=== PATIENT | male | born 1955 | race African-American/Black ===

== ENCOUNTER 2018-11-15 09:57 | Outpatient (CLI) | payer MEDICARE, MEDICAID | END 2018-11-15 09:58 | disposition home or self-care (01) | LOC: CTENTCT 09:57 | PROVIDERS: ATTEND Specialist | DX: R09.81 Nasal congestion (principal) | CPT/HCPCS: 70486 ==

== ENCOUNTER 2018-12-06 11:14 | Inpatient (IN) | payer MEDICARE, MEDICAID ==
[2018-12-06] MEDS ORDERED: Midazolam HCl 2 mg/2 ml Vial ONE (12:53)
[2018-12-06] MEDS ORDERED: Fentanyl 100 MCG/2 ML VIAL ONE ×3 (12:53→15:05)
[2018-12-06] MEDS ORDERED: Lidocaine 4% Topical Sol 50 ML BOT ONE (12:53)
[2018-12-06 12:54] LABS: #Eosinphils 0.1 thou/uL (0.0-0.7); #Lymphocytes 1.2 thou/uL (1.20-3.40); #Monocytes 0.8 thou/uL (0.11-0.59); #Neutrophils 4.2 thou/uL (1.40-6.50); %Basophils 0.6 % (0.0-1.0); %Lymphocytes 19.2 % (21.0-51.0); %Monocytes 11.9 % (0.0-10.0); %Neutrophils 67.2 % (42.0-75.0); Hemoglobin 12.2 g/dL (14.0-18.0); Mean Corpuscular HGB CONC 31.7 g/dL (32.0-36.0); Mean Corpuscular Hemoglobin 30.3 pg (27.0-31.0); Mean Corpuscular Volume 95.4 fL (78.0-98.0); Mean Platelet Volume 6.2 fL (7.4-10.4); Platelet Count 283 thou/uL (130-400); Red Blood Cell (RBC) Count 4.04 mill/uL (4.70-6.10); White Blood Cell (WBC) Count 6.3 thou/uL (4.8-10.8)
[2018-12-06] MEDS ORDERED: EPINEPHrine 1 MG/ML AMP ONE (13:04)
[2018-12-06] MEDS ORDERED: Lidocaine 1% w/Epinephrine 1:100K 20 ML VIAL ONE (13:04)
[2018-12-06 13:12] LABS: ALT (SGPT) 15 U/L (8-55); AST (SGOT) 16 U/L (5-34); Albumin 3.7 g/dL (3.4-4.8); Alkaline Phosphatase 58 U/L (40-150); Anion Gap 12 mmol/L (10-20); BUN (Urea Nitrogen) 10 mg/dL (8.4-25.7); Bilirubin, Total 0.4 mg/dL (0.2-1.2); Calc. Creatinine Clearance 0 mL/min (70-130); Calcium 9.4 mg/dL (7.8-10.44); Carbon Dioxide 28 mmol/L (23-31); Chloride 100 mmol/L (98-107); Estimated GFR-MDRD Greater than 90; Glucose 107 mg/dL (80-115); Potassium 4.2 mmol/L (3.5-5.1); Protein, Total 7.7 g/dL (5.8-8.1); Sodium 136 mmol/L (136-145)
[2018-12-06] MEDS ORDERED: Benzocaine 20% Spray 60 ML CAN ONE (13:19)
--- NOTE | 2018-12-06 13:42 | RAD ---
PORTABLE CHEST ONE VIEW: 12/06/2018 1:03 p.m. HISTORY: Dyspnea. Cough. Sore throat. COMPARISON: 11/16/2018 FINDINGS: The heart size is normal. There is evidence of old granulomatous disease. No focal areas of consoli dation, pneumothoraces, or pleural effusions are seen. IMPRESSION: No radiographic evidence of acute cardiopulmonary process. POS: OFF
[2018-12-06] MEDS ORDERED: Clindamycin/D5W 900 mg/50 ml Premix Bag ONE (14:14)
--- NOTE | 2018-12-06 14:41 | HP ---
The patient seen in consultation by the emergency room for upper airway distress. BRIEF HISTORY: A 63-year-old gentleman, who reported worsening breathing and dysphonia progressive over the past 5 months now to the point where he is having acute airway episodes when he lays down or has thick secretions. He had a CT scan of his neck performed last week with Dr. Lara. He was actually supposed to follow up today, but he has had progression of his symptoms. CT scan of the neck confirms a large supraglottic mass on the left side extending and involving the vocal cord and possibly the subglottic area. The airway was marginal. He reports mild dysphagia to solids and liquids progressive over the past 2 to 3 months. PAST MEDICAL HISTORY: HIV. PAST SURGICAL HISTORY: Lower limb amputation. ALLERGIES: NO KNOWN DRUG ALLERGIES. MEDICATIONS: HIV antiviral, monotherapy only. FAMILY HISTORY: Positive for diabetes and hypertension. SOCIAL HISTORY: Quit smoking in 2005. He denies any IV drug use or alcohol. REVIEW OF SYSTEMS: GENERAL: He has had no fevers or chills. RESPIRATORY: He has had increasing upper airway, shortness of breath, cough, and wheezing. HEME: No history of bleeding disorders. Immunizations up to date. CARDIOVASCULAR: No chest pains. No orthopnea. PHYSICAL EXAMINATION: GENERAL: The patient is resting in bed, fairly comfortably. He does have some inspiratory stridor present. Voice is harsh and raspy. He is tolerating his secretions well. HEENT: Oral cavity, oropharynx shows no trismus. Mucosa is intact. NECK: Shows no obvious lymphadenopathy or masses. Thyroid and laryngeal structures appear to be within normal limits by bimanual palpation. EARS: TMs intact. Middle ear is well aerated. PROCEDURE: Flexible laryngoscopy was performed at the bedside. Topical anesthesia was applied to the nasal cavity. Following this, the flexible laryngoscope was used to examine the nasal cavity and nasopharynx, which was clear. There is a large left supraglottic mass involving the left elvira epiglottis, left aryepiglottic fold extending through the left false vocal cord and true vocal cords, and unable to assess for subglottic extension. The right vocal cord is mobile; however, the airway is less than 3 mm to 5 mm. Piriform sinuses on the right vallecula and base of tongue appear to be clear. ASSESSMENT: 1. 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 2. Upper airway obstruction. 3. Stridor. 4. Dysphagia. PLAN: Discussed risks, benefits, and alternatives of direct laryngoscopy, biopsy and emergent tracheostomy. We will proceed to the operating room emergently to secure his airway. Job ID: [id number]
[2018-12-06] MEDS ORDERED: PROPOFOL 200 MG/20 ML VIAL ONE (15:06)
[2018-12-06] MEDS ORDERED: Ondansetron PF 4 MG/2 ML Vial ONE (15:06)
[2018-12-06] MEDS ORDERED: Dexamethasone 20 MG/5 ML VIAL ONE (15:06)
[2018-12-06] MEDS ORDERED: Hydrocodone-Acetamin 15 ML UDCUP PO PRN (16:03)
[2018-12-06] MEDS ORDERED: Ondansetron PF 4 MG/2 ML Vial SLOW IVP PRN (16:06)
[2018-12-06] MEDS: Hydrocodone-Acetamin 15 ML UDCUP PO PRN (16:34)
[2018-12-06] MEDS: Sodium Chloride 0.45% 1,000 ML IV SCH (16:44)
--- NOTE | 2018-12-06 17:13 | RAD ---
PORTABLE AP CHEST X-RAY 12/06/18 HISTORY: Post tracheostomy. COMPARISON: 12/06/18 at 1303 hours. FINDINGS: There has been interval placement of a tracheostomy device. The cardiac silhouette and bronchovascula r markings are accentuated by shallow depth o inspiration. There is increased density seen at each l azar base probably related to atelectasis, although aspiration pneumonitis right lung base cannot be e ntirely excluded. Followup chest x-ray with better depth of inspiration is recommended. There is evid ence of prior granulomatous disease. The cardiac silhouette is magnified by projection but may be mil dly enlarged. Pulmonary vasculature is within normal limits. IMPRESSION: 1. Linear densities left lung base probably related to atelectasis, but there is also linear and slight hazy patchy densities in the right lung base which may be related to atelectasis as well, but aspiration pneumonitis cannot be entirely excluded. Follow up chest x-ray with better depth of inspi ration is recommended. 2. Interval placement of tracheostomy device. POS: CRISTIAN
[2018-12-06] MEDS ORDERED: CEFAZOLIN 2 GM in Premix Bag 1 BAG IVPB SCH (18:00)
--- NOTE | 2018-12-06 18:26 | CON ---
DATE OF CONSULTATION: 12/06/2018 CONSULTING PHYSICIAN: Dr. Taylor. REASON FOR CONSULTATION: Postop CCU management. HISTORY OF PRESENT ILLNESS: Mr. Cobian is a 63-year-old male, who is just back from the OR with fresh tracheostomy. He presented to the ER with impending airway obstruction from a supraglottic mass. I cannot get much in the way history other than what is in the history and physical as the patient cannot communicate. PAST MEDICAL HISTORY: HIV and peripheral vascular disease. PAST SURGICAL HISTORY: He has had a left foot amputation and a right ojvmp-xoe-hysh amputation and a tracheostomy today. ALLERGIES: NONE. MEDICATIONS: Not sure. FAMILY MEDICAL HISTORY: Diabetes and hypertension. SOCIAL HISTORY: Quit smoking in 2005. Apparently, does not use alcohol or illicit drugs. REVIEW OF SYSTEMS: Cannot be obtained as the patient cannot communicate locally at this time. PHYSICAL EXAMINATION: VITAL SIGNS: O2 saturation 94%, respiratory rate 18, blood pressure 120/70, and pulse 130. GENERAL: He is awake. He is coughing. HEENT: Pupils react. Sclerae icteric. Oropharynx dry. NECK: Fresh trach in place with some bleeding on the outer edges. He has swelling on the left side of his neck. CARDIAC: S1 and S2, tachycardic. LUNGS: Clear. ABDOMEN: Soft and nontender. EXTREMITIES: Right gyesi-xco-qwxz amputation and left bbxew-rzr-[id number] amputation. LABORATORY DATA: Sodium 136, potassium 4.2, BUN 10, creatinine 0.8, glucose 107, calcium 9.4. White blood cell count 6.3, hematocrit 38.5, and platelet count 283. ASSESSMENT: Status post tracheostomy for impending airway obstruction. PLAN: Definitive treatment with tracheostomy has been performed. His home medications will be sought and restarted. Further care per his primary care team. No further Pulmonary/Critical Care recommendations at this time. Job ID: [id number]
[2018-12-06] MEDS: methylPREDNISolone Sod Succ 40 MG VIAL IVP SCH (18:29)
--- NOTE | 2018-12-06 18:57 | OP ---
DATE OF PROCEDURE: 12/06/2018 PREOPERATIVE DIAGNOSES: 1. Upper airway obstruction. 2. Stridor. 3. Laryngeal mass. 4. Dysphagia. POSTOPERATIVE DIAGNOSES: 1. Upper airway obstruction. 2. Stridor. 3. Laryngeal mass. 4. Dysphagia. PROCEDURES PERFORMED: 1. Direct laryngoscopy with biopsy. 2. Emergent tracheotomy. ESTIMATED BLOOD LOSS: 50 mL. COMPLICATIONS: None. ANESTHESIA: GETA. DESCRIPTION OF PROCEDURE: The patient was taken to the operating room, awake, fiberoptic intubation was attempted by Anesthesia staff and myself, however, secondary to the mass effect of the larynx, the tube was unable to be safely advanced into the airway and therefore, emergent tracheotomy procedure was declared. The patient's neck was prepped and draped in standard surgical fashion. A horizontal incision was made approximately 2 cm above the sternal notch. This incision was carried through skin and subcutaneous tissue. The strap muscles were identified and were in the midline. The thyroid gland was then identified and was transected with the Bovie electrocautery in its midline. The thyroid gland retracted laterally. The trachea was exposed and a 15 blade and curved scissors were used to create an inferiorly based Blair tracheal flap. The 2-0 silk suture was secured to this tracheal flap and a 6-0 Shiley cuffed tube with placed into the trachea. Bilateral breath sounds were obtained and tidal CO2 was obtained and the trach was secured to the patient's neck. Following this, the mouth guard was placed into the oral cavity. A shoulder roll was placed and a Dedo laryngoscope was then used to visualize oral cavity and oropharynx, which showed no mucosal lesions. On inspection of the larynx, there was a large left aryepiglottic mass extending and involving the lateral aspect of the epiglottis that did not cross the midline of the epiglottis. The mass then extended posteriorly to involve the entire left arytenoid, left false vocal cord, and left true vocal cord. There appeared to be 5 mm of subglottic extension. The piriform sinuses on this left side, the medial wall was involved with the tumor of the lateral wall and anterior wall and posterior wall of the left piriform sinuses showed no evidence of tumor. The remaining laryngeal structures showed no signs of mucosal disease. Biopsies were taken off the left-sided aryepiglottic mass. The patient tolerated the procedure well, was taken to the ICU in stable condition. Job ID: [id number]
[2018-12-06] MEDS: Famotidine/PF 20 mg/2ml Vial SLOW IVP SCH (21:11)
[2018-12-07] MEDS: methylPREDNISolone Sod Succ 40 MG VIAL IVP SCH ×5 (00:28→23:26)
[2018-12-07] MEDS: Sodium Chloride 0.45% 1,000 ML IV SCH ×3 (00:28→16:26)
[2018-12-07] MEDS: Hydrocodone-Acetamin 15 ML UDCUP PO PRN (00:29)
[2018-12-07] MEDS: Scopolamine 1.5 mg/72 hour Patch TD SCH (08:36)
[2018-12-07] MEDS: Famotidine/PF 20 mg/2ml Vial SLOW IVP SCH ×2 (08:37→20:50)
--- NOTE | 2018-12-07 08:38 | PRG ---
DATE OF SERVICE: 12/07/2018 SUBJECTIVE: The patient is doing okay except for secretions from trach. OBJECTIVE: VITAL SIGNS: On exam, temperature is 97.9, pulse 77, blood pressure 116/78, and O2 sat 97%. HEENT: Unremarkable. NECK: Trach in good position with secretions present. CARDIAC: S1 and S2, regular. LUNGS: Clear. ABDOMEN: Soft, nontender. EXTREMITIES: No edema. LABORATORY DATA: No labs were obtained. ASSESSMENT: 1. Status post trach for supraglottic obstruction secondary to tumor. 2. Human immunodeficiency virus. PLAN: Add scopolamine patch. Continue low-dose steroids for a day or two. Can go out to the floor any time if okay with ENT. No further recommendations at this time. Job ID: [id number]
[2018-12-08] MEDS: methylPREDNISolone Sod Succ 40 MG VIAL IVP SCH ×3 (05:54→17:44)
[2018-12-08] MEDS: Famotidine/PF 20 mg/2ml Vial SLOW IVP SCH ×2 (10:08→20:30)
--- NOTE | 2018-12-08 22:02 | CON ---
DATE OF CONSULTATION: SUBJECTIVE: Mr. Cobian is being visited for a postprocedure tracheotomy that was performed in the emergency room on Tuesday by Dr. Taylor. He has been admitted since then. The patient reports that he is doing well. He is currently on 28% oxygen with the trach and is having a suction regularly. OBJECTIVE: Mr. Cobian is a well-developed and well-nourished -[place] male. He is HIV positive. He currently has a trach in place with oxygen being administered through the trach again at 28%. Trach site is healing well. There is no sign of infection. He states that when the oxygen is removed and then he is on suction, he still feels like he can breath normally. He has not yet received any kind of home care training to date, otherwise he is doing well. ASSESSMENT: 1. Supra-epiglottal mass. 2. Postop visit tracheotomy. 3. Human immunodeficiency virus positive. PLAN: 1. Respiratory therapy will begin to wean off oxygen and teach trach care and suctioning. 2. Speech therapy for Passy-Haywood valve. 3. Social work will work with home trach supplies and home suction kit along with trach supplies for a #6 trach. 4. Nursing also to teach general trach care. 5. When all teaching has been completed and supplies are in place, to include home suction machine in all trach supplies. Okay to discharge per Ear, Nose, and Throat. 6. Follow up with Dr. Taylor at clinic. Job ID: [id number]
[2018-12-09] MEDS: methylPREDNISolone Sod Succ 40 MG VIAL IVP SCH ×4 (00:28→17:55)
[2018-12-09] MEDS: Famotidine/PF 20 mg/2ml Vial SLOW IVP SCH ×2 (08:12→21:00)
[2018-12-10] MEDS: methylPREDNISolone Sod Succ 40 MG VIAL IVP SCH ×5 (01:05→23:56)
[2018-12-10] MEDS: Scopolamine 1.5 mg/72 hour Patch TD SCH (08:49)
[2018-12-10] MEDS: Famotidine/PF 20 mg/2ml Vial SLOW IVP SCH ×2 (08:49→20:13)
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
[2018-12-11] MEDS: methylPREDNISolone Sod Succ 40 MG VIAL IVP SCH ×3 (06:08→18:00)
[2018-12-11] MEDS: Famotidine/PF 20 mg/2ml Vial SLOW IVP SCH ×2 (09:05→20:13)
[2018-12-11] MEDS: Senokot S 8.6-50 MG TAB PO SCH ×2 (09:06→20:13)
[2018-12-11 12:15] VITALS: BMI 28.0
--- NOTE | 2018-12-11 14:28 | PDOC.PN ---
- Subjective Encounter Start Date: 12/11/18 Encounter Start Time: 02:00 Subjective: PATIENT EVALAUTED AND MEDICAL MANAGEMENT AFEBRILE AND S/P TRACH - Objective FULL SUPPORT MAR Reviewed: Yes Vital Signs & Weight: Vital Signs (12 hours) Temp Pulse Resp BP BP Pulse Ox 12/11/18 12:34 98.3 F 108 H 16 137/70 95 12/11/18 08:38 98.4 F 71 16 145/75 H 94 L 12/11/18 08:00 94 L 12/11/18 04:00 98.3 F 63 16 131/70 96 Weight Admit Weight 168 lb 3.403 oz Weight 168 lb 3.403 oz Most Recent Monitor Data Heart Rate from ECG 103 NIBP 153/80 NIBP BP-Mean 104 Respiration from ECG 20 SpO2 98 I&O: 12/10/18 12/11/18 12/12/18 06:59 06:59 06:59 Intake Total 960 290 Output Total 1225 800 Balance -265 -510 Result Diagrams: 12/06/18 12:37 12/06/18 12:37 Phys Exam - Physical Examination TRACH IN PLACE HEENT: moist MMs Neck: no nodes, no JVD Respiratory: no wheezing, no rales Cardiovascular: RRR, no significant murmur Gastrointestinal: soft, non-tender, no distention Musculoskeletal: no edema, pulses present Neurological: non-focal, normal sensation Lymphatic: no nodes Psychiatric: normal affect, A&O x 3 Skin: no rash Dx/Plan (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 - NEOPLASM OF UNCERTAIN BEHAVIOR OF TRACHEA, BRONCHUS AND LUNG Status: Acute (2) HIV (human immunodeficiency virus infection) Code(s): B20 - HUMAN IMMUNODEFICIENCY VIRUS [HIV] DISEASE Status: Acute Qualifiers: HIV symptom status: asymptomatic Qualified Code(s): Z21 - Asymptomatic human immunodeficiency virus [HIV] infection status (3) GERD (gastroesophageal reflux disease) Code(s): K21.9 - GASTRO-ESOPHAGEAL REFLUX DISEASE WITHOUT ESOPHAGITIS Status: Acute (4) Tracheostomy care Code(s): Z43.0 - ENCOUNTER FOR ATTENTION TO TRACHEOSTOMY Status: Acute - Plan plan discussed w/ family, respiratory therapy, incentive spirometry MEDICAL MANAGEMENT * . DISCHARGE PLAN PER PRIMARY TEAM
--- NOTE | 2018-12-11 22:31 | CON ---
DATE OF CONSULTATION: 12/11/2018 REQUESTING PHYSICIAN: Dr. Roman Taylor. REASON FOR CONSULTATION: PEG tube placement. HISTORY OF PRESENT ILLNESS: Mr. Yrn Cobian is a very pleasant 63-year-old gentleman with a history of HIV, on antiviral therapy. He quit smoking in 2005. He presented to the emergency department with stridor and shortness of breath, complained of some mild dysphagia to solids and liquids over the past 2 to 3 months. He was found to have a large supraglottic mass by CT of the neck. He was actually taken for emergent tracheostomy and biopsy of this supraglottic mass. 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 Over the past few days since then, he has been recovering, getting use to his tracheostomy. He reports no shortness of breath. He is handling his secretions okay. He tells me that he has been having some dysphagia to solids and liquids, really more over the past several days, less so prior to presentation. We are consulted for consideration of PEG tube placement given the dysphagia, new tracheostomy, also potentially radiation therapy/chemotherapy being planned. The patient has had no prior abdominal surgeries. PAST MEDICAL HISTORY: HIV. PAST SURGICAL HISTORY: Left lower limb amputation. ALLERGIES: NO KNOWN DRUG ALLERGIES. MEDICATIONS: 1. Hydrocodone p.r.n. 2. DuoNebs p.r.n. 3. IV cefazolin q.8 hours. 4. Pepcid 20 mg IV b.i.d. 5. Solu-Medrol 20 mg IV q.6 hours. 6. Scopolamine patch. 7. Senna p.r.n. FAMILY HISTORY: Positive for diabetes and hypertension. SOCIAL HISTORY: Quit smoking in 2005. No IV drug use or alcohol abuse. REVIEW OF SYSTEMS: Full review of systems including constitutional, head, eyes, ears, nose, throat, GI, , cardiovascular, respiratory, musculoskeletal, neurologic systems is negative except as noted in the HPI. PHYSICAL EXAMINATION: VITAL SIGNS: Temperature 98.3, pulse 108, blood pressure 137/70, and 95% oxygen saturation on room air. GENERAL: A 63-year-old man sitting up in bed comfortably, in no distress. MENTAL: He is alert and fully oriented. Pleasant, conversational. He can give a coherent history and answers questions appropriately through writing and by physical gestures. EYES: No scleral icterus. Extraocular movements intact. ENT: He has a tracheostomy. Mucous membranes are moist. THYROID: Nontender to palpation. HEART: Regular rate and rhythm. LUNGS: Clear to auscultation bilaterally. ABDOMEN: Soft. Bowel sounds present. Nontender to palpation. No masses or organomegaly appreciated. No surgical scars apparent to the left upper quadrant. EXTREMITIES: No peripheral edema. He is status post left kuqfa-cyf-nrvt amputation. VESSELS: Radial pulses 2+ bilaterally. NEUROLOGIC: Cranial nerves 2 through 12 intact bilaterally. LABORATORY STUDIES: WBC 6.3, hemoglobin 12.2, and platelets 283. Sodium 136, potassium 4.2, BUN 10, and creatinine 0.80. Total bilirubin 0.4, alkaline phosphatase 58, AST 16, and ALT 15. Albumin 3.7. ASSESSMENT AND PLAN: Oropharyngeal dysphagia, secondary to supraglottic carcinoma and new tracheostomy. I had a long discussion with the patient that PEG tube placement is certainly indicated in his case. He is tolerating food at this time, but does have some progressive dysphagia and expect symptoms very well may worsen with upcoming treatments. We discussed the risks and benefits to PEG tube placement. He desires to proceed. We scheduled this for tomorrow. Thank you for the consultation. Please call back anytime with questions or concerns. Job ID: [id number]
[2018-12-12] MEDS ORDERED: Bacteriostatic Water 30 ML VIAL FS PRN (01:06)
[2018-12-12] MEDS: methylPREDNISolone Sod Succ 40 MG VIAL IVP SCH ×4 (01:33→17:26)
[2018-12-12] MEDS: Senokot S 8.6-50 MG TAB PO SCH ×2 (08:48→22:00)
[2018-12-12] MEDS: Famotidine/PF 20 mg/2ml Vial SLOW IVP SCH ×2 (08:48→22:00)
--- NOTE | 2018-12-12 12:00 | PDOC.PN ---
- Subjective Encounter Start Date: 12/12/18 Encounter Start Time: 10:00 Subjective: PATIENT HAS DIFFICULTY EATING OR DRINKING WITH ASPIRATION PREC. - Objective FULL SUPPORT MAR Reviewed: Yes Vital Signs & Weight: Vital Signs (12 hours) Temp Pulse Resp BP BP Pulse Ox 12/12/18 11:28 98.2 F 83 16 149/75 H 94 L 12/12/18 08:16 98.3 F 78 16 116/71 94 L 12/12/18 08:00 94 L 12/12/18 06:47 97 12/12/18 04:00 98.1 F 80 20 118/84 95 12/12/18 00:00 98 F 76 18 121/65 93 L Weight Admit Weight 168 lb 3.403 oz Weight 168 lb 3.403 oz Most Recent Monitor Data Heart Rate from ECG 103 NIBP 153/80 NIBP BP-Mean 104 Respiration from ECG 20 SpO2 98 I&O: 12/11/18 12/12/18 12/13/18 06:59 06:59 06:59 Intake Total 960 775 290 Output Total 1225 800 Balance -265 -25 290 Result Diagrams: 12/06/18 12:37 12/06/18 12:37 Phys Exam - Physical Examination HEENT: moist MMs TRACH IN PLACE Neck: no JVD, supple Respiratory: no wheezing, no rales, no rhonchi Cardiovascular: no significant murmur, no rub Gastrointestinal: soft, non-tender, no distention, positive bowel sounds Musculoskeletal: pulses present RIGHT AKA AND LEFT FOOT AMPUTATION H/O Neurological: non-focal, normal sensation Psychiatric: normal affect, A&O x 3 Skin: no rash Dx/Plan (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 - NEOPLASM OF UNCERTAIN BEHAVIOR OF TRACHEA, BRONCHUS AND LUNG Status: Acute (2) HIV (human immunodeficiency virus infection) Code(s): B20 - HUMAN IMMUNODEFICIENCY VIRUS [HIV] DISEASE Status: Acute Qualifiers: HIV symptom status: asymptomatic Qualified Code(s): Z21 - Asymptomatic human immunodeficiency virus [HIV] infection status (3) GERD (gastroesophageal reflux disease) Code(s): K21.9 - GASTRO-ESOPHAGEAL REFLUX DISEASE WITHOUT ESOPHAGITIS Status: Acute (4) Tracheostomy care Code(s): Z43.0 - ENCOUNTER FOR ATTENTION TO TRACHEOSTOMY Status: Acute - Plan continue antibiotics PATIENT SCHEDULED FOR PEG TUBE PLACEMENT TODAY. * .
[2018-12-12] MEDS ORDERED: PROPOFOL 200 MG/20 ML VIAL ONE (14:28)
[2018-12-12] MEDS ORDERED: Lidocaine 1% PF 5 ML VIAL ONE (14:28)
[2018-12-12] MEDS ORDERED: Sodium Chloride 0.9% 0 ML ONE (15:06)
[2018-12-12] MEDS ORDERED: Sodium Chloride For Inhalation 0.9% 3 ML NEB ONE (15:07)
--- NOTE | 2018-12-12 17:09 | CON ---
DATE OF CONSULTATION: SUBJECTIVE: Mr. Cobian continues to be in the hospital post emergency tracheostomy due to a supraglottic mass. He is doing well. He is beginning to tolerate his Passy Brennan valve better. Speech Therapy continues to work with him for some swallowing dysfunction, but overall, doing well. OBJECTIVE: Mr. Cobian is well developed and well nourished. He is in very good spirits. Tracheostomy is in place. There appears to be no sign of any infection. He is sitting up on the side of his bed. He is overall doing well. He is still remained on liquid diet due to his swallowing dysfunction. ASSESSMENT: 1. Postoperative tracheostomy. 2. Supraglottic mass. 3. Human immunodeficiency virus positive. PLAN: 1. Speech therapy to continue to work with him for swallowing dysfunction. Continue liquid diet. 2. GI consult for possible G-tube placement. 3. Dr. Taylor to follow up to discuss supraglottic mass and what will need to be done there. Job ID: [id number]
--- NOTE | 2018-12-12 21:31 | PRG ---
DATE OF SERVICE: SUBJECTIVE: Mr. Cobian continues to improve. He is doing well with his trach. He has received all of his training. He feels comfortable using suction and all other aspects. Reports that he will get his G-tube placed today and then he will receive training on that. OBJECTIVE: Mr. Cobian is a well developed, well nourished. He is in good spirits. He was sitting upright upon entering the room. The trachea is in place. Appears well. No problems there. ASSESSMENT: 1. Tracheostomy. 2. Supraglottic mass. 3. Human immunodeficiency virus positive. PLAN: After G-tube placement and proper training, okay to discharge with all necessary supplies for trach. Follow up with ENT upon discharge. Job ID: [id number]
[2018-12-13] MEDS: methylPREDNISolone Sod Succ 40 MG VIAL IVP SCH ×2 (01:37→06:42)
--- NOTE | 2018-12-13 08:08 | OP ---
DATE OF PROCEDURE: 12/12/2018 PREOPERATIVE DIAGNOSIS: Oropharyngeal dysphagia. DESCRIPTION OF PROCEDURE: After informed consent was obtained, the patient was placed in the left lateral decubitus position. Anesthesia was administered per the Anesthesia Department. Forward-viewing endoscope was inserted into esophagus under direct visualization with ease and passed to the second portion of the duodenum with ease. No mucosal abnormalities were noted. The area was prepped and draped in usual manner. Anesthesia was applied with 1% lidocaine. A needle was inserted through the abdominal wall. An guidewire was passed, snared and brought out of the abdominal wall after a small incision was made. The PEG tube was brought through the abdominal wall, reinsertion of the endoscope showed the PEG bumper to be in good position. ASSESSMENT: Successful percutaneous endoscopic gastrostomy. RECOMMENDATIONS: Begin tube feedings in 8 hours. Job ID: [id number]
[2018-12-13] MEDS: Senokot S 8.6-50 MG TAB PO SCH ×2 (08:27→20:29)
[2018-12-13] MEDS: Scopolamine 1.5 mg/72 hour Patch TD SCH (08:27)
[2018-12-13] MEDS: Famotidine/PF 20 mg/2ml Vial SLOW IVP SCH ×2 (08:28→20:29)
--- NOTE | 2018-12-13 11:29 | PRG ---
DATE OF SERVICE: 12/13/2018 SUBJECTIVE: The patient had his PEG tube placed yesterday. He does not have much complaints to offer. There was no any unexpected event overnight. OBJECTIVE: VITAL SIGNS: Blood pressure is 119/74, pulse is 80, respiratory rate is 14, temperature is 98.6, O2 saturation is 99% on 6 L by trach collar. HEENT: His head is atraumatic and normocephalic. Eyes are PERRLA. Sclerae are nonicteric. Conjunctivae are palish. Oral mucosa is moist. NECK: Tracheostomy is in place. HEART: S1 and S2, normal. No S3. No S4. No any murmur. ABDOMEN: Soft and nontender. PEG tube is in place. Bowel sounds are present. No organomegaly. EXTREMITIES: Right xjwbo-tjc-ueqo amputee. Left jvbsy-cxm-kjskr amputee. 1+ peripheral edema. NEUROLOGIC: He is alert and oriented. He is able to follow my commands. There are no any motor deficits. LABORATORY DATA: None. IMPRESSION: 1. Supraglottic mass, status post biopsy, awaiting for pathology report. 2. Human immunodeficiency virus, asymptomatic. The patient did not get his home medications to take since we do not have this medication on formulary. 3. Tracheostomy placement. 4. Gastroesophageal reflux disease. PLAN: The patient is tolerating 50 mL of 1.5 formula. I think this is the right rate according to calculation made by a funeral driver/dietitian, and we will continue that. Most likely, he will be switched to bolus if he tolerates his feeding by tomorrow, and we will switch him from IV steroids to p.o. prednisone 20 mg once a day. Job ID: [id number]
--- NOTE | 2018-12-13 17:51 | PRG ---
DATE OF SERVICE: 12/13/2018 Mr. Cobian is doing well after PEG placement yesterday. He has no complaints other than a mild amount of soreness at the site. Tube feeds are going in just fine. No abdominal pain, nausea, or vomiting associated with this. The PEG site looks good. I loosened the external bumper to distance of 5 cm. Tube feeds are being advanced per dietitian's recommendations and hopefully will be able to go to bolus feeds tomorrow. GI will sign off, but please call back anytime with questions or concerns. Job ID: [id number]
[2018-12-14] MEDS ORDERED: predniSONE 20 MG TAB PO SCH (08:00)
[2018-12-14] MEDS: Senokot S 8.6-50 MG TAB PO SCH (08:30)
[2018-12-14] MEDS: Famotidine/PF 20 mg/2ml Vial SLOW IVP SCH (08:38)
--- NOTE | 2018-12-14 11:53 | PRG ---
DATE OF SERVICE: 12/14/2018 SUBJECTIVE: The patient is seen and examined at the bedside. He seems to be doing okay. There was no any unexpected events overnight. OBJECTIVE: VITAL SIGNS: Blood pressure is 100/64, pulse is 81, temperature is 98.1, respiratory rate is 18, O2 saturation is 99% on a 6 L by tracheal collar. HEENT: His eyes are PERRLA. Sclerae are nonicteric. Oral mucosa is moist. NECK: With tracheostomy tube in place. LUNGS: Clear. HEART: S1, S2 normal. ABDOMEN: Soft, nontender, nondistended. PEG tube in place. EXTREMITIES: Right qtizs-hoo-mcte amputee and left boxho-zve-ggqbx amputee. Stump looks good. NEUROLOGIC: He is alert and oriented x3. There are no any motor deficits. LABORATORY DATA: None. IMPRESSION: 1. Supraglottic mass, status post biopsy. Awaiting for pathology report. 2. Human immunodeficiency virus, asymptomatic. 3. Tracheostomy in place. 4. Status post PEG tube placement. The patient is tolerating feeding well without any residuals. PLAN: Switch him to bolus feeding per dietitian and from my point, the patient can be discharged home on a tapering dose of prednisone. Job ID: [id number]
[2018-12-14 16:32] VITALS: BP 122/72; TEMP 98.7
[2018-12-15] MEDS ORDERED: predniSONE 20 MG TAB PO SCH (08:00)
[2018-12-18] MEDS ORDERED: predniSONE 20 MG TAB PO SCH (08:00)
[2018-12-20] MEDS ORDERED: predniSONE 5 MG TAB PO SCH (08:00)
[2018-12-22] MEDS ORDERED: predniSONE 5 MG TAB PO SCH (08:00)
== END 2018-12-14 16:30 | disposition home health service (06) | DRG 13 ==
LOC: ERS 11:14 → CCU 14:43 → SURG B 12-07 19:21
PROVIDERS: ADMIT Otolaryngology Plastic Surgery within the Head & Neck; ATTEND Otolaryngology Plastic Surgery within the Head & Neck
PROC: 0B110F4 Bypass Trachea to Cutaneous with Tracheostomy Device, Open Approach (ICD-10-PCS; principal; 2018-12-06)
PROC: 0CBR0ZX Excision of Epiglottis, Open Approach, Diagnostic (ICD-10-PCS; 2018-12-06)
PROC: 0DH63UZ Insertion of Feeding Device into Stomach, Percutaneous Approach (ICD-10-PCS; 2018-12-12)
DX: C32.1 Malignant neoplasm of supraglottis (principal); R13.12 Dysphagia, oropharyngeal phase; Z21 Asymptomatic human immunodeficiency virus [HIV] infection status; Z87.891 Personal history of nicotine dependence; K21.9 Gastro-esophageal reflux disease without esophagitis; D64.9 Anemia, unspecified; Z89.512 Acquired absence of left leg below knee; Z79.899 Other long term (current) drug therapy; Z89.611 Acquired absence of right leg above knee
CPT/HCPCS: 36415; 71045; 80053; 85025; 88305; 88313; 88341; 88342; 94640; J0171; J0690; J1100; J2001; J2250; J2405; J2704; J2920; J3010; J3490; J7620; S0028

== ENCOUNTER 2019-01-02 14:26 | Outpatient (CLI) | payer MEDICARE, MEDICAID ==
--- NOTE | 2019-01-02 16:25 | PET ---
FPET with CT skull to mid thigh CLINICAL HISTORY: Larynx cancer Reference is made to 11/30/2018 CT exam Radiopharmaceutical: 10.8 mCi fluorine 18 FDG IV. FINDINGS: The previously mentioned mass centered at the supraglottic and infraglottic larynx, effacing the norm al left vocal cord, with mass effect and rightward deviation at the level of the glottis is redemonst rated and hypermetabolic activity is confirmed, with SUV maximum ranging between 13-14. Separate foci of adjacent hypermetabolic activity of the left neck, notably at the left suprahyoid region demonstr ating SUV maximum of 10, compatible with metastatic adenopathy. Additional hypermetabolic lymph nodes of the left cervical chain with SUV maximum up to 7.3 are present within a left level 2 and 3 region . There is hypermetabolic activity involving the bilateral muscles of mastication as well as the tong ue bilaterally, which may relate to physiologic activity. There is a hypermetabolic nodule of the ant erior left upper lobe with SUV maximum of approximately 3.3. This does indicate metastatic disease. T here are numerous additional bilateral pulmonary nodules also indicative of metastatic disease, in li ght of concomitant findings. There is altered biodistribution with diffuse uptake within the body wall musculature which does decr ease sensitivity of the evaluation. An indwelling tracheostomy is present. There is also a percutaneous gastrostomy. Scattered granulomat ous calcifications are seen. There is a noninflamed fat-containing periumbilical hernia. IMPRESSION: Evidence of malignancy spanning the supraglottic to infraglottic larynx with metastatic a denopathy and pulmonary metastatic disease. Transcribed Date/Time: 01/02/2019 4:33 PM
== END 2019-01-02 14:27 | disposition home or self-care (01) ==
LOC: PET 14:26
PROVIDERS: ATTEND Internal Medicine Hematology & Oncology
DX: C32.9 Malignant neoplasm of larynx, unspecified (principal); C78.00 Secondary malignant neoplasm of unspecified lung; R59.0 Localized enlarged lymph nodes
CPT/HCPCS: 78815; A9552

== ENCOUNTER 2019-01-03 10:01 | Day surgery (SDC) | payer MEDICARE, MEDICAID ==
--- NOTE | 2019-01-02 13:46 | HP ---
HISTORY OF PRESENT ILLNESS: Giorgio Cobian is a 63-year-old male patient arrives in office in a wheelchair mouthing words and writing on paper as he is unable to speak due to tracheostomy. The patient is referred by Dr. 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 He has numerous pulmonary mets on his CAT scan of chest. He is to be referred to Dr. Kraus for palliative radiation therapy and he has been discussed in Tumor Board. I have been asked to see him regarding placement of a MediPort. We will plan placement of MediPort as an outpatient. Risks and benefits were discussed. He consents. SOCIAL HISTORY: Tobacco, none for 13 years. Alcohol, none. PAST MEDICAL HISTORY: HIV infection in 2009, head and neck cancer as described above. PAST SURGICAL HISTORY: He had electrocution in 1981 resulting in amputation of his left leg above the ankle and a right oymzj-bqe-dxeg amputation. He has been on disability since that time. He in the last week has undergone a PEG and a trach. He is independent at home otherwise. He has transportation for outpatient MediPort placement. REVIEW OF SYSTEMS: Noncontributory. PHYSICAL EXAMINATION: VITAL SIGNS: Temperature 97/56, pulse 115, temperature 99 degrees. GENERAL: The patient is alert, communicative by means described. LUNGS: Clear to auscultation. No wheezing. CARDIAC: Regular rate and rhythm without murmur or gallop. ABDOMEN: Soft and nontender. PEG tube in place. EXTREMITIES: Amputations as described. ASSESSMENT: Head and neck cancer. PLAN: MediPort. He understands risks and benefits. Job ID: [id number]
[2019-01-03] MEDS ORDERED: Sodium Chloride 0.9% 10 ML ONE (12:05)
[2019-01-03] MEDS ORDERED: Bupivacaine/Epinephrine 0.25% 30 ML VIAL ONE (12:05)
[2019-01-03] MEDS ORDERED: Lidocaine 2% PF 5 ML VIAL ONE (12:05)
[2019-01-03] MEDS ORDERED: Fentanyl 100 MCG/2 ML VIAL ONE (12:36)
--- NOTE | 2019-01-03 13:37 | RAD ---
FExam: Chest one view HISTORY:Cancer. Status post Mediport placement Comparison: 12/06/2018 FINDINGS: Cardiac silhouette: Normal Pulmonary vessels: Normal Costophrenic angles: Clear LUNGS: No consolidation. Left and right lung nodules are noted. Refer to PET imaging from yesterday for further detail Pneumothorax: None Right-sided Mediport catheter with the distal tip projecting over the superior vena cava Stable calcified AP window lymph nodes Osseous abnormalities: None IMPRESSION: 1. Right-sided Mediport catheter as above. No pneumothorax. 2. Lung parenchymal nodules as above.
--- NOTE | 2019-01-03 15:19 | OP ---
DATE OF PROCEDURE: 01/03/2019 PREOPERATIVE DIAGNOSES: Head and neck cancer, supraglottic cancer, dysphagia, in need of antineoplastic chemotherapy access. POSTOPERATIVE DIAGNOSES: Head and neck cancer, supraglottic cancer, dysphagia, in need of antineoplastic chemotherapy access. PROCEDURE PERFORMED: Placement of right subclavian vein standard size Powerflush MediPort. ANESTHESIA: General, local 0.5% Marcaine with epinephrine 30 mL. DESCRIPTION OF PROCEDURE: The patient was taken to the operating room, where under general anesthesia (tracheostomy) chest prepared with ChloraPrep and draped in routine fashion. Local anesthetic was infiltrated in the skin and subcutaneous tissue about the operative site. Trocar catheter introduced infraclavicularly, cannulating the subclavian vein and J-wire threaded, trocar catheter removed. Skin was incised and enlarged sharply, carried down through the skin and subcutaneous tissue, subcutaneous pocket created and a MediPort inserted, connected to the catheter which had been placed through the dilator and Peel-Away sheath placed over the J-wire. Removed the dilator and J-wire, and then the Peel-Away sheath and catheter tip was placed in optimal position of superior vena cava, tailored to length, connected to the MediPort. MediPort secured with 2 interrupted sutures of 3-0 Prolene and the subcutaneous tissue was approximated with 3-0 Monocryl, skin with subdermal 4-0 Monocryl. Fluoroscopic images revealed good line and MediPort placement. MediPort was accessed with a Welch needle and flushed with heparinized saline solution. Job ID: [id number]
[2019-01-03] MEDS ORDERED: PROPOFOL 200 MG/20 ML VIAL ONE (16:18)
[2019-01-03] MEDS ORDERED: Dexamethasone 20 MG/5 ML VIAL ONE (16:18)
[2019-01-03] MEDS ORDERED: Lidocaine 1% PF 5 ML VIAL ONE (16:18)
[2019-01-03] MEDS ORDERED: Ondansetron PF 4 MG/2 ML Vial ONE (16:18)
== END 2019-01-03 14:16 | disposition home or self-care (01) ==
LOC: SDC 10:01
PROVIDERS: ATTEND Specialist
PROC: 0JH63WZ Insertion of Totally Implantable Vascular Access Device into Chest Subcutaneous Tissue and Fascia, Percutaneous Approach (ICD-10-PCS; principal; 2019-01-03)
DX: C32.1 Malignant neoplasm of supraglottis (principal); C78.00 Secondary malignant neoplasm of unspecified lung; Z89.611 Acquired absence of right leg above knee; Z21 Asymptomatic human immunodeficiency virus [HIV] infection status; Z87.891 Personal history of nicotine dependence; Z79.899 Other long term (current) drug therapy; Z93.0 Tracheostomy status; Z93.1 Gastrostomy status
CPT/HCPCS: 36561; 71045; C1788; J1100; J1642; J2001; J2405; J2704; J3010

== ENCOUNTER 2019-02-01 09:52 | Day surgery (SDC) | payer MEDICARE, MEDICAID ==
[~2019-02-01 09:52] MED LIST: CARBOPLATIN IVPB SCH; DOCETAXEL IVPB SCH; Dexamethasone 10 MG/ML VIAL SLOW IVP SCH; PALONOSETRON HCL 0.05 MG/ML 5 ML VIAL IVP SCH; SODIUM CHLORIDE 0.9% IVPB SCH
[2019-02-01] MEDS ORDERED: Sodium Chloride 0.9% 30 ML ONE (10:43)
[2019-02-01 10:58] VITALS: BP 101/57; TEMP 98.5
== END 2019-02-01 17:08 | disposition home or self-care (01) ==
LOC: ONC/OP 09:52
PROVIDERS: ATTEND Internal Medicine Hematology & Oncology
DX: Z51.11 Encounter for antineoplastic chemotherapy (principal); C32.1 Malignant neoplasm of supraglottis
CPT/HCPCS: 96367; 96375; 96413; 96417; J1100; J1453; J1642; J2469; J3490; J7050; J9045; J9171

== ENCOUNTER 2019-02-04 19:45 | Emergency (ER) | payer MEDICARE, MEDICAID ==
[2019-02-04 20:41] LABS: Hemoglobin 10.7 g/dL (14.0-18.0); Mean Corpuscular Hemoglobin 27.3 pg (27.0-31.0); Mean Platelet Volume 6.5 fL (7.4-10.4); Platelet Count 335 thou/uL (130-400); RBC Distribution Width 14.3 % (11.5-14.5); White Blood Cell (WBC) Count 7.4 thou/uL (4.8-10.8)
[2019-02-04 20:58] LABS: ALT (SGPT) 30 U/L (8-55); AST (SGOT) 39 U/L (5-34); Albumin 3.3 g/dL (3.4-4.8); Alkaline Phosphatase 54 U/L (40-150); Anion Gap 11 mmol/L (10-20); BUN (Urea Nitrogen) 40 mg/dL (8.4-25.7); Bilirubin, Total 0.3 mg/dL (0.2-1.2); Calc. Creatinine Clearance 0 mL/min (70-130); Calcium 8.3 mg/dL (7.8-10.44); Carbon Dioxide 32 mmol/L (23-31); Chloride 98 mmol/L (98-107); Estimated GFR-MDRD Greater than 90; Globulin 3.6 g/dL (2.4-3.5); Glucose 124 mg/dL (80-115); Potassium 4.2 mmol/L (3.5-5.1); Protein, Total 6.9 g/dL (5.8-8.1); Sodium 137 mmol/L (136-145)
[2019-02-04 21:01] LABS: Band 4 % (5-11); Hypochromia SLIGHT = 6-15 cells (100X) (0-5/hpf); Lymphocytes 2 % (21-51); MDiff Complete? YES; Neutrophil 94 % (42-75); Platelet Morphology Comment Appears Adequate
[2019-02-04 21:44] LABS: Bilirubin Negative (Negative); Blood, Urine Large (Negative); Clarity TURBID (Clear); Glucose, Urine (Dipstick) Negative (Negative); Leukocyte Moderate (Negative); Nitrite Negative (Negative); Protein, Urine (Dipstick) 100 mg/dL (Neg-Trace)
[2019-02-04 21:47] LABS: Bacteria/HPF None Seen HPF (None Seen); Hyaline Casts/LPF 7-10 HYALINE CAST LPF (0-3 Hyaline); Squamous Epithelial 0-3 HPF (0-3)
[2019-02-04 21:48] LABS: Pathc Cast-AUWi Flag 3.29 (0-2.49); Yeast-AUWi Flag 80.6 (0-25.0)
[2019-02-04 21:49] LABS: RBC/HPF GREATER THAN 50-TNTC HPF (0-3); Specific Gravity, Urine 1.024 (1.002-1.036)
--- NOTE | 2019-02-04 21:58 | RAD ---
FRONTAL RADIOGRAPH CHEST: Date: 02-04-19 Comparison: 01-03-19 History: Cough. FINDINGS: Stable nonspecific lateral nodule noted in the left base. Tracheostomy tube and port-a-cath again not ed. Calcified nodes are again seen in the left hilar region. No focal consolidation or alveolar edema . No pneumothorax or pleural fluid. Stable pulmonary nodule also noted in the costophrenic angle sandra on on the right. IMPRESSION: Stable appearance of the chest as detailed above, demonstrating a stable nodule in the lateral left b ase, stable tracheostomy tube, and stable CT injectable right sided port-a-cath. POS: OFF
[2019-02-04] MEDS ORDERED: Ketorolac Tromethamine 30 MG/ML VIAL ONE (22:13)
[2019-02-04] MEDS ORDERED: Ondansetron ODT 4 MG TAB ONE (22:13)
--- NOTE | 2019-02-04 23:02 | CT ---
CT of abdomen and pelvis: 02/04/2019 COMPARISON: None HISTORY: Hematuria, leaking PEG TECHNIQUE: Axial CT imaging at 5 mm intervals from lung bases through pubic symphysis without contras t. Coronal reformatted imaging obtained. FINDINGS: Lack of contrast media limits assessment of the viscera, bowel, vascular structures, and fo r lymphadenopathy. Imaged lung bases demonstrate a nodule within the left upper lobe anteriorly measuring 9 mm, better a ssessed on PET/CT performed 01/02/2019. Similar pulmonary nodules noted within right lower lobe on image 2 measuring 5 mm and on image 15 measuring 8 mm. No free intraperitoneal air. Percutaneous gastrostomy tube in place with no CT evidence of adverse fe atures. Limited assessment of liver, gallbladder, spleen, pancreas, adrenal glands, and kidneys demonstrates no acute findings. There is no nephrolithiasis noted on either side. There is a vague cyst of the lower pole right kidne y. No evidence for obstructive uropathy is appreciated on either side. There is a small hiatal hernia. There is atherosclerotic calcification of the infrarenal abdominal aorta. Limited assessment of the bowel demonstrates no evidence for obstruction. There is muscular atrophy of the imaged right thigh. Review of the osseous structures demonstrates no worrisome lytic or blastic bone lesion. There is remote post traumatic change involving the right hemipelvis. IMPRESSION: Pulmonary nodules suspicious for metastatic disease. No acute findings.
== END 2019-02-05 00:19 | disposition home or self-care (01) ==
LOC: ERS 19:45
DX: R31.9 Hematuria, unspecified (principal); R11.0 Nausea; K94.23 Gastrostomy malfunction; K21.9 Gastro-esophageal reflux disease without esophagitis; Z87.891 Personal history of nicotine dependence
CPT/HCPCS: 36415; 71045; 74176; 80053; 81003; 81015; 85025; 86850; 86900; 86901; 87086; 96372; J1885; Q0162

== ENCOUNTER 2019-02-07 11:07 | Inpatient (IN) | payer MEDICARE, MEDICAID ==
[~2019-02-07 11:07] MED LIST changes: -CARBOPLATIN IVPB SCH; -DOCETAXEL IVPB SCH; -Dexamethasone 10 MG/ML VIAL SLOW IVP SCH; +Heparin 1,000 UNITS/ML VIAL ONE; -PALONOSETRON HCL 0.05 MG/ML 5 ML VIAL IVP SCH; -SODIUM CHLORIDE 0.9% IVPB SCH
[2019-02-07] MEDS ORDERED: Acetaminophen 325 MG TAB ONE (12:50)
[2019-02-07] MEDS ORDERED: Acetaminophen 325 MG TAB PO PRN (13:09)
[2019-02-07] MEDS ORDERED: Acetaminophen 650 MG Suppository PR PRN (13:09)
[2019-02-07] MEDS ORDERED: Bisacodyl 5 MG TAB PO PRN (13:09)
[2019-02-07] MEDS ORDERED: Vancomycin HCl 1 GM in Premix Bag 1 BAG IVPB SCH (13:15)
--- NOTE | 2019-02-07 13:36 | HP ---
PRIMARY CARE PROVIDER: Dr. Kathia uTrk. CHIEF COMPLAINT: Shortness of breath. HISTORY OF PRESENT ILLNESS: Mr. Cobian is a pleasant 63-year-old gentleman, who was seen at [facility] on February 07, 2019, following transfer from emergency room at [facility]. He has a history of HIV. He also has a throat cancer and is currently on chemotherapy. He presented to the emergency room at [facility] complaining of secretions through tracheostomy, constipation, and chills. He has had a temperature of 101.1 degrees Fahrenheit at [facility]. Chest x-ray was done, he was found to have left lower lobe infiltrate. He was also found to be neutropenic. He has been transferred to [facility] for further management. The patient reports cough. He reports change in his tracheostomy secretion color. He reports chills. He does not recall if he had a fever. He denies any nausea or vomiting. He denies any abdominal pain. REVIEW OF SYSTEMS: All other systems reviewed and found to be negative. PAST MEDICAL HISTORY: Gastroesophageal reflux disease; HIV; throat cancer, on chemotherapy; right above-knee amputation, left below-knee amputation, chemotherapy was on February 01, 2019, and pelvic fracture. PAST SURGICAL HISTORY: Tracheostomy, feeding tube placement, right above-knee amputation, left below-knee amputation, multiple skin grafts, right chest port placement. SOCIAL HISTORY: The patient denies tobacco use, alcohol use, or recreational drug use. FAMILY HISTORY: Heart disease in his siblings and diabetes mellitus in his siblings. ALLERGIES: NO KNOWN DRUG ALLERGIES. CURRENT MEDICATIONS: Prilosec 10 mg per G-tube daily, Stribild 150/150/200/300 mg per G-tube once daily, Mucinex 1200 mg per G-tube two times a day. PHYSICAL EXAMINATION: GENERAL: On examination, Mr. Cobian is awake and alert, not in acute distress. VITAL SIGNS: Blood pressure is 101/53, pulse 125, respiratory rate 24, and oxygen saturation 98% on room air. He is currently afebrile. EYES: No scleral icterus, no conjunctival pallor. ENT: mucosal membranes. NECK: Supple, nontender. The patient has tracheostomy, purulent secretions coming out of the tracheostomy. RESPIRATORY: Accessory muscles of breathing are mildly active. Chest wall movements are symmetric bilaterally. He has left basal bronchial breathing. CARDIOVASCULAR: S1 and S2 are heard, tachycardic and regular. ABDOMEN: Soft, nontender, PEG tube present. NEUROLOGIC: Cranial nerves 2 through 12 are intact. MUSCULOSKELETAL: Status post right AKA and left BKA, the patient is moving all 4 extremities. SKIN: No rashes or subcutaneous nodules. LYMPHATIC: No cervical lymphadenopathy. PSYCHIATRIC: Normal mood, normal affect, the patient is oriented to person, place, and time. LABORATORY DATA: Mr. Cobian' labs and investigations were reviewed. Abdominal x-rays done at [facility], which shows left lower lobe airspace opacity. He has leukopenia with 200 white cells, normocytic anemia with hemoglobin 10.4, normal platelet count. Hyponatremia with sodium 134, normal potassium, normal creatinine, elevated AST of 44, normal ALT, normal alkaline phosphatase. Urinalysis on February 04 was positive for leukocyte esterase and negative for nitrite. I also reviewed his portable chest x-ray from [facility], which shows left lower lobe infiltrate. ASSESSMENT AND PLAN: Mr. Cobian is a pleasant 63-year-old gentleman, who was seen at [facility] on February 07, 2019. His problem list includes: 1. Febrile neutropenia: Mr. Cobian is presenting with febrile neutropenia, most likely secondary to pneumonia. His neutropenia is most likely secondary to chemotherapy. He will be admitted to the hospital for further management. He has received vancomycin and cefepime, which I will continue. Infectious Disease Service is being consulted by emergency room physician. I will also consult Oncology Service to see if the patient will benefit from Neupogen. 2. Gastroesophageal reflux disease: Appears to be stable. 3. Hyponatremia: Mild, we will recheck. 4. Human immunodeficiency virus infection: We will continue home medications including antiretrovirals. 5. History of throat cancer: Further chemotherapy per Oncology Service. Many thanks for allowing me to participate in your patient's care. Please feel free to contact me with any questions or concerns. LEVEL OF RISK: High. LEVEL OF COMPLEXITY: High. Job ID: [id number]
[2019-02-07] MEDS ORDERED: Prevnar 13-Val Conj/PF 0.5 ML SYRINGE IM ONE (15:00)
[2019-02-07] MEDS: Cefepime 2 GM in Sodium Chloride 0.9% 100 ML IVPB SCH (15:38)
[2019-02-07] MEDS: Sodium Chloride 0.9% 1,000 ML IV SCH (15:38)
[2019-02-07] MEDS ORDERED: Vancomycin HCl 1.25 GM in Sodium Chloride 0.9% 250 ML 250 ML IVPB SCH (16:00)
[2019-02-07] MEDS ORDERED: Bisacodyl 10 MG SUPP PR PRN ×2 (19:27→20:55)
[2019-02-07] MEDS ORDERED: traMADol HCl 50 MG TAB PO PRN (19:28)
[2019-02-07] MEDS: traMADol HCl 50 MG TAB PER TUBE PRN (22:36)
[2019-02-08] MEDS: Cefepime 2 GM in Sodium Chloride 0.9% 100 ML IVPB SCH ×2 (02:24→14:43)
[2019-02-08] MEDS: Vancomycin HCl 1 GM in Premix Bag 1 BAG IVPB SCH ×2 (03:16→16:44)
[2019-02-08 04:43] LABS: Anion Gap 13 mmol/L (10-20); BUN (Urea Nitrogen) 13 mg/dL (8.4-25.7); Calc. Creatinine Clearance 114 mL/min (70-130); Calcium 7.1 mg/dL (7.8-10.44); Carbon Dioxide 17 mmol/L (23-31); Chloride 107 mmol/L (98-107); Estimated GFR-MDRD Greater than 90; Glucose 96 mg/dL (80-115); Potassium 4.2 mmol/L (3.5-5.1); Sodium 133 mmol/L (136-145)
[2019-02-08 05:07] LABS: White Blood Cell (WBC) Count 0.3 thou/uL (4.8-10.8)
[2019-02-08 05:28] LABS: Hemoglobin 8.1 g/dL (14.0-18.0); Hypochromia SLIGHT = 6-15 cells (100X) (0-5/hpf); MDiff Complete? YES; Mean Corpuscular HGB CONC 31.7 g/dL (32.0-36.0); Mean Corpuscular Hemoglobin 27.9 pg (27.0-31.0); Mean Corpuscular Volume 88.2 fL (78.0-98.0); Mean Platelet Volume 7.8 fL (7.4-10.4); Platelet Count 95 thou/uL (130-400); Platelet Morphology Comment Appears Decreased; RBC Distribution Width 14.2 % (11.5-14.5)
[2019-02-08] MEDS: Sodium Chloride 0.9% 1,000 ML IV SCH ×3 (07:28→19:00)
[2019-02-08] MEDS: traMADol HCl 50 MG TAB PER TUBE PRN ×3 (08:34→23:37)
--- NOTE | 2019-02-08 11:04 | CON ---
DATE OF CONSULTATION: REASON FOR CONSULT: Neutropenic fever. HISTORY OF PRESENT ILLNESS: Mr. Cobian is a 63-year-old gentleman with HIV, who was recently diagnosed with stage IV supraglottal basaloid squamous cell carcinoma with metastasis to the lung. He received his first cycle of chemotherapy consisting of carboplatin and Taxotere. This was on February 01. Yesterday, he presented to the [facility] with a fever of 101, chills, and shortness of breath. His white count was noted to be 0.2. He was transferred to this facility and admitted for neutropenic fever. The patient's tracheostomy was placed in December by Dr. Taylor. He also has a PEG tube in place. The trach was placed secondary to impending airway obstruction from the supraglottal mass. The patient is nonverbal, but alert. He uses a white board to assist for communication. He complains of just generalized weakness and malaise. He has a productive cough. PAST MEDICAL HISTORY: 1. HIV. 2. Stage IV supraglottal squamous cell carcinoma. PAST SURGICAL HISTORY: 1. Emergent trach, December 2018. 2. Amputation due to electrocution. ALLERGIES: NO KNOWN ALLERGIES. HOME MEDICATIONS: 1. Prilosec 10 mg daily. 2. Stribild daily. FAMILY HISTORY: Noncontributory. SOCIAL HISTORY: Single, lives alone. Former smoker with a 20 pack-year history of smoking. No alcohol or illicit drug use. REVIEW OF SYSTEMS: Ten-point review of systems is negative, except for noted in HPI. PHYSICAL EXAMINATION: VITAL SIGNS: Temperature is 98.1, T-max of 101.5, pulse is 101, respirations are 16, BP is 104/57, he is 100% on trach collar. GENERAL: Well-developed, well-nourished male, in no acute distress. HEENT: Normocephalic, atraumatic. Pupils are equal and reactive to light. NECK: With trach in place. CV: Regular rate and rhythm. LUNGS: He has rhonchi throughout. ABDOMEN: Soft. There is PEG tube in place. Bowel sounds are positive. EXTREMITIES: No clubbing, cyanosis, or edema. SKIN: No rash. HEMATOLOGICAL: No petechiae or purpura. NEUROLOGIC: Nonfocal. PSYCH: He is alert and oriented. PERTINENT LABS AND X-RAYS: Current WBCs are 300, hemoglobin 8.1, hematocrit 25.6, platelet counts 95,000. Sodium is 133, potassium is 4.2, chloride is 107, CO2 of 17, BUN is 13, creatinine is 0.61, lactic acid is 1.7, calcium is 7.1, bilirubin is 0.8, AST is , ALT is 37, and alkaline phosphatase is 51. Serum total protein 6.6, albumin 3.3, globulin 3.4, lipase 31. Urine is negative. Chest x-ray shows possible infiltrate of the left lower lobe. ASSESSMENT: 1. Stage IV supraglottal basaloid squamous cell carcinoma with lung metastasis, status post cycle 1 of chemotherapy. 2. Neutropenic fever. 3. Pancytopenia secondary to chemotherapy. 4. Pneumonia. 5. Human immunodeficiency virus. DISCUSSION: The patient has been given vancomycin and cefepime antibiotics. He has been placed on O2 via trach collar. We will begin Neupogen injection daily. Dr. Landry has been consulted. Hopefully, he will improve over the next few days. Case discussed with Dr. Tripathi. Thank you for the consult. We will follow along with you. Job ID: [id number] MTDD
--- NOTE | 2019-02-08 14:50 | PRG ---
DATE OF SERVICE: 02/08/2019 SUBJECTIVE: The patient is seen and examined at the bedside. He is not feeling any better. OBJECTIVE: VITAL SIGNS: Blood pressure is 111/58, pulse is 105, temperature is 98.2, yesterday temperature was 101.5, respiratory rate is 20, O2 saturation is 100% on room air. He is receiving O2 through the trach collar. HEENT: His sclerae are nonicteric. Conjunctivae palish. Oral mucosa is moist. LUNGS: Bilateral rales at both bases present. HEART: S1, S2. Tachycardic. No S3. No S4. ABDOMEN: Soft, nontender, nondistended. PEG tube in place. EXTREMITIES: No clubbing or cyanosis. His left lower extremity, 1+ peripheral edema there and above the knee amputee on the right side. NEUROLOGICAL: He seems to be in his normal mental baseline. He writes on the white board, that is the way he communicates with us. LABORATORY DATA: White count of 0.3, hemoglobin 8.1, hematocrit 25.6, platelet count is 95,000. Chemistry; sodium of 133, potassium 4.2, chloride 107, CO2 of 17, BUN 13, creatinine 0.81, calcium 7.1. Microbiology, 2 blood cultures negative. Influenza A and B negative. IMPRESSION: 1. Febrile neutropenia. 2. Possible left lung pneumonia. 3. Human immunodeficiency virus. 4. Pancytopenia secondary to chemotherapy. 5. Stage IV squamous cell carcinoma with lung metastasis status post chemotherapy x1 cycle. PLAN: Plan is to continue his vancomycin and cefepime IV antibiotics. Continue O2. Continue Neupogen for his leukopenia. ID is consulted. He has some metabolic acidosis this closely. We will check lactic acid as possible source of metabolic acidosis and continue IV fluids. Job ID: [id number]
[2019-02-09 03:33] LABS: Vancomycin, Trough 11.7 ug/mL
[2019-02-09 03:41] LABS: Anion Gap 12 mmol/L (10-20); BUN (Urea Nitrogen) 10 mg/dL (8.4-25.7); Calc. Creatinine Clearance 124 mL/min (70-130); Calcium 7.5 mg/dL (7.8-10.44); Carbon Dioxide 18 mmol/L (23-31); Chloride 104 mmol/L (98-107); Estimated GFR-MDRD Greater than 90; Glucose 105 mg/dL (80-115); Potassium 3.3 mmol/L (3.5-5.1); Sodium 131 mmol/L (136-145)
[2019-02-09] MEDS: Cefepime 2 GM in Sodium Chloride 0.9% 100 ML IVPB SCH ×2 (03:45→15:30)
[2019-02-09] MEDS: Acetaminophen 325 MG TAB PER TUBE PRN ×3 (04:19→17:38)
[2019-02-09] MEDS: Vancomycin HCl 1 GM in Premix Bag 1 BAG IVPB SCH ×2 (04:31→04:50)
[2019-02-09] MEDS: Vancomycin HCl 1.25 GM in Sodium Chloride 0.9% 250 ML 250 ML IVPB SCH ×2 (04:50→17:10)
[2019-02-09] MEDS: Sodium Chloride 0.9% 1,000 ML IV SCH (04:53)
[2019-02-09] MEDS: traMADol HCl 50 MG TAB PER TUBE PRN (05:44)
[2019-02-09 09:00] LABS: Hemoglobin 7.7 g/dL (14.0-18.0); Mean Corpuscular HGB CONC 31.7 g/dL (32.0-36.0); Mean Corpuscular Hemoglobin 27.6 pg (27.0-31.0); Mean Corpuscular Volume 87.2 fL (78.0-98.0); Mean Platelet Volume 7.7 fL (7.4-10.4); Platelet Count 83 thou/uL (130-400); RBC Distribution Width 14.1 % (11.5-14.5); Red Blood Cell (RBC) Count 2.79 mill/uL (4.70-6.10); White Blood Cell (WBC) Count 0.2 thou/uL (4.8-10.8)
[2019-02-09] MEDS: STRIBILD PER TUBE SCH (09:28)
[2019-02-09 09:52] LABS: MDiff Complete? YES; Platelet Morphology Comment Appears Decreased; Polychromasia SLIGHT = 2-3 cells (100X) (0-2/hpf)
--- NOTE | 2019-02-09 14:50 | PRG ---
DATE OF SERVICE: 02/09/2019 SUBJECTIVE: The patient is seen and examined at the bedside. He has quite a bit of diarrhea. He does not have any abdominal pain. He thinks that his food does not get digested properly. OBJECTIVE: VITAL SIGNS: Blood pressure is 106/56, pulse is 117, temperature is 98.3, respiratory rate is 18, O2 saturation is 100% on room air. HEENT: His pupils are responding to light properly. Sclerae are nonicteric. Conjunctivae palish. Oral mucosa is somewhat dry. Neck is in tracheostomy tube and collar is in place delivering oxygen. LUNGS: Breath sounds somewhat diminished at both bases with few crackles at the left base. HEART: S1, S2. Tachycardic. No S3. No S4. ABDOMEN: Tube is in place. EXTREMITIES: Right nbwwa-qjk-hejq amputee and left masfu-kls-msim amputee. LABORATORY DATA: White count of 0.2, hemoglobin 7.7, hematocrit 24.3, platelet count is 83,000. Sodium of 131, potassium 3.3, chloride 104, CO2 of 18, BUN 12, creatinine 0.56, calcium 7.5, magnesium 2.2, lactic acid 1.5, glucose 105. IMPRESSION: 1. Colitis of unclear etiology. We will check his stool for C. difficile. 2. Febrile neutropenia, on broad-spectrum coverage, this is 0.2 this morning. 3. Possible left lung pneumonia. 4. Human immunodeficiency virus. 5. Pancytopenia secondary to chemotherapy. 6. Stage IV squamous cell carcinoma with lung metastasis, status post chemotherapy x1 cycle. PLAN: Plan is to continue his IV cefepime and vancomycin and continue Neupogen. We will start him on a free water 200 mL every 6 hours. I am going to continue his IV fluids. I am going to add bicarb into his IV fluid since he has some metabolic acidosis. We will check his EKG since he has tachycardia to make sure there are no other abnormalities, that just sinus tachycardia, and we will keep him on his HIV medications. Job ID: [id number]
[2019-02-10] MEDS: Acetaminophen 325 MG TAB PER TUBE PRN ×2 (00:33→20:53)
[2019-02-10] MEDS ORDERED: Sodium Chloride 0.9% 1,000 ML IV SCH (01:30)
[2019-02-10] MEDS: Cefepime 2 GM in Sodium Chloride 0.9% 100 ML IVPB SCH ×2 (03:56→14:05)
[2019-02-10] MEDS: Vancomycin HCl 1.25 GM in Sodium Chloride 0.9% 250 ML 250 ML IVPB SCH ×2 (05:22→17:21)
[2019-02-10] MEDS ORDERED: Non-Formulary Item 1 EACH (Elviteg/Cob/Emtri/Tenofo Disop [Stribild] 1 TAB) PO SCH (08:00)
[2019-02-10] MEDS: STRIBILD PER TUBE SCH (08:45)
[2019-02-10] MEDS: Saccharomyces boulardii 250 MG CAP PO SCH (08:45)
[2019-02-10 08:56] LABS: Hemoglobin 7.6 g/dL (14.0-18.0); Mean Corpuscular HGB CONC 31.2 g/dL (32.0-36.0); Mean Corpuscular Hemoglobin 27.2 pg (27.0-31.0); Mean Corpuscular Volume 87.1 fL (78.0-98.0); Mean Platelet Volume 7.8 fL (7.4-10.4); Platelet Count 55 thou/uL (130-400); Red Blood Cell (RBC) Count 2.79 mill/uL (4.70-6.10); White Blood Cell (WBC) Count 0.2 thou/uL (4.8-10.8)
[2019-02-10 09:07] LABS: Anion Gap 10 mmol/L (10-20); BUN (Urea Nitrogen) 7 mg/dL (8.4-25.7); Calc. Creatinine Clearance 134 mL/min (70-130); Calcium 7.2 mg/dL (7.8-10.44); Carbon Dioxide 25 mmol/L (23-31); Chloride 104 mmol/L (98-107); Estimated GFR-MDRD Greater than 90; Glucose 109 mg/dL (80-115); Potassium 3.5 mmol/L (3.5-5.1); Sodium 135 mmol/L (136-145)
--- NOTE | 2019-02-10 13:07 | PRG ---
DATE OF SERVICE: 02/10/2019 SUBJECTIVE: Apparently, he still has diarrhea, which is watery. He had several bowel movements. He does not have abdominal pain. His bronchial secretions are clear. It is still quite copious, but there is no blood in it. OBJECTIVE: VITAL SIGNS: Blood pressure is 115/57, maximal temperature is 101.6, heart rate is 114, temperature is 98.2, respiratory rate is 22, and O2 saturation is 97% on trach collar. HEENT: His head is atraumatic and normocephalic. Sclerae are nonicteric. Conjunctivae are palish. Oral mucosa is moist. NECK: Tracheostomy tube in place. Trach collar in place. He has quite a bit of secretions, which were suctioned frequently. CHEST: Bilateral rales present especially at the left base. No wheezing. HEART: S1 and S2. Tachycardic. No S3. No S4. ABDOMEN: Soft, nontender. PEG tube in place. EXTREMITIES: Right rkfeh-jin-cdwz amputee and left ciioj-wnh-kwsy amputee. NEUROLOGIC: He seems to be oriented x3. LABORATORY DATA: White count of 0.2, hemoglobin 7.6, hematocrit 24.3, and platelet count is 55,000. Sodium of 135, potassium 3.5, chloride 104, CO2 of 25, BUN 7, creatinine 0.52, and calcium 7.2. Microbiology, C difficile negative. IMPRESSION AND PLAN: 1. Febrile neutropenia. His white count is still 0.2 in spite of Granix use. 2. Suspected left lower lobe pneumonia. The patient is on vancomycin and cefepime. He still has helped a lot of secretions. We are going to start him on DuoNeb q.[address] Landry is going to see him today for Infectious Disease evaluation. We will obtain the chest x-ray, portable. We will continue IV fluids and stop his water flushes through the PEG tube and restart his regular feeding. Since stopping the feeding did not really help much on his diarrhea. 3. Human immunodeficiency virus. 4. Pancytopenia secondary to chemotherapy. 5. 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 The supraglottal region with metastasis to the lung is to frequent suctioning, restart his feeding. Stop water flushes through the tube and obtain the chest x-ray, portable. Get the consult with Dr. Landry and probiotic and Dr. Rhodes saw the patient for Oncology evaluation and he ordered fungal testing on his oral mucosa and tongue. Job ID: [id number]
--- NOTE | 2019-02-10 16:25 | RAD ---
EXAM: CHEST ONE VIEW 02/10/19 HISTORY: Pneumonia. COMPARISON: 12/06/18. FINDINGS: Redemonstration of a tracheostomy, appropriately positioned. Right sided Mediport catheter is noted. There is cardiomegaly. There is atherosclerosis of the aorta. Lung volumes are diminished. Bibasilar interstitial opacities may represent atelectasis or scar. Small bilateral effusions are noted. No pne umothorax. IMPRESSION: Bibasilar opacities which are felt to be due to atelectasis or pneumonia. Lung volumes are diminished . POS: H
[2019-02-10] MEDS ORDERED: Ventilator Sedation Protocol 1 EACH FS SCH (16:37)
[2019-02-10] MEDS ORDERED: fentaNYL Citrate/PF 2,000 MCG in Sodium Chloride 0.9% 60 ML IV SCH (16:43)
[2019-02-10] MEDS ORDERED: Propofol 1,000 MG/100 ML VIAL IV PRN (16:43)
[2019-02-10] MEDS ORDERED: Fentanyl BOLUS 250 ML IVPB PRN (16:43)
[2019-02-10] MEDS ORDERED: DISCONTINUE PREVIOUS NARCOTIC PAIN MEDICATIONS AND BENZODIAZEPINES FS SCH (16:43)
[2019-02-10] MEDS ORDERED: Lorazepam 2 MG/ML VIAL SLOW IVP PRN (16:43)
[2019-02-10] MEDS ORDERED: Propofol BOLUS 1,000 MG/100 ML VIAL IV PRN (16:43)
[2019-02-10] MEDS: Scopolamine 1.5 mg/72 hour Patch TD SCH (17:20)
[2019-02-10 18:11] LABS: Vancomycin, Trough 17.7 ug/mL
[2019-02-10] MEDS: traMADol HCl 50 MG TAB PER TUBE PRN (20:53)
[2019-02-10] MEDS: Ondansetron PF 4 MG/2 ML Vial IVP PRN (21:17)
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
[2019-02-11] MEDS: Cefepime 2 GM in Sodium Chloride 0.9% 100 ML IVPB SCH ×2 (02:38→15:00)
--- NOTE | 2019-02-11 02:48 | CON ---
DATE OF CONSULTATION: 02/10/2019 REASON FOR CONSULTATION: Neutropenia, fever, HIV infection, head and neck cancer. HISTORY OF PRESENT ILLNESS: A 63-year-old patient, whom I have followed for HIV infection in the past. He has been an excellent patient in terms of his compliance with his antiretroviral therapy and always had a suppressed viral load. Unfortunately, the patient developed cancer of his larynx and he required placement of tracheostomy and is undergoing chemotherapy at this time. He has a gastrostomy tube for nutritional input and medication. He was seen at the emergency room in [place] because of fever. He was found to have abnormal chest x-ray and neutropenia, therefore, he was admitted. He is right now in the Oncology unit. He is awake, obviously in distress from a few secretion in the respiratory tract. He has tracheostomy and has a hard time bringing up the secretions and requires suction. He cannot open his mouth very well because of trismus probably from the radiation therapy. He denies any chest pain or abdominal pain. He is voiding in the diaper. PAST MEDICAL HISTORY: Includes HIV infection very well controlled with excellent adherence to antiretroviral therapy for many years, GERD, chronic smoking, right above-knee amputation, left below-knee amputation, head and neck cancer on chemotherapy, previous radiation therapy, pelvic fracture, gastrostomy tube placement, tracheostomy placement, amputations noted above. He has a right chest port in the subclavian location. SOCIAL HISTORY: Former smoker. FAMILY HISTORY: Heart disease. ALLERGIES: NONE. CURRENT MEDICATIONS: 1. Tylenol. 2. DuoNeb. 3. Dulcolax. 4. Cefepime. 5. Fentanyl. 6. Fluconazole. 7. Stribild. 8. Vancomycin. PHYSICAL EXAMINATION: VITAL SIGNS: T-max 101.6, blood pressure 102/60. SKIN: The patient has a normal-appearing exit site of the G-tube. No other major skin lesions noted. Tracheostomy site with perfuse white clear respiratory secretions. LYMPH: No lymphadenopathy. HEENT: Ocular movements conjugate. Nasal passage is patent. He has trismus and difficulty in opening his mouth. He has a lot of white exudate consistent with candidiasis in the oral cavity. LUNGS: Diminished breath sounds at bases. Coarse expiratory crackles. Some wheezing. S1 and S2 regular rate. ABDOMEN: Soft, not distended or tender. No ascites. No bladder distention. He is able to move extremities on command. LABORATORY DATA: His white cell count 0.3 and now 0.2, hemoglobin 8.1 and 7.6, platelets 55,000. Sodium 133, creatinine 0.61. His last HIV RNA PCR was less than 20 earlier this year and CD4 cell count was 221. ASSESSMENT: 1. Longstanding HIV infection with excellent adherence to antiretroviral therapy and suppressed viral load. 2. 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 The patient has trismus, as well as gastrostomy tube and tracheostomy. The patient has developed neutropenia probably associated with his chemotherapy. He has developed what appears to be respiratory tract infection. We will check his respiratory virus PCR panel. Continue antimicrobial therapy. Continue Stribild administration through the gastrostomy tube. Stribild can be safely crushed for administration via G tube without affecting significantly pharmacokinetics of the drug. His main issue now is the management of his airway secretions and it requires frequent suctioning. May need to be transferred to the [facility] depending on clinical progress. Job ID: [id number]
[2019-02-11] MEDS: Vancomycin HCl 1.25 GM in Sodium Chloride 0.9% 250 ML 250 ML IVPB SCH ×2 (06:20→17:35)
[2019-02-11 07:03] LABS: Anion Gap 10 mmol/L (10-20); BUN (Urea Nitrogen) 9 mg/dL (8.4-25.7); Calc. Creatinine Clearance 118 mL/min (70-130); Calcium 7.2 mg/dL (7.8-10.44); Carbon Dioxide 26 mmol/L (23-31); Chloride 102 mmol/L (98-107); Estimated GFR-MDRD Greater than 90; Glucose 125 mg/dL (80-115); Potassium 3.7 mmol/L (3.5-5.1); Sodium 134 mmol/L (136-145)
[2019-02-11 07:21] LABS: Actual Bicarbonate (HCO3a) 24.9 mEq/L (22-28); Base Excess (BEa) 2.3 mEq/L (-2.0 to +3.0); CO2 Tension 30.4 mmHg (35.0-45.0); Calcium, Ionized 0.99 mmol/L (1.12-1.30); Carboxyhemoglobin (COHb) 2.2 gm% (0.0-3.0); Hemoglobin (Hb) 7.8 g/dL (14.0-18.0); O2 Tension (PaO2) 73.1 mmHg (> 80.0); Potassium - ABG Lab 3.42 mmol/L (3.70-5.30); pH, Arterial 7.53 (7.35-7.45)
--- NOTE | 2019-02-11 07:25 | RAD ---
CHEST 1 VIEW: DATE: 02/11/19 INDICATION: Daily CCU exam. COMPARISON: Prior exam dated 02/10/19. FINDINGS: Bibasilar parenchymal opacities persist, but appear slightly less prominent within the right lung bas e. Right chest wall port and tracheostomy tube unchanged. No pneumothorax evident. IMPRESSION: Improvement in right basilar air space opacity. Left basilar opacity is unchanged. POS: BH
[2019-02-11 07:39] LABS: Hemoglobin 7.4 g/dL (14.0-18.0); Mean Corpuscular HGB CONC 31.5 g/dL (32.0-36.0); Mean Corpuscular Hemoglobin 27.3 pg (27.0-31.0); Mean Corpuscular Volume 86.6 fL (78.0-98.0); Mean Platelet Volume 8.7 fL (7.4-10.4); Platelet Count 40 thou/uL (130-400); RBC Distribution Width 14.5 % (11.5-14.5); White Blood Cell (WBC) Count 0.3 thou/uL (4.8-10.8)
[2019-02-11 07:48] LABS: Puncture Site L.R.
[2019-02-11] MEDS: STRIBILD PER TUBE SCH (08:39)
[2019-02-11] MEDS: Saccharomyces boulardii 250 MG CAP PO SCH (08:39)
[2019-02-11] MEDS ORDERED: Fluconazole In NaCl,Iso-Osm 100 MG in Premix Bag 1 BAG IVPB SCH (09:00)
[2019-02-11] MEDS ORDERED: Fluconazole In NaCl,Iso-Osm 100 MG in Admixture Fee 1 EACH IVPB SCH (09:00)
--- NOTE | 2019-02-11 09:44 | PRG ---
DATE OF SERVICE: 02/11/2019 SUBJECTIVE: Mr. Cobian is resting, tachycardia, but he is also febrile. OBJECTIVE: VITAL SIGNS: Blood pressure 100/67, respiratory rate in the teens, oximetry is 100%. LUNGS: Much clear today. HEART: Regular rhythm. ABDOMEN: Soft. EXTREMITIES: Without edema. LABORATORY DATA: White count 300, hemoglobin 7.4, platelets 40,000. Sodium 134, potassium 3.7, chloride 102, bicarb 26, BUN 9, creatinine 0.59. Chest x-ray really still shows no infiltrates. IMPRESSION: Neutropenic fever, probably with tracheobronchitis. There is no other clear source at this point in time, although obviously all the usual sources are possible. We will continue antimicrobial therapy. We will place him on a T-collar with inline suction, see how he does on his own today and then let him sleep on the ventilator tonight. We will add scopolamine patch for his secretions. CRITICAL CARE TIME: 30 minutes. Job ID: [id number]
--- NOTE | 2019-02-11 11:27 | PRG ---
DATE OF SERVICE: 02/11/2019 SUBJECTIVE: The patient is seen and examined at the bedside. He was moved yesterday from Oncology to Intensive Care Unit after the patient was seen by Dr. Hamilton, who recommended to the transfer. OBJECTIVE: VITAL SIGNS: Blood pressure is 102/68, early in the morning was 97/64, pulse is ranging from 129 to 135, respiratory rate is ranging from 10 to 34. He is on a ventilator. O2 saturation is 100%. HEENT: His sclerae are nonicteric. Conjunctivae pinkish. Oral mucosa is moist. NECK: Tracheostomy tube in place and it is connected to the ventilator. LUNGS: Bilateral rales present, especially at the left base. HEART: S1, S2. Tachycardic. No S3. No S4. ABDOMEN: PEG tube is in place. Bowel sounds are very sluggish, almost not audible. He is mnjhh-yma-vxcw right side amputee status and left side is qywsw-zku-kbvu amputee. NEUROLOGIC: He is able to communicate with me by the white board writing. His diarrhea slowed down. LABORATORY DATA: White count of 0.3, hemoglobin 7.4, hematocrit 23.4, platelet count is 40. ABGs showed pH of 7.53, pCO2 30.4, PO2 73.1. Sodium of 134, potassium 3.7, chloride 102, CO2 of 26, BUN 9, creatinine 0.59, glucose 125, calcium is 7.2. Microbiology, no new findings. IMPRESSION: 1. Febrile neutropenia, on Granix. White count is up to 0.3 today, that is post chemo. 2. Suspected left lower lobe versus tracheobronchitis as per Dr. Hamilton's diagnosis. The patient was moved to the Intensive Care Unit. He is on a ventilator now. He was placed on scopolamine patch and secretions are significantly diminished. 3. Sinus tachycardia, worse since the scopolamine patch was introduced. 4. Human immunodeficiency virus, very well controlled according to Dr. Landry' note. 5. Pancytopenia secondary to chemotherapy. 6. 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 The patient was started on Diflucan by Dr. Landry and scopolamine by Dr. Hamilton. We will lower his fentanyl to 20 mcg and see whether this helps with the blood pressure because he is down to 90s this morning. We will continue antimicrobial therapy, broad-spectrum, vancomycin and cefepime, and we will start him on feeding and stop his water flushes through the tube. His diarrhea improved, and he is negative for Clostridium difficile toxins and antigen, and Dr. Hamilton wants to try him on the collar to see how he does and go put him back on the ventilator at night. Job ID: [id number]
[2019-02-11] MEDS: Micafungin 100 MG in Sodium Chloride 0.9% 100 ML IVPB SCH (16:44)
--- NOTE | 2019-02-11 16:46 | PRG ---
DATE OF SERVICE: 02/11/2019 SUBJECTIVE: Mr. Cobian was transferred to the ICU with worsening respiratory problems. He is now more stable with T collar and suction and he appears more comfortable than yesterday. OBJECTIVE: LUNGS: With improved aeration with a few upper airway rhonchi. HEART: S1 and S2. ABDOMEN: Soft. : He is voiding in the urinal. NEUROLOGIC: Follows commands. Able to write. VITAL SIGNS: T-max 100.7. LABORATORY DATA: White cell count 0.3, hemoglobin 7.4, and platelets 40,000. ASSESSMENT AND DISCUSSION: Human immunodeficiency virus, long-standing infection with excellent adherence to anti-retroviral therapy. CD4 in the low 200s and head and neck cancer on chemotherapy with lymph node metastases. Now developed respiratory infection with neutropenia and fever. He is on broad-spectrum coverage plus antifungal. We will switch him to micafungin. Discontinue Diflucan. Continue other broad-spectrum coverage and respiratory support. Job ID: [id number]
[2019-02-12] MEDS: Acetaminophen 325 MG TAB PER TUBE PRN ×2 (01:40→22:31)
[2019-02-12] MEDS: Cefepime 2 GM in Sodium Chloride 0.9% 100 ML IVPB SCH ×2 (03:50→14:46)
[2019-02-12] MEDS: Vancomycin HCl 1.25 GM in Sodium Chloride 0.9% 250 ML 250 ML IVPB SCH (05:19)
[2019-02-12] MEDS: Ondansetron PF 4 MG/2 ML Vial IVP PRN (05:29)
[2019-02-12 06:12] LABS: Platelet Count 18 thou/uL (130-400); White Blood Cell (WBC) Count 0.4 thou/uL (4.8-10.8)
[2019-02-12 06:15] LABS: Hemoglobin 9.9 g/dL (14.0-18.0); Mean Corpuscular HGB CONC 31.6 g/dL (32.0-36.0); Mean Corpuscular Hemoglobin 27.4 pg (27.0-31.0); Mean Corpuscular Volume 86.8 fL (78.0-98.0); Mean Platelet Volume 10.9 fL (7.4-10.4); Platelet Morphology Comment Appears Decreased; RBC Distribution Width 14.6 % (11.5-14.5); Red Blood Cell (RBC) Count 3.61 mill/uL (4.70-6.10)
[2019-02-12 06:24] LABS: Vancomycin, Trough 25.2 ug/mL
[2019-02-12 06:25] LABS: Anion Gap 11 mmol/L (10-20); BUN (Urea Nitrogen) 11 mg/dL (8.4-25.7); Calc. Creatinine Clearance 129 mL/min (70-130); Calcium 7.3 mg/dL (7.8-10.44); Carbon Dioxide 29 mmol/L (23-31); Chloride 101 mmol/L (98-107); Estimated GFR-MDRD Greater than 90; Glucose 111 mg/dL (80-115); Potassium 3.1 mmol/L (3.5-5.1); Sodium 138 mmol/L (136-145)
--- NOTE | 2019-02-12 08:13 | RAD ---
CHEST 1 VIEW: Date: 02/12/19 HISTORY: Dyspnea. Follow-up. COMPARISON: 02/11/19. FINDINGS: Cardiac silhouette is magnified by projection. Pulmonary vasculature is upper limits of normal. Bibas ilar infiltrates are unchanged in appearance. Mediastinum is midline with lines and tubes unchanged i n position. No evidence of pneumothorax. IMPRESSION: Patchy bibasilar infiltrates and other findings are stable. POS: CET
[2019-02-12] MEDS ORDERED: Saccharomyces boulardii 250 MG CAP ONE (08:32)
[2019-02-12] MEDS: Glycopyrrolate 0.2 MG/ML 5 ML SYRINGE SLOW IVP SCH ×3 (08:52→21:59)
[2019-02-12] MEDS: Saccharomyces boulardii 250 MG CAP PO SCH (08:52)
[2019-02-12] MEDS ORDERED: Glycopyrrolate 1 MG TAB PO SCH (09:00)
[2019-02-12] MEDS: STRIBILD PER TUBE SCH (09:03)
--- NOTE | 2019-02-12 10:32 | PRG ---
DATE OF SERVICE: 02/12/2019 SUBJECTIVE: Mr. Cobian still has significant secretions. I have added glycopyrrolate today to see if this helps with his secretions. OBJECTIVE: VITAL SIGNS: Heart rate is 120, respiratory rates in the 20s, and blood pressure is 112/63. Intake and output positive 2507. LUNGS: Clear. HEART: Regular rhythm. S1 and S2 are normal. ABDOMEN: Soft and nontender. EXTREMITIES: Without asymmetry. LABORATORY DATA: He still only has 400 white cells, hemoglobin 9.9, platelets are down to 18,000. I have discussed the platelet transfusion with the oncologist. IMPRESSION AND PLAN: 1. Respiratory failure secondary tracheobronchial secretions that are excessive, glycopyrrolate be added today. We will continue to nocturnally ventilate him. 2. Pancytopenia continues. Oncology is following. 3. Head and neck cancer, currently status post chemotherapy. 4. Bilateral lower extremity amputee many years ago. Overall, he is reasonably stable. He needs to remain in the critical care unit. Needs to continue with nocturnal ventilation. Job ID: [id number]
[2019-02-12] MEDS ORDERED: diphenhydrAMINE 50 MG/ML VIAL ONE (10:37)
[2019-02-12] MEDS ORDERED: diphenhydrAMINE 50 MG/ML VIAL IVP PRN (11:33)
[2019-02-12] MEDS ORDERED: diphenhydrAMINE 50 MG/ML VIAL IVP SCH (11:45)
[2019-02-12] MEDS: Metoclopramide HCl 10 MG/2 ML VIAL IVP SCH ×2 (12:09→17:39)
--- NOTE | 2019-02-12 14:27 | PDOC.PN ---
- Subjective Encounter Start Date: 02/12/19 Encounter Start Time: 13:30 Subjective: awake, responds well to verbal questions -: uses white board to communicate -: says has lot of resp secretions coming up - Objective MAR Reviewed: Yes Vital Signs & Weight: Vital Signs (12 hours) Temp Pulse Pulse Resp BP Pulse Ox 02/12/19 12:18 98.2 F 132 H 26 H 109/65 100 02/12/19 11:09 135 H 16 02/12/19 10:26 98.8 F 138 H 15 95/60 98 02/12/19 10:08 99.0 F 146 H 11 L 99/63 100 02/12/19 07:46 100 02/12/19 07:32 120 H 16 02/12/19 07:17 99.9 F H 02/12/19 06:00 15 02/12/19 04:00 99.8 F H 13 02/12/19 03:03 121 H 15 100 Weight Admit Weight 139 lb 11.2 oz Weight 139 lb 11.2 oz Most Recent Monitor Data Heart Rate from ECG 132 NIBP 117/67 NIBP BP-Mean 83 Respiration from ECG 27 SpO2 100 I&O: 02/11/19 02/12/19 02/13/19 06:59 06:59 06:59 Intake Total 1887.9 3282 250 Output Total 225 775 450 Balance 1662.9 2507 -200 Result Diagrams: 02/12/19 05:40 02/12/19 05:40 Phys Exam - Physical Examination HEENT: PERRLA, sclera anicteric Neck: no JVD trach+ Respiratory: no wheezing rhonchi++ Cardiovascular: RRR, no significant murmur Gastrointestinal: soft, non-tender, positive bowel sounds peg insertion site has some purulence left bka, right aka Neurological: non-focal, moves all 4 limbs Psychiatric: A&O x 3 Dx/Plan (1) Acute respiratory failure with hypoxia Code(s): J96.01 - ACUTE RESPIRATORY FAILURE WITH HYPOXIA Status: Acute Comment: on nocturnal vent now, trach collar during day (2) Acute tracheobronchitis Code(s): J20.9 - ACUTE BRONCHITIS, UNSPECIFIED Status: Acute (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 Comment: on carboplatin and taxotere, last chemo 02/01/2019 (4) Thrombocytopenia Code(s): D69.6 - THROMBOCYTOPENIA, UNSPECIFIED Status: Acute (5) Pancytopenia Code(s): D61.818 - OTHER PANCYTOPENIA Status: Acute Comment: due to chemotherapy (6) History of right above knee amputation Code(s): Z89.611 - ACQUIRED ABSENCE OF RIGHT LEG ABOVE KNEE Status: Chronic (7) History of left below knee amputation Code(s): Z89.512 - ACQUIRED ABSENCE OF LEFT LEG BELOW KNEE Status: Chronic (8) HIV (human immunodeficiency virus infection) Code(s): B20 - HUMAN IMMUNODEFICIENCY VIRUS [HIV] DISEASE Status: Chronic Qualifiers: HIV symptom status: asymptomatic Qualified Code(s): Z21 - Asymptomatic human immunodeficiency virus [HIV] infection status - Plan is on cefepime, vanc, micafungin -: filgrastrim for neutropenia -: gentle iv hydration, nebs, stribild for hiv -: prognosis guarded -: son is POA, d/w patient at bedside * . Review of Systems - Medications/Allergies Allergies/Adverse Reactions: Allergies Allergy/AdvReac Type Severity Reaction Status Date / Time No Known Drug Allergies Allergy Verified 12/06/18 16:55 Medications: Current Medications Acetaminophen (Tylenol) 650 mg SD Q4H PRN PRN Reason: Headache/Fever/Mild Pain (1-3) Last Admin: 02/10/19 12:38 Dose: 650 mg Acetaminophen (Tylenol) 650 mg PER TUBE Q6H PRN PRN Reason: PAIN/FEVER Last Admin: 02/12/19 01:40 Dose: 650 mg Albuterol/Ipratropium (Duoneb) 3 ml NEB [id number] [id number] Last Admin: 02/12/19 11:09 Dose: 3 ml Bisacodyl (Dulcolax) 10 mg SD DAILYPRN PRN PRN Reason: Constipation Bisacodyl (Dulcolax) 10 mg SD DAILYPRN PRN PRN Reason: Constipation Al Hydroxide/Mg Hydroxide 60 ml/ Diphenhydramine HCl 150 mg / Lidocaine HCl 60 ml/Nystatin 6,000,000 units 0 ml SSW PRN PRN PRN Reason: Mouth Irritation Diphenhydramine HCl (Benadryl) 25 mg IVP Q6H PRN PRN Reason: Itching Diphenhydramine HCl (Benadryl) 25 mg IVP NOW [facility] Stop: 02/12/19 14:45 Last Admin: 02/12/19 12:09 Dose: Not Given Diphenhydramine HCl (Benadryl) 25 mg IVP Q6H PRN PRN Reason: Itching & Insomnia Glycopyrrolate (Glycopyrrolate) 0.4 mg SLOW IVP TID [facility] Last Admin: 02/12/19 08:52 Dose: 0.4 mg Cefepime HCl 2 gm/ Sodium (Chloride) 100 mls @ 200 mls/hr IVPB 0300,1500 [facility] Last Admin: 02/12/19 03:50 Dose: 100 mls Potassium Chloride 40 meq/Sodium Bicarbonate 150 meq/Dextrose/Water 1,170 mls @ 100 mls/hr IV .[id number] [facility] Last Admin: 02/12/19 03:49 Dose: 1,170 mls Fentanyl Citrate 2,000 mcg/ (Sodium Chloride) 100 mls @ 0 mls/hr IV INF [facility]; Protocol Stop: 03/12/19 16:43 Last Admin: 02/10/19 23:54 Dose: 100 mls Fentanyl Citrate (Fentanyl Bolus) 250 mls @ 0 mls/hr IVPB PRN PRN PRN Reason: Breakthrough pain/agitation Stop: 03/12/19 16:43 Micafungin Sodium 100 mg/ (Sodium Chloride) 100 mls @ 100 mls/hr IVPB Q24HR [facility] Last Admin: 02/11/19 16:44 Dose: 100 mls Vancomycin HCl 1.25 gm/ Sodium (Chloride) 250 mls @ 166.667 mls/hr IVPB 0500, 1700 [facility] Lorazepam (Ativan) 2 mg SLOW IVP Q1H PRN PRN Reason: Breakthrough agitation Stop: 03/12/19 16:43 Metoclopramide HCl (Reglan) 10 mg IVP Q6HR [facility] Last Admin: 02/12/19 12:09 Dose: 10 mg Miscellaneous Medication (Pharmacy To Dose) 1 each IVPB .VANCOMYCIN/ABX PRN PRN Reason: LABS Miscellaneous Medication (Ventilator Sedation Protocol) 1 each FS ONE [facility] Stop: 03/12/19 16:38 Morphine Sulfate (Morphine) 2 mg SLOW IVP Q1H PRN PRN Reason: BREAKTHROUGH PAIN/Agitation Stop: 03/12/19 16:43 Discontinue Previous Narcotic Pain Medications And Benzodiazepines 1 each FS .ONE [facility] Stop: 03/12/19 16:43 Ondansetron HCl (Zofran) 4 mg IVP Q6H PRN PRN Reason: Nausea/Vomiting Last Admin: 02/12/19 05:29 Dose: 4 mg Stribild Tab. 0 each PER TUBE QAM-WM [facility] Last Admin: 02/12/19 09:03 Dose: 1 each Propofol (Diprivan) 1,000 mg IV INF PRN; Protocol PRN Reason: TO ACHIEVE GOAL RASS Stop: 03/12/19 16:43 Propofol (Diprivan Bolus) 20 mg IV Q5MIN PRN PRN Reason: BREAKTHROUGH AGITATION Stop: 03/12/19 16:43 Saccharomyces Boulardii (Florastor) 250 mg PO DAILY [facility] Last Admin: 02/12/19 08:52 Dose: 250 mg Scopolamine (Transderm Scop) 1.5 mg TD Q3D [facility] Last Admin: 02/10/19 17:20 Dose: 1.5 mg Sodium Chloride (Flush - Normal Saline) 10 ml IVF Q12HR [facility] Last Admin: 02/12/19 09:04 Dose: 10 ml Sodium Chloride (Flush - Normal Saline) 10 ml IVF PRN PRN PRN Reason: Saline Flush Tbo-Filgrastim (Granix) 480 mcg SC DAILY [facility] Last Admin: 02/12/19 09:25 Dose: 480 mcg Tramadol HCl (Ultram) 50 mg PER TUBE Q6H PRN PRN Reason: Moderate Pain (4-6) Last Admin: 02/10/19 20:53 Dose: 50 mg
[2019-02-12] MEDS ORDERED: Sodium Chloride 0.9% 1,000 ML IV SCH (15:30)
[2019-02-12] MEDS: Micafungin 100 MG in Sodium Chloride 0.9% 100 ML IVPB SCH (15:42)
[2019-02-12 16:26] LABS: Vancomycin, Trough 11.4 ug/mL
[2019-02-12] MEDS ORDERED: Vancomycin HCl 1.25 GM in Sodium Chloride 0.9% 250 ML 250 ML IVPB SCH (17:00)
[2019-02-12] MEDS ORDERED: Vancomycin HCl 1 GM in Premix Bag 1 BAG IVPB SCH (21:00)
[2019-02-12] MEDS: Metoprolol Tartrate 25 MG TAB PO SCH (22:00)
[2019-02-13] MEDS: Metoclopramide HCl 10 MG/2 ML VIAL IVP SCH ×5 (01:00→23:42)
[2019-02-13] MEDS: Cefepime 2 GM in Sodium Chloride 0.9% 100 ML IVPB SCH (03:33)
[2019-02-13] MEDS: Vancomycin HCl 1.5 GM in Sodium Chloride 0.9% 250 ML 300 ML IVPB SCH ×2 (05:03→17:13)
[2019-02-13 05:31] LABS: White Blood Cell (WBC) Count 0.9 thou/uL (4.8-10.8)
[2019-02-13 05:39] LABS: Anion Gap 10 mmol/L (10-20); BUN (Urea Nitrogen) 10 mg/dL (8.4-25.7); Calc. Creatinine Clearance 120 mL/min (70-130); Calcium 7.2 mg/dL (7.8-10.44); Carbon Dioxide 29 mmol/L (23-31); Chloride 103 mmol/L (98-107); Estimated GFR-MDRD Greater than 90; Glucose 109 mg/dL (80-115); Potassium 3.4 mmol/L (3.5-5.1); Sodium 139 mmol/L (136-145)
[2019-02-13 06:44] LABS: Hemoglobin 6.9 g/dL (14.0-18.0); Mean Corpuscular Hemoglobin 27.1 pg (27.0-31.0); Mean Corpuscular Volume 87.5 fL (78.0-98.0); Mean Platelet Volume 9.1 fL (7.4-10.4); Platelet Count 40 thou/uL (130-400); RBC Distribution Width 14.7 % (11.5-14.5); Red Blood Cell (RBC) Count 2.55 mill/uL (4.70-6.10)
--- NOTE | 2019-02-13 07:45 | RAD ---
Radiograph chest one view: 02/13/2019 at 4:23 AM COMPARISON: 02/12/2019 at 4:28 AM HISTORY: 63-year-old male in respiratory failure. FINDINGS: Tracheostomy tube and right subclavian implantable vascular access port remain. There has been interv al worsening of left basilar opacity to now involve the left perihilar region and left midlung zone. Increased attenuation at the right medial base is probably subsegmental atelectasis. No pneumot horax. IMPRESSION: Interval worsening of aeration in the left mid and lower lung zones.
[2019-02-13] MEDS: STRIBILD PER TUBE SCH (07:55)
[2019-02-13] MEDS: diphenhydrAMINE 50 MG/ML VIAL IVP PRN ×2 (07:55→12:42)
[2019-02-13] MEDS: Acetaminophen 325 MG TAB PER TUBE PRN ×3 (07:55→23:50)
[2019-02-13 08:34] LABS: Band 20 % (5-11); Hypochromia SLIGHT = 6-15 cells (100X) (0-5/hpf); Lymphocytes 36 % (21-51); MDiff Complete? YES; Monocytes 32 % (0-10); Myelocyte 4 % (0-0); Neutrophil 8 % (42-75); Nucleated RBC 4 % (0); Platelet Morphology Comment Appears Decreased; Polychromasia SLIGHT = 2-3 cells (100X) (0-2/hpf)
[2019-02-13] MEDS: Metoprolol Tartrate 25 MG TAB PO SCH ×2 (09:17→21:12)
[2019-02-13] MEDS: Glycopyrrolate 0.2 MG/ML 5 ML SYRINGE SLOW IVP SCH ×3 (09:17→21:12)
[2019-02-13] MEDS: Saccharomyces boulardii 250 MG CAP PO SCH (09:17)
[2019-02-13] MEDS ORDERED: Cefepime 2 GM in Sodium Chloride 0.9% 100 ML IVPB SCH (11:00)
--- NOTE | 2019-02-13 12:58 | PRG ---
DATE OF SERVICE: 02/13/2019 SUBJECTIVE: Mr. Cobian still having issues with secretions, so we will leave him mechanically ventilated today. OBJECTIVE: VITAL SIGNS: Heart rate 120, blood pressure 111/68, respiratory rate 18. He is still having intermittent temperature spikes. His last high temperature was yesterday at 2300 hours to 101.5. LUNGS: Remarkable for rhonchi bilaterally. HEART: Regular rhythm. ABDOMEN: Soft. EXTREMITIES: Without edema. LABORATORY DATA: His white count up to 900; hemoglobin 6.9, so I have ordered 2 units of packed cells; platelets are up to 40,000 after transfusion yesterday. IMPRESSION: Neutropenic fever with respiratory failure, status post tracheostomy and percutaneous endoscopic gastrostomy. We will continue mechanical ventilation. Hopefully, we will start seeing gradual improvement in his respiratory status and his gastrointestinal function. Clinically appears to have an ileus. There is nothing that lead me to believe he has peritonitis at this time. Dr. Landry will continue to help us with antimicrobial therapy. Cultures have been reviewed. He is growing Pseudomonas out of tracheostomy tube aspirate. It is sensitive to quinolones, gentamicin, meropenem, tobramycin, and amikacin, intermediately sensitive to cefepime. We will continue to follow the other physicians. Critical care time is 35 minutes. Job ID: [id number] MTDD
[2019-02-13] MEDS ORDERED: Meropenem 2 GM in Admixture Fee 1 EACH IVPB SCH (14:00)
[2019-02-13] MEDS: Meropenem 2 GM, Admixture Fee 1 EACH in Sodium Chloride 0.9% 100 ML IVPB SCH ×2 (15:05→21:12)
[2019-02-13] MEDS: Micafungin 100 MG in Sodium Chloride 0.9% 100 ML IVPB SCH (16:23)
[2019-02-13] MEDS: Scopolamine 1.5 mg/72 hour Patch TD SCH (16:24)
--- NOTE | 2019-02-13 17:20 | PDOC.PN ---
- Subjective Encounter Start Date: 02/13/19 Encounter Start Time: 13:30 Subjective: awake, is on vent -: says he still has secretions coming out from trach -: is moving all extremities - Objective MAR Reviewed: Yes Vital Signs & Weight: Vital Signs (12 hours) Temp Pulse Pulse Resp BP BP Pulse Ox 02/13/19 15:11 120 H 129/69 02/13/19 15:05 98.6 F 119 H 18 129/69 100 02/13/19 15:00 98.6 F 02/13/19 14:00 20 02/13/19 13:17 120 H 105/71 02/13/19 13:04 98.0 F 120 H 18 105/71 100 02/13/19 12:00 17 02/13/19 11:20 98.0 F 120 H 14 111/68 100 02/13/19 11:00 98.0 F 02/13/19 10:37 119 H 108/64 02/13/19 10:00 16 02/13/19 09:06 98.5 F 123 H 20 118/64 100 02/13/19 08:50 97.1 F L 122 H 12 104/58 L 100 02/13/19 08:00 17 100 02/13/19 07:24 122 H 114/55 L 02/13/19 07:00 98.5 F 02/13/19 06:00 15 Weight Admit Weight 139 lb 11.2 oz Weight 139 lb 11.2 oz Most Recent Monitor Data Heart Rate from ECG 118 NIBP 112/61 NIBP BP-Mean 78 Respiration from ECG 20 SpO2 99 I&O: 02/12/19 02/13/19 02/14/19 06:59 06:59 06:59 Intake Total 3282 3096 1451 Output Total 892 611 8312 Balance 2507 2343 161 Result Diagrams: 02/13/19 05:00 02/13/19 03:30 Phys Exam - Physical Examination HEENT: PERRLA, moist MMs Neck: no JVD trach+ Respiratory: no wheezing, no rales Cardiovascular: RRR, no significant murmur Gastrointestinal: soft, non-tender mild distention+, no rigidity or guarding Musculoskeletal: no edema, pulses present Neurological: non-focal, moves all 4 limbs Psychiatric: A&O x 3 Dx/Plan (1) Acute respiratory failure with hypoxia Code(s): J96.01 - ACUTE RESPIRATORY FAILURE WITH HYPOXIA Status: Acute (2) Acute tracheobronchitis Code(s): J20.9 - ACUTE BRONCHITIS, UNSPECIFIED Status: Acute (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 Comment: on carboplatin and taxotere, last chemo 02/01/2019 (4) Thrombocytopenia Code(s): D69.6 - THROMBOCYTOPENIA, UNSPECIFIED Status: Acute (5) Pancytopenia Code(s): D61.818 - OTHER PANCYTOPENIA Status: Acute Comment: due to chemotherapy (6) History of right above knee amputation Code(s): Z89.611 - ACQUIRED ABSENCE OF RIGHT LEG ABOVE KNEE Status: Chronic (7) History of left below knee amputation Code(s): Z89.512 - ACQUIRED ABSENCE OF LEFT LEG BELOW KNEE Status: Chronic (8) HIV (human immunodeficiency virus infection) Code(s): B20 - HUMAN IMMUNODEFICIENCY VIRUS [HIV] DISEASE Status: Chronic Qualifiers: HIV symptom status: asymptomatic Qualified Code(s): Z21 - Asymptomatic human immunodeficiency virus [HIV] infection status - Plan hemostable -: on meropenem, vanc, micafungin. Filgrastim for neutropenia -: still has pancytopenia, glycopyrolate -: continue stribild, nebs, iv fluids -: resp secretions are growing pseudomonas, dulcolax suppository/enema prn * . Review of Systems - Medications/Allergies Allergies/Adverse Reactions: Allergies Allergy/AdvReac Type Severity Reaction Status Date / Time No Known Drug Allergies Allergy Verified 12/06/18 16:55 Medications: Current Medications Acetaminophen (Tylenol) 650 mg CO Q4H PRN PRN Reason: Headache/Fever/Mild Pain (1-3) Last Admin: 02/10/19 12:38 Dose: 650 mg Acetaminophen (Tylenol) 650 mg PER TUBE Q6H PRN PRN Reason: PAIN/FEVER Last Admin: 02/13/19 12:42 Dose: 650 mg Albuterol/Ipratropium (Duoneb) 3 ml NEB [id number] [facility] Last Admin: 02/13/19 15:11 Dose: 3 ml Bisacodyl (Dulcolax) 10 mg CO DAILYPRN PRN PRN Reason: Constipation Bisacodyl (Dulcolax) 10 mg CO DAILYPRN PRN PRN Reason: Constipation Al Hydroxide/Mg Hydroxide 60 ml/ Diphenhydramine HCl 150 mg / Lidocaine HCl 60 ml/Nystatin 6,000,000 units 0 ml SSW PRN PRN PRN Reason: Mouth Irritation Diphenhydramine HCl (Benadryl) 25 mg IVP Q6H PRN PRN Reason: Itching Last Admin: 02/13/19 12:42 Dose: 25 mg Diphenhydramine HCl (Benadryl) 25 mg IVP Q6H PRN PRN Reason: Itching & Insomnia Glycopyrrolate (Glycopyrrolate) 0.4 mg SLOW IVP TID [facility] Last Admin: 02/13/19 16:23 Dose: 0.4 mg Potassium Chloride 40 meq/Sodium Bicarbonate 150 meq/Dextrose/Water 1,170 mls @ 100 mls/hr IV .[id number] [facility] Last Admin: 02/13/19 12:52 Dose: Not Given Micafungin Sodium 100 mg/ (Sodium Chloride) 100 mls @ 100 mls/hr IVPB Q24HR [facility] Last Admin: 02/13/19 16:23 Dose: 100 mls Vancomycin HCl 1.5 gm/ Sodium (Chloride) 300 mls @ 200 mls/hr IVPB 0500,1700 [facility] Last Admin: 02/13/19 17:13 Dose: 300 mls Dexmedetomidine HCl 200 mcg/ (Sodium Chloride) 50 mls @ 0 mls/hr IVPB INF [facility]; Protocol Meropenem 2 gm/ Miscellaneous Medication 1 each/ Sodium Chloride 100 mls @ 200 mls/hr IVPB Q8HR [facility] Last Admin: 02/13/19 15:05 Dose: 100 mls Lorazepam (Ativan) 2 mg SLOW IVP Q1H PRN PRN Reason: Breakthrough agitation Stop: 03/12/19 16:43 Last Admin: 02/12/19 15:04 Dose: 2 mg Metoclopramide HCl (Reglan) 10 mg IVP Q6HR [facility] Last Admin: 02/13/19 17:13 Dose: 10 mg Metoprolol Tartrate (Lopressor) 25 mg PO BID [facility] Last Admin: 02/13/19 09:17 Dose: 25 mg Miscellaneous Medication (Pharmacy To Dose) 1 each IVPB .VANCOMYCIN/ABX PRN PRN Reason: LABS Miscellaneous Medication (Ventilator Sedation Protocol) 1 each FS ONE [facility] Stop: 03/12/19 16:38 Morphine Sulfate (Morphine) 2 mg SLOW IVP Q1H PRN PRN Reason: BREAKTHROUGH PAIN/Agitation Stop: 03/12/19 16:43 Discontinue Previous Narcotic Pain Medications And Benzodiazepines 1 each FS .ONE [facility] Stop: 03/12/19 16:43 Ondansetron HCl (Zofran) 4 mg IVP Q6H PRN PRN Reason: Nausea/Vomiting Last Admin: 02/12/19 05:29 Dose: 4 mg Stribild Tab. 0 each PER TUBE QAM-WM [facility] Last Admin: 02/13/19 07:55 Dose: 1 each Propofol (Diprivan) 1,000 mg IV INF PRN; Protocol PRN Reason: TO ACHIEVE GOAL RASS Stop: 03/12/19 16:43 Saccharomyces Boulardii (Florastor) 250 mg PO DAILY [facility] Last Admin: 02/13/19 09:17 Dose: 250 mg Scopolamine (Transderm Scop) 1.5 mg TD Q3D [facility] Last Admin: 02/13/19 16:24 Dose: 1.5 mg Sodium Chloride (Flush - Normal Saline) 10 ml IVF Q12HR [facility] Last Admin: 02/13/19 07:58 Dose: 10 ml Sodium Chloride (Flush - Normal Saline) 10 ml IVF PRN PRN PRN Reason: Saline Flush Tbo-Filgrastim (Granix) 480 mcg SC DAILY [facility] Last Admin: 02/13/19 09:15 Dose: 480 mcg Tramadol HCl (Ultram) 50 mg PER TUBE Q6H PRN PRN Reason: Moderate Pain (4-6) Last Admin: 02/10/19 20:53 Dose: 50 mg
--- NOTE | 2019-02-13 19:10 | PRG ---
DATE OF SERVICE: 02/13/2019 SUBJECTIVE: Still in the ICU. 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 OBJECTIVE: VITAL SIGNS: The T-max 101 one day ago, he has been afebrile since. HEENT: His ocular movements are conjugate. The trismus noted with some hemorrhagic contents in the oral cavity. Tracheostomy in place and a gastrostomy tube. LUNGS: Symmetric air entry. ABDOMEN: The patient has developed ileus and all the gastric contents were drained and pain has improved. LABORATORY DATA: The white cell count is up to 0.9, hemoglobin 6.9, platelets 40,000. Sodium 139, creatinine 0.58. Chest x-ray with interval worsening of aeration in left mid and lower lung zones. He is currently on meropenem, micafungin, and vancomycin. ASSESSMENT AND DISCUSSION: Longstanding human immunodeficiency virus infection, well controlled, now with head and neck cancer, metastatic locally, undergoing chemotherapy, admitted with pneumonia, stomatitis, and severe neutropenia. The patient has ileus, and oral medications will have to be discontinued for the time being. Continue the antimicrobial treatment, hopefully, he did not develop C diff or neutropenic enterocolitis. Job ID: [id number]
[2019-02-13] MEDS: Aluminum & Magnesium Hydroxide 60 ML, diphenhydrAMINE 150 MG, Lidocaine 2% Viscous Solu... SSW PRN (23:42)
[2019-02-14] MEDS: Vancomycin HCl 1.5 GM in Sodium Chloride 0.9% 250 ML 300 ML IVPB SCH ×2 (04:39→16:38)
[2019-02-14 05:41] LABS: Anion Gap 12 mmol/L (10-20); BUN (Urea Nitrogen) 9 mg/dL (8.4-25.7); Calc. Creatinine Clearance 136 mL/min (70-130); Calcium 7.5 mg/dL (7.8-10.44); Carbon Dioxide 29 mmol/L (23-31); Chloride 104 mmol/L (98-107); Estimated GFR-MDRD Greater than 90; Glucose 96 mg/dL (80-115); Potassium 3.1 mmol/L (3.5-5.1); Sodium 142 mmol/L (136-145)
[2019-02-14 05:45] LABS: Band 29 % (5-11); Hemoglobin 9.3 g/dL (14.0-18.0); Lymphocytes 16 % (21-51); MDiff Complete? YES; Mean Corpuscular HGB CONC 32.2 g/dL (32.0-36.0); Mean Corpuscular Hemoglobin 28.3 pg (27.0-31.0); Mean Corpuscular Volume 87.7 fL (78.0-98.0); Mean Platelet Volume 10.4 fL (7.4-10.4); Metamyelocyte 4 % (0-0); Monocytes 8 % (0-10); Myelocyte 2 % (0-0); Neutrophil 41 % (42-75); Platelet Count 39 thou/uL (130-400); Platelet Morphology Comment Appears Decreased; RBC Distribution Width 14.6 % (11.5-14.5); Toxic Granulation SLIGHT; White Blood Cell (WBC) Count 2.4 thou/uL (4.8-10.8)
[2019-02-14] MEDS: Meropenem 2 GM, Admixture Fee 1 EACH in Sodium Chloride 0.9% 100 ML IVPB SCH ×3 (06:28→21:14)
[2019-02-14] MEDS: Metoclopramide HCl 10 MG/2 ML VIAL IVP SCH ×3 (06:28→16:39)
--- NOTE | 2019-02-14 07:31 | RAD ---
EXAM: Single view of the chest HISTORY: Chest pain COMPARISON: 02/13/2019 FINDINGS: Single view of the chest shows a normal sized cardiomediastinal silhouette. The Mediport a nd tracheostomy are unchanged in position. There is no evidence of consolidation, mass, or pleural effusion. The bones are unremarkable. IMPRESSION: Stable examination
[2019-02-14] MEDS: STRIBILD PER TUBE SCH (08:36)
[2019-02-14] MEDS: Metoprolol Tartrate 25 MG TAB PO SCH ×2 (08:38→21:15)
[2019-02-14] MEDS: Saccharomyces boulardii 250 MG CAP PO SCH (08:38)
[2019-02-14] MEDS: Aluminum & Magnesium Hydroxide 60 ML, diphenhydrAMINE 150 MG, Lidocaine 2% Viscous Solu... SSW PRN (08:38)
[2019-02-14] MEDS: Glycopyrrolate 0.2 MG/ML 5 ML SYRINGE SLOW IVP SCH ×3 (11:09→21:14)
[2019-02-14] MEDS: Acetaminophen 325 MG TAB PER TUBE PRN (13:17)
[2019-02-14] MEDS: traMADol HCl 50 MG TAB PER TUBE PRN (13:18)
--- NOTE | 2019-02-14 14:57 | EKG ---
Test Reason : Blood Pressure : / mmHG Vent. Rate : 118 BPM Atrial Rate : 118 BPM P-R Int : 152 ms QRS Dur : 084 ms QT Int : 286 ms P-R-T Axes : 073 031 058 degrees QTc Int : 400 ms Sinus tachycardia Possible Inferior infarct (cited on or before 19-OCT-2011) Abnormal ECG Confirmed by LAUIRE ELIAS ([id number]) on 02/14/2019 2:57:18 PM Referred By: SHEN Confirmed By:LAURIE ELIAS
[2019-02-14] MEDS: Micafungin 100 MG in Sodium Chloride 0.9% 100 ML IVPB SCH (15:50)
[2019-02-14 16:29] LABS: Vancomycin, Trough 21.1 ug/mL
--- NOTE | 2019-02-14 17:40 | PDOC.PN ---
- Subjective Encounter Start Date: 02/14/19 Encounter Start Time: 14:45 Subjective: awake, on vent -: is passing lot of liq stool now with resolution of constipation/distention - Objective MAR Reviewed: Yes Vital Signs & Weight: Vital Signs (12 hours) Temp Pulse Resp Pulse Ox 02/14/19 16:00 99.5 F 02/14/19 14:45 115 H 20 92 L 02/14/19 12:00 99.2 F 02/14/19 10:50 111 H 18 94 L 02/14/19 08:00 99.0 F 21 L 02/14/19 07:23 112 H 20 97 02/14/19 06:00 10 L Weight Admit Weight 139 lb 11.2 oz Weight 139 lb 11.2 oz Most Recent Monitor Data Heart Rate from ECG 109 NIBP 104/53 NIBP BP-Mean 70 Respiration from ECG 29 SpO2 93 I&O: 02/13/19 02/14/19 02/15/19 06:59 06:59 06:59 Intake Total 3096 3702.3 60 Output Total 753 2540 535 Balance 2343 1162.3 -475 Result Diagrams: 02/14/19 04:45 02/14/19 04:45 Phys Exam - Physical Examination HEENT: PERRLA, sclera anicteric dried crusted blood/mucosal ulcers + Neck: no JVD Respiratory: no wheezing rhonchi+ Cardiovascular: RRR, no significant murmur Gastrointestinal: soft, non-tender, no distention, positive bowel sounds Musculoskeletal: pulses present Neurological: non-focal, moves all 4 limbs Dx/Plan (1) Acute respiratory failure with hypoxia Code(s): J96.01 - ACUTE RESPIRATORY FAILURE WITH HYPOXIA Status: Acute (2) Acute tracheobronchitis Code(s): J20.9 - ACUTE BRONCHITIS, UNSPECIFIED Status: Acute (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 Comment: on carboplatin and taxotere, last chemo 02/01/2019 (4) Thrombocytopenia Code(s): D69.6 - THROMBOCYTOPENIA, UNSPECIFIED Status: Acute (5) Pancytopenia Code(s): D61.818 - OTHER PANCYTOPENIA Status: Acute Comment: due to chemotherapy (6) History of right above knee amputation Code(s): Z89.611 - ACQUIRED ABSENCE OF RIGHT LEG ABOVE KNEE Status: Chronic (7) History of left below knee amputation Code(s): Z89.512 - ACQUIRED ABSENCE OF LEFT LEG BELOW KNEE Status: Chronic (8) HIV (human immunodeficiency virus infection) Code(s): B20 - HUMAN IMMUNODEFICIENCY VIRUS [HIV] DISEASE Status: Chronic Qualifiers: HIV symptom status: unspecified Qualified Code(s): B20 - Human immunodeficiency virus [HIV] disease - Plan is on meropenem, vanc, micafungin, filgrastrim -: nebs, iv hydration, stribild -: prognosis guarded -: pancytopenia is slowly stabilizing * . Review of Systems - Medications/Allergies Allergies/Adverse Reactions: Allergies Allergy/AdvReac Type Severity Reaction Status Date / Time No Known Drug Allergies Allergy Verified 12/06/18 16:55 Medications: Current Medications Acetaminophen (Tylenol) 650 mg SD Q4H PRN PRN Reason: Headache/Fever/Mild Pain (1-3) Last Admin: 02/10/19 12:38 Dose: 650 mg Acetaminophen (Tylenol) 650 mg PER TUBE Q6H PRN PRN Reason: PAIN/FEVER Last Admin: 02/14/19 13:17 Dose: 650 mg Albuterol/Ipratropium (Duoneb) 3 ml NEB [id number] [facility] Last Admin: 02/14/19 14:45 Dose: 3 ml Bisacodyl (Dulcolax) 10 mg SD DAILYPRN PRN PRN Reason: Constipation Bisacodyl (Dulcolax) 10 mg SD DAILYPRN PRN PRN Reason: Constipation Al Hydroxide/Mg Hydroxide 60 ml/ Diphenhydramine HCl 150 mg / Lidocaine HCl 60 ml/Nystatin 6,000,000 units 0 ml SSW PRN PRN PRN Reason: Mouth Irritation Last Admin: 02/14/19 08:38 Dose: 10 ml Diphenhydramine HCl (Benadryl) 25 mg IVP Q6H PRN PRN Reason: Itching Last Admin: 02/13/19 12:42 Dose: 25 mg Diphenhydramine HCl (Benadryl) 25 mg IVP Q6H PRN PRN Reason: Itching & Insomnia Glycopyrrolate (Glycopyrrolate) 0.4 mg SLOW IVP TID [facility] Last Admin: 02/14/19 16:33 Dose: 0.4 mg Potassium Chloride 40 meq/Sodium Bicarbonate 150 meq/Dextrose/Water 1,170 mls @ 100 mls/hr IV .[id number] [facility] Last Admin: 02/14/19 12:56 Dose: 1,170 mls Micafungin Sodium 100 mg/ (Sodium Chloride) 100 mls @ 100 mls/hr IVPB Q24HR [facility] Last Admin: 02/14/19 15:50 Dose: 100 mls Vancomycin HCl 1.5 gm/ Sodium (Chloride) 300 mls @ 200 mls/hr IVPB 0500,1700 [facility] Stop: 02/14/19 19:00 Last Admin: 02/14/19 16:38 Dose: 300 mls Dexmedetomidine HCl 200 mcg/ (Sodium Chloride) 50 mls @ 0 mls/hr IVPB INF [facility]; Protocol Meropenem 2 gm/ Miscellaneous Medication 1 each/ Sodium Chloride 100 mls @ 200 mls/hr IVPB Q8HR [facility] Last Admin: 02/14/19 13:19 Dose: 100 mls Vancomycin HCl 1.25 gm/ Sodium (Chloride) 250 mls @ 166.667 mls/hr IVPB 0500, 1700 [facility] Lorazepam (Ativan) 2 mg SLOW IVP Q1H PRN PRN Reason: Breakthrough agitation Stop: 03/12/19 16:43 Last Admin: 02/12/19 15:04 Dose: 2 mg Metoclopramide HCl (Reglan) 10 mg IVP Q6HR [facility] Last Admin: 02/14/19 16:39 Dose: Not Given Metoprolol Tartrate (Lopressor) 25 mg PO BID [facility] Last Admin: 02/14/19 08:38 Dose: 25 mg Miscellaneous Medication (Pharmacy To Dose) 1 each IVPB .VANCOMYCIN/ABX PRN PRN Reason: LABS Miscellaneous Medication (Ventilator Sedation Protocol) 1 each FS ONE [facility] Stop: 03/12/19 16:38 Morphine Sulfate (Morphine) 2 mg SLOW IVP Q1H PRN PRN Reason: BREAKTHROUGH PAIN/Agitation Stop: 03/12/19 16:43 Discontinue Previous Narcotic Pain Medications And Benzodiazepines 1 each FS .ONE [facility] Stop: 03/12/19 16:43 Ondansetron HCl (Zofran) 4 mg IVP Q6H PRN PRN Reason: Nausea/Vomiting Last Admin: 02/12/19 05:29 Dose: 4 mg Stribild Tab. 0 each PER TUBE QAM-WM [facility] Last Admin: 02/14/19 08:36 Dose: 1 each Propofol (Diprivan) 1,000 mg IV INF PRN; Protocol PRN Reason: TO ACHIEVE GOAL RASS Stop: 03/12/19 16:43 Saccharomyces Boulardii (Florastor) 250 mg PO DAILY [facility] Last Admin: 02/14/19 08:38 Dose: 250 mg Scopolamine (Transderm Scop) 1.5 mg TD Q3D [facility] Last Admin: 02/13/19 16:24 Dose: 1.5 mg Sodium Chloride (Flush - Normal Saline) 10 ml IVF Q12HR [facility] Last Admin: 02/14/19 08:39 Dose: 10 ml Sodium Chloride (Flush - Normal Saline) 10 ml IVF PRN PRN PRN Reason: Saline Flush Tbo-Filgrastim (Granix) 480 mcg SC DAILY [facility] Last Admin: 02/14/19 08:39 Dose: 480 mcg Tramadol HCl (Ultram) 50 mg PER TUBE Q6H PRN PRN Reason: Moderate Pain (4-6) Last Admin: 02/14/19 13:18 Dose: 50 mg
--- NOTE | 2019-02-14 18:02 | PRG ---
DATE OF SERVICE: 02/14/2019 SUBJECTIVE: Yrn Cobian says he just feels bad all over. He is not complaining respiratory fatigue today. OBJECTIVE: VITAL SIGNS: He is afebrile. Heart rate is 109, blood pressure 103 /57, respiratory rate is in the 20s. Secretions appear to be a little better. LUNGS: Remarkable for mild rhonchi bilaterally. HEART: Regular rhythm. ABDOMEN: Soft. EXTREMITIES: Without edema. LABORATORY DATA: White count is up to 2.4, hemoglobin 9.3, platelets 39,000. Sodium 142, potassium 3.1, chloride 104, bicarb 29, BUN 9, creatinine 0.5. Chest x-ray still shows no infiltrates. IMPRESSION: Febrile neutropenia with probable tracheobronchitis. There is no evidence of a pneumonia on chest radiograph. He appears to be clinically stabilizing with return of his white count. We will continue to nocturnally ventilate him for now, but hopefully within a few days, we can consider withdrawal of nocturnal ventilatory support. CRITICAL CARE TIME: 30 minutes. Job ID: [id number] MTDD
[2019-02-15] MEDS: Metoclopramide HCl 10 MG/2 ML VIAL IVP SCH ×4 (00:02→17:55)
[2019-02-15] MEDS: Meropenem 2 GM, Admixture Fee 1 EACH in Sodium Chloride 0.9% 100 ML IVPB SCH ×3 (06:13→22:17)
[2019-02-15] MEDS: Vancomycin HCl 1.25 GM in Sodium Chloride 0.9% 250 ML 250 ML IVPB SCH ×2 (06:13→16:43)
[2019-02-15 06:38] LABS: Anion Gap 12 mmol/L (10-20); BUN (Urea Nitrogen) 10 mg/dL (8.4-25.7); Calc. Creatinine Clearance 122 mL/min (70-130); Calcium 7.4 mg/dL (7.8-10.44); Carbon Dioxide 32 mmol/L (23-31); Chloride 104 mmol/L (98-107); Estimated GFR-MDRD Greater than 90; Glucose 99 mg/dL (80-115); Potassium 3.1 mmol/L (3.5-5.1); Sodium 145 mmol/L (136-145)
[2019-02-15 07:02] LABS: Hemoglobin 9.6 g/dL (14.0-18.0); Mean Corpuscular Hemoglobin 27.9 pg (27.0-31.0); Mean Corpuscular Volume 87.4 fL (78.0-98.0); Mean Platelet Volume 10.7 fL (7.4-10.4); Platelet Count 60 thou/uL (130-400); RBC Distribution Width 14.9 % (11.5-14.5); Red Blood Cell (RBC) Count 3.43 mill/uL (4.70-6.10); White Blood Cell (WBC) Count 6.6 thou/uL (4.8-10.8)
--- NOTE | 2019-02-15 07:41 | RAD ---
EXAM: Single view of the chest HISTORY: Ventilated patient with respiratory failure COMPARISON: 02/14/2019 FINDINGS: Single view of the chest shows a normal sized cardiomediastinal silhouette. The tracheosto my and Mediport are unchanged in position. There is no evidence of consolidation, mass, or pleural effusion. The bones are unremarkable. IMPRESSION: Stable exam
[2019-02-15 08:16] LABS: Band 41 % (5-11); Dohle Bodies SLIGHT; Lymphocytes 9 % (21-51); MDiff Complete? YES; Metamyelocyte 3 % (0-0); Monocytes 3 % (0-10); Myelocyte 2 % (0-0); Neutrophil 39 % (42-75); Ovalocytes SLIGHT = 2-5 cells (100X) (0-1/hpf); Platelet Morphology Comment Appears Decreased; Polychromasia SLIGHT = 2-3 cells (100X) (0-2/hpf); Reactive Lymphocytes 3 % (0-10); Toxic Granulation SLIGHT
[2019-02-15] MEDS: STRIBILD PER TUBE SCH (08:52)
[2019-02-15] MEDS: Glycopyrrolate 0.2 MG/ML 5 ML SYRINGE SLOW IVP SCH ×3 (08:53→22:17)
[2019-02-15] MEDS: Metoprolol Tartrate 25 MG TAB PO SCH ×2 (08:53→22:16)
[2019-02-15] MEDS: Saccharomyces boulardii 250 MG CAP PO SCH (08:53)
[2019-02-15] MEDS ORDERED: Furosemide 40 MG/4 ML VIAL SLOW IVP SCH (13:15)
--- NOTE | 2019-02-15 13:34 | PRG ---
DATE OF SERVICE: 02/15/2019 SUBJECTIVE: Mr. Cobian says he feels a tiny bit better. He is afebrile. He still has some secretion issues, but they are not as bad. OBJECTIVE: VITAL SIGNS: Heart rate is 101, blood pressure is 113/60, respiratory rate is in the teens. LUNGS: Remarkable for bilateral rhonchi. HEART: Regular rhythm. ABDOMEN: Soft. EXTREMITIES: Without clubbing, cyanosis, or edema. LABORATORY DATA: White count up to 6.6, hemoglobin 9.6, platelets 60,000. Sodium 145, potassium 3.1, chloride 104, bicarb 32, BUN 10, creatinine 0.57. IMPRESSION: Neutropenic fever with tracheobronchitis, clinically improving. I was anticipating that he would have dense infiltrates developed with return of his white count, he has not. He does have changes on his radiograph suggestive of posterior pleural effusions, maybe some mild interstitial edema. I would continue to recommend that we ventilate him at night. He appears to be clinically improving. Intake and output, positive 837. He is almost 8 L positive over the last 5 days. He might benefit from some diuresis at this point. CRITICAL CARE TIME: 30 minutes. Job ID: [id number]
--- NOTE | 2019-02-15 13:43 | RAD ---
EXAM: Single view of the abdomen HISTORY: Small bowel obstruction COMPARISON: None FINDINGS: Single view of the abdomen shows a nonspecific, nonobstructive bowel gas pattern. A gastros rubén tube overlies the stomach. No suspicious calcifications are seen. The bones are unremarkable. IMPRESSION: No evidence of bowel obstruction
--- NOTE | 2019-02-15 14:03 | PDOC.PN ---
- Subjective Encounter Start Date: 02/15/19 Encounter Start Time: 13:00 Subjective: awake, no new complaints - Objective MAR Reviewed: Yes Vital Signs & Weight: Vital Signs (12 hours) Temp Pulse Resp Pulse Ox 02/15/19 12:00 99 F 02/15/19 10:22 105 H 16 100 02/15/19 08:00 96 02/15/19 07:38 110 H 14 100 02/15/19 06:00 21 H 02/15/19 04:00 99.8 F H 14 02/15/19 02:38 109 H 15 100 02/15/19 02:00 20 Weight Admit Weight 139 lb 11.2 oz Weight 139 lb 11.2 oz Most Recent Monitor Data Heart Rate from ECG 101 NIBP 113/60 NIBP BP-Mean 77 Respiration from ECG 14 SpO2 100 I&O: 02/14/19 02/15/19 02/16/19 06:59 06:59 06:59 Intake Total 3702.3 1917 120 Output Total 2540 1080 350 Balance 1162.3 837 -230 Result Diagrams: 02/15/19 06:00 02/15/19 06:00 Phys Exam - Physical Examination HEENT: PERRLA, moist MMs Neck: no JVD, supple Respiratory: no wheezing, no rales Cardiovascular: RRR, no significant murmur Gastrointestinal: soft, non-tender, no distention, positive bowel sounds peg+ Musculoskeletal: pulses present, edema present Neurological: non-focal, moves all 4 limbs Psychiatric: A&O x 3 Dx/Plan (1) Acute respiratory failure with hypoxia Code(s): J96.01 - ACUTE RESPIRATORY FAILURE WITH HYPOXIA Status: Acute (2) Acute tracheobronchitis Code(s): J20.9 - ACUTE BRONCHITIS, UNSPECIFIED Status: Acute (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 Comment: on carboplatin and taxotere, last chemo 02/01/2019 (4) Thrombocytopenia Code(s): D69.6 - THROMBOCYTOPENIA, UNSPECIFIED Status: Acute (5) Pancytopenia Code(s): D61.818 - OTHER PANCYTOPENIA Status: Acute Comment: due to chemotherapy (6) History of right above knee amputation Code(s): Z89.611 - ACQUIRED ABSENCE OF RIGHT LEG ABOVE KNEE Status: Chronic (7) History of left below knee amputation Code(s): Z89.512 - ACQUIRED ABSENCE OF LEFT LEG BELOW KNEE Status: Chronic (8) HIV (human immunodeficiency virus infection) Code(s): B20 - HUMAN IMMUNODEFICIENCY VIRUS [HIV] DISEASE Status: Chronic Qualifiers: HIV symptom status: unspecified Qualified Code(s): B20 - Human immunodeficiency virus [HIV] disease - Plan is on meropenem, vanc, micafungin -: nebs, stribild -: is getting nocturnal vent -: hemostable, KUB shows no evidence of bowel obstr, start peg feeding -: prognosis guarded * . Review of Systems - Medications/Allergies Allergies/Adverse Reactions: Allergies Allergy/AdvReac Type Severity Reaction Status Date / Time No Known Drug Allergies Allergy Verified 12/06/18 16:55 Medications: Current Medications Acetaminophen (Tylenol) 650 mg MS Q4H PRN PRN Reason: Headache/Fever/Mild Pain (1-3) Last Admin: 02/10/19 12:38 Dose: 650 mg Acetaminophen (Tylenol) 650 mg PER TUBE Q6H PRN PRN Reason: PAIN/FEVER Last Admin: 02/14/19 13:17 Dose: 650 mg Albuterol/Ipratropium (Duoneb) 3 ml NEB [id number] [facility] Last Admin: 02/15/19 10:22 Dose: 3 ml Bisacodyl (Dulcolax) 10 mg MS DAILYPRN PRN PRN Reason: Constipation Al Hydroxide/Mg Hydroxide 60 ml/ Diphenhydramine HCl 150 mg / Lidocaine HCl 60 ml/Nystatin 6,000,000 units 0 ml SSW PRN PRN PRN Reason: Mouth Irritation Last Admin: 02/14/19 08:38 Dose: 10 ml Diphenhydramine HCl (Benadryl) 25 mg IVP Q6H PRN PRN Reason: Itching Last Admin: 02/13/19 12:42 Dose: 25 mg Fluconazole (Diflucan) 100 mg PO DAILY [facility] Furosemide (Lasix) 40 mg SLOW IVP ONE [facility] Stop: 02/15/19 15:00 Last Admin: 02/15/19 13:41 Dose: 40 mg Glycopyrrolate (Glycopyrrolate) 0.4 mg SLOW IVP TID [facility] Last Admin: 02/15/19 08:53 Dose: 0.4 mg Dexmedetomidine HCl 200 mcg/ (Sodium Chloride) 50 mls @ 0 mls/hr IVPB INF [facility]; Protocol Meropenem 2 gm/ Miscellaneous Medication 1 each/ Sodium Chloride 100 mls @ 200 mls/hr IVPB Q8HR [facility] Last Admin: 02/15/19 13:41 Dose: 100 mls Vancomycin HCl 1.25 gm/ Sodium (Chloride) 250 mls @ 166.667 mls/hr IVPB 0500, 1700 [facility] Last Admin: 02/15/19 06:13 Dose: 250 mls Potassium Chloride 40 meq/Sodium Bicarbonate 150 meq/Dextrose/Water 1,170 mls @ 0 mls/hr IV .Q0M [facility] Metoclopramide HCl (Reglan) 10 mg IVP Q6HR [facility] Last Admin: 02/15/19 12:39 Dose: 10 mg Metoprolol Tartrate (Lopressor) 25 mg PO BID [facility] Last Admin: 02/15/19 08:53 Dose: 25 mg Miscellaneous Medication (Pharmacy To Dose) 1 each IVPB .VANCOMYCIN/ABX PRN PRN Reason: LABS Miscellaneous Medication (Ventilator Sedation Protocol) 1 each FS ONE [facility] Stop: 03/12/19 16:38 Morphine Sulfate (Morphine) 2 mg SLOW IVP Q1H PRN PRN Reason: BREAKTHROUGH PAIN/Agitation Stop: 03/12/19 16:43 Discontinue Previous Narcotic Pain Medications And Benzodiazepines 1 each FS .ONE [facility] Stop: 03/12/19 16:43 Ondansetron HCl (Zofran) 4 mg IVP Q6H PRN PRN Reason: Nausea/Vomiting Last Admin: 02/12/19 05:29 Dose: 4 mg Stribild Tab. 0 each PER TUBE QAM-WM [facility] Last Admin: 02/15/19 08:52 Dose: 1 each Saccharomyces Boulardii (Florastor) 250 mg PO DAILY [facility] Last Admin: 02/15/19 08:53 Dose: 250 mg Scopolamine (Transderm Scop) 1.5 mg TD Q3D [facility] Last Admin: 02/13/19 16:24 Dose: 1.5 mg Sodium Chloride (Flush - Normal Saline) 10 ml IVF Q12HR [facility] Last Admin: 02/15/19 08:53 Dose: 10 ml Sodium Chloride (Flush - Normal Saline) 10 ml IVF PRN PRN PRN Reason: Saline Flush Tramadol HCl (Ultram) 50 mg PER TUBE Q6H PRN PRN Reason: Moderate Pain (4-6) Last Admin: 02/14/19 13:18 Dose: 50 mg
[2019-02-16] MEDS: Metoclopramide HCl 10 MG/2 ML VIAL IVP SCH ×4 (00:33→17:29)
[2019-02-16] MEDS: Meropenem 2 GM, Admixture Fee 1 EACH in Sodium Chloride 0.9% 100 ML IVPB SCH ×3 (05:09→22:08)
[2019-02-16 05:51] LABS: Anion Gap 11 mmol/L (10-20); BUN (Urea Nitrogen) 12 mg/dL (8.4-25.7); Calc. Creatinine Clearance 122 mL/min (70-130); Calcium 7.4 mg/dL (7.8-10.44); Carbon Dioxide 33 mmol/L (23-31); Chloride 103 mmol/L (98-107); Estimated GFR-MDRD Greater than 90; Glucose 72 mg/dL (80-115); Sodium 144 mmol/L (136-145)
[2019-02-16 05:59] LABS: Potassium 2.6 mmol/L (3.5-5.1)
[2019-02-16 06:36] LABS: Band 22 % (5-11); Hemoglobin 9.8 g/dL (14.0-18.0); Hypochromia SLIGHT = 6-15 cells (100X) (0-5/hpf); Lymphocytes 9 % (21-51); MDiff Complete? YES; Mean Corpuscular HGB CONC 31.4 g/dL (32.0-36.0); Mean Corpuscular Hemoglobin 27.8 pg (27.0-31.0); Mean Corpuscular Volume 88.8 fL (78.0-98.0); Mean Platelet Volume 10.5 fL (7.4-10.4); Metamyelocyte 10 % (0-0); Monocytes 4 % (0-10); Myelocyte 7 % (0-0); Neutrophil 47 % (42-75); Platelet Count 85 thou/uL (130-400); Platelet Morphology Comment Appears Decreased; Polychromasia SLIGHT = 2-3 cells (100X) (0-2/hpf); Reactive Lymphocytes 1 % (0-10); Red Blood Cell (RBC) Count 3.52 mill/uL (4.70-6.10); White Blood Cell (WBC) Count 11.7 thou/uL (4.8-10.8)
[2019-02-16] MEDS: Vancomycin HCl 1.25 GM in Sodium Chloride 0.9% 250 ML 250 ML IVPB SCH (06:46)
[2019-02-16] MEDS ORDERED: Furosemide 40 MG/4 ML VIAL SLOW IVP SCH (07:30)
[2019-02-16] MEDS ORDERED: PHOS-NAK 1 PKT PACK PO PRN ×2 (07:51)
[2019-02-16] MEDS ORDERED: CCU ELECTROLYTE REPLACEMENT PROTOCOL FS PRN (07:51)
[2019-02-16] MEDS ORDERED: Magnesium Oxide 400 MG TAB PO PRN ×2 (07:51)
[2019-02-16] MEDS ORDERED: Potassium Phosphate 9 MMOL in Sodium Chloride 0.9% 100 ML IVPB PRN (07:51)
[2019-02-16] MEDS ORDERED: Potassium Phosphate 15 MMOL in Sodium Chloride 0.9% 250 ML 250 ML IV PRN (07:51)
[2019-02-16] MEDS ORDERED: Potassium Chloride 20 MEQ TAB PO PRN (07:51)
[2019-02-16] MEDS ORDERED: Pancrelipase DR 12000 1 CAP FS PRN (07:53)
[2019-02-16] MEDS ORDERED: Sodium Bicarbonate Tab 325 MG TAB PER TUBE PRN (07:53)
--- NOTE | 2019-02-16 08:13 | RAD ---
CHEST 1 VIEW: INDICATION: History of intubation. COMPARISON: Comparison to prior exam dated 02/15/2019. FINDINGS: Right chest wall port and tracheostomy tube are unchanged. Cardiomegaly, pulmonary vascular congesti on, and central edema pattern persist. Small bilateral pleural effusions are stable. No pneumothora x is evident. IMPRESSION: Stable exam. POS: BH
[2019-02-16] MEDS: traMADol HCl 50 MG TAB PER TUBE PRN ×2 (08:58→14:19)
[2019-02-16] MEDS: Saccharomyces boulardii 250 MG CAP PO SCH (08:58)
[2019-02-16] MEDS: Fluconazole 100 MG TAB PO SCH (08:58)
[2019-02-16] MEDS: Metoprolol Tartrate 25 MG TAB PO SCH ×3 (08:58→22:08)
[2019-02-16] MEDS: Potassium Chloride 20 MEQ TAB PO SCH ×3 (08:59→20:58)
[2019-02-16] MEDS: STRIBILD PER TUBE SCH (10:18)
[2019-02-16] MEDS: Glycopyrrolate 0.2 MG/ML 5 ML SYRINGE SLOW IVP SCH ×3 (10:19→20:59)
--- NOTE | 2019-02-16 11:19 | PRG ---
DATE OF SERVICE: 02/16/2019 SUBJECTIVE: Federico Cobian gave me the thumbs up today, says he is probably feeling a little bit better. He thinks he can do without being ventilated tonight. OBJECTIVE: VITAL SIGNS: Heart rate 115, respiratory rate 24, oximetry is 96%, and blood pressure 137/77. LUNGS: Remarkable for mild rhonchi. HEART: Regular rhythm. ABDOMEN: Soft. EXTREMITIES: Without edema. Intake and output, positive 552. DIAGNOSTIC DATA: Chest x-ray shows mild interstitial edema. LABORATORY STUDIES: White count 11.7, hemoglobin 9.8, platelets 85,000. Sodium 144, potassium 2.6, chloride 103, bicarb 33, BUN 12, and creatinine 0.57. IMPRESSION: Tracheobronchitis with neutropenia and fever, clinically improving. All of his cultures of blood are negative. These were done outside February 07, but he did grow Pseudomonas out of his tracheal aspirate. He remained stable in critical care unit. Hopefully, we can avoid ventilation at night. He will continue to improve his neutropenia has resolved. Job ID: [id number] [facility]
[2019-02-16] MEDS: Aluminum & Magnesium Hydroxide 60 ML, diphenhydrAMINE 150 MG, Lidocaine 2% Viscous Solu... SSW PRN (13:16)
--- NOTE | 2019-02-16 14:05 | PDOC.PN ---
- Subjective Encounter Start Date: 02/16/19 Encounter Start Time: 13:00 Subjective: feels better, is awake -: no abd pain -: mouth is still sore - Objective MAR Reviewed: Yes Vital Signs & Weight: Vital Signs (12 hours) Temp Pulse Resp Pulse Ox 02/16/19 12:00 98.2 F 02/16/19 10:38 115 H 24 H 96 02/16/19 08:00 97.7 F 02/16/19 07:53 92 20 100 02/16/19 06:00 20 02/16/19 04:00 98.7 F 17 02/16/19 02:47 103 H Weight Admit Weight 139 lb 11.2 oz Weight 139 lb 11.2 oz Most Recent Monitor Data Heart Rate from ECG 96 NIBP 105/67 NIBP BP-Mean 79 Respiration from ECG 18 SpO2 100 I&O: 02/15/19 02/16/19 02/17/19 06:59 06:59 06:59 Intake Total 1917 1692 240 Output Total 1080 1140 1570 Balance 837 552 -1330 Result Diagrams: 02/16/19 05:00 02/16/19 05:00 Phys Exam - Physical Examination HEENT: PERRLA, moist MMs Neck: no JVD trach+ Respiratory: no wheezing, no rales Cardiovascular: RRR, no significant murmur Gastrointestinal: soft, positive bowel sounds peg+ Musculoskeletal: pulses present, edema present Neurological: non-focal, moves all 4 limbs Psychiatric: A&O x 3 Dx/Plan (1) Acute respiratory failure with hypoxia Code(s): J96.01 - ACUTE RESPIRATORY FAILURE WITH HYPOXIA Status: Acute Comment: resolving, on nocturnal vent weaning (2) Acute tracheobronchitis Code(s): J20.9 - ACUTE BRONCHITIS, UNSPECIFIED Status: Acute (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 Comment: on carboplatin and taxotere, last chemo 02/01/2019 (4) Thrombocytopenia Code(s): D69.6 - THROMBOCYTOPENIA, UNSPECIFIED Status: Acute (5) Pancytopenia Code(s): D61.818 - OTHER PANCYTOPENIA Status: Acute Comment: due to chemotherapy is resolving (6) History of right above knee amputation Code(s): Z89.611 - ACQUIRED ABSENCE OF RIGHT LEG ABOVE KNEE Status: Chronic (7) History of left below knee amputation Code(s): Z89.512 - ACQUIRED ABSENCE OF LEFT LEG BELOW KNEE Status: Chronic (8) HIV (human immunodeficiency virus infection) Code(s): B20 - HUMAN IMMUNODEFICIENCY VIRUS [HIV] DISEASE Status: Chronic Qualifiers: HIV symptom status: unspecified Qualified Code(s): B20 - Human immunodeficiency virus [HIV] disease - Plan is on meropenem, diflucan, nebs -: pancytopenia is resolving with wbc of 11, h/h is 08/02 -: replace potassium -: got 2 doses of lasix yesterday for +ve balance -: is on glcopyrolate and scopalamine for resp secr, its slowly receding * . Review of Systems - Medications/Allergies Allergies/Adverse Reactions: Allergies Allergy/AdvReac Type Severity Reaction Status Date / Time No Known Drug Allergies Allergy Verified 12/06/18 16:55 Medications: Current Medications Acetaminophen (Tylenol) 650 mg NJ Q4H PRN PRN Reason: Headache/Fever/Mild Pain (1-3) Last Admin: 02/10/19 12:38 Dose: 650 mg Acetaminophen (Tylenol) 650 mg PER TUBE Q6H PRN PRN Reason: PAIN/FEVER Last Admin: 02/14/19 13:17 Dose: 650 mg Albuterol/Ipratropium (Duoneb) 3 ml NEB [id number] ARCHIE Last Admin: 02/16/19 10:38 Dose: 3 ml Lipase/Protease/[place] ([place] [address]) 1 cap FS .PER PROTOCOL PRN PRN Reason: TUBE OCCLUSION PROTOCOL Bisacodyl (Dulcolax) 10 mg NJ DAILYPRN PRN PRN Reason: Constipation Al Hydroxide/Mg Hydroxide 60 ml/ Diphenhydramine HCl 150 mg / Lidocaine HCl 60 ml/Nystatin 6,000,000 units 0 ml SSW PRN PRN PRN Reason: Mouth Irritation Last Admin: 02/16/19 13:16 Dose: 60 ml Diphenhydramine HCl (Benadryl) 25 mg IVP Q6H PRN PRN Reason: Itching Last Admin: 02/13/19 12:42 Dose: 25 mg Fluconazole (Diflucan) 100 mg PO DAILY ARCH[facility] Last Admin: 02/16/19 08:58 Dose: 100 mg Glycopyrrolate (Glycopyrrolate) 0.4 mg SLOW IVP TID [facility] Last Admin: 02/16/19 10:19 Dose: Not Given Dexmedetomidine HCl 200 mcg/ (Sodium Chloride) 50 mls @ 0 mls/hr IVPB INF [facility]; Protocol Meropenem 2 gm/ Miscellaneous Medication 1 each/ Sodium Chloride 100 mls @ 200 mls/hr IVPB Q8HR [facility] Last Admin: 02/16/19 05:09 Dose: 100 mls Potassium Chloride 40 meq/Sodium Bicarbonate 150 meq/Dextrose/Water 1,170 mls @ 0 mls/hr IV .Q0M [facility] Potassium Chloride 40 meq/ (Sodium Chloride) 270 mls @ 135 mls/hr IVPB ASDIR PRN PRN Reason: FOR SERUM K+ 2.5 - 3.5 Potassium Chloride 40 meq/ (Device) 100 mls @ 50 mls/hr IVPB ASDIR PRN PRN Reason: FOR SERUM K+ 2.5 - 3.5 Magnesium Sulfate 1 gm/ Sodium (Chloride) 102 mls @ 102 mls/hr IV PRN PRN PRN Reason: MAG LEVEL 1.4 - 2.0 Magnesium Sulfate 2 gm/ Device 50 mls @ 50 mls/hr IVPB ASDIR PRN PRN Reason: MAGNESIUM < 1.4 Potassium Phosphate 9 mmol/ (Sodium Chloride) 103 mls @ 25.75 mls/hr IVPB ASDIR PRN PRN Reason: Phosphate 1.0-1.8 Potassium Phosphate 12 mmol/ (Sodium Chloride) 254 mls @ 63.5 mls/hr IV ASDIR PRN PRN Reason: Serum phosphate 0.5-0.9 Potassium Phosphate 15 mmol/ (Sodium Chloride) 255 mls @ 63.75 mls/hr IV ASDIR PRN PRN Reason: Serum Phos < 0.5 Magnesium Oxide (Magnesium Oxide) 400 mg PO BIDPRN PRN PRN Reason: FOR SERUM MAG 1.4 - 2.0 Magnesium Oxide (Magnesium Oxide) 800 mg PO PRN PRN PRN Reason: FOR SERUM MAG < 1.4 Metoclopramide HCl (Reglan) 10 mg IVP Q6HR [facility] Last Admin: 02/16/19 13:16 Dose: Not Given Metoprolol Tartrate (Lopressor) 25 mg PO BID [facility] Last Admin: 02/16/19 08:58 Dose: 25 mg Miscellaneous Medication (Ventilator Sedation Protocol) 1 each FS ONE [facility] Stop: 03/12/19 16:38 Miscellaneous Medication (Phos-Nak) 1 pkt PO TIDPRN PRN PRN Reason: FOR PHOS LEVEL 1.0 - 1.8 Miscellaneous Medication (Phos-Nak) 2 pkt PO TIDPRN PRN PRN Reason: FOR PHOS LEVEL 0.5 - 1.0 Morphine Sulfate (Morphine) 2 mg SLOW IVP Q1H PRN PRN Reason: BREAKTHROUGH PAIN/Agitation Stop: 03/12/19 16:43 Discontinue Previous Narcotic Pain Medications And Benzodiazepines 1 each FS .ONE [facility] Stop: 03/12/19 16:43 Ccu Electrolyte (Replacement Protocol) 0 each FS PRN PRN PRN Reason: FOR ELECTROLYTE REPLACEMENT Ondansetron HCl (Zofran) 4 mg IVP Q6H PRN PRN Reason: Nausea/Vomiting Last Admin: 02/12/19 05:29 Dose: 4 mg Stribild Tab. 0 each PER TUBE QAM-WM [facility] Last Admin: 02/16/19 10:18 Dose: Not Given Potassium Chloride (K-Dur) 40 meq PO 0200,0800,1400,2000 [facility] Stop: 02/17/19 02:01 Last Admin: 02/16/19 08:59 Dose: Not Given Potassium Chloride (K-Dur) 40 meq PO ASDIR PRN PRN Reason: FOR SERUM K+ 2.5 - 3.5 Potassium Chloride (Klor-Con) 40 meq PER TUBE ASDIR PRN PRN Reason: FOR SERUM K+ 2.5-3.5 Last Admin: 02/16/19 08:58 Dose: 40 meq Saccharomyces Boulardii (Florastor) 250 mg PO DAILY [facility] Last Admin: 02/16/19 08:58 Dose: 250 mg Scopolamine (Transderm Scop) 1.5 mg TD Q3D [facility] Last Admin: 02/13/19 16:24 Dose: 1.5 mg Sodium Bicarbonate (Bicarbonate, Sodium) 650 mg PER TUBE .PER PROTOCOL PRN PRN Reason: ENTERAL TUBE OCCLUSION Sodium Chloride (Flush - Normal Saline) 10 ml IVF Q12HR [facility] Last Admin: 02/16/19 08:59 Dose: Not Given Sodium Chloride (Flush - Normal Saline) 10 ml IVF PRN PRN PRN Reason: Saline Flush Tramadol HCl (Ultram) 50 mg PER TUBE Q6H PRN PRN Reason: Moderate Pain (4-6) Last Admin: 02/16/19 08:58 Dose: 50 mg
[2019-02-16] MEDS: Potassium Chloride 40 MEQ in Premix Bag 1 BAG IVPB PRN ×2 (14:58→20:58)
[2019-02-16] MEDS: Scopolamine 1.5 mg/72 hour Patch TD SCH (17:29)
[2019-02-17] MEDS: Metoclopramide HCl 10 MG/2 ML VIAL IVP SCH ×4 (00:50→19:32)
[2019-02-17] MEDS: Potassium Chloride 40 MEQ in Premix Bag 1 BAG IVPB PRN (02:30)
[2019-02-17] MEDS: Potassium Chloride 20 MEQ TAB PO SCH (02:31)
[2019-02-17] MEDS: Aluminum & Magnesium Hydroxide 60 ML, diphenhydrAMINE 150 MG, Lidocaine 2% Viscous Solu... SSW PRN (02:39)
[2019-02-17 05:10] LABS: Anion Gap 13 mmol/L (10-20); BUN (Urea Nitrogen) 13 mg/dL (8.4-25.7); Calc. Creatinine Clearance 118 mL/min (70-130); Calcium 7.6 mg/dL (7.8-10.44); Carbon Dioxide 31 mmol/L (23-31); Chloride 108 mmol/L (98-107); Estimated GFR-MDRD Greater than 90; Glucose 78 mg/dL (80-115); Potassium 3.7 mmol/L (3.5-5.1); Sodium 148 mmol/L (136-145)
[2019-02-17 05:24] LABS: Band 15 % (5-11); Hemoglobin 9.8 g/dL (14.0-18.0); Hypochromia SLIGHT = 6-15 cells (100X) (0-5/hpf); Lymphocytes 14 % (21-51); MDiff Complete? YES; Mean Corpuscular HGB CONC 31.9 g/dL (32.0-36.0); Mean Corpuscular Hemoglobin 28.1 pg (27.0-31.0); Mean Corpuscular Volume 88.2 fL (78.0-98.0); Mean Platelet Volume 10.2 fL (7.4-10.4); Metamyelocyte 5 % (0-0); Monocytes 4 % (0-10); Myelocyte 2 % (0-0); Neutrophil 60 % (42-75); Platelet Count 117 thou/uL (130-400); Platelet Morphology Comment Appears Decreased; RBC Distribution Width 15.3 % (11.5-14.5); Red Blood Cell (RBC) Count 3.48 mill/uL (4.70-6.10); White Blood Cell (WBC) Count 13.2 thou/uL (4.8-10.8)
[2019-02-17] MEDS: Meropenem 2 GM, Admixture Fee 1 EACH in Sodium Chloride 0.9% 100 ML IVPB SCH ×3 (05:46→21:34)
--- NOTE | 2019-02-17 08:04 | RAD ---
PORTABLE CHEST: HISTORY: CCU followup. Shortness of breath. COMPARISON: 02/16/2019. FINDINGS: Bilateral effusions. Bibasilar atelectasis. Hazy atelectasis or infiltrate in the right mid lung is stable. Tracheostomy device and central line again noted. IMPRESSION: Above findings appear stable when compared to yesterday. POS: OFF
--- NOTE | 2019-02-17 09:48 | PRG ---
DATE OF SERVICE: 02/17/2019 SUBJECTIVE: The patient remains in the CCU. He is on a trach collar, looks comfortable, has no complaints. OBJECTIVE: VITAL SIGNS: Temperature 98.7, pulse 104, blood pressure 101/53, and O2 saturation 98%. Intake for 24 hours 1854 and output 2815. HEENT: Unremarkable. NECK: Trach in good position. Minimal secretions. LUNGS: Clear. ABDOMEN: Soft and nontender. CARDIAC: S1 and S2. Regular. EXTREMITIES: No edema. LABORATORY DATA: White blood cell count 13.2, hematocrit 30.7, and platelet count 117. Sodium 140, potassium 3.7, chloride 108, CO2 of 31, BUN 13, creatinine 0.6, and glucose 78. Chest x-ray shows good trach position, clear lung connolly, very minimal effusion. ASSESSMENT: 1. Acute respiratory failure requiring mechanical ventilation and tracheostomy placement. 2. Tracheobronchitis with neutropenia and fever. 3. Improved thrombocytopenia. PLAN: The patient will continue trach collar trials. He is continuing meropenem and fluconazole. Believe that we can stop his daily x-rays for the time being. Job ID: [id number]
[2019-02-17] MEDS: STRIBILD PER TUBE SCH (10:00)
[2019-02-17] MEDS: Metoprolol Tartrate 25 MG TAB PO SCH ×2 (10:38→21:27)
[2019-02-17] MEDS: Saccharomyces boulardii 250 MG CAP PO SCH (10:38)
[2019-02-17] MEDS: Fluconazole 100 MG TAB PO SCH (10:38)
[2019-02-17] MEDS: Glycopyrrolate 0.2 MG/ML 5 ML SYRINGE SLOW IVP SCH ×3 (10:38→21:26)
[2019-02-17] MEDS: Acetaminophen 325 MG TAB PER TUBE PRN (10:38)
--- NOTE | 2019-02-17 12:24 | PDOC.PN ---
- Subjective Encounter Start Date: 02/17/19 Encounter Start Time: 12:22 Patient seen and examined, no new issues or complaints, all questions answered. No famly at bedside - Objective Vital Signs & Weight: Vital Signs (12 hours) Temp Pulse Resp Pulse Ox 02/17/19 10:15 104 H 32 H 100 02/17/19 07:04 100 02/17/19 07:01 96 20 100 02/17/19 04:00 98.7 F 02/17/19 02:28 115 H 28 H 97 Weight Admit Weight 139 lb 11.2 oz Weight 139 lb 11.2 oz Most Recent Monitor Data Heart Rate from ECG 104 NIBP 101/53 NIBP BP-Mean 69 Respiration from ECG 30 SpO2 98 I&O: 02/16/19 02/17/19 02/18/19 06:59 06:59 06:59 Intake Total 1692 1854 Output Total 1140 2815 Balance 552 -311 Result Diagrams: 02/17/19 04:25 02/17/19 04:25 Phys Exam - Physical Examination Constitutional: NAD HEENT: PERRLA, moist MMs, sclera anicteric Neck: no nodes, no JVD +trach color Respiratory: no wheezing, no rales, no rhonchi Cardiovascular: RRR, no significant murmur, no rub Gastrointestinal: soft, non-tender, no distention, positive bowel sounds Musculoskeletal: pulses present, edema present (trace) R AKA, Left foot amputation Dx/Plan (1) pseudomonas growing from tracheal cultur Status: Acute (2) Acute tracheobronchitis Code(s): J20.9 - ACUTE BRONCHITIS, UNSPECIFIED Status: Acute (3) GERD (gastroesophageal reflux disease) Code(s): K21.9 - GASTRO-ESOPHAGEAL REFLUX DISEASE WITHOUT ESOPHAGITIS Status: Acute (4) HIV (human immunodeficiency virus infection) Code(s): B20 - HUMAN IMMUNODEFICIENCY VIRUS [HIV] DISEASE Status: Chronic Qualifiers: HIV symptom status: unspecified Qualified Code(s): B20 - Human immunodeficiency virus [HIV] disease - Plan * cont abx * pulmonary following for need of nocturnal vent, although patient did not require it last night, appears to be improving * no other changes for now * cont current medical management * case and plan d/w patient at length, he understood and agreed with this plan
[2019-02-18] MEDS: Metoclopramide HCl 10 MG/2 ML VIAL IVP SCH ×4 (01:34→17:01)
[2019-02-18] MEDS: Acetaminophen 325 MG TAB PER TUBE PRN ×2 (01:43→16:57)
[2019-02-18 05:51] LABS: Band 3 % (5-11); Hemoglobin 9.6 g/dL (14.0-18.0); Hypochromia SLIGHT = 6-15 cells (100X) (0-5/hpf); Lymphocytes 11 % (21-51); MDiff Complete? YES; Mean Corpuscular HGB CONC 31.2 g/dL (32.0-36.0); Mean Corpuscular Hemoglobin 27.7 pg (27.0-31.0); Mean Corpuscular Volume 88.6 fL (78.0-98.0); Mean Platelet Volume 9.5 fL (7.4-10.4); Metamyelocyte 3 % (0-0); Monocytes 12 % (0-10); Myelocyte 2 % (0-0); Neutrophil 69 % (42-75); Platelet Count 149 thou/uL (130-400); Platelet Morphology Comment Appears Adequate; RBC Distribution Width 15.5 % (11.5-14.5); Red Blood Cell (RBC) Count 3.47 mill/uL (4.70-6.10); White Blood Cell (WBC) Count 10.3 thou/uL (4.8-10.8)
[2019-02-18 05:56] LABS: Anion Gap 14 mmol/L (10-20); BUN (Urea Nitrogen) 11 mg/dL (8.4-25.7); Calc. Creatinine Clearance 124 mL/min (70-130); Calcium 7.3 mg/dL (7.8-10.44); Carbon Dioxide 27 mmol/L (23-31); Chloride 109 mmol/L (98-107); Estimated GFR-MDRD Greater than 90; Glucose 75 mg/dL (80-115); Potassium 3.1 mmol/L (3.5-5.1); Sodium 147 mmol/L (136-145)
[2019-02-18] MEDS: Meropenem 2 GM, Admixture Fee 1 EACH in Sodium Chloride 0.9% 100 ML IVPB SCH ×3 (06:18→22:43)
[2019-02-18] MEDS: Potassium Chloride 40 MEQ in Premix Bag 1 BAG IVPB PRN (06:26)
[2019-02-18] MEDS ORDERED: Potassium Chloride 40 MEQ in Sodium Chloride 0.45% 1,000 ML IV SCH (09:15)
[2019-02-18] MEDS: Fluconazole 100 MG TAB PO SCH (09:47)
[2019-02-18] MEDS: STRIBILD PER TUBE SCH (09:47)
[2019-02-18] MEDS: Saccharomyces boulardii 250 MG CAP PO SCH (09:48)
[2019-02-18] MEDS: Metoprolol Tartrate 25 MG TAB PO SCH ×2 (09:48→20:58)
[2019-02-18] MEDS: Glycopyrrolate 0.2 MG/ML 5 ML SYRINGE SLOW IVP SCH ×3 (09:48→20:58)
--- NOTE | 2019-02-18 09:53 | PRG ---
DATE OF SERVICE: 02/18/2019 SUBJECTIVE: The patient remains in the CCU. He is awake, alert, very eager to shake your hand when I walked into the room. OBJECTIVE: VITAL SIGNS: On exam, temperature is 98.6, pulse 108, blood pressure 114/60, and O2 saturation 96%. HEENT: Unremarkable. NECK: No adenopathy or JVD. Trach in good position. Some secretions. LUNGS: Clear. ABDOMEN: Soft. CARDIAC: S1 and S2. Regular. EXTREMITIES: No edema. He has a right [id number] amputation and left foot amputation. LABORATORY DATA: White blood cell count 10.3, hematocrit 30.7, and platelet count 149. Sodium of 147, potassium 3.1, BUN 11, creatinine 0.5, and glucose 75. ASSESSMENT: 1. Status post tracheostomy placement. 2. Tracheobronchitis. 3. Improved thrombocytopenia. PLAN: He is continuing antibiotics. He can probably be transferred over to the [facility] given the stability and lack of need for mechanical ventilation. Job ID: [id number]
[2019-02-18] MEDS: Potassium Chloride 40 MEQ in Sodium Chloride 0.45% 1,000 ML IV SCH (11:58)
[2019-02-18] MEDS ORDERED: Morphine 2 MG/ML SYRINGE SLOW IVP PRN (12:05)
[2019-02-18] MEDS ORDERED: Chloraseptic Spray 180 ml Bottle PO PRN (12:06)
--- NOTE | 2019-02-18 12:09 | PDOC.PN ---
- Subjective Encounter Start Date: 02/18/19 Encounter Start Time: 12:08 Patient seen and examined, no new issues or complaints. - Objective Vital Signs & Weight: Vital Signs (12 hours) Temp Pulse Resp Pulse Ox 02/18/19 10:06 100 27 H 100 02/18/19 08:00 96 02/18/19 07:12 94 L 02/18/19 07:10 104 H 24 H 94 L 02/18/19 07:00 98.0 F 02/18/19 04:00 98.6 F 02/18/19 02:11 96 20 100 Weight Admit Weight 139 lb 11.2 oz Weight 159 lb 13.362 oz Most Recent Monitor Data Heart Rate from ECG 122 NIBP 115/68 NIBP BP-Mean 83 Respiration from ECG 12 SpO2 97 I&O: 02/17/19 02/18/19 02/19/19 06:59 06:59 06:59 Intake Total 1854 1270 210 Output Total 2815 1180 185 Balance -961 90 25 Result Diagrams: 02/18/19 05:23 02/18/19 05:23 Phys Exam - Physical Examination Constitutional: NAD HEENT: PERRLA, moist MMs, sclera anicteric Neck: no nodes +trach coarse breath sounds no respiratory distress Cardiovascular: RRR, no rub systolic murmur Gastrointestinal: soft, non-tender Musculoskeletal: no edema, pulses present left AKA right foot amputation Dx/Plan (1) pseudomonas growing from tracheal cultur Status: Acute (2) Acute tracheobronchitis Code(s): J20.9 - ACUTE BRONCHITIS, UNSPECIFIED Status: Acute (3) GERD (gastroesophageal reflux disease) Code(s): K21.9 - GASTRO-ESOPHAGEAL REFLUX DISEASE WITHOUT ESOPHAGITIS Status: Acute (4) HIV (human immunodeficiency virus infection) Code(s): B20 - HUMAN IMMUNODEFICIENCY VIRUS [HIV] DISEASE Status: Chronic Qualifiers: HIV symptom status: unspecified Qualified Code(s): B20 - Human immunodeficiency virus [HIV] disease - Plan * Hypernatremia + hypokalemia, will start 1/2NS + KCl for now, labs in AM * also start cholraseptic spray for sore throat * morphine 0.5mg IV q8hrs PRN pain as well * labs in AM * patient prognosis otherwise poor, hospice/palliative options discussed with patient * no other changes in plan of care * appreciate subspecialists input * case and plan d/w patient, he understood and agreed with this plan
[2019-02-18] MEDS: Morphine 2 MG/ML SYRINGE SLOW IVP PRN (16:59)
[2019-02-19] MEDS: Metoclopramide HCl 10 MG/2 ML VIAL IVP SCH ×5 (00:13→23:00)
[2019-02-19] MEDS: Aluminum & Magnesium Hydroxide 60 ML, diphenhydrAMINE 150 MG, Lidocaine 2% Viscous Solu... SSW PRN (00:22)
[2019-02-19] MEDS: Potassium Chloride 40 MEQ in Sodium Chloride 0.45% 1,000 ML IV SCH (05:24)
[2019-02-19] MEDS: Meropenem 2 GM, Admixture Fee 1 EACH in Sodium Chloride 0.9% 100 ML IVPB SCH ×3 (05:24→22:17)
[2019-02-19 05:56] LABS: Band 9 % (5-11); Eosinophils 2 % (0-10); Hemoglobin 10.1 g/dL (14.0-18.0); Lymphocytes 3 % (21-51); MDiff Complete? YES; Mean Corpuscular Hemoglobin 27.6 pg (27.0-31.0); Mean Corpuscular Volume 88.9 fL (78.0-98.0); Mean Platelet Volume 9.2 fL (7.4-10.4); Monocytes 9 % (0-10); Myelocyte 1 % (0-0); Neutrophil 73 % (42-75); Platelet Count 184 thou/uL (130-400); Platelet Morphology Comment Appears Adequate; RBC Distribution Width 15.8 % (11.5-14.5); Reactive Lymphocytes 3 % (0-10); Red Blood Cell (RBC) Count 3.65 mill/uL (4.70-6.10); White Blood Cell (WBC) Count 7.1 thou/uL (4.8-10.8)
[2019-02-19 05:57] LABS: Anion Gap 17 mmol/L (10-20); BUN (Urea Nitrogen) 10 mg/dL (8.4-25.7); Calc. Creatinine Clearance 127 mL/min (70-130); Calcium 7.6 mg/dL (7.8-10.44); Carbon Dioxide 25 mmol/L (23-31); Chloride 111 mmol/L (98-107); Estimated GFR-MDRD Greater than 90; Glucose 87 mg/dL (80-115); Potassium 3.7 mmol/L (3.5-5.1); Sodium 149 mmol/L (136-145)
[2019-02-19] MEDS: STRIBILD PER TUBE SCH (10:29)
[2019-02-19] MEDS: Fluconazole 100 MG TAB PO SCH (10:30)
[2019-02-19] MEDS ORDERED: Dextrose 5% in Water 1,000 ML IV SCH (10:30)
[2019-02-19] MEDS: Glycopyrrolate 0.2 MG/ML 5 ML SYRINGE SLOW IVP SCH ×3 (10:30→20:08)
[2019-02-19] MEDS: Metoprolol Tartrate 25 MG TAB PO SCH ×2 (10:31→20:09)
[2019-02-19] MEDS: Saccharomyces boulardii 250 MG CAP PO SCH (10:31)
--- NOTE | 2019-02-19 16:15 | PRG ---
DATE OF SERVICE: 02/19/2019 SUBJECTIVE: Mr. Cobian says he is feeling a little bit better. He is still having big gastric residuals. OBJECTIVE: VITAL SIGNS: He is afebrile, heart rate 103, respiratory rate 30, oximetry is 100% on T-piece, blood pressure 134/94 this morning. LUNGS: Remarkable for mild rhonchi. HEART: Regular rhythm. ABDOMEN: Soft. EXTREMITIES: Without asymmetry or edema. LABORATORY DATA: White count 7.1, hemoglobin 10.1, platelets 184,000. Sodium 149, potassium 3.7, chloride 111, bicarb 25, BUN 10, creatinine 0.6, glucose 87. IMPRESSION: 1. Throat cancer, status post trach and PEG. 2. Status post respiratory failure, tracheobronchitis. 3. Pancytopenia secondary to chemotherapy, resolving. 4. Deconditioning. He will likely end up needing to go into a skilled environment for physical therapy. His gastric residuals continue to be a problem. It might be appropriate to consult Gastroenterology to see if there are any medical options for his high residuals. Job ID: [id number]
--- NOTE | 2019-02-19 17:05 | PDOC.PN ---
- Subjective Encounter Start Date: 02/19/19 Encounter Start Time: 17:03 Subjective: no new complaints. reports that he feels better by writing -: no overnight events - Objective MAR Reviewed: Yes Vital Signs & Weight: Vital Signs (12 hours) Temp Pulse Pulse Pulse Resp BP BP 02/19/19 15:28 98.4 F 02/19/19 15:15 130 H 30 H 02/19/19 11:26 98.3 F 02/19/19 10:10 99 22 H 02/19/19 08:48 80 78 122/60 112/61 02/19/19 07:34 109 H 22 H 02/19/19 07:26 97.9 F 02/19/19 06:00 23 H Pulse Ox Pulse Ox Pulse Ox 02/19/19 15:28 02/19/19 15:15 100 02/19/19 11:26 02/19/19 10:10 97 02/19/19 08:48 100 100 02/19/19 07:34 98 02/19/19 07:26 02/19/19 06:00 Weight Admit Weight 139 lb 11.2 oz Weight 153 lb 6 oz Most Recent Monitor Data Heart Rate from ECG 127 NIBP 134/94 NIBP BP-Mean 107 Respiration from ECG 18 SpO2 100 I&O: 02/18/19 02/19/19 02/20/19 06:59 06:59 06:59 Intake Total 1270 1339 Output Total 1180 585 Balance 90 754 Result Diagrams: 02/19/19 05:20 02/19/19 05:20 Additional Labs: Microbiology 02/12/19 07:38 Sputum - Aspirate Respiratory Culture - Final Pseudomonas aeruginosa 02/11/19 11:00 Oropharynx Nose/Throat Culture - Final Pseudomonas aeruginosa 02/09/19 20:56 Stool C. difficile GDH Antigen & Toxins - Final Laboratory Tests 02/08/19 02/09/19 02/10/19 04:07 08:27 08:37 WBC 0.3 L* 0.2 L* 0.2 L* Plt Count 95 L 02/11/19 02/12/19 02/13/19 06:16 05:40 05:00 WBC 0.3 L* 0.4 L* 0.9 L* Plt Count 18 L* 02/14/19 02/16/19 02/17/19 04:45 05:00 04:25 WBC 2.4 L 13.2 H Plt Count 85 L 117 L 02/18/19 02/19/19 05:23 05:20 WBC 10.3 7.1 Plt Count 149 184 Phys Exam - Physical Examination Constitutional: NAD HEENT: PERRLA, moist MMs, sclera anicteric, TM's clear, oral pharynx no lesions , 2+ tonsils trach in place w T collar Neck: no nodes, no JVD, supple, full ROM Respiratory: no wheezing (coarse b/l), no rales, no rhonchi, clear to auscultation bilateral Cardiovascular: RRR, no significant murmur Gastrointestinal: soft, non-tender, no distention, positive bowel sounds PEG in place w/o erythema/discharge Musculoskeletal: no edema, pulses present Neurological: non-focal, normal sensation, moves all 4 limbs Psychiatric: normal affect, A&O x 3 Skin: no rash Dx/Plan (1) Acute respiratory failure with hypoxia Code(s): J96.01 - ACUTE RESPIRATORY FAILURE WITH HYPOXIA Status: Acute Comment: resolving, on nocturnal vent weaning (2) Acute tracheobronchitis Code(s): J20.9 - ACUTE BRONCHITIS, UNSPECIFIED Status: Acute (3) Pancytopenia Code(s): D61.818 - OTHER PANCYTOPENIA Status: Acute Comment: due to chemotherapy. 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 - Plan continue antibiotics, PT/OT, DVT proph w/SCDs cont meropenam .rehab eval -: TF .dietitian following -: HD stable. -: am labs. -: cont supportive care * . Review of Systems - Review of Systems Constitutional: weakness, malaise. negative: fever, chills, sweats, other Respiratory: SOB with Excertion. negative: Cough, Dry, Shortness of Breath, Hemoptysis, Pleuritic Pain, Sputum, Wheezing Cardiovascular: negative: chest pain, palpitations, orthopnea, paroxysmal nocturnal dyspnea, edema, light headedness, other Gastrointestinal: negative: Nausea, Vomiting, Abdominal Pain, Diarrhea, Constipation, Melena, Hematochezia, Other Genitourinary: negative: Dysuria, Frequency, Incontinence, Hematuria, Retention , Other Musculoskeletal: negative: Neck Pain, Shoulder Pain, Arm Pain, Back Pain, Hand Pain, Leg Pain, Foot Pain, Other Skin: negative: Rash, Lesions, Gus, Bruising, Other Neurological: negative: Weakness, Numbness, Incoordination, Change in Speech, Confusion, Seizures, Other - Medications/Allergies Allergies/Adverse Reactions: Allergies Allergy/AdvReac Type Severity Reaction Status Date / Time No Known Drug Allergies Allergy Verified 12/06/18 16:55 Medications: Current Medications Acetaminophen (Tylenol) 650 mg [place] Q4H PRN PRN Reason: Headache/Fever/Mild Pain (1-3) Last Admin: 02/10/19 12:38 Dose: 650 mg Acetaminophen (Tylenol) 650 mg PER TUBE Q6H PRN PRN Reason: PAIN/FEVER Last Admin: 02/18/19 16:57 Dose: 650 mg Albuterol/Ipratropium (Duoneb) 3 ml NEB [id number] ARCH[facility] Last Admin: 02/19/19 15:15 Dose: 3 ml Lipase/Protease/Amylase ([place] [id number]) 1 cap FS .PER PROTOCOL PRN PRN Reason: TUBE OCCLUSION PROTOCOL Bisacodyl (Dulcolax) 10 mg [place] DAILYPRN PRN PRN Reason: Constipation Al Hydroxide/Mg Hydroxide 60 ml/ Diphenhydramine HCl 150 mg / Lidocaine HCl 60 ml/Nystatin 6,000,000 units 0 ml SSW PRN PRN PRN Reason: Mouth Irritation Last Admin: 02/19/19 00:22 Dose: 10 ml Diphenhydramine HCl (Benadryl) 25 mg IVP Q6H PRN PRN Reason: Itching Last Admin: 02/13/19 12:42 Dose: 25 mg Fluconazole (Diflucan) 100 mg PO DAILY [facility] Last Admin: 02/19/19 10:30 Dose: 100 mg Glycopyrrolate (Glycopyrrolate) 0.4 mg SLOW IVP TID [facility] Last Admin: 02/19/19 14:57 Dose: 0.4 mg Dexmedetomidine HCl 200 mcg/ (Sodium Chloride) 50 mls @ 0 mls/hr IVPB INF ARCHIE; Protocol Meropenem 2 gm/ Miscellaneous Medication 1 each/ Sodium Chloride 100 mls @ 200 mls/hr IVPB Q8HR [facility] Last Admin: 02/19/19 13:18 Dose: 100 mls Potassium Chloride 40 meq/Sodium Bicarbonate 150 meq/Dextrose/Water 1,170 mls @ 0 mls/hr IV .Q0M [facility] Potassium Chloride 40 meq/ (Sodium Chloride) 270 mls @ 135 mls/hr IVPB ASDIR PRN PRN Reason: FOR SERUM K+ 2.5 - 3.5 Potassium Chloride 40 meq/ (Device) 100 mls @ 50 mls/hr IVPB ASDIR PRN PRN Reason: FOR SERUM K+ 2.5 - 3.5 Last Admin: 02/18/19 06:26 Dose: 100 mls Magnesium Sulfate 1 gm/ Sodium (Chloride) 102 mls @ 102 mls/hr IV PRN PRN PRN Reason: MAG LEVEL 1.4 - 2.0 Magnesium Sulfate 2 gm/ Device 50 mls @ 50 mls/hr IVPB ASDIR PRN PRN Reason: MAGNESIUM < 1.4 Potassium Phosphate 9 mmol/ (Sodium Chloride) 103 mls @ 25.75 mls/hr IVPB ASDIR PRN PRN Reason: Phosphate 1.0-1.8 Potassium Phosphate 12 mmol/ (Sodium Chloride) 254 mls @ 63.5 mls/hr IV ASDIR PRN PRN Reason: Serum phosphate 0.5-0.9 Potassium Phosphate 15 mmol/ (Sodium Chloride) 255 mls @ 63.75 mls/hr IV ASDIR PRN PRN Reason: Serum Phos < 0.5 Dextrose/Water (D5w) 1,000 mls @ 50 mls/hr IV .Q20H [facility] Stop: 02/20/19 06:29 Last Admin: 02/19/19 12:58 Dose: 1,000 mls Magnesium Oxide (Magnesium Oxide) 400 mg PO BIDPRN PRN PRN Reason: FOR SERUM MAG 1.4 - 2.0 Magnesium Oxide (Magnesium Oxide) 800 mg PO PRN PRN PRN Reason: FOR SERUM MAG < 1.4 Metoclopramide HCl (Reglan) 10 mg IVP Q6HR [facility] Last Admin: 02/19/19 13:00 Dose: 10 mg Metoprolol Tartrate (Lopressor) 25 mg PO BID [facility] Last Admin: 02/19/19 10:31 Dose: 25 mg Miscellaneous Medication (Phos-Nak) 1 pkt PO TIDPRN PRN PRN Reason: FOR PHOS LEVEL 1.0 - 1.8 Miscellaneous Medication (Phos-Nak) 2 pkt PO TIDPRN PRN PRN Reason: FOR PHOS LEVEL 0.5 - 1.0 Morphine Sulfate (Morphine) 2 mg SLOW IVP Q1H PRN PRN Reason: BREAKTHROUGH PAIN/Agitation Stop: 03/12/19 16:43 Last Admin: 02/18/19 16:59 Dose: 2 mg Morphine Sulfate (Morphine) 0.5 mg SLOW IVP Q8H PRN PRN Reason: Pain Last Admin: 02/18/19 13:12 Dose: 0.5 mg Ondansetron HCl (Zofran) 4 mg IVP Q6H PRN PRN Reason: Nausea/Vomiting Last Admin: 02/12/19 05:29 Dose: 4 mg Stribild Tab. 0 each PER TUBE [facility]AM[facility] Last Admin: 02/19/19 10:29 Dose: 1 each Phenol (Chloraseptic [place] 180 Ml Bot) 0 ml PO BIDPRN PRN PRN Reason: Sore Throat Last Admin: 02/18/19 16:29 Dose: 2 sprays Potassium Chloride (K-Dur) 40 meq PO ASDIR PRN PRN Reason: FOR SERUM K+ 2.5 - 3.5 Potassium Chloride (Klor-Con) 40 meq PER TUBE ASDIR PRN PRN Reason: FOR SERUM K+ 2.5-3.5 Last Admin: 02/16/19 08:58 Dose: 40 meq Saccharomyces Boulardii (Florastor) 250 mg PO DAILY [facility] Last Admin: 02/19/19 10:31 Dose: 250 mg Scopolamine (Transderm Scop) 1.5 mg TD Q3D [facility] Last Admin: 02/16/19 17:29 Dose: 1.5 mg Sodium Bicarbonate (Bicarbonate, Sodium) 650 mg PER TUBE .PER PROTOCOL PRN PRN Reason: ENTERAL TUBE OCCLUSION Sodium Chloride (Flush - Normal Saline) 10 ml IVF Q12HR [facility] Last Admin: 02/19/19 10:31 Dose: 10 ml Sodium Chloride (Flush - Normal Saline) 10 ml IVF PRN PRN PRN Reason: Saline Flush
[2019-02-19] MEDS: Scopolamine 1.5 mg/72 hour Patch TD SCH (17:20)
[2019-02-20 04:30] LABS: Anion Gap 12 mmol/L (10-20); BUN (Urea Nitrogen) 7 mg/dL (8.4-25.7); Calc. Creatinine Clearance 139 mL/min (70-130); Calcium 7.6 mg/dL (7.8-10.44); Carbon Dioxide 28 mmol/L (23-31); Chloride 109 mmol/L (98-107); Estimated GFR-MDRD Greater than 90; Glucose 73 mg/dL (80-115); Potassium 3.3 mmol/L (3.5-5.1); Sodium 146 mmol/L (136-145)
[2019-02-20 04:32] LABS: Band 5 % (5-11); Hemoglobin 9.9 g/dL (14.0-18.0); Hypochromia SLIGHT = 6-15 cells (100X) (0-5/hpf); Lymphocytes 12 % (21-51); MDiff Complete? YES; Mean Corpuscular HGB CONC 31.7 g/dL (32.0-36.0); Mean Corpuscular Hemoglobin 27.9 pg (27.0-31.0); Mean Platelet Volume 8.7 fL (7.4-10.4); Monocytes 6 % (0-10); Neutrophil 77 % (42-75); Platelet Count 195 thou/uL (130-400); Platelet Morphology Comment Appears Adequate; RBC Distribution Width 15.7 % (11.5-14.5); Red Blood Cell (RBC) Count 3.56 mill/uL (4.70-6.10); White Blood Cell (WBC) Count 6.5 thou/uL (4.8-10.8)
[2019-02-20] MEDS: Metoclopramide HCl 10 MG/2 ML VIAL IVP SCH ×4 (05:32→22:53)
[2019-02-20] MEDS: Meropenem 2 GM, Admixture Fee 1 EACH in Sodium Chloride 0.9% 100 ML IVPB SCH ×3 (05:33→21:02)
[2019-02-20] MEDS: Potassium Chloride 40 MEQ in Sodium Chloride 0.9% 250 ML 250 ML IVPB PRN (05:36)
[2019-02-20] MEDS: Fluconazole 100 MG TAB PO SCH (09:00)
[2019-02-20] MEDS: Metoprolol Tartrate 25 MG TAB PO SCH ×3 (09:00→22:32)
[2019-02-20] MEDS: Saccharomyces boulardii 250 MG CAP PO SCH (09:00)
[2019-02-20] MEDS: STRIBILD PER TUBE SCH (09:01)
[2019-02-20] MEDS: Morphine 2 MG/ML SYRINGE SLOW IVP PRN ×3 (09:08→20:54)
[2019-02-20] MEDS: Glycopyrrolate 0.2 MG/ML 5 ML SYRINGE SLOW IVP SCH ×3 (10:22→20:56)
[2019-02-20] MEDS ORDERED: Sodium Chloride 0.9% 15 ML NEB ONE (10:23)
[2019-02-20] MEDS: Dextrose 5% in Water 1,000 ML IV SCH ×2 (12:17→22:32)
--- NOTE | 2019-02-20 14:47 | PDOC.PN ---
- Subjective Encounter Start Date: 02/20/19 Encounter Start Time: 14:44 Subjective: reports feeling ok by gesturing.brother at bedside.reports that he is -: very independent at home. -: RN reports increased trach secretions & PEG tube putting out fluid.TF held - Objective MAR Reviewed: Yes Vital Signs & Weight: Vital Signs (12 hours) Temp Pulse Pulse Pulse Resp BP BP 02/20/19 14:08 105 H 18 02/20/19 11:28 116 H 117 H 108/69 99/63 02/20/19 11:23 98.0 F 02/20/19 10:15 105 H 30 H 02/20/19 08:00 02/20/19 07:13 98.0 F 02/20/19 06:45 02/20/19 06:43 105 H 34 H 02/20/19 03:31 99.2 F Pulse Ox Pulse Ox Pulse Ox 02/20/19 14:08 100 02/20/19 11:28 100 100 02/20/19 11:23 02/20/19 10:15 100 02/20/19 08:00 97 02/20/19 07:13 02/20/19 06:45 100 02/20/19 06:43 100 02/20/19 03:31 Weight Admit Weight 139 lb 11.2 oz Weight 146 lb 14.4 oz Most Recent Monitor Data Heart Rate from ECG 111 NIBP 101/65 NIBP BP-Mean 77 Respiration from ECG 21 SpO2 98 I&O: 02/19/19 02/20/19 02/21/19 06:59 06:59 06:59 Intake Total 1339 2005 Output Total 585 1350 Balance 754 655 Result Diagrams: 02/20/19 03:56 02/20/19 03:56 Additional Labs: Microbiology 02/12/19 07:38 Sputum - Aspirate Respiratory Culture - Final Pseudomonas aeruginosa 02/11/19 11:00 Oropharynx Nose/Throat Culture - Final Pseudomonas aeruginosa 02/09/19 20:56 Stool C. difficile GDH Antigen & Toxins - Final Laboratory Tests 02/13/19 02/14/19 02/15/19 05:00 04:45 06:00 Band Neuts % (Manual) 20 H 29 H 41 H Sodium 02/16/19 02/16/19 02/17/19 05:00 05:00 04:25 Band Neuts % (Manual) 22 H Sodium 144 148 H 02/17/19 02/18/19 02/18/19 04:25 05:23 05:23 Band Neuts % (Manual) 15 H 3 L Sodium 147 H 02/19/19 02/19/19 02/20/19 05:20 05:20 03:56 Band Neuts % (Manual) 9 Sodium 149 H 146 H 02/20/19 03:56 Band Neuts % (Manual) 5 Sodium Phys Exam - Physical Examination Constitutional: NAD HEENT: PERRLA, moist MMs, sclera anicteric, oral pharynx no lesions Neck: no nodes, no JVD, supple, full ROM t piece. thick cruddy secretions for Trach Respiratory: no wheezing, no rales, no rhonchi, wheezing present, clear to auscultation bilateral Cardiovascular: RRR, no significant murmur, no rub, gallop, irregular Gastrointestinal: soft, non-tender, no distention, positive bowel sounds PEG in place Musculoskeletal: no edema, pulses present R AKA,LBKA Psychiatric: normal affect, A&O x 3 Dx/Plan (1) Acute respiratory failure with hypoxia Code(s): J96.01 - ACUTE RESPIRATORY FAILURE WITH HYPOXIA Status: Acute Comment: resolving, on nocturnal vent weaning (2) Acute tracheobronchitis Code(s): J20.9 - ACUTE BRONCHITIS, UNSPECIFIED Status: Acute Comment: on Meropenam for Pseudomonas (3) Pancytopenia Code(s): D61.818 - OTHER PANCYTOPENIA Status: Acute Comment: due to chemotherapy. 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 cont HAART .Prophylactic diflucan - Plan PT/OT, incentive spirometry, out of bed/ambulate, DVT proph w/SCDs GI consult as PEG leaky without pt getting any Tube feeds -: increase morphine -: Wound care consult. -: supportive care.accpeted at [facility] bed. -: not ready for DC yet due to PEG malFx.Abdominal Xray * . Review of Systems - Review of Systems Other: can not be completed due to T piece.pt - Medications/Allergies Allergies/Adverse Reactions: Allergies Allergy/AdvReac Type Severity Reaction Status Date / Time No Known Drug Allergies Allergy Verified 12/06/18 16:55 Medications: Current Medications Acetaminophen (Tylenol) 650 mg [place] Q4H PRN PRN Reason: Headache/Fever/Mild Pain (1-3) Last Admin: 02/10/19 12:38 Dose: 650 mg Acetaminophen (Tylenol) 650 mg PER TUBE Q6H PRN PRN Reason: PAIN/FEVER Last Admin: 02/18/19 16:57 Dose: 650 mg Albuterol/Ipratropium (Duoneb) 3 ml NEB [id number] ARCHIE Last Admin: 02/20/19 14:08 Dose: 3 ml Lipase/Protease/Amylase ([place] [id number]) 1 cap FS .PER PROTOCOL PRN PRN Reason: TUBE OCCLUSION PROTOCOL Bisacodyl (Dulcolax) 10 mg [place] DAILYPRN PRN PRN Reason: Constipation Al Hydroxide/Mg Hydroxide 60 ml/ Diphenhydramine HCl 150 mg / Lidocaine HCl 60 ml/Nystatin 6,000,000 units 0 ml SSW PRN PRN PRN Reason: Mouth Irritation Last Admin: 02/19/19 00:22 Dose: 10 ml Diphenhydramine HCl (Benadryl) 25 mg IVP Q6H PRN PRN Reason: Itching Last Admin: 02/13/19 12:42 Dose: 25 mg Fluconazole (Diflucan) 100 mg PO DAILY [facility] Last Admin: 02/20/19 09:00 Dose: 100 mg Glycopyrrolate (Glycopyrrolate) 0.4 mg SLOW IVP TID [facility] Last Admin: 02/20/19 10:22 Dose: 0.4 mg Dexmedetomidine HCl 200 mcg/ (Sodium Chloride) 50 mls @ 0 mls/hr IVPB INF [facility]; Protocol Meropenem 2 gm/ Miscellaneous Medication 1 each/ Sodium Chloride 100 mls @ 200 mls/hr IVPB Q8HR [facility] Last Admin: 02/20/19 05:33 Dose: 100 mls Potassium Chloride 40 meq/Sodium Bicarbonate 150 meq/Dextrose/Water 1,170 mls @ 0 mls/hr IV .Q0M [facility] Potassium Chloride 40 meq/ (Sodium Chloride) 270 mls @ 135 mls/hr IVPB ASDIR PRN PRN Reason: FOR SERUM K+ 2.5 - 3.5 Last Admin: 02/20/19 05:36 Dose: 270 mls Potassium Chloride 40 meq/ (Device) 100 mls @ 50 mls/hr IVPB ASDIR PRN PRN Reason: FOR SERUM K+ 2.5 - 3.5 Last Admin: 02/18/19 06:26 Dose: 100 mls Magnesium Sulfate 1 gm/ Sodium (Chloride) 102 mls @ 102 mls/hr IV PRN PRN PRN Reason: MAG LEVEL 1.4 - 2.0 Magnesium Sulfate 2 gm/ Device 50 mls @ 50 mls/hr IVPB ASDIR PRN PRN Reason: MAGNESIUM < 1.4 Potassium Phosphate 9 mmol/ (Sodium Chloride) 103 mls @ 25.75 mls/hr IVPB ASDIR PRN PRN Reason: Phosphate 1.0-1.8 Potassium Phosphate 12 mmol/ (Sodium Chloride) 254 mls @ 63.5 mls/hr IV ASDIR PRN PRN Reason: Serum phosphate 0.5-0.9 Potassium Phosphate 15 mmol/ (Sodium Chloride) 255 mls @ 63.75 mls/hr IV ASDIR PRN PRN Reason: Serum Phos < 0.5 Dextrose/Water (D5w) 1,000 mls @ 75 mls/hr IV .[id number] [facility] Last Admin: 02/20/19 12:17 Dose: 1,000 mls Magnesium Oxide (Magnesium Oxide) 400 mg PO BIDPRN PRN PRN Reason: FOR SERUM MAG 1.4 - 2.0 Magnesium Oxide (Magnesium Oxide) 800 mg PO PRN PRN PRN Reason: FOR SERUM MAG < 1.4 Metoclopramide HCl (Reglan) 10 mg IVP Q6HR [facility] Last Admin: 02/20/19 10:23 Dose: 10 mg Metoprolol Tartrate (Lopressor) 25 mg PO BID [facility] Last Admin: 02/20/19 09:00 Dose: 25 mg Miscellaneous Medication (Phos-Nak) 1 pkt PO TIDPRN PRN PRN Reason: FOR PHOS LEVEL 1.0 - 1.8 Miscellaneous Medication (Phos-Nak) 2 pkt PO TIDPRN PRN PRN Reason: FOR PHOS LEVEL 0.5 - 1.0 Morphine Sulfate (Morphine) 2 mg SLOW IVP Q4H PRN PRN Reason: Severe Pain (7-10) Last Admin: 02/20/19 12:19 Dose: 2 mg Ondansetron HCl (Zofran) 4 mg IVP Q6H PRN PRN Reason: Nausea/Vomiting Last Admin: 02/12/19 05:29 Dose: 4 mg Stribild Tab. 0 each PER TUBE QAM-WM [facility] Last Admin: 02/20/19 09:01 Dose: 1 each Phenol (Chloraseptic [place] 180 Ml Bot) 0 ml PO BIDPRN PRN PRN Reason: Sore Throat Last Admin: 02/18/19 16:29 Dose: 2 sprays Potassium Chloride (K-Dur) 40 meq PO ASDIR PRN PRN Reason: FOR SERUM K+ 2.5 - 3.5 Potassium Chloride (Klor-Con) 40 meq PER TUBE ASDIR PRN PRN Reason: FOR SERUM K+ 2.5-3.5 Last Admin: 02/16/19 08:58 Dose: 40 meq Saccharomyces Boulardii (Florastor) 250 mg PO DAILY [facility] Last Admin: 02/20/19 09:00 Dose: 250 mg Scopolamine (Transderm Scop) 1.5 mg TD Q3D [facility] Last Admin: 02/19/19 17:20 Dose: 1.5 mg Sodium Bicarbonate (Bicarbonate, Sodium) 650 mg PER TUBE .PER PROTOCOL PRN PRN Reason: ENTERAL TUBE OCCLUSION Sodium Chloride (Flush - Normal Saline) 10 ml IVF Q12HR [facility] Last Admin: 02/20/19 09:04 Dose: 10 ml Sodium Chloride (Flush - Normal Saline) 10 ml IVF PRN PRN PRN Reason: Saline Flush
--- NOTE | 2019-02-20 15:04 | PRG ---
DATE OF SERVICE: 02/20/2019 SUBJECTIVE: Mr. Cobian is doing reasonably well off mechanical ventilation. He still has secretion issues, which for the most part handling them well. He still has stomatitis, but his mouth appears to be slowly getting better. OBJECTIVE: VITAL SIGNS: Heart rate 105, respiratory rate 18, and blood pressure 101/65. The remainder of his exam is unchanged. ABDOMEN: He still has large residuals. Consult Gastroenterology. LABORATORY DATA: White count 6.5, hemoglobin 9.9, platelets 195,000. Sodium 146, potassium 3.3, chloride 109, bicarb 28, BUN 7, and creatinine 0.55. I ordered abdominal film anticipating Gastroenterology consult. I have reviewed the film, actually no gas in his abdomen, except maybe a little in his left upper quadrant. He does have gas in his rectum. IMPRESSION: 1. Head and neck cancer, status post trach and percutaneous endoscopic gastrostomy. 2. Status post neutropenic fever and transferred to the ICU for mechanical ventilation because of secretions. 3. Tracheobronchitis with no infiltrate on chest x-ray that ever developed with return of his white count. 4. Pancytopenia, improving. 5. 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 We will continue to follow. Job ID: [id number]
--- NOTE | 2019-02-20 15:07 | RAD ---
SUPINE ABDOMEN: 02/20/19 INDICATIONS: PEG tube leaking. COMPARISON: 02/15/19. The exam is suboptimal. Peg tube appears to overlie the midline and is not well delineated. Bowel gas pattern is not adequately evaluated on this study. IMPRESSION: Suboptimal study due to poor exposure and positioning. PEG tube appears to overlie the lumbar spine b ut is not well delineated. Bowel gas patter is not well evaluated. POS: OFF
--- NOTE | 2019-02-21 02:03 | CON ---
DATE OF CONSULTATION: 02/20/2019 CONSULTING PHYSICIAN: Yelitza Gipson MD REASON FOR CONSULTATION: PEG tube malfunction/leaking PEG tube. HISTORY OF PRESENT ILLNESS: The patient is a 63-year-old male with past medical history of GERD, HIV, and throat cancer, currently receiving chemotherapy and status post PEG tube for altered nutritional feeding source, who initially presented to the hospital with increased secretions through his tracheostomy, constipation, and chills. He was also noted to have a fever at an outside institution and was transferred to [facility] for further management. While in the hospital, he was diagnosed with pneumonia and sepsis and subsequently placed on appropriate antibiotic therapy for treatment of this condition. However, over the last 24 to 48 hours, he has experienced increased leaking from around the PEG tube site itself as well as increased residuals within the stomach concerning for possible intragastric process. Otherwise, the patient denies any nausea, vomiting, fevers, chills, diarrhea, constipation, or GI bleeding. He does endorse some abdominal pain, but when directed to the point where he has a change in pain the most he pointed to the right mid chest. Per nursing staff, he has been having some increased clear type secretions from around the PEG tube site itself in addition to increased residuals with approximately 250 to 500 mL of tube feeds obtained throughout the day. REVIEW OF SYSTEMS: A 10-category review of systems was obtained with all responses negative except for the pertinent positives as listed in HPI. The patient was nonverbal due to his tracheostomy status and without a Passy Brennan valve, but did respond to yes and no questions appropriately. PAST MEDICAL HISTORY: As per HPI. PAST SURGICAL HISTORY: Tracheostomy, percutaneous gastrostomy tube placement, right maeop-xhu-eiod amputation, left mzjbh-mvl-[id number] amputation, multiple skin grafts, and right chest chemotherapy port placement. FAMILY HISTORY: Denies any GI malignancies. SOCIAL HISTORY: Denies any tobacco, alcohol, or illicit drug use. OUTPATIENT MEDICATIONS: Reviewed. ALLERGIES: NO KNOWN DRUG ALLERGIES. PHYSICAL EXAMINATION: VITAL SIGNS: Temperature 97.1, pulse 112, blood pressure 127/74, respiratory rate 20, and saturating 100% on wall oxygen. GENERAL: The patient was lying in bed, in no acute distress. Alert and oriented x4, albeit the patient was nonverbal due to his tracheostomy. HEENT: Normocephalic, atraumatic. NECK: Supple. No JVD or scleral icterus noted. Tracheostomy in place above the sternal notch without signs of skin breakdown or purulence. CARDIOVASCULAR: Tachycardic rate, but regular rhythm. No discernible murmurs, gallops, or rubs. RESPIRATORY: Decreased breath sounds in the bilateral lower lung bases, but otherwise clear to auscultation. ABDOMEN: Normoactive bowel sounds. Soft, nontender, nondistended. The PEG tube site was noted in the left upper quadrant with drainage of clear/greenish-colored fluid that was soaking the dressings, surrounding the stoma site itself. Upon evaluation of the actual stoma site, there was a small ulceration noted to the inferior and just left of midline of the stoma itself with some skin breakdown, but otherwise no purulence. This appeared to be due to traction from the PEG tube site being angled down. EXTREMITIES: A right above-knee amputation and left below-knee amputation were present, but otherwise no cyanosis, clubbing, or edema. LABORATORY DATA: CBC with a white blood cell count of 6.5, hemoglobin 9.9, hematocrit 31.3, and platelets 195. Chemistry with a sodium of 146, potassium 3.3, chloride 109, CO2 of 28, BUN 7, creatinine 0.55, and glucose 73. IMAGING DATA: Abdominal x-ray obtained on February 20, 2019, showed that the PEG tube appears overlie the midline and is not well delineated. The bowel gas pattern was not well evaluated during this suboptimal study. Chest x-ray obtained on February 17, 2019, showed bilateral effusions as well as bibasilar hazy atelectasis or infiltrate in the right mid lung was also stable. ASSESSMENT AND PLAN: The patient is a 63-year-old male with past medical history of gastroesophageal reflux disease, human immunodeficiency virus, and throat cancer on chemotherapy, status post percutaneous gastrostomy tube placement and tracheostomy, presenting with increased leakage from around the gastrostomy tube site and increased residuals. Malfunction with tube feeds. The patient is initially presenting with a clinical history consistent with sepsis and subsequent diagnosis of pneumonia. He was placed on appropriate antibiotic therapy, but during his admission, he has been noted to have increased secretions from around the PEG tube itself consisting of a watery-greenish type coloration in addition to increased gastric residuals of a clear greenish fluid as well. Upon inspection of the gastrostomy tube site as well, there was a small plastic horizontal bar that was in place, but allowing the PEG tube to be directed inferior to the ostomy itself and with what appears to be continued pressure on the inferior aspect of the ostomy and created a small pressure ulceration. There were some minimal amounts of granulation tissue surrounding the ostomy, but no other sites of ostomy breakdown or purulence. At this time, the most likely reason for the increased secretions from around the gastrostomy tube is secondary to this pressure ulceration on the inferior aspect of the ostomy primarily due to inadequate placement of the plastic external bumper. However, the patient does also have increased residuals of clear bilious type fluid, which is unknown at this time. In terms of its etiology, I would consider more conservative management with correction of the PEG tube malfunction with stopping of tube feeds in the interim and continue to assess the patient as tolerated after that. RECOMMENDATIONS: 1. I swapped out the external bar for a Giov[employer]-Wheel external bumper today to prevent any traction in any particular direction and further lead to ulceration of the ostomy itself. This ostomy should heal up over the next 12 to 24 hours and hopefully, no additional leakage from around the ostomy site would be experienced. 2. We would hold any tube feeds for at least the next 12 hours, then would restart the patient at either a reduced rate or bolus type feeds and assess for continued residuals at that time after healing of the ostomy site itself. 3. Tube feeds per dietary recommendations. We will continue to follow. Please call with any questions. Job ID: [id number]
[2019-02-21] MEDS: Morphine 2 MG/ML SYRINGE SLOW IVP PRN ×3 (02:46→21:27)
[2019-02-21] MEDS: diphenhydrAMINE 50 MG/ML VIAL IVP PRN (03:40)
[2019-02-21] MEDS: Meropenem 2 GM, Admixture Fee 1 EACH in Sodium Chloride 0.9% 100 ML IVPB SCH (05:04)
[2019-02-21] MEDS: Metoclopramide HCl 10 MG/2 ML VIAL IVP SCH ×3 (05:04→18:38)
[2019-02-21 05:17] LABS: Band 9 % (5-11); Eosinophils 5 % (0-10); Hemoglobin 10.2 g/dL (14.0-18.0); Lymphocytes 10 % (21-51); MDiff Complete? YES; Mean Corpuscular HGB CONC 31.7 g/dL (32.0-36.0); Mean Corpuscular Hemoglobin 27.8 pg (27.0-31.0); Mean Corpuscular Volume 87.6 fL (78.0-98.0); Mean Platelet Volume 8.2 fL (7.4-10.4); Metamyelocyte 3 % (0-0); Monocytes 3 % (0-10); Myelocyte 1 % (0-0); Neutrophil 69 % (42-75); Platelet Count 217 thou/uL (130-400); Platelet Morphology Comment Appears Adequate; RBC Distribution Width 15.9 % (11.5-14.5); Red Blood Cell (RBC) Count 3.69 mill/uL (4.70-6.10); White Blood Cell (WBC) Count 6.9 thou/uL (4.8-10.8)
[2019-02-21 05:26] LABS: Anion Gap 10 mmol/L (10-20); BUN (Urea Nitrogen) 6 mg/dL (8.4-25.7); Calc. Creatinine Clearance 134 mL/min (70-130); Calcium 7.5 mg/dL (7.8-10.44); Carbon Dioxide 31 mmol/L (23-31); Chloride 102 mmol/L (98-107); Estimated GFR-MDRD Greater than 90; Glucose 125 mg/dL (80-115); Potassium 3.3 mmol/L (3.5-5.1); Sodium 140 mmol/L (136-145)
[2019-02-21] MEDS: Metoprolol Tartrate 25 MG TAB PO SCH ×2 (08:59→21:29)
[2019-02-21] MEDS: Saccharomyces boulardii 250 MG CAP PO SCH (08:59)
[2019-02-21] MEDS: Potassium Chloride 40 MEQ in Sodium Chloride 0.9% 250 ML 250 ML IVPB PRN (08:59)
[2019-02-21] MEDS: STRIBILD PER TUBE SCH (09:00)
[2019-02-21] MEDS: Glycopyrrolate 0.2 MG/ML 5 ML SYRINGE SLOW IVP SCH ×3 (09:00→21:28)
[2019-02-21] MEDS: Fluconazole 100 MG TAB PO SCH (09:00)
[2019-02-21] MEDS ORDERED: Pantoprazole 40 MG VIAL IVP SCH (10:30)
[2019-02-21] MEDS ORDERED: ISOVUE-370 76%-LOCM 1 ML ONE (11:48)
[2019-02-21] MEDS: D5 1/2 NS w/20 mEq KCL 1,000 ML IV SCH (11:52)
[2019-02-21] MEDS ORDERED: Boudreaux's Butt Paste 60 GM TUBE TOP PRN (12:46)
--- NOTE | 2019-02-21 13:28 | PDOC.PN ---
- Subjective Encounter Start Date: 02/21/19 Encounter Start Time: 13:26 Subjective: RN reoprts that PEG still has leakage and 200 cc bilious output on suction -: HR remains high.no acute venets overnight - Objective MAR Reviewed: Yes Vital Signs & Weight: Vital Signs (12 hours) Temp Pulse Resp Pulse Ox 02/21/19 11:03 123 H 24 H 100 02/21/19 10:54 98.5 F 02/21/19 08:00 100 02/21/19 07:40 100 02/21/19 07:37 104 H 24 H 100 02/21/19 07:04 98.2 F 02/21/19 03:15 98.6 F 02/21/19 02:25 98 12 100 Weight Admit Weight 139 lb 11.2 oz Weight 148 lb Most Recent Monitor Data Heart Rate from ECG 117 NIBP 97/70 NIBP BP-Mean 79 Respiration from ECG 25 SpO2 97 I&O: 02/20/19 02/21/19 02/22/19 06:59 06:59 06:59 Intake Total 2004 1885 30 Output Total 1350 1050 Balance 655 835 30 Result Diagrams: 02/21/19 04:35 02/21/19 04:35 Additional Labs: Laboratory Tests 02/08/19 02/09/19 02/12/19 04:07 08:27 05:40 WBC 0.3 L* 0.2 L* 0.4 L* 02/14/19 02/15/19 02/17/19 04:45 06:00 04:25 WBC 2.4 L 6.6 13.2 H 02/18/19 02/19/19 02/20/19 05:23 05:20 03:56 WBC 10.3 7.1 6.5 02/21/19 04:35 WBC 6.9 Phys Exam - Physical Examination Constitutional: NAD HEENT: PERRLA, moist MMs, sclera anicteric, oral pharynx no lesions Neck: no nodes, no JVD, supple, full ROM Respiratory: no wheezing, no rales, no rhonchi, clear to auscultation bilateral Cardiovascular: RRR, no significant murmur Gastrointestinal: soft, non-tender, no distention, positive bowel sounds Musculoskeletal: no edema, pulses present Neurological: non-focal, normal sensation, moves all 4 limbs Psychiatric: normal affect, A&O x 3 Skin: no rash Dx/Plan (1) Acute respiratory failure with hypoxia Code(s): J96.01 - ACUTE RESPIRATORY FAILURE WITH HYPOXIA Status: Acute Comment: resolving, on nocturnal vent weaning (2) PEG tube malfunction Code(s): K94.23 - GASTROSTOMY MALFUNCTION Status: Acute (3) Acute tracheobronchitis Code(s): J20.9 - ACUTE BRONCHITIS, UNSPECIFIED Status: Acute Comment: on Meropenam for Pseudomonas (4) Pancytopenia Code(s): D61.818 - OTHER PANCYTOPENIA Status: Acute Comment: due to chemotherapy. 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 cont HAART .Prophylactic diflucan - Plan continue antibiotics, PT/OT, out of bed/ambulate, DVT proph w/SCDs Hr high .on IVf.On BB.Monitor.asymptomatic. Sinus -: GI recs for PEG output.TF on hold -: accpeted at rehab but not readufor DC yet -: wound care * . Review of Systems - Review of Systems Other: limited ROS due to T piece - Medications/Allergies Allergies/Adverse Reactions: Allergies Allergy/AdvReac Type Severity Reaction Status Date / Time No Known Drug Allergies Allergy Verified 12/06/18 16:55 Medications: Current Medications Acetaminophen (Tylenol) 650 mg IA Q4H PRN PRN Reason: Headache/Fever/Mild Pain (1-3) Last Admin: 02/10/19 12:38 Dose: 650 mg Acetaminophen (Tylenol) 650 mg PER TUBE Q6H PRN PRN Reason: PAIN/FEVER Last Admin: 02/18/19 16:57 Dose: 650 mg Albuterol/Ipratropium (Duoneb) 3 ml NEB [id number] ARCHIE Last Admin: 02/21/19 11:03 Dose: 3 ml Lipase/Protease/Amylase ([place] [id number]) 1 cap FS .PER PROTOCOL PRN PRN Reason: TUBE OCCLUSION PROTOCOL Bisacodyl (Dulcolax) 10 mg IA DAILYPRN PRN PRN Reason: Constipation Al Hydroxide/Mg Hydroxide 60 ml/ Diphenhydramine HCl 150 mg / Lidocaine HCl 60 ml/Nystatin 6,000,000 units 0 ml SSW PRN PRN PRN Reason: Mouth Irritation Last Admin: 02/19/19 00:22 Dose: 10 ml Diphenhydramine HCl (Benadryl) 25 mg IVP Q6H PRN PRN Reason: Itching Last Admin: 02/21/19 03:40 Dose: 25 mg Fluconazole (Diflucan) 100 mg PO DAILY ARCHIE Last Admin: 02/21/19 09:00 Dose: 100 mg Glycopyrrolate (Glycopyrrolate) 0.4 mg SLOW IVP TID ARCHIE Last Admin: 02/21/19 09:00 Dose: 0.4 mg Dexmedetomidine HCl 200 mcg/ (Sodium Chloride) 50 mls @ 0 mls/hr IVPB INF ARCHIE; Protocol Meropenem 2 gm/ Miscellaneous Medication 1 each/ Sodium Chloride 100 mls @ 200 mls/hr IVPB Q8HR ARCHIE Last Admin: 02/21/19 05:04 Dose: 100 mls Potassium Chloride 40 meq/Sodium Bicarbonate 150 meq/Dextrose/Water 1,170 mls @ 0 mls/hr IV .Q0M ARCHIE Potassium Chloride 40 meq/ (Sodium Chloride) 270 mls @ 135 mls/hr IVPB ASDIR PRN PRN Reason: FOR SERUM K+ 2.5 - 3.5 Last Admin: 02/21/19 08:59 Dose: 270 mls Potassium Chloride 40 meq/ (Device) 100 mls @ 50 mls/hr IVPB ASDIR PRN PRN Reason: FOR SERUM K+ 2.5 - 3.5 Last Admin: 02/18/19 06:26 Dose: 100 mls Magnesium Sulfate 1 gm/ Sodium (Chloride) 102 mls @ 102 mls/hr IV PRN PRN PRN Reason: MAG LEVEL 1.4 - 2.0 Magnesium Sulfate 2 gm/ Device 50 mls @ 50 mls/hr IVPB ASDIR PRN PRN Reason: MAGNESIUM < 1.4 Potassium Phosphate 9 mmol/ (Sodium Chloride) 103 mls @ 25.75 mls/hr IVPB ASDIR PRN PRN Reason: Phosphate 1.0-1.8 Potassium Phosphate 12 mmol/ (Sodium Chloride) 254 mls @ 63.5 mls/hr IV ASDIR PRN PRN Reason: Serum phosphate 0.5-0.9 Potassium Phosphate 15 mmol/ (Sodium Chloride) 255 mls @ 63.75 mls/hr IV ASDIR PRN PRN Reason: Serum Phos < 0.5 Potassium Chloride/Dextrose/Sod Cl (D5 1/2 Ns W/20 Meq Kcl) 1,000 mls @ 70 mls/ hr IV .[id number] [facility] Last Admin: 02/21/19 11:52 Dose: 1,000 mls Magnesium Oxide (Magnesium Oxide) 400 mg PO BIDPRN PRN PRN Reason: FOR SERUM MAG 1.4 - 2.0 Magnesium Oxide (Magnesium Oxide) 800 mg PO PRN PRN PRN Reason: FOR SERUM MAG < 1.4 Metoclopramide HCl (Reglan) 10 mg IVP Q6HR [facility] Last Admin: 02/21/19 11:51 Dose: 10 mg Metoprolol Tartrate (Lopressor) 25 mg PO BID [facility] Last Admin: 02/21/19 08:59 Dose: 25 mg Miscellaneous Medication (Phos-Nak) 1 pkt PO TIDPRN PRN PRN Reason: FOR PHOS LEVEL 1.0 - 1.8 Miscellaneous Medication (Phos-Nak) 2 pkt PO TIDPRN PRN PRN Reason: FOR PHOS LEVEL 0.5 - 1.0 Morphine Sulfate (Morphine) 2 mg SLOW IVP Q4H PRN PRN Reason: Severe Pain (7-10) Last Admin: 02/21/19 09:13 Dose: 2 mg Ondansetron HCl (Zofran) 4 mg IVP Q6H PRN PRN Reason: Nausea/Vomiting Last Admin: 02/12/19 05:29 Dose: 4 mg Pantoprazole Sodium (Protonix) 40 mg IVP DAILY [facility] Stribild Tab. 0 each PER TUBE QAM-WM [facility] Last Admin: 02/21/19 09:00 Dose: 1 each Phenol (Chloraseptic [place] 180 Ml Bot) 0 ml PO BIDPRN PRN PRN Reason: Sore Throat Last Admin: 02/18/19 16:29 Dose: 2 sprays Potassium Chloride (K-Dur) 40 meq PO ASDIR PRN PRN Reason: FOR SERUM K+ 2.5 - 3.5 Potassium Chloride (Klor-Con) 40 meq PER TUBE ASDIR PRN PRN Reason: FOR SERUM K+ 2.5-3.5 Last Admin: 02/16/19 08:58 Dose: 40 meq Saccharomyces Boulardii (Florastor) 250 mg PO DAILY [facility] Last Admin: 02/21/19 08:59 Dose: 250 mg Scopolamine (Transderm Scop) 1.5 mg TD Q3D [facility] Last Admin: 02/19/19 17:20 Dose: 1.5 mg Sodium Bicarbonate (Bicarbonate, Sodium) 650 mg PER TUBE .PER PROTOCOL PRN PRN Reason: ENTERAL TUBE OCCLUSION Sodium Chloride (Flush - Normal Saline) 10 ml IVF Q12HR [facility] Last Admin: 02/21/19 09:01 Dose: 10 ml Sodium Chloride (Flush - Normal Saline) 10 ml IVF PRN PRN PRN Reason: Saline Flush Zinc Oxide (Rashel's Butt Paste) 0 gm TOP PRN PRN PRN Reason: Rash/Topical Irritation
--- NOTE | 2019-02-21 14:09 | PRG ---
DATE OF SERVICE: 02/21/2019 SUBJECTIVE: Yrn Cobian remained stable. He nods that his mouth is feeling better, and his secretions and difficulty breathing continue to improve a tiny bit every day. OBJECTIVE: VITAL SIGNS: He is afebrile. Heart rate consistently between 98 up to 123 this morning. The secretions are manageable now. LUNGS: From what I can tell, his lungs are remarkable for mild rhonchi. HEART: Regular rhythm. ABDOMEN: Soft and nontender. LABORATORY DATA: White count 6.9, hemoglobin 10.2, platelets 217. Sodium 140, potassium 3.3, chloride 102, bicarb 31, BUN 6, creatinine 0.55. IMPRESSION: 1. Status post neutropenic fever, tracheobronchitis. 2. Stomatitis secondary to chemo. 3. High residuals with a PEG in place. Gastroenterology is following now. They recommended holding tube feeds for at least 12 hours and try lower rate of bolus feeds. I think his antimicrobial therapy could be simplified at this point. Job ID: [id number]
--- NOTE | 2019-02-21 16:34 | PRG ---
DATE OF SERVICE: 02/21/2019 SUBJECTIVE: Mr. Cobian has had his PEG tube feeds held. However, he continues to have significant bilious residuals return. He has had significant stomatitis. OBJECTIVE: VITAL SIGNS: Temperature 99.5, pulse 119, blood pressure 101/83. GENERAL: He is awake and alert. He has stomatitis of his lips. HEART: Tachycardic, S1 and S2. ABDOMEN: Soft, nontender, and nondistended. He has clear bilious leakage from the PEG tube site. He has a small 2-mm ulceration next to the PEG tube. This is on the external skin just below the bumper. There is very shallow ulceration. EXTREMITIES: No lower extremity edema. IMPRESSION: Apparent gastric outlet obstruction versus somewhat more distal obstruction with clear bilious ongoing residuals despite being n.p.o. I do not think that the leakage is really a function of a problem with the PEG tube or as much as an outlet issue. RECOMMENDATIONS: 1. Change the antibiotics to IV administration as he may not be absorbing the enteric medicines as well. 2. Gastrografin contrast study through the stomach to evaluate gastric emptying and for proximal small bowel obstructing or partially obstructing process. 3. If there is evidence of more proximal obstruction, then endoscopy will likely be the next step. Job ID: [id number]
[2019-02-21 17:06] LABS: Troponin I Less than 0.010 ng/mL (< 0.028)
--- NOTE | 2019-02-21 17:34 | RAD ---
RADIOGRAPH CHEST 1 VIEW: DATE: 02/21/2019 TIME: 5:26 PM HISTORY: 71-year-old male with dyspnea and tachycardia COMPARISON: 02/17/2019 FINDINGS: Right subclavian implantable vascular access port and the tracheostomy tube, remain. There has been interval resolution of the consolidation of the left lower lobe. Mild blunting of the lateral costophrenic angles remain, right more than left. No pulmonary edema. The haziness at the right base has also improved. The infiltrate-like density in the right midlung zone is unchanged. IMPRESSION: 1. Interval improvement in the bilateral infiltrates. 2. The only remaining infiltrate is in the right mid lung field (probably upper lobe) 3. Probable small bilateral pleural effusions remain
[2019-02-21] MEDS ORDERED: Cefdinir 300 MG CAP PO SCH (21:00)
--- NOTE | 2019-02-21 21:06 | CT ---
CT abdomen with contrast CT pelvis with contrast: DATE: 02/21/2019 HISTORY: 63-year-old male with abdominal pain. Rule out small bowel obstruction or gastric outlet obstruction. COMPARISON: 02/04/2019 TECHNIQUE: IV injection of iodinated contrast media:Isovue Oral contrast media:Administered through PEG tube FINDINGS: Enteric contrast material is within the lumen of small volume stomach. There appears to be diffuse mu ral thickening and mural edema of the stomach. There is currently no enteric contrast material in the lumen of the duodenum. However, there is dilute enteric contrast material in nondilated small bow el loops in the left side of the abdomen. Enteric contrast material fills the entire esophagus. There is diffuse mural enhancement of multiple jejunal loops and involving the entire colon. No colon ic diverticulitis. There is probably a normal appendix. No small bowel dilation. Cyst at lower pole of right kidney. No hydronephrosis. No abdominal aortic aneurysm. Small bilateral pleural effusion. A djacent infiltrates in the bilateral lower lobes. Scattered noncalcified pulmonary nodules. Patchy infiltrate centrally in right upper lobe. No pneumothorax. No aortic aneurysm or dissection. No cardi omegaly or pericardial effusion. Tracheostomy tube. Superior to the left lobe of the thyroid gland, there is large region of low attenuation which could be malignant neoplasm or edema. No pneumoperiton eum or ascites. Fluid and gas within urinary bladder. Hills catheter. Severe, chronic deformity of osseous pelvis, including right sacral ala, bilateral pubis. No major pathology of liver, aorta, left kidney, adrenals, pancreas, or spleen.. IMPRESSION: 1) pulmonary infiltrates in the bilateral lower lobes and right upper lobe: Evidence for pneumonia. 2. Small bilateral pleural effusions. 3. Scattered noncalcified several pulmonary nodules, possibly representing metastases. 4. Diffuse mural thickening, edema, and enhancement of the entire colon, entire stomach, and much of the small intestine. This could represent a gastroenteritis. 5. No evidence of small bowel obstruction. 6. Incompletely imaged broad region of low attenuation superior to the left lobe of the thyroid gland and involving left side of the larynx. Possibilities include neoplastic tumor versus infection. 7. The enteric contrast material injected into the percutaneous gastrostomy tube refluxes up into the esophagus. The gastritis may or may not be causing a low-grade partial gastric outlet obstruction. 8. Somewhat severe chronic deformities of osseous pelvis.
[2019-02-21] MEDS: Potassium Chloride 40 MEQ in Premix Bag 1 BAG IVPB PRN (21:28)
[2019-02-21] MEDS: Aluminum & Magnesium Hydroxide 60 ML, diphenhydrAMINE 150 MG, Lidocaine 2% Viscous Solu... SSW PRN (22:06)
[2019-02-22] MEDS: Metoclopramide HCl 10 MG/2 ML VIAL IVP SCH ×4 (00:06→17:18)
[2019-02-22] MEDS: Aluminum & Magnesium Hydroxide 60 ML, diphenhydrAMINE 150 MG, Lidocaine 2% Viscous Solu... SSW PRN ×2 (00:06→21:55)
[2019-02-22] MEDS: D5 1/2 NS w/20 mEq KCL 1,000 ML IV SCH ×2 (05:56→08:13)
[2019-02-22 06:32] LABS: Anion Gap 10 mmol/L (10-20); BUN (Urea Nitrogen) 5 mg/dL (8.4-25.7); Calc. Creatinine Clearance 136 mL/min (70-130); Calcium 7.6 mg/dL (7.8-10.44); Carbon Dioxide 27 mmol/L (23-31); Chloride 105 mmol/L (98-107); Estimated GFR-MDRD Greater than 90; Glucose 107 mg/dL (80-115); Potassium 3.8 mmol/L (3.5-5.1); Sodium 138 mmol/L (136-145)
[2019-02-22 06:33] LABS: Band 4 % (5-11); Hemoglobin 10.1 g/dL (14.0-18.0); Hypochromia SLIGHT = 6-15 cells (100X) (0-5/hpf); Lymphocytes 4 % (21-51); MDiff Complete? YES; Mean Corpuscular HGB CONC 32.2 g/dL (32.0-36.0); Mean Corpuscular Hemoglobin 28.1 pg (27.0-31.0); Mean Corpuscular Volume 87.4 fL (78.0-98.0); Mean Platelet Volume 7.9 fL (7.4-10.4); Monocytes 3 % (0-10); Neutrophil 89 % (42-75); Platelet Count 201 thou/uL (130-400); Platelet Morphology Comment Appears Adequate; RBC Distribution Width 15.8 % (11.5-14.5); Red Blood Cell (RBC) Count 3.58 mill/uL (4.70-6.10); White Blood Cell (WBC) Count 6.1 thou/uL (4.8-10.8)
[2019-02-22] MEDS: STRIBILD PER TUBE SCH (08:12)
[2019-02-22] MEDS: Saccharomyces boulardii 250 MG CAP PO SCH (08:12)
[2019-02-22] MEDS: Fluconazole 100 MG TAB PO SCH (08:12)
[2019-02-22] MEDS: Metoprolol Tartrate 25 MG TAB PO SCH ×2 (08:12→21:53)
[2019-02-22] MEDS: Glycopyrrolate 0.2 MG/ML 5 ML SYRINGE SLOW IVP SCH ×3 (08:13→21:49)
[2019-02-22] MEDS ORDERED: Pantoprazole 40 MG VIAL IVP SCH (09:00)
[2019-02-22] MEDS ORDERED: Metoprolol Tartrate 25 MG TAB PO SCH ×2 (10:08→10:15)
--- NOTE | 2019-02-22 11:57 | PRG ---
DATE OF SERVICE: 02/22/2019 SUBJECTIVE: Mr. Cobian is a little more interactive today. He seems to be feeling better. He states he has no abdominal pain and minimal abdominal tenderness. He has had decrease in the gastric output. He had some residuals of 70 mL this morning, which was down from yesterday when he was putting out 500 mL of bilious fluid with residual checks. The drainage around the G-tube appears to have stopped for now. OBJECTIVE: VITAL SIGNS: Temperature is 97.5, blood pressure 103/67, pulse 114. GENERAL: He has had ulcerations on his lips. He has tracheostomy in place. LUNGS: Have coarse breath sounds. ABDOMEN: Soft and has minimal tenderness, it is nondistended. Bowel sounds are present. EXTREMITIES: Trace lower extremity edema. LABORATORY DATA: White blood cell count 6.1, hemoglobin 10.1, platelets 201. Neutrophils 89%. Creatinine 0.54. IMPRESSION: Gastric outlet obstruction resulting in high residuals and leakage from the gastrostomy site. CT scan shows diffuse thickening of the stomach, small intestine, and colon. I think this is the same process that is related to his stomatitis secondary to chemotherapy. It is unlikely he has an acute angioedema of the bowel. This could be viral or immune related. He seems to be doing better overall today and his stomatitis is slowly improving. I did not think that endoscopy will likely place change roof bolter at this point. I would, for now, continue with supportive care, and given that the gastric output is decreasing and the leakage around the G-tube is stopped, if he continues improving tomorrow, we can try again with low rate tube feeds. If he starts having increased output again and gastric residuals, then we might need to consider TPN as the next step and continue bowel rest. RECOMMENDATIONS: Continue supportive care. If his gastric residual output continues to decrease and he is symptomatically improving, then we can try to restart tube feeds at a slow rate tomorrow. If he worsens again, then we might need to consider TPN and endoscopy as the next step. Job ID: [id number]
[2019-02-22] MEDS: Levalbuterol HCl 1.25 MG/0.5 ML NEB NEB SCH ×2 (13:06→18:54)
--- NOTE | 2019-02-22 15:04 | PDOC.PN ---
- Subjective Encounter Start Date: 02/22/19 Encounter Start Time: 15:03 Subjective: feels OK. somnolent -: discussed w RN.less PEG residuals and overall doing better - Objective Resuscitation Status - Order Detail: 02/22/19 15:01 Resuscitation Status Routine Resuscitation Status: FULL: Full Resuscitation Discussed with: discussed with Palliative care team MAR Reviewed: Yes Vital Signs & Weight: Vital Signs (12 hours) Temp Pulse Resp Pulse Ox 02/22/19 13:06 98 15 99 02/22/19 11:00 99 02/22/19 10:52 97.5 F L 02/22/19 08:13 111 H 33 H 100 02/22/19 08:00 99 02/22/19 07:13 97.8 F 02/22/19 04:35 98.0 F Weight Admit Weight 139 lb 11.2 oz Weight 147 lb 9.6 oz Most Recent Monitor Data Heart Rate from ECG 103 NIBP 101/66 NIBP BP-Mean 77 Respiration from ECG 26 SpO2 100 I&O: 02/21/19 02/22/19 02/23/19 06:59 06:59 06:59 Intake Total 1885 1423 Output Total 1050 2050 Balance 835 -627 Result Diagrams: 02/22/19 05:45 02/22/19 05:45 Additional Labs: Microbiology 02/12/19 07:38 Sputum - Aspirate Respiratory Culture - Final Pseudomonas aeruginosa 02/11/19 11:00 Oropharynx Nose/Throat Culture - Final Pseudomonas aeruginosa 02/09/19 20:56 Stool C. difficile GDH Antigen & Toxins - Final Phys Exam - Physical Examination Constitutional: NAD sleepy but wakes up easily.comfortable HEENT: PERRLA, moist MMs, sclera anicteric, oral pharynx no lesions trach collar in place w less secretions Neck: no nodes, no JVD, supple, full ROM Respiratory: no wheezing, no rales, no rhonchi, clear to auscultation bilateral Cardiovascular: RRR, no significant murmur no discharge around PEG Gastrointestinal: soft, non-tender, no distention, positive bowel sounds Musculoskeletal: no edema, pulses present b/l leg amputated Psychiatric: normal affect Dx/Plan (1) Acute respiratory failure with hypoxia Code(s): J96.01 - ACUTE RESPIRATORY FAILURE WITH HYPOXIA Status: Acute Comment: resolving, on nocturnal vent weaning (2) PEG tube malfunction Code(s): K94.23 - GASTROSTOMY MALFUNCTION Status: Acute Comment: Likley severe reflux w mild Gastric Outlet obstruction (3) Acute tracheobronchitis Code(s): J20.9 - ACUTE BRONCHITIS, UNSPECIFIED Status: Acute Comment: on Meropenam for Pseudomonas (4) Pancytopenia Code(s): D61.818 - OTHER PANCYTOPENIA Status: Acute Comment: due to chemotherapy. 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 cont HAART .Prophylactic diflucan (12) Sinus tachycardia Code(s): R00.0 - TACHYCARDIA, UNSPECIFIED Status: Acute - Plan continue antibiotics, PT/OT, respiratory therapy, incentive spirometry, out of bed/ambulate, DVT proph w/SCDs discussed w GI.CT findings discussed.Colitis/stomatitis likely d/t chemoRx -: increase PPI to BID given severe reflux on CT. -: cont IVF for now. TF on hold. start slow tomorrow if lower Residuals -: cont BB for sinus tachy.EKG w/o any arraythmia.ECHO ordered yesterday -: Cardiac enzymes negative. likley due to anxiety & Nebs.Xanax prn * .Guarded prognosis due to multiple co morbidities but stable for now * not ready for DC yet * am labs Review of Systems - Review of Systems Other: Can not be completed due to somnolence,and T piece - Medications/Allergies Allergies/Adverse Reactions: Allergies Allergy/AdvReac Type Severity Reaction Status Date / Time No Known Drug Allergies Allergy Verified 12/06/18 16:55 Medications: Current Medications Acetaminophen (Tylenol) 650 mg [place] Q4H PRN PRN Reason: Headache/Fever/Mild Pain (1-3) Last Admin: 02/10/19 12:38 Dose: 650 mg Acetaminophen (Tylenol) 650 mg PER TUBE Q6H PRN PRN Reason: PAIN/FEVER Last Admin: 02/18/19 16:57 Dose: 650 mg Alprazolam (Xanax) 0.25 mg PO TIDPRN PRN PRN Reason: Anxiety Lipase/Protease/Amylase (Diana Mak 31526) 1 cap FS .PER PROTOCOL PRN PRN Reason: TUBE OCCLUSION PROTOCOL Bisacodyl (Dulcolax) 10 mg [place] DAILYPRN PRN PRN Reason: Constipation Al Hydroxide/Mg Hydroxide 60 ml/ Diphenhydramine HCl 150 mg / Lidocaine HCl 60 ml/Nystatin 6,000,000 units 0 ml SSW PRN PRN PRN Reason: Mouth Irritation Last Admin: 02/22/19 00:06 Dose: 10 ml Diphenhydramine HCl (Benadryl) 25 mg IVP Q6H PRN PRN Reason: Itching Last Admin: 02/21/19 03:40 Dose: 25 mg Fluconazole (Diflucan) 100 mg PO DAILY [facility] Last Admin: 02/22/19 08:12 Dose: 100 mg Glycopyrrolate (Glycopyrrolate) 0.4 mg SLOW IVP TID [facility] Last Admin: 02/22/19 08:13 Dose: 0.4 mg Potassium Chloride 40 meq/Sodium Bicarbonate 150 meq/Dextrose/Water 1,170 mls @ 0 mls/hr IV .Q0M [facility] Potassium Chloride 40 meq/ (Sodium Chloride) 270 mls @ 135 mls/hr IVPB ASDIR PRN PRN Reason: FOR SERUM K+ 2.5 - 3.5 Last Admin: 02/21/19 08:59 Dose: 270 mls Potassium Chloride 40 meq/ (Device) 100 mls @ 50 mls/hr IVPB ASDIR PRN PRN Reason: FOR SERUM K+ 2.5 - 3.5 Last Admin: 02/21/19 21:28 Dose: 100 mls Magnesium Sulfate 1 gm/ Sodium (Chloride) 102 mls @ 102 mls/hr IV PRN PRN PRN Reason: MAG LEVEL 1.4 - 2.0 Magnesium Sulfate 2 gm/ Device 50 mls @ 50 mls/hr IVPB ASDIR PRN PRN Reason: MAGNESIUM < 1.4 Potassium Phosphate 9 mmol/ (Sodium Chloride) 103 mls @ 25.75 mls/hr IVPB ASDIR PRN PRN Reason: Phosphate 1.0-1.8 Potassium Phosphate 12 mmol/ (Sodium Chloride) 254 mls @ 63.5 mls/hr IV ASDIR PRN PRN Reason: Serum phosphate 0.5-0.9 Potassium Phosphate 15 mmol/ (Sodium Chloride) 255 mls @ 63.75 mls/hr IV ASDIR PRN PRN Reason: Serum Phos < 0.5 Potassium Chloride/Dextrose/Sod Cl (D5 1/2 Ns W/20 Meq Kcl) 1,000 mls @ 70 mls/ hr IV .[id number] [facility] Last Admin: 02/22/19 08:13 Dose: 1,000 mls Levofloxacin 750 mg/ Device 150 mls @ 100 mls/hr IVPB Q24HR [facility] Last Admin: 02/21/19 16:31 Dose: 150 mls Levalbuterol HCl (Xopenex Conc) 1.25 mg NEB Q6HR [facility] Last Admin: 02/22/19 13:06 Dose: 1.25 mg Magnesium Oxide (Magnesium Oxide) 400 mg PO BIDPRN PRN PRN Reason: FOR SERUM MAG 1.4 - 2.0 Magnesium Oxide (Magnesium Oxide) 800 mg PO PRN PRN PRN Reason: FOR SERUM MAG < 1.4 Metoclopramide HCl (Reglan) 10 mg IVP Q6HR [facility] Last Admin: 02/22/19 12:55 Dose: 10 mg Metoprolol Tartrate (Lopressor) 25 mg PO BID [facility] Miscellaneous Medication (Phos-Nak) 1 pkt PO TIDPRN PRN PRN Reason: FOR PHOS LEVEL 1.0 - 1.8 Miscellaneous Medication (Phos-Nak) 2 pkt PO TIDPRN PRN PRN Reason: FOR PHOS LEVEL 0.5 - 1.0 Morphine Sulfate (Morphine) 2 mg SLOW IVP Q4H PRN PRN Reason: Severe Pain (7-10) Last Admin: 02/21/19 21:27 Dose: 2 mg Ondansetron HCl (Zofran) 4 mg IVP Q6H PRN PRN Reason: Nausea/Vomiting Last Admin: 02/12/19 05:29 Dose: 4 mg Pantoprazole Sodium (Protonix) 40 mg IVP Q12HR [facility] Stribild Tab. 0 each PER TUBE QAM-WM [facility] Last Admin: 02/22/19 08:12 Dose: 1 each Phenol (Chloraseptic [place] 180 Ml Bot) 0 ml PO BIDPRN PRN PRN Reason: Sore Throat Last Admin: 02/18/19 16:29 Dose: 2 sprays Potassium Chloride (K-Dur) 40 meq PO ASDIR PRN PRN Reason: FOR SERUM K+ 2.5 - 3.5 Potassium Chloride (Klor-Con) 40 meq PER TUBE ASDIR PRN PRN Reason: FOR SERUM K+ 2.5-3.5 Last Admin: 02/16/19 08:58 Dose: 40 meq Saccharomyces Boulardii (Florastor) 250 mg PO DAILY [facility] Last Admin: 02/22/19 08:12 Dose: 250 mg Scopolamine (Transderm Scop) 1.5 mg TD Q3D [facility] Last Admin: 02/19/19 17:20 Dose: 1.5 mg Sodium Bicarbonate (Bicarbonate, Sodium) 650 mg PER TUBE .PER PROTOCOL PRN PRN Reason: ENTERAL TUBE OCCLUSION Sodium Chloride (Flush - Normal Saline) 10 ml IVF Q12HR [facility] Last Admin: 02/22/19 08:12 Dose: 10 ml Sodium Chloride (Flush - Normal Saline) 10 ml IVF PRN PRN PRN Reason: Saline Flush Zinc Oxide (Rashel's Butt Paste) 0 gm TOP PRN PRN PRN Reason: Rash/Topical Irritation
[2019-02-22] MEDS: Morphine 2 MG/ML SYRINGE SLOW IVP PRN ×2 (15:18→21:54)
--- NOTE | 2019-02-22 16:19 | PRG ---
DATE OF SERVICE: 02/22/2019 Yrn Cobian has no new complaints. He has not been febrile. Heart rates around 100. He just received the nebulized treatment. His heart rate went up to 140. Gradually came down, so I have switched him to Xopenex. His secretions are a tiny bit better he says today, but the nurse tells me overnight, he was requiring frequent suctioning. He does not feel fatigued and does not want to go back on mechanical ventilation. Lungs remarkable for mild rhonchi. Heart regular rhythm. Abdomen is soft. Extremities without asymmetry. CT of chest, abdomen, and pelvis was done yesterday. I suspect the infiltrates seen on his chest CT or where he has developed infiltrates with return of his white cells. I do not feel he has an acute pneumonia and he certainly had more than adequate antibiotic coverage from when he was transferred into the unit. He does have Pseudomonas growing from his tracheostomy, so I switched him to enteral Levaquin. Apparently, he was not tolerating this and looks like Dr. Walker switched him to IV Levaquin. I suspect the Pseudomonas is probably been treated adequately, but given the nature of the Pseudomonas, he may simply be a colonizer since he has a chronic indwelling tracheostomy tube. We will continue with supportive care. He is just extremely weak at this point and it is not clear when he will get strong enough to go for another round of chemotherapy, if ever. Job ID: [id number]
[2019-02-22] MEDS: Scopolamine 1.5 mg/72 hour Patch TD SCH (17:18)
[2019-02-22] MEDS: Pantoprazole 40 MG VIAL IVP SCH (21:54)
[2019-02-23] MEDS: Levalbuterol HCl 1.25 MG/0.5 ML NEB NEB SCH ×4 (00:09→18:35)
[2019-02-23] MEDS: Metoclopramide HCl 10 MG/2 ML VIAL IVP SCH ×5 (01:15→23:31)
[2019-02-23] MEDS: D5 1/2 NS w/20 mEq KCL 1,000 ML IV SCH (01:15)
[2019-02-23 06:21] LABS: Band 6 % (5-11); Hemoglobin 9.8 g/dL (14.0-18.0); Lymphocytes 10 % (21-51); MDiff Complete? YES; Mean Corpuscular HGB CONC 31.6 g/dL (32.0-36.0); Mean Corpuscular Hemoglobin 27.7 pg (27.0-31.0); Mean Corpuscular Volume 87.7 fL (78.0-98.0); Metamyelocyte 2 % (0-0); Monocytes 7 % (0-10); Neutrophil 74 % (42-75); Platelet Count 191 thou/uL (130-400); RBC Distribution Width 15.5 % (11.5-14.5); Reactive Lymphocytes 1 % (0-10); Red Blood Cell (RBC) Count 3.53 mill/uL (4.70-6.10); White Blood Cell (WBC) Count 7.3 thou/uL (4.8-10.8)
[2019-02-23 06:50] LABS: Anion Gap 7 mmol/L (10-20); BUN (Urea Nitrogen) 5 mg/dL (8.4-25.7); Calc. Creatinine Clearance 142 mL/min (70-130); Calcium 7.7 mg/dL (7.8-10.44); Carbon Dioxide 27 mmol/L (23-31); Chloride 104 mmol/L (98-107); Estimated GFR-MDRD Greater than 90; Glucose 148 mg/dL (80-115); Potassium 3.9 mmol/L (3.5-5.1); Sodium 134 mmol/L (136-145)
[2019-02-23] MEDS: Metoprolol Tartrate 25 MG TAB PO SCH ×2 (09:37→20:23)
[2019-02-23] MEDS: Pantoprazole 40 MG VIAL IVP SCH ×2 (09:37→20:24)
[2019-02-23] MEDS: Saccharomyces boulardii 250 MG CAP PO SCH (09:37)
[2019-02-23] MEDS: Fluconazole 100 MG TAB PO SCH (09:37)
[2019-02-23] MEDS: STRIBILD PER TUBE SCH (09:50)
[2019-02-23] MEDS: Glycopyrrolate 0.2 MG/ML 5 ML SYRINGE SLOW IVP SCH ×3 (10:59→20:23)
[2019-02-23] MEDS: Sodium Chloride 0.9% 1,000 ML IV SCH (11:02)
[2019-02-23] MEDS ORDERED: Sodium Bicarbonate Tab 325 MG TAB PER TUBE PRN (12:02)
[2019-02-23] MEDS ORDERED: Pancrelipase DR 12000 1 CAP FS PRN (12:02)
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
[2019-02-23] MEDS ORDERED: Ketamine 50 MG/ML (10ML VIAL) ONE (14:11)
--- NOTE | 2019-02-23 16:49 | SPC ---
Sonographic guided left upper extremity PICC placement HISTORY: Malnutrition. FINDINGS: After explaining the procedure and obtaining informed consent, left upper extremity was pre pped and draped in usual sterile fashion. Sterile technique, buffered local anesthesia, sonographic guidance, and a 22-gauge needle were used to carefully access the left brachial vein. Standard techni que was used to place the tip of a 5 Khmer dual lumen PICC so that its tip lies at the level of the cavoatrial junction. Catheter was flushed and secured externally. Patient tolerated the procedure well and was returned in unchanged condition. IMPRESSION: Left upper extremity PICC is ready for use.
--- NOTE | 2019-02-23 19:45 | PDOC.PN ---
- Subjective Encounter Start Date: 02/23/19 Encounter Start Time: 19:43 Subjective: he is awake and alert fully for the first time and looks goodrepor -: ts no pain/SOB/abd pain/nausea - Objective Resuscitation Status - Order Detail: 02/22/19 15:01 Resuscitation Status Routine Resuscitation Status: FULL: Full Resuscitation Discussed with: discussed with Palliative care team MAR Reviewed: Yes Vital Signs & Weight: Vital Signs (12 hours) Temp Pulse Resp Pulse Ox 02/23/19 18:35 118 H 18 100 02/23/19 15:08 97.5 F L 02/23/19 11:03 96.9 F L 02/23/19 07:51 100 Weight Admit Weight 139 lb 11.2 oz Weight 148 lb 6.4 oz Most Recent Monitor Data Heart Rate from ECG 92 NIBP 109/65 NIBP BP-Mean 79 Respiration from ECG 21 SpO2 100 I&O: 02/22/19 02/23/19 02/24/19 06:59 06:59 06:59 Intake Total 1423 960 910 Output Total 2050 1600 1050 Balance -627 -640 -140 Result Diagrams: 02/23/19 05:35 02/23/19 05:35 Phys Exam - Physical Examination Constitutional: NAD HEENT: PERRLA, moist MMs, sclera anicteric, oral pharynx no lesions severe stomatitis on lips Neck: no nodes, no JVD, supple, full ROM thick trach secretions Respiratory: no wheezing, no rales, no rhonchi, clear to auscultation bilateral Cardiovascular: RRR, no significant murmur Gastrointestinal: soft, non-tender, no distention, positive bowel sounds peg in place Musculoskeletal: no edema, pulses present Neurological: non-focal, normal sensation, moves all 4 limbs Psychiatric: normal affect, A&O x 3 Skin: no rash Dx/Plan (1) Acute respiratory failure with hypoxia Code(s): J96.01 - ACUTE RESPIRATORY FAILURE WITH HYPOXIA Status: Acute Comment: resolving, on nocturnal vent weaning (2) PEG tube malfunction Code(s): K94.23 - GASTROSTOMY MALFUNCTION Status: Acute Comment: Isai severe reflux w mild Gastric Outlet obstruction (3) Acute tracheobronchitis Code(s): J20.9 - ACUTE BRONCHITIS, UNSPECIFIED Status: Acute Comment: on Meropenam for Pseudomonas (4) Pancytopenia Code(s): D61.818 - OTHER PANCYTOPENIA Status: Acute Comment: due to chemotherapy. 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 cont HAART .Prophylactic diflucan (12) Sinus tachycardia Code(s): R00.0 - TACHYCARDIA, UNSPECIFIED Status: Acute - Plan continue antibiotics, respiratory therapy, incentive spirometry, DVT proph w/ SCDs RN reported increased PEG residuals again .discussed w GI -: will start TF via PICC.cont to hold TF -: EGD today -: Clinically better and HR finally has subsided -: extensice colitis+stomatitis likely due to ChemoRx.supportive care * .wound care * change IVF to NS as sodium is drifting down. * am labs * Poor custodial prognosis .Palliative care team following. * Independent prior to Chemo and this admission Review of Systems - Review of Systems Other: limited to obtain due to t collar - Medications/Allergies Allergies/Adverse Reactions: Allergies Allergy/AdvReac Type Severity Reaction Status Date / Time No Known Drug Allergies Allergy Verified 12/06/18 16:55 Medications: Current Medications Acetaminophen (Tylenol) 650 mg [place] Q4H PRN PRN Reason: Headache/Fever/Mild Pain (1-3) Last Admin: 02/10/19 12:38 Dose: 650 mg Acetaminophen (Tylenol) 650 mg PER TUBE Q6H PRN PRN Reason: PAIN/FEVER Last Admin: 02/18/19 16:57 Dose: 650 mg Alprazolam (Xanax) 0.25 mg PO TIDPRN PRN PRN Reason: Anxiety Lipase/Protease/Amylase (Diana Mak [id number]) 1 cap FS .PER PROTOCOL PRN PRN Reason: TUBE OCCLUSION PROTOCOL Bisacodyl (Dulcolax) 10 mg [place] DAILYPRN PRN PRN Reason: Constipation Al Hydroxide/Mg Hydroxide 60 ml/ Diphenhydramine HCl 150 mg / Lidocaine HCl 60 ml/Nystatin 6,000,000 units 0 ml SSW PRN PRN PRN Reason: Mouth Irritation Last Admin: 02/22/19 21:55 Dose: 10 ml Diphenhydramine HCl (Benadryl) 25 mg IVP Q6H PRN PRN Reason: Itching Last Admin: 02/21/19 03:40 Dose: 25 mg Glycopyrrolate (Glycopyrrolate) 0.4 mg SLOW IVP TID [facility] Last Admin: 02/23/19 18:03 Dose: 0.4 mg Potassium Chloride 40 meq/Sodium Bicarbonate 150 meq/Dextrose/Water 1,170 mls @ 0 mls/hr IV .Q0M [facility] Potassium Chloride 40 meq/ (Sodium Chloride) 270 mls @ 135 mls/hr IVPB ASDIR PRN PRN Reason: FOR SERUM K+ 2.5 - 3.5 Last Admin: 02/21/19 08:59 Dose: 270 mls Potassium Chloride 40 meq/ (Device) 100 mls @ 50 mls/hr IVPB ASDIR PRN PRN Reason: FOR SERUM K+ 2.5 - 3.5 Last Admin: 02/21/19 21:28 Dose: 100 mls Magnesium Sulfate 1 gm/ Sodium (Chloride) 102 mls @ 102 mls/hr IV PRN PRN PRN Reason: MAG LEVEL 1.4 - 2.0 Magnesium Sulfate 2 gm/ Device 50 mls @ 50 mls/hr IVPB ASDIR PRN PRN Reason: MAGNESIUM < 1.4 Potassium Phosphate 9 mmol/ (Sodium Chloride) 103 mls @ 25.75 mls/hr IVPB ASDIR PRN PRN Reason: Phosphate 1.0-1.8 Potassium Phosphate 12 mmol/ (Sodium Chloride) 254 mls @ 63.5 mls/hr IV ASDIR PRN PRN Reason: Serum phosphate 0.5-0.9 Potassium Phosphate 15 mmol/ (Sodium Chloride) 255 mls @ 63.75 mls/hr IV ASDIR PRN PRN Reason: Serum Phos < 0.5 Levofloxacin 750 mg/ Device 150 mls @ 100 mls/hr IVPB Q24HR [facility] Last Admin: 02/23/19 18:03 Dose: 150 mls Sodium Chloride (Normal Saline 0.9%) 1,000 mls @ 70 mls/hr IV .[id number] [facility] Last Admin: 02/23/19 11:02 Dose: 1,000 mls Fat Emulsion Intravenous 100 ml/ Multivitamins 10 ml/Chromium/Copper/Manganese/ Seleni/Zn 5 ml/ Dextrose/Water / Amino Acids/ Sterile Water 1,815 mls @ 75.625 mls/hr IV 2200 [facility] Fluconazole/Sodium Chloride (200 mg/ Device) 100 mls @ 100 mls/hr IVPB DAILY [facility] Levalbuterol HCl (Xopenex Conc) 1.25 mg NEB Q6HR [facility] Last Admin: 02/23/19 18:35 Dose: 1.25 mg Magnesium Oxide (Magnesium Oxide) 400 mg PO BIDPRN PRN PRN Reason: FOR SERUM MAG 1.4 - 2.0 Magnesium Oxide (Magnesium Oxide) 800 mg PO PRN PRN PRN Reason: FOR SERUM MAG < 1.4 Metoclopramide HCl (Reglan) 10 mg IVP Q6HR [facility] Last Admin: 02/23/19 18:03 Dose: 10 mg Metoprolol Tartrate (Lopressor) 25 mg PO BID [facility] Last Admin: 02/23/19 09:37 Dose: 25 mg Miscellaneous Medication (Phos-Nak) 1 pkt PO TIDPRN PRN PRN Reason: FOR PHOS LEVEL 1.0 - 1.8 Miscellaneous Medication (Phos-Nak) 2 pkt PO TIDPRN PRN PRN Reason: FOR PHOS LEVEL 0.5 - 1.0 Morphine Sulfate (Morphine) 2 mg SLOW IVP Q4H PRN PRN Reason: Severe Pain (7-10) Last Admin: 02/22/19 21:54 Dose: 2 mg Ondansetron HCl (Zofran) 4 mg IVP Q6H PRN PRN Reason: Nausea/Vomiting Last Admin: 02/12/19 05:29 Dose: 4 mg Pantoprazole Sodium (Protonix) 40 mg IVP Q12HR [facility] Last Admin: 02/23/19 09:37 Dose: 40 mg Stribild Tab. 0 each PER TUBE QAM-WM [facility] Last Admin: 02/23/19 09:50 Dose: 1 each Phenol (Chloraseptic [place] 180 Ml Bot) 0 ml PO BIDPRN PRN PRN Reason: Sore Throat Last Admin: 02/18/19 16:29 Dose: 2 sprays Potassium Chloride (K-Dur) 40 meq PO ASDIR PRN PRN Reason: FOR SERUM K+ 2.5 - 3.5 Potassium Chloride (Klor-Con) 40 meq PER TUBE ASDIR PRN PRN Reason: FOR SERUM K+ 2.5-3.5 Last Admin: 02/16/19 08:58 Dose: 40 meq Saccharomyces Boulardii (Florastor) 250 mg PO DAILY [facility] Last Admin: 02/23/19 09:37 Dose: 250 mg Scopolamine (Transderm Scop) 1.5 mg TD Q3D [facility] Last Admin: 02/22/19 17:18 Dose: 1.5 mg Sodium Bicarbonate (Bicarbonate, Sodium) 650 mg PER TUBE .PER PROTOCOL PRN PRN Reason: ENTERAL TUBE OCCLUSION Sodium Chloride (Flush - Normal Saline) 10 ml IVF Q12HR [facility] Last Admin: 02/23/19 09:39 Dose: 10 ml Sodium Chloride (Flush - Normal Saline) 10 ml IVF PRN PRN PRN Reason: Saline Flush Zinc Oxide (Rashel's Butt Paste) 0 gm TOP PRN PRN PRN Reason: Rash/Topical Irritation
[2019-02-23] MEDS: Morphine 2 MG/ML SYRINGE SLOW IVP PRN (20:29)
[2019-02-23] MEDS: Aluminum & Magnesium Hydroxide 60 ML, diphenhydrAMINE 150 MG, Lidocaine 2% Viscous Solu... SSW PRN (20:30)
--- NOTE | 2019-02-23 22:29 | OP ---
DATE OF PROCEDURE: 02/23/2019 PROCEDURE PERFORMED: Esophagogastroduodenoscopy with biopsy. PREOPERATIVE DIAGNOSES: Possible gastric outlet obstruction and nausea. DESCRIPTION OF PROCEDURE: Informed consent was obtained from the patient. He was sedated with total intravenous anesthesia. The endoscope was advanced easily to the second portion of the duodenum, and retroflexion was performed in the stomach. The mouth and pharyngeal and laryngeal areas had severe ulceration and white plaques. The esophagus had circumferential grade 4 erosive esophagitis and ulcers. Biopsies were obtained to rule out viral esophagitis. The stomach had ulceration of the antrum with prominent fullness around the antrum that may be contributing to gastric outlet obstruction. He does not have a tight stricture in this area, however. The endoscope could be passed easily through the pylorus. Retroflexed views in the stomach showed some retained gastric contents and white medicine layer, but otherwise the stomach was okay. Biopsies were obtained from the antrum. The first and second portions of the duodenum had severe edematous duodenitis and also duodenal erosions. Biopsies were obtained from this area as well. IMPRESSION: 1. Circumferential ulcerative esophagitis, biopsied to rule out viral esophagitis. 2. Ulceration of the pre-pyloric antrum, which was somewhat heaped up. This was biopsied to rule out neoplastic process. 3. Edematous erosive duodenitis, biopsied. 4. Severe mucositis and white plaques in the pharyngeal and laryngeal area. RECOMMENDATIONS: 1. Await histopathology. 2. We will add fluconazole. 3. Proton pump inhibitor IV. Job ID: [id number]
[2019-02-23] MEDS: FAT EMULSION IV SCH (22:34)
[2019-02-23] MEDS: DEXTROSE IV SCH (22:34)
[2019-02-23] MEDS: MULTIVITAMINS IV SCH (22:34)
[2019-02-23] MEDS: MULTITRACE IV SCH (22:34)
[2019-02-23] MEDS: [UNRECOGNIZED DRUG - OTHER] IV SCH (22:34)
[2019-02-24] MEDS: Levalbuterol HCl 1.25 MG/0.5 ML NEB NEB SCH ×4 (00:10→18:56)
[2019-02-24] MEDS: Sodium Chloride 0.9% 1,000 ML IV SCH ×3 (03:00→20:14)
[2019-02-24] MEDS: Metoclopramide HCl 10 MG/2 ML VIAL IVP SCH ×4 (05:26→23:03)
[2019-02-24 06:00] LABS: Anion Gap 8 mmol/L (10-20); BUN (Urea Nitrogen) 5 mg/dL (8.4-25.7); Calc. Creatinine Clearance 126 mL/min (70-130); Calcium 7.4 mg/dL (7.8-10.44); Carbon Dioxide 27 mmol/L (23-31); Chloride 105 mmol/L (98-107); Estimated GFR-MDRD Greater than 90; Glucose 166 mg/dL (80-115); Potassium 3.4 mmol/L (3.5-5.1); Sodium 137 mmol/L (136-145)
[2019-02-24 06:03] LABS: Band 5 % (5-11); Hemoglobin 9.4 g/dL (14.0-18.0); Hypochromia SLIGHT = 6-15 cells (100X) (0-5/hpf); Lymphocytes 14 % (21-51); MDiff Complete? YES; Mean Corpuscular HGB CONC 31.6 g/dL (32.0-36.0); Mean Corpuscular Hemoglobin 27.7 pg (27.0-31.0); Mean Corpuscular Volume 87.8 fL (78.0-98.0); Mean Platelet Volume 7.8 fL (7.4-10.4); Monocytes 6 % (0-10); Neutrophil 75 % (42-75); Platelet Count 183 thou/uL (130-400); Platelet Morphology Comment Appears Adequate; RBC Distribution Width 15.4 % (11.5-14.5); Red Blood Cell (RBC) Count 3.39 mill/uL (4.70-6.10); White Blood Cell (WBC) Count 6.6 thou/uL (4.8-10.8)
[2019-02-24] MEDS: STRIBILD PER TUBE SCH (09:34)
[2019-02-24] MEDS: Fluconazole In NaCl,Iso-Osm 200 MG in Premix Bag 1 BAG IVPB SCH (09:35)
[2019-02-24] MEDS: Glycopyrrolate 0.2 MG/ML 5 ML SYRINGE SLOW IVP SCH ×3 (09:39→20:09)
[2019-02-24] MEDS: Saccharomyces boulardii 250 MG CAP PO SCH (09:41)
[2019-02-24] MEDS: Pantoprazole 40 MG VIAL IVP SCH ×2 (09:41→20:10)
[2019-02-24] MEDS: ALPRAZolam 0.25 MG TAB PO PRN ×2 (09:41→22:19)
[2019-02-24] MEDS: Metoprolol Tartrate 25 MG TAB PO SCH ×2 (09:41→20:08)
[2019-02-24] MEDS: Potassium Chloride 40 MEQ in Premix Bag 1 BAG IVPB PRN ×2 (10:06→15:34)
[2019-02-24] MEDS: Morphine 2 MG/ML SYRINGE SLOW IVP PRN ×2 (11:08→19:56)
[2019-02-24] MEDS: Aluminum & Magnesium Hydroxide 60 ML, diphenhydrAMINE 150 MG, Lidocaine 2% Viscous Solu... SSW PRN (11:18)
--- NOTE | 2019-02-24 12:26 | PDOC.PN ---
- Subjective Encounter Start Date: 02/24/19 Encounter Start Time: 12:25 Patient seen and examined, no new issues. - Objective Resuscitation Status - Order Detail: 02/22/19 15:01 Resuscitation Status Routine Resuscitation Status: FULL: Full Resuscitation Discussed with: discussed with Palliative care team Vital Signs & Weight: Vital Signs (12 hours) Temp Pulse Pulse Pulse Pulse Resp BP 02/24/19 11:21 97.1 F L 02/24/19 10:04 135 H 112 H 114 H 104/73 02/24/19 07:46 02/24/19 07:15 96.5 F L 02/24/19 06:50 02/24/19 06:48 73 21 H 02/24/19 04:25 98.6 F BP Pulse Ox Pulse Ox Pulse Ox 02/24/19 11:21 02/24/19 10:04 105/66 100 98 02/24/19 07:46 100 02/24/19 07:15 02/24/19 06:50 99 02/24/19 06:48 99 02/24/19 04:25 Weight Admit Weight 139 lb 11.2 oz Weight 142 lb Most Recent Monitor Data Heart Rate from ECG 74 NIBP 105/68 NIBP BP-Mean 80 Respiration from ECG 25 SpO2 100 I&O: 02/23/19 02/24/19 02/25/19 06:59 06:59 06:59 Intake Total 960 1900 50 Output Total 1600 2250 Balance -640 -350 50 Result Diagrams: 02/24/19 05:23 02/24/19 05:23 Additional Labs: Accuchecks 02/24/19 02/24/19 02/23/19 10:39 05:24 23:34 POC Glucose 176 H 157 H 101 Phys Exam - Physical Examination Constitutional: NAD HEENT: PERRLA, moist MMs +trach Respiratory: no wheezing, no rales, no rhonchi Cardiovascular: RRR, no significant murmur, no rub Gastrointestinal: soft, non-tender, no distention +PEG Musculoskeletal: no edema, pulses present Dx/Plan (1) pseudomonas growing from tracheal cultur Status: Acute Comment: on meropenam (2) Acute tracheobronchitis Code(s): J20.9 - ACUTE BRONCHITIS, UNSPECIFIED Status: Acute Comment: on Meropenam for Pseudomonas (3) GERD (gastroesophageal reflux disease) Code(s): K21.9 - GASTRO-ESOPHAGEAL REFLUX DISEASE WITHOUT ESOPHAGITIS Status: Chronic (4) HIV (human immunodeficiency virus infection) Code(s): B20 - HUMAN IMMUNODEFICIENCY VIRUS [HIV] DISEASE Status: Chronic Qualifiers: HIV symptom status: unspecified Qualified Code(s): B20 - Human immunodeficiency virus [HIV] disease Comment: well controlled. cont HAART .Prophylactic diflucan - Plan * K being replaced by protocol * overall patient's condition has been deteriorating daily since his admission * long discussion held with the patient, he's open to hospice care, will consult CM to arrange for hospice * cont current plan of care * will await patient's decision on hospice * case and plan d/w patient at length, he understood and agreed with this plan.
[2019-02-24 13:11] LABS: INR-International Normal Ratio 1.3; PTT 37.1 SEC (22.9-36.1); Prothrombin Time 15.8 SEC (12.0-14.7)
[2019-02-24 13:13] LABS: Cardiac Risk 3.4 (Less than 4.5); Cholesterol 85 mg/dl (< 200 Desired); HDL Cholesterol 25 mg/dL (>60 Neg Risk); LDL Cholesterol, Calculated 34 mg/dL; Magnesium 1.2 mg/dL (1.6-2.6); Triglycerides 130 mg/dL (Less than 150)
[2019-02-24] MEDS ORDERED: Sodium Chloride 0.9% 15 ML NEB ONE (13:13)
--- NOTE | 2019-02-24 13:46 | EKG ---
Test Reason : Blood Pressure : / mmHG Vent. Rate : 123 BPM Atrial Rate : 123 BPM P-R Int : 134 ms QRS Dur : 082 ms QT Int : 338 ms P-R-T Axes : 067 -07 066 degrees QTc Int : 483 ms Sinus tachycardia Low voltage QRS Inferior infarct (cited on or before 19-OCT-2011) Abnormal ECG When compared with ECG of 09-FEB-2019 14:47, Nonspecific T wave abnormality, improved in Inferior leads Nonspecific T wave abnormality no longer evident in Anterolateral leads Confirmed by DR. Khari DALY ([id number]) on 02/24/2019 1:45:44 PM Referred By: OSWALDO Confirmed By:DR. Khari DALY
[2019-02-24] MEDS: Magnesium 2 GM/50 ML 2 GM in Premix Bag 1 BAG IVPB PRN ×2 (13:55→20:04)
[2019-02-24] MEDS: Potassium Phosphate 12 MMOL in Sodium Chloride 0.9% 250 ML 250 ML IV PRN ×2 (14:10→22:19)
--- NOTE | 2019-02-24 15:27 | PRG ---
DATE OF SERVICE: 02/24/2019 SERVICE: Pulmonary Medicine. INTERVAL HISTORY: The patient is doing okay from respiratory standpoint. He denies having any shortness of breath or chest discomfort. He is not having much in the way of cough. He is not able to tolerate p.o., because of soreness in his mouth. He did have a bowel movement, which was not bloody, and he is passing a little bit of gas. He did not have any vomiting. Otherwise, there has been no interval change to his condition. PHYSICAL EXAMINATION: VITAL SIGNS: Afebrile, pulse 76, blood pressure 90/64, respirations 19, saturation 99% with 28% FiO2 delivered via T-collar. HEENT: Normocephalic. Atraumatic. Sclerae are white. Conjunctivae are pink. Oral mucosa has significant ulcers, that are in the process of healing. LUNGS: Good air entry bilaterally. There is not a prolonged expiratory phase or wheezing present. HEART: Normal rate, regular. ABDOMEN: Soft, nontender, and nondistended. Bowel sounds are positive. MUSCULOSKELETAL: No cyanosis or clubbing. No pitting in the bilateral lower extremities. NEUROLOGIC: Grossly nonfocal. LABORATORY DATA: WBC 6.6, hemoglobin 9.4, platelets 183,000. Creatinine is low , BUN is low. Basic metabolic profile is otherwise unremarkable. Potassium 3.4. Magnesium and phosphorus are both low. Pre-albumin 8.0. Pseudomonas aeruginosa is growing in the oropharynx and sputum aspirate. This is a fairly resistant species. ASSESSMENT: 1. Neutropenic fever. 2. Head and neck cancer, status post tracheostomy. 3. Stomatitis secondary to chemotherapy, quite severe. 4. Human immunodeficiency virus. 5. Hypokalemia. 6. Hypophosphatemia. DISCUSSION AND PLAN: We will replace the phosphorus, potassium, and magnesium. We will recheck these levels tomorrow morning. Pulmonary/Critical Care will continue to follow along, but for now, the patient will remain in the [facility]. Job ID: [id number] [facility]
[2019-02-24] MEDS ORDERED: Potassium Phosphate 30 MMOL in Sodium Chloride 0.9% 500 ML IVPB SCH (16:30)
[2019-02-24] MEDS ORDERED: Magnesium Sulfate 4 GM in Sodium Chloride 0.9% 250 ML 250 ML IVPB SCH (16:30)
--- NOTE | 2019-02-24 18:19 | PRG ---
DATE OF SERVICE: 02/24/2019 SUBJECTIVE: Mr. Cobian has no abdominal pain today. No vomiting. He has some decreased drainage from the G-tube site. OBJECTIVE: VITAL SIGNS: Temperature 96.7, pulse 76, blood pressure 112/61. GENERAL: He is in no acute distress. He has severe stomatitis of his mouth and lips. He has tracheostomy placed. LUNGS: Clear to auscultation bilaterally. HEART: Regular rate and rhythm. ABDOMEN: Soft, nontender, nondistended. Bowel sounds are present. EXTREMITIES: No lower extremity edema. LABORATORY DATA: White blood cell count 6.6, hemoglobin 9.4, platelets 183. INR 1.3. Creatinine 0.56. IMPRESSION: 1. Severe protein calorie malnutrition. Started total parenteral nutrition. 2. Gastric outlet obstruction with ulceration around the pre-pyloric stomach with some heaped up component to that. He also has severe circumferential esophagitis with ulcers all the way around throughout the esophagus. Biopsies were obtained to rule out viral esophagitis. Gastric biopsies were also obtained. Duodenal biopsies were are also pending for evaluation of severe duodenitis. 3. Head and neck cancer, status post chemotherapy with associated stomatitis. 4. Leakage from the PEG tube site secondary to gastric outlet obstruction. He is n.p.o. for now. RECOMMENDATIONS: 1. Continue proton pump inhibitor IV twice daily. 2. He is on antibiotics and antifungal medications. 3. Await biopsies to rule out HSV or CMV esophagitis. Job ID: [id number]
--- NOTE | 2019-02-24 19:37 | PRG ---
DATE OF SERVICE: 02/24/2019 SUBJECTIVE: Mr. Cobian is in the IMCU area. He is awake. He denies any abdominal pain. He does have a little bit of pain in the oral cavity, but he says it make signs that it is just a little. He had an EGD which showed evidence of esophagitis in the workup and biopsies are pending. He has developed hemorrhagic stomatitis and lip changes. OBJECTIVE: VITAL SIGNS: His temperature has been normal and other vital signs are not remarkable. GENERAL: The patient has this hemorrhagic stomatitis and lip involvement. LUNGS: Symmetric air entry. HEART: S1 and S2, regular rate. ABDOMEN: Soft, not distended. Gastrostomy tube in place. Tracheostomy in place. : He is voiding with an indwelling catheter. EXTREMITIES: He is able to move extremities. LABORATORY DATA: White cell count 6.6, hemoglobin 9.4, platelets 183. Sodium 137, creatinine 0.56. Microbiology; P aeruginosa as noted before. Now, he has 3 pathology specimen pending from the duodenal, gastric, esophageal biopsy. The patient has developed some drainage around the gastrostomy tube and cultures have been submitted. ASSESSMENT AND DISCUSSION: 1. 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 The patient has severe trismus, has a gastrostomy tube and tracheostomy. 2. Neutropenia, which has improved. 3. Pneumonia. The patient has improved now and has developed those areas of hemorrhagic manifestation in the lips and all oral cavity and also the esophagitis. Possibility of herpes simplex esophagitis and stomatitis is considered and we will go ahead and start him on acyclovir until this issue is clarified. Continue the remainder of his antimicrobials and anti-retroviral therapy. Job ID: [id number]
[2019-02-24] MEDS: ACYCLOVIR SODIUM IVPB SCH (19:57)
[2019-02-24] MEDS: SODIUM CHLORIDE 0.9% IVPB SCH (19:57)
[2019-02-24] MEDS: MULTIVITAMINS IV SCH (22:54)
[2019-02-24] MEDS: DEXTROSE IV SCH (22:54)
[2019-02-24] MEDS: MULTITRACE IV SCH (22:54)
[2019-02-24] MEDS: [UNRECOGNIZED DRUG - OTHER] IV SCH (22:54)
[2019-02-24] MEDS: FAT EMULSION IV SCH (22:54)
[2019-02-25] MEDS: Levalbuterol HCl 1.25 MG/0.5 ML NEB NEB SCH ×4 (02:00→18:41)
[2019-02-25] MEDS: SODIUM CHLORIDE 0.9% IVPB SCH ×3 (03:41→20:25)
[2019-02-25] MEDS: ACYCLOVIR SODIUM IVPB SCH ×3 (03:41→20:25)
[2019-02-25 04:24] LABS: Phosphorus 1.8 mg/dL (2.3-4.7)
[2019-02-25 04:32] LABS: Anion Gap 10 mmol/L (10-20); BUN (Urea Nitrogen) 11 mg/dL (8.4-25.7); Calc. Creatinine Clearance 144 mL/min (70-130); Calcium 7.4 mg/dL (7.8-10.44); Carbon Dioxide 26 mmol/L (23-31); Cardiac Risk 3.1 (Less than 4.5); Chloride 106 mmol/L (98-107); Cholesterol 81 mg/dl (< 200 Desired); Estimated GFR-MDRD Greater than 90; Glucose 131 mg/dL (80-115); HDL Cholesterol 26 mg/dL (>60 Neg Risk); LDL Cholesterol, Calculated 35 mg/dL; Magnesium 1.8 mg/dL (1.6-2.6); Sodium 139 mmol/L (136-145); Triglycerides 101 mg/dL (Less than 150)
[2019-02-25 04:35] LABS: Potassium 2.8 mmol/L (3.5-5.1)
[2019-02-25 04:43] LABS: Band 7 % (5-11); Hemoglobin 9.7 g/dL (14.0-18.0); Lymphocytes 15 % (21-51); MDiff Complete? YES; Mean Corpuscular Hemoglobin 27.8 pg (27.0-31.0); Mean Corpuscular Volume 86.9 fL (78.0-98.0); Mean Platelet Volume 7.8 fL (7.4-10.4); Metamyelocyte 1 % (0-0); Monocytes 10 % (0-10); Neutrophil 67 % (42-75); Platelet Count 175 thou/uL (130-400); Platelet Morphology Comment Appears Adequate; RBC Distribution Width 15.5 % (11.5-14.5); Red Blood Cell (RBC) Count 3.49 mill/uL (4.70-6.10); White Blood Cell (WBC) Count 7.1 thou/uL (4.8-10.8)
[2019-02-25] MEDS: Metoclopramide HCl 10 MG/2 ML VIAL IVP SCH ×4 (05:16→23:57)
[2019-02-25] MEDS: Potassium Chloride 40 MEQ in Sodium Chloride 0.9% 250 ML 250 ML IVPB PRN (05:17)
[2019-02-25] MEDS: Pantoprazole 40 MG VIAL IVP SCH ×2 (09:22→20:22)
[2019-02-25] MEDS: Saccharomyces boulardii 250 MG CAP PO SCH (09:22)
[2019-02-25] MEDS: Metoprolol Tartrate 25 MG TAB PO SCH ×2 (09:22→20:22)
[2019-02-25] MEDS: Glycopyrrolate 0.2 MG/ML 5 ML SYRINGE SLOW IVP SCH ×3 (09:22→20:20)
[2019-02-25] MEDS: STRIBILD PER TUBE SCH (09:24)
[2019-02-25] MEDS: Fluconazole In NaCl,Iso-Osm 200 MG in Premix Bag 1 BAG IVPB SCH (09:36)
--- NOTE | 2019-02-25 11:32 | PRG ---
DATE OF SERVICE: 02/25/2019 SUBJECTIVE: Mr. Cobian feels about the same today. Some abdominal discomfort. OBJECTIVE: VITAL SIGNS: Blood pressure 100/78, pulse is in the 107 to 123 range. Temperature 96.8. GENERAL: He is awake and responsive, in no acute distress. LUNGS: Clear to auscultation bilaterally. HEART: Regular rate and rhythm. ABDOMEN: Soft, nontender, nondistended. EXTREMITIES: No lower extremity edema. IMPRESSION: 1. Severe ulcerative esophagitis. Biopsies obtained to rule out viral esophagitis. Rule out CMV or HSV. Dr. Landry has started antivirals empirically with acyclovir. 2. Gastric ulceration with heaped-up edges around the pre-pyloric antrum. Biopsies obtained to rule out an underlying malignant process. This does not have the typical appearance of a neoplasm. Biopsies are pending. 3. Gastric outlet obstruction. He is on proton pump inhibitor. We will await biopsy results. For now, he will remain on TPN. 4. Protein-calorie malnutrition. RECOMMENDATIONS: 1. Proton pump inhibitor. 2. TPN. 3. He is on antifungal, antiviral, and antibiotic medications. Job ID: [id number]
--- NOTE | 2019-02-25 12:50 | PDOC.PN ---
- Subjective Encounter Start Date: 02/25/19 Encounter Start Time: 12:48 Patient seen and examined, no family at bedside, no new issues, all questions answered. - Objective Resuscitation Status - Order Detail: 02/22/19 15:01 Resuscitation Status Routine Resuscitation Status: FULL: Full Resuscitation Discussed with: discussed with Palliative care team Vital Signs & Weight: Vital Signs (12 hours) Temp Pulse Resp Pulse Ox 02/25/19 11:23 97.2 F L 02/25/19 07:33 99 02/25/19 07:14 96.8 F L 02/25/19 06:50 99 02/25/19 06:49 106 H 23 H 99 02/25/19 04:20 97.3 F L 02/25/19 02:00 107 H 27 H 100 Weight Admit Weight 139 lb 11.2 oz Weight 142 lb 1.6 oz Most Recent Monitor Data Heart Rate from ECG 123 NIBP 100/78 NIBP BP-Mean 85 Respiration from ECG 23 SpO2 100 I&O: 02/24/19 02/25/19 02/26/19 06:59 06:59 06:59 Intake Total 1900 4992 Output Total 2250 3800 Balance -350 1192 Result Diagrams: 02/25/19 03:47 02/25/19 03:47 Additional Labs: Accuchecks 02/25/19 02/25/19 02/24/19 10:43 00:16 16:39 POC Glucose 130 H 126 H 176 H Phys Exam - Physical Examination Constitutional: NAD HEENT: PERRLA, moist MMs trach coarse breath sounds no respiratory distress Cardiovascular: RRR, no significant murmur, no rub Gastrointestinal: soft, non-tender, no distention Musculoskeletal: no edema, pulses present Dx/Plan (1) pseudomonas growing from tracheal cultur Status: Acute Comment: on meropenam (2) Acute tracheobronchitis Code(s): J20.9 - ACUTE BRONCHITIS, UNSPECIFIED Status: Acute Comment: on Meropenam for Pseudomonas (3) GERD (gastroesophageal reflux disease) Code(s): K21.9 - GASTRO-ESOPHAGEAL REFLUX DISEASE WITHOUT ESOPHAGITIS Status: Chronic (4) HIV (human immunodeficiency virus infection) Code(s): B20 - HUMAN IMMUNODEFICIENCY VIRUS [HIV] DISEASE Status: Chronic Qualifiers: HIV symptom status: unspecified Qualified Code(s): B20 - Human immunodeficiency virus [HIV] disease Comment: well controlled. cont HAART .Prophylactic diflucan - Plan * Lengthy discussion held with patient, he would like to go with hospice services for now, case also d/w patient's son via phone * will consult hospice, the patient is not improving in his condition, and he is not going to be able to tolerate any chemotherapy at this point in time, the patient also agreed with this plan of care * cont current plan of care for now
[2019-02-25] MEDS ORDERED: Potassium Chloride 40 MEQ in Premix Bag 1 BAG IVPB SCH (14:00)
--- NOTE | 2019-02-25 14:12 | PRG ---
DATE OF SERVICE: SERVICE: Pulmonary Medicine. INTERVAL HISTORY: The patient is doing fine from respiratory standpoint. He had a couple of conversations with his hospitalist today. The results of that were for the patient to decide transition home with hospice care. This is being set up for the morning. He denies having any discomforts outside of his mouth and throat. PHYSICAL EXAMINATION: VITAL SIGNS: Afebrile. Pulse 123, blood pressure 100/78, respirations 23, saturation 100% on 6 L nasal cannula. GENERAL: The patient is awake and alert, in no apparent distress. LUNGS: Decent air entry. There is no prolonged expiratory phase present. Crackles are noted. HEART: Normal rate and regular. ABDOMEN: Soft, nontender, nondistended. Bowel sounds are positive. MUSCULOSKELETAL: No cyanosis or clubbing. No pitting in the bilateral lower extremities. NEUROLOGIC: Grossly nonfocal. LABORATORY DATA: WBC 7.1, hemoglobin 9.7, and platelets 175,000. Potassium 2.8. Basic metabolic profile is otherwise unremarkable. Phosphorus 1.8, magnesium 1.8. ASSESSMENT: 1. Neutropenic fever. 2. Head and neck cancer, status post tracheostomy. 3. Stomatitis secondary to chemotherapy, quite severe. 4. Human immunodeficiency virus. 5. Hypokalemia. 6. Hypophosphatemia. DISCUSSION AND PLAN: We will continue replacing electrolytes. At this point, all laboratories will be suspended. The patient will be transitioning home with comfort care only under the care of hospice in the morning. While the patient remains in this location, Pulmonary Critical Care will continue to follow along in case there is a change in care goals again. Job ID: [id number] [facility]
[2019-02-25] MEDS: Morphine 2 MG/ML SYRINGE SLOW IVP PRN ×4 (14:56→23:57)
[2019-02-25] MEDS: Scopolamine 1.5 mg/72 hour Patch TD SCH (17:58)
[2019-02-25] MEDS: [UNRECOGNIZED DRUG - OTHER] IV SCH (22:28)
[2019-02-25] MEDS: DEXTROSE IV SCH (22:28)
[2019-02-25] MEDS: MULTITRACE IV SCH (22:28)
[2019-02-25] MEDS: FAT EMULSION IV SCH (22:28)
[2019-02-25] MEDS: MULTIVITAMINS IV SCH (22:28)
[2019-02-26] MEDS: Levalbuterol HCl 1.25 MG/0.5 ML NEB NEB SCH ×4 (00:21→18:26)
[2019-02-26] MEDS: Morphine 2 MG/ML SYRINGE SLOW IVP PRN ×3 (03:12→21:33)
[2019-02-26] MEDS: Sodium Chloride 0.9% 1,000 ML IV SCH (03:14)
[2019-02-26] MEDS: SODIUM CHLORIDE 0.9% IVPB SCH ×3 (03:18→21:33)
[2019-02-26] MEDS: ACYCLOVIR SODIUM IVPB SCH ×3 (03:18→21:33)
[2019-02-26] MEDS: Metoclopramide HCl 10 MG/2 ML VIAL IVP SCH ×3 (06:06→16:59)
[2019-02-26] MEDS: Saccharomyces boulardii 250 MG CAP PO SCH (10:02)
[2019-02-26] MEDS: Metoprolol Tartrate 25 MG TAB PO SCH ×2 (10:02→21:41)
[2019-02-26] MEDS: Fluconazole In NaCl,Iso-Osm 200 MG in Premix Bag 1 BAG IVPB SCH (10:02)
[2019-02-26] MEDS: Glycopyrrolate 0.2 MG/ML 5 ML SYRINGE SLOW IVP SCH ×3 (10:03→21:34)
[2019-02-26] MEDS: Pantoprazole 40 MG VIAL IVP SCH ×2 (10:04→21:34)
[2019-02-26] MEDS: STRIBILD PER TUBE SCH (10:05)
--- NOTE | 2019-02-26 10:13 | PDOC.PN ---
- Subjective Encounter Start Date: 02/26/19 Encounter Start Time: 12:20 -: non-verbal Subjective: Patient without events overnight. Wants to go on hospice. -: Communicating well by writing words - Objective Resuscitation Status - Order Detail: 02/22/19 15:01 Resuscitation Status Routine Resuscitation Status: DNAR: NO Resuscitation Discussed with: PATIENT AND SON EHSAN Reviewed: Yes Vital Signs & Weight: Vital Signs (12 hours) Temp Pulse Resp Pulse Ox 02/26/19 07:19 97.3 F L 02/26/19 06:45 99 02/26/19 06:43 125 H 16 99 02/26/19 03:03 96.8 F L 02/26/19 02:29 100 02/26/19 00:21 113 H 23 H 100 02/25/19 23:05 97.0 F L Weight Admit Weight 139 lb 11.2 oz Weight 140 lb 12.8 oz Most Recent Monitor Data Heart Rate from ECG 104 NIBP 108/63 NIBP BP-Mean 78 Respiration from ECG 24 SpO2 100 I&O: 02/25/19 02/26/19 02/27/19 06:59 06:59 06:59 Intake Total 4992 3352 Output Total 3800 3675 Balance 1192 -323 Result Diagrams: 02/25/19 03:47 02/25/19 03:47 Additional Labs: Accuchecks 02/26/19 02/25/19 02/25/19 05:41 22:22 16:38 POC Glucose 121 H 138 H 117 H 02/25/19 10:43 POC Glucose 130 H Phys Exam - Physical Examination HEENT: moist MMs trach in place, severe mucositis of lips and mouth Respiratory: no wheezing, no rales, no rhonchi Cardiovascular: RRR Gastrointestinal: soft, positive bowel sounds Neurological: non-focal Psychiatric: normal affect Dx/Plan (1) Acute tracheobronchitis Code(s): J20.9 - ACUTE BRONCHITIS, UNSPECIFIED Status: Acute Comment: on Meropenam for Pseudomonas (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 cont HAART .Prophylactic diflucan - Plan cont current plan of care plan for d/c on hospice as soon as placement arranged, hopefully -: tomorrow * . - Discharge Day Encounter end time: 12:35
--- NOTE | 2019-02-26 10:45 | PRG ---
DATE OF SERVICE: 02/26/2019 SUBJECTIVE: This morning, a 63-year-old gentleman, trach in place. No respiratory distress. OBJECTIVE: VITAL SIGNS: Temperature 97, blood pressure 108/63, pulse 101, sats are 100%. GENERAL: Denies any pain or discomfort. Coughing some yellow sputum. CHEST: Anterior rhonchi. CARDIAC: Normal S1 and S2. No gallops. ABDOMEN: No masses. IMPRESSION: HIV, pneumonia, peripheral vascular disease, reflux, tracheal cancer, lymphoma. PLAN: Continue present treatment. Eventually placement. Job ID: [id number]
--- NOTE | 2019-02-26 14:09 | PRG ---
DATE OF SERVICE: 02/26/2019 SUBJECTIVE: Mr. Cobian is having no abdominal pain at this time. He has had reduced output from his NG tube today. OBJECTIVE: VITAL SIGNS: Temperature is 97.8, blood pressure 107/62, pulse 90. GENERAL: He is in no acute distress. He is awake and responsive. He has significant drainage from his tracheostomy. HEENT: He has ulcerations on his lips which is stable. LUNGS: Clear anteriorly. HEART: Regular rate and rhythm. ABDOMEN: Soft, nontender, nondistended. Bowel sounds are present. EXTREMITIES: No lower extremity edema. IMPRESSION: 1. Severe ulcerative esophagitis, which is possibly secondary to herpes simplex viruses or cytomegalovirus. Biopsies are pending. It seems to be improving somewhat clinically with the acyclovir. 2. Ulceration of the pre-pyloric antrum with heaped up edges. Biopsies were obtained. 3. Edematous and erosive duodenitis biopsied. 4. Lymphoma, status post chemotherapy with severe mucositis and laryngitis. He has ultimately decided against further chemotherapy given the severe side effects. 5. Human immunodeficiency virus. RECOMMENDATIONS: 1. He has opted for hospice care and TPN has been discontinued in light of this plan. 2. He could hopefully continue with the acyclovir as this may also assist with comfort and palliation. 3. I will sign off for now. Please call if GI can be of assistance. Job ID: [id number]
[2019-02-27] MEDS: Levalbuterol HCl 1.25 MG/0.5 ML NEB NEB SCH ×4 (00:23→18:49)
[2019-02-27] MEDS: Metoclopramide HCl 10 MG/2 ML VIAL IVP SCH ×4 (00:42→17:57)
[2019-02-27] MEDS: Morphine 2 MG/ML SYRINGE SLOW IVP PRN ×3 (01:05→05:37)
[2019-02-27] MEDS: ACYCLOVIR SODIUM IVPB SCH ×3 (03:58→21:52)
[2019-02-27] MEDS: SODIUM CHLORIDE 0.9% IVPB SCH ×3 (03:58→21:52)
[2019-02-27] MEDS: Sodium Chloride 0.9% 1,000 ML IV SCH (04:33)
[2019-02-27] MEDS: STRIBILD PER TUBE SCH (09:30)
[2019-02-27] MEDS: Saccharomyces boulardii 250 MG CAP PO SCH (09:31)
[2019-02-27] MEDS: Glycopyrrolate 0.2 MG/ML 5 ML SYRINGE SLOW IVP SCH ×3 (09:31→21:57)
[2019-02-27] MEDS: Pantoprazole 40 MG VIAL IVP SCH ×2 (09:32→21:53)
[2019-02-27] MEDS: Fluconazole In NaCl,Iso-Osm 200 MG in Premix Bag 1 BAG IVPB SCH (09:32)
[2019-02-27] MEDS: Metoprolol Tartrate 25 MG TAB PO SCH ×2 (09:33→21:53)
--- NOTE | 2019-02-27 09:44 | PDOC.PN ---
- Subjective Encounter Start Date: 02/27/19 Encounter Start Time: 11:40 Subjective: Patient unchanged. Less residuals so going to try to introduce -: tube feeds very slowly today. - Objective Resuscitation Status - Order Detail: 02/22/19 15:01 Resuscitation Status Routine Resuscitation Status: DNAR: NO Resuscitation Discussed with: PATIENT AND SON EHSAN Reviewed: Yes Vital Signs & Weight: Vital Signs (12 hours) Temp Pulse Resp Pulse Ox 02/27/19 08:13 99 02/27/19 08:01 127 H 22 H 99 02/27/19 07:47 99 02/27/19 07:12 97.6 F 02/27/19 03:50 97.6 F 02/27/19 00:23 100 27 H 100 02/27/19 00:00 98.2 F Weight Admit Weight 139 lb 11.2 oz Weight 141 lb 3.2 oz Most Recent Monitor Data Heart Rate from ECG 93 NIBP 104/56 NIBP BP-Mean 72 Respiration from ECG 25 SpO2 100 I&O: 02/26/19 02/27/19 02/28/19 06:59 06:59 06:59 Intake Total 3352 2780 Output Total 3675 3400 Balance -323 -620 Result Diagrams: 02/25/19 03:47 02/25/19 03:47 Additional Labs: Accuchecks 02/27/19 02/26/19 02/26/19 05:41 19:52 16:25 POC Glucose 72 88 105 02/26/19 10:21 POC Glucose 116 H Phys Exam - Physical Examination Constitutional: NAD severe mucositis of lips and mouth trach collar in place with O2 Respiratory: no wheezing, no rales, no rhonchi Cardiovascular: RRR Gastrointestinal: soft, positive bowel sounds PEG in place Bilateral lower ext amputations Psychiatric: normal affect Dx/Plan (1) Acute tracheobronchitis Code(s): J20.9 - ACUTE BRONCHITIS, UNSPECIFIED Status: Acute Comment: on Meropenam for Pseudomonas (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 cont HAART .Prophylactic diflucan (5) Mucositis Status: Acute Comment: possibly viral in setting of chemo, will continue Acyclovir for palliation/control of symptoms - Plan cont current plan of care d/c on hospice once shelter acceptance * . - Discharge Day Encounter end time: 11:50
--- NOTE | 2019-02-27 15:35 | PRG ---
DATE OF SERVICE: 02/27/2019 SUBJECTIVE: Mr. Cobian apparently is emotionally exhausted. He apparently has agreed to hospice. He is afebrile. He does not look as good as he looked on Tuesday. He looked great on Tuesday. OBJECTIVE: VITAL SIGNS: He is afebrile, heart rate is 115, blood pressure 95/63, respiratory rate is in the 20s. He still has significant secretions. LUNGS: Remarkable for coarse equal breath sounds. HEART: Regular rhythm. ABDOMEN: Soft. EXTREMITIES: Without edema. Intake and outputs -620 mL. LABORATORY DATA: White count 7.1, hemoglobin 9.7, platelets 175. No recent lab. IMPRESSION AND PLAN: 1. Head and neck cancer. 2. Status post trach. 3. Status post PEG. 4. Status post neutropenic fever with pneumonia and tracheobronchitis. 5. Deconditioning. 6. Lifelong basically bilateral lower extremity amputation. 7. Stomatitis and enteritis related to chemo that appears to be resolving. Pathology from endoscopy on the did not show any malignancy. He has underlying HIV for which he remains on anti-retroviral therapy. Continue with supportive care while he is in the hospital. Job ID: [id number]
[2019-02-28] MEDS: Levalbuterol HCl 1.25 MG/0.5 ML NEB NEB SCH ×4 (00:13→18:36)
[2019-02-28] MEDS: Metoclopramide HCl 10 MG/2 ML VIAL IVP SCH ×5 (00:28→23:52)
[2019-02-28] MEDS ORDERED: Sodium Chloride 0.9% 1,000 ML IV SCH (01:15)
[2019-02-28] MEDS: Sodium Chloride 0.9% 1,000 ML IV SCH ×2 (04:16→17:37)
[2019-02-28] MEDS: ACYCLOVIR SODIUM IVPB SCH ×3 (04:17→20:07)
[2019-02-28] MEDS: SODIUM CHLORIDE 0.9% IVPB SCH ×3 (04:17→20:07)
[2019-02-28] MEDS: Fluconazole In NaCl,Iso-Osm 200 MG in Premix Bag 1 BAG IVPB SCH (09:58)
[2019-02-28] MEDS: Metoprolol Tartrate 25 MG TAB PO SCH ×2 (09:59→20:07)
[2019-02-28] MEDS: Pantoprazole 40 MG VIAL IVP SCH ×2 (09:59→20:08)
[2019-02-28] MEDS: STRIBILD PER TUBE SCH (09:59)
[2019-02-28] MEDS: Saccharomyces boulardii 250 MG CAP PO SCH (09:59)
--- NOTE | 2019-02-28 12:09 | PDOC.PN ---
- Subjective Encounter Start Date: 02/28/19 Encounter Start Time: 16:20 Subjective: Patient unchanged. Tolerated a little tube feeds yest, but then this -: AM had 200 residual so nothing but meds given today. Family spoke with -: Missael Ramirez yesterday and decided SNF instead of hospice. No physician involved in the discussion as far as I know. Patient just directed to family when asked about it today. I called patient's son and discussed with him this evening. Clarified that patient hasn't been able to tolerate food and TPN was stopped only due to transition to hospice. Cannot send to SNF with expectation that he will get stronger since not tolerating PEG feeds. Patient and family need to discuss with hospital team/physician present before making future decisions. If want to go on comfort care/hospice we can do that, but if want to do rehab and expect to get stronger we need to continue TPN, aggressive treatment in hospital, can't discharge to SNF because will bounce right back. Son agreeable to further discussion, will be available tomorrow afternoon after 1600. I spoke with [facility] and she will call patient's son tomorrow and arrange meeting. All discharge plans on hold for now. - Objective Resuscitation Status - Order Detail: 02/22/19 15:01 Resuscitation Status Routine Resuscitation Status: DNAR: NO Resuscitation Discussed with: PATIENT AND SON EHSAN Reviewed: Yes Vital Signs & Weight: Vital Signs (12 hours) Temp Pulse Resp Pulse Ox 02/28/19 11:24 97.1 F L 02/28/19 08:00 99 02/28/19 07:47 99 02/28/19 07:45 101 H 24 H 99 02/28/19 07:34 97.5 F L 02/28/19 04:00 97.8 F 02/28/19 00:13 131 H 21 H 100 Weight Admit Weight 139 lb 11.2 oz Weight 146 lb 11.2 oz Most Recent Monitor Data Heart Rate from ECG 115 NIBP 110/65 NIBP BP-Mean 80 Respiration from ECG 16 SpO2 94 I&O: 02/27/19 02/28/19 03/01/19 06:59 06:59 06:59 Intake Total 2780 2280 80 Output Total 3400 2550 500 Balance -148 -934 -429 Result Diagrams: 02/25/19 03:47 02/25/19 03:47 Additional Labs: Accuchecks 02/28/19 02/28/19 02/27/19 10:46 05:57 23:38 POC Glucose 101 106 67 L 02/27/19 02/27/19 19:51 16:23 POC Glucose 67 L 67 L Phys Exam - Physical Examination Constitutional: NAD mucositis with cracking and scabbing of lips, mouth mucosa trach collar in place Respiratory: no wheezing, no rales, no rhonchi Cardiovascular: RRR, no significant murmur Gastrointestinal: soft, positive bowel sounds PEG in place bilateral LE amputations Psychiatric: normal affect Dx/Plan (1) Acute tracheobronchitis Code(s): J20.9 - ACUTE BRONCHITIS, UNSPECIFIED Status: Acute Comment: on Meropenam for Pseudomonas (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 cont HAART .Prophylactic diflucan (5) Mucositis Status: Acute Comment: possibly viral in setting of chemo, will continue Acyclovir for palliation/control of symptoms - Plan hold on discharge until patient and family can be clear about goals of -: care, either hospice and comfort care, or if want to eventually do PT, reha -: patient needs to improve enough to be fed, or go somewhere that can -: get TPN. * . - Discharge Day Encounter end time: 16:45
[2019-02-28] MEDS: Scopolamine 1.5 mg/72 hour Patch TD SCH (17:36)
[2019-03-01] MEDS: Levalbuterol HCl 1.25 MG/0.5 ML NEB NEB SCH ×2 (00:03→07:42)
[2019-03-01] MEDS: SODIUM CHLORIDE 0.9% IVPB SCH ×2 (04:04→11:17)
[2019-03-01] MEDS: ACYCLOVIR SODIUM IVPB SCH ×2 (04:04→11:17)
[2019-03-01 04:30] VITALS: BMI 23.6
[2019-03-01] MEDS: Metoclopramide HCl 10 MG/2 ML VIAL IVP SCH ×2 (05:35→11:17)
[2019-03-01] MEDS: Pantoprazole 40 MG VIAL IVP SCH (09:08)
[2019-03-01] MEDS: STRIBILD PER TUBE SCH (09:08)
[2019-03-01] MEDS: Metoprolol Tartrate 25 MG TAB PO SCH (09:08)
[2019-03-01] MEDS: Saccharomyces boulardii 250 MG CAP PO SCH (09:08)
[2019-03-01] MEDS: Fluconazole In NaCl,Iso-Osm 200 MG in Premix Bag 1 BAG IVPB SCH (09:10)
--- NOTE | 2019-03-01 12:29 | PRG ---
DATE OF SERVICE: 02/28/2019 Mr. Cobian is still determined to go with hospice. was in the room earlier. His vital signs have been stable. He appears reasonably comfortable. The Robinul has been discontinued. Placement is still an issue. His tracheostomy tube like will likely need to be changed to a cuffless tube. Job ID: [id number]
[2019-03-01 13:27] VITALS: BP 99/59
--- NOTE | 2019-03-01 13:40 | PDOC.PN ---
- Subjective Encounter Start Date: 03/01/19 Encounter Start Time: 11:45 Subjective: awake, follows verbal stimuli -: has severe ulcerations of oral cavity/lips -: moves extremities - Objective Resuscitation Status - Order Detail: 02/22/19 15:01 Resuscitation Status Routine Resuscitation Status: DNAR: NO Resuscitation Discussed with: PATIENT AND SON EHSAN Reviewed: Yes Vital Signs & Weight: Vital Signs (12 hours) Temp Pulse Pulse Pulse Resp BP Pulse Ox 03/01/19 11:40 135 H 107 H 99/59 L 03/01/19 11:31 97.6 F 03/01/19 08:00 98 03/01/19 07:42 95 30 H 100 03/01/19 07:19 96.8 F L 03/01/19 03:12 98.2 F Pulse Ox 03/01/19 11:40 100 03/01/19 11:31 03/01/19 08:00 03/01/19 07:42 03/01/19 07:19 03/01/19 03:12 Weight Admit Weight 139 lb 11.2 oz Weight 141 lb 9.6 oz Most Recent Monitor Data Heart Rate from ECG 108 NIBP 101/62 NIBP BP-Mean 75 Respiration from ECG 21 SpO2 100 I&O: 02/28/19 03/01/19 03/02/19 06:59 06:59 06:59 Intake Total 2280 2210 100 Output Total 2550 2400 Balance -270 -190 100 Result Diagrams: 02/25/19 03:47 02/25/19 03:47 Additional Labs: Accuchecks 03/01/19 02/28/19 02/28/19 05:35 23:53 17:14 POC Glucose 103 94 82 Phys Exam - Physical Examination HEENT: PERRLA, sclera anicteric severe ulcerations of lips Neck: no JVD trach+ Respiratory: no wheezing, no rales Cardiovascular: RRR, no significant murmur Gastrointestinal: soft, no distention, positive bowel sounds peg+ Musculoskeletal: no edema, pulses present left bka, right aka Neurological: non-focal, moves all 4 limbs Psychiatric: A&O x 3 Dx/Plan (1) Acute respiratory failure with hypoxia Code(s): J96.01 - ACUTE RESPIRATORY FAILURE WITH HYPOXIA Status: Resolved (2) Acute tracheobronchitis Code(s): J20.9 - ACUTE BRONCHITIS, UNSPECIFIED Status: Acute (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 is resolving monitor (5) History of right above knee amputation Code(s): Z89.611 - ACQUIRED ABSENCE OF RIGHT LEG ABOVE KNEE Status: Chronic (6) History of left below knee amputation Code(s): Z89.512 - ACQUIRED ABSENCE OF LEFT LEG BELOW KNEE Status: Chronic (7) HIV (human immunodeficiency virus infection) Code(s): B20 - HUMAN IMMUNODEFICIENCY VIRUS [HIV] DISEASE Status: Chronic Qualifiers: HIV symptom status: unspecified Qualified Code(s): B20 - Human immunodeficiency virus [HIV] disease - Plan on acyclovir and diflucan for suspected viral esophagitis with jack -: levaquin, nebs, lopressor, iv hydration -: not tolerating peg feeding, has had around 1 and 1/2 cans go through peg -: prognosis guarded -: reglan iv q6h for gastroparesis?, await histopath from EGD * . patient and family have opted for snf with hospice if he qualifies. Review of Systems - Medications/Allergies Allergies/Adverse Reactions: Allergies Allergy/AdvReac Type Severity Reaction Status Date / Time No Known Drug Allergies Allergy Verified 12/06/18 16:55 Medications: Current Medications Acetaminophen (Tylenol) 650 mg RI Q4H PRN PRN Reason: Headache/Fever/Mild Pain (1-3) Last Admin: 02/10/19 12:38 Dose: 650 mg Acetaminophen (Tylenol) 650 mg PER TUBE Q6H PRN PRN Reason: PAIN/FEVER Last Admin: 02/18/19 16:57 Dose: 650 mg Alprazolam (Xanax) 0.25 mg PO TIDPRN PRN PRN Reason: Anxiety Last Admin: 02/24/19 22:19 Dose: 0.25 mg Lipase/Protease/[place]ylase ([place] [id number]) 1 cap FS .PER PROTOCOL PRN PRN Reason: TUBE OCCLUSION PROTOCOL Bisacodyl (Dulcolax) 10 mg RI DAILYPRN PRN PRN Reason: Constipation Al Hydroxide/Mg Hydroxide 60 ml/ Diphenhydramine HCl 150 mg / Lidocaine HCl 60 ml/Nystatin 6,000,000 units 0 ml SSW PRN PRN PRN Reason: Mouth Irritation Last Admin: 02/24/19 11:18 Dose: 150 ml Diphenhydramine HCl (Benadryl) 25 mg IVP Q6H PRN PRN Reason: Itching Last Admin: 02/21/19 03:40 Dose: 25 mg Potassium Chloride 40 meq/Sodium Bicarbonate 150 meq/Dextrose/Water 1,170 mls @ 0 mls/hr IV .Q0M ARCHIE Potassium Chloride 40 meq/ (Sodium Chloride) 270 mls @ 135 mls/hr IVPB ASDIR PRN PRN Reason: FOR SERUM K+ 2.5 - 3.5 Last Admin: 02/25/19 05:17 Dose: 270 mls Potassium Chloride 40 meq/ (Device) 100 mls @ 50 mls/hr IVPB ASDIR PRN PRN Reason: FOR SERUM K+ 2.5 - 3.5 Last Admin: 02/24/19 15:34 Dose: 100 mls Magnesium Sulfate 1 gm/ Sodium (Chloride) 102 mls @ 102 mls/hr IV PRN PRN PRN Reason: MAG LEVEL 1.4 - 2.0 Last Admin: 02/25/19 05:32 Dose: 102 mls Magnesium Sulfate 2 gm/ Device 50 mls @ 50 mls/hr IVPB ASDIR PRN PRN Reason: MAGNESIUM < 1.4 Last Admin: 02/24/19 20:04 Dose: 50 mls Potassium Phosphate 9 mmol/ (Sodium Chloride) 103 mls @ 25.75 mls/hr IVPB ASDIR PRN PRN Reason: Phosphate 1.0-1.8 Last Admin: 02/25/19 05:16 Dose: 103 mls Potassium Phosphate 12 mmol/ (Sodium Chloride) 254 mls @ 63.5 mls/hr IV ASDIR PRN PRN Reason: Serum phosphate 0.5-0.9 Last Admin: 02/24/19 22:19 Dose: 254 mls Potassium Phosphate 15 mmol/ (Sodium Chloride) 255 mls @ 63.75 mls/hr IV ASDIR PRN PRN Reason: Serum Phos < 0.5 Levofloxacin 750 mg/ Device 150 mls @ 100 mls/hr IVPB Q24HR ARCHIE Last Admin: 02/28/19 17:36 Dose: 150 mls Fluconazole/Sodium Chloride (200 mg/ Device) 100 mls @ 100 mls/hr IVPB DAILY [facility] Last Admin: 03/01/19 09:10 Dose: 100 mls Sodium Chloride (Normal Saline 0.9%) 1,000 mls @ 50 mls/hr IV .Q20H [facility] Last Admin: 02/28/19 17:37 Dose: 1,000 mls Acyclovir Sodium 310 mg/ (Sodium Chloride) 106.2 mls @ 106.2 mls/hr IVPB 0400, 1200,2000 [facility] Last Admin: 03/01/19 11:17 Dose: 106.2 mls Levalbuterol HCl (Xopenex Conc) 1.25 mg NEB Q6HR [facility] Last Admin: 03/01/19 07:42 Dose: 1.25 mg Magnesium Oxide (Magnesium Oxide) 400 mg PO BIDPRN PRN PRN Reason: FOR SERUM MAG 1.4 - 2.0 Magnesium Oxide (Magnesium Oxide) 800 mg PO PRN PRN PRN Reason: FOR SERUM MAG < 1.4 Metoclopramide HCl (Reglan) 10 mg IVP Q6HR [facility] Last Admin: 03/01/19 11:17 Dose: 10 mg Metoprolol Tartrate (Lopressor) 25 mg PO BID [facility] Last Admin: 03/01/19 09:08 Dose: Not Given Miscellaneous Medication (Phos-Nak) 1 pkt PO TIDPRN PRN PRN Reason: FOR PHOS LEVEL 1.0 - 1.8 Miscellaneous Medication (Phos-Nak) 2 pkt PO TIDPRN PRN PRN Reason: FOR PHOS LEVEL 0.5 - 1.0 Morphine Sulfate (Morphine) 2 mg SLOW IVP Q2H PRN PRN Reason: Severe Pain (7-10) Last Admin: 02/27/19 05:37 Dose: 2 mg Ondansetron HCl (Zofran) 4 mg IVP Q6H PRN PRN Reason: Nausea/Vomiting Last Admin: 02/12/19 05:29 Dose: 4 mg Pantoprazole Sodium (Protonix) 40 mg IVP Q12HR [facility] Last Admin: 03/01/19 09:08 Dose: 40 mg Stribild Tab. 0 each PER TUBE QA-[facility] Last Admin: 03/01/19 09:08 Dose: 1 each Phenol (Chloraseptic [place] 180 Ml Bot) 0 ml PO BIDPRN PRN PRN Reason: Sore Throat Last Admin: 02/18/19 16:29 Dose: 2 sprays Potassium Chloride (K-Dur) 40 meq PO ASDIR PRN PRN Reason: FOR SERUM K+ 2.5 - 3.5 Potassium Chloride (Klor-Con) 40 meq PER TUBE ASDIR PRN PRN Reason: FOR SERUM K+ 2.5-3.5 Last Admin: 02/16/19 08:58 Dose: 40 meq Saccharomyces Boulardii (Florastor) 250 mg PO DAILY [facility] Last Admin: 03/01/19 09:08 Dose: 250 mg Scopolamine (Transderm Scop) 1.5 mg TD Q3D [facility] Last Admin: 02/28/19 17:36 Dose: 1.5 mg Sodium Bicarbonate (Bicarbonate, Sodium) 650 mg PER TUBE .PER PROTOCOL PRN PRN Reason: ENTERAL TUBE OCCLUSION Sodium Chloride (Flush - Normal Saline) 10 ml IVF Q12HR ARCHIE Last Admin: 03/01/19 09:09 Dose: 10 ml Sodium Chloride (Flush - Normal Saline) 10 ml IVF PRN PRN PRN Reason: Saline Flush Last Admin: 02/24/19 11:21 Dose: 10 ml Zinc Oxide (Rashel's Butt Paste) 0 gm TOP PRN PRN PRN Reason: Rash/Topical Irritation
[2019-03-01] MEDS: Sodium Chloride 0.9% 1,000 ML IV SCH (15:01)
[2019-03-01 15:31] VITALS: TEMP 97.2
--- NOTE | 2019-03-03 09:56 | DIS ---
DATE OF ADMISSION: 02/07/2019 DATE OF DISCHARGE: 03/01/2019 DISCHARGE DISPOSITION: [facility] with hospice. PRIMARY DISCHARGE DIAGNOSES: 1. Acute respiratory failure with hypoxia, stable on trach collar. 2. Acute tracheobronchitis. 3. History of supraglottic squamous cell carcinoma. Last chemotherapy was on 02/01/2019. The patient was on carboplatin and Taxotere. 4. Pancytopenia due to chemotherapy, resolved. 5. Long-standing HIV on Stribild. 6. History of right above-knee amputation. 7. History of left below-knee amputation. 8. Severe deconditioning with poor nutrition due to suspected gastroparesis, suspected viral esophagitis, and Mirta. DISCHARGE MEDICATIONS: 1. Stribild one tab daily. 2. Acyclovir 300 mg via PEG tube three times daily for a total of 10 days. 3. Diflucan 100 mg daily for 15 days. 4. Xanax p.r.n. three times daily 0.25 mg. 5. Xopenex nebulizer q.6 hourly. 6. Lopressor 25 mg twice daily. 7. Protonix 40 mg twice daily. 8. Florastor 250 mg daily. 9. Scopolamine patch 1.5 mg transdermal q.72 hourly. ALLERGIES: NO KNOWN DRUG ALLERGIES. PROCEDURES DONE DURING HOSPITALIZATION: Oropharyngeal secretions grew Pseudomonas aeruginosa sensitive to quinolones, meropenem, tobramycin, and amikacin. Stool for C diff on 02/25/2019 was negative. CBC on 02/25/2019 showed a hemoglobin and hematocrit of 9.7 and 30, platelet count 175, MCV 86 with 67% neutrophils, had a white count of 0.3 on the day of admission. Hemoglobin dropped to 7.4 g on 02/11/2019. Platelet count had dropped down to 18 on 02/12/2019. BUN was 11, creatinine 0.4 both on 02/25/2019. Total cholesterol 81, triglycerides 101, LDL 35, HDL 26. Pre-albumin was 8.0 on the . Echo with 2D Doppler done on 2018 showed EF of more than 65%, diastolic dysfunction could not be assessed due to tachycardia. The patient had left upper extremity PICC line placed on 2018. Duodenal biopsy after EGD was done on 02/23/2019, showed negative staining for HSV-1 and -2 and CMV, does active duodenitis with reactive atypia. No H pylori organisms were seen. Fungal spores were identified by PAS special stain. Had upper endoscopy with biopsies done on 02/23/[address] Terrence Walker, this showed circumferential ulcerative esophagitis which was biopsied. Ulceration of the pre-pyloric antrum , which was biopsied, edematous, erosive duodenitis, severe mucositis, and white plaques in the pharyngeal and laryngeal area. The patient had CT chest, abdomen , and pelvis done on 02/21/2019, showed possible pneumonia. Scattered noncalcified several pulmonary nodules, possibly representing metastasis. Diffuse mural thickening, edema, and enhancement of entire colon, entire stomach, and much of the small intestine. No evidence of small bowel obstruction. There is suspicion for partial gastric outlet obstruction. INPATIENT CONSULT: Ally Reyna NP, for Oncology, Dr. Hamilton for pulmonology, Dr. Landry for Infectious Disease, Dr. Terrence Walker for Gastroenterology. DISCHARGE PLAN: The patient is being discharged to [facility] with hospice. BRIEF COURSE DURING HOSPITALIZATION: The patient was initially brought to emergency room on the 07 of February for complaints of shortness of breath. He had known history of supraglottic squamous cell carcinoma on chemotherapy and long-standing HIV. He had a fever of 101. He had increased secretions coming out of his tracheostomy and had chills with constipation as well on arrival. The patient had severe pancytopenia due to one cycle of chemotherapy that he received with carboplatin and Taxotere. He was admitted to ICU for febrile neutropenia and sepsis. He was diagnosed with tracheobronchitis. The patient had known history of supraglottic cancer with spread to lungs. During the course of his stay here, his pancytopenia recovered. The patient has had multiple workups done during his stay in ICU and IMCU. He is tolerating very poorly with PEG feeding. He has had upper endoscopies done, which was suspicious for Mirta pharyngitis, laryngitis, and possible viral esophagitis. He was immunocompromised with both chemotherapy for squamous cell carcinoma and long-standing HIV. He was evaluated by Dr. Landry. He was initially on ventilator and then had nocturnal ventilation only, then at the time of discharge he is tolerating trach collar. The patient is severely deconditioned at the time of discharge and has poor nutritional intake. In view of multiple comorbid conditions as mentioned above, the patient has opted for hospice at the snf. He does not want to have chemotherapy again. His overall prognosis is poor to guarded. His tracheal secretions revealed Pseudomonas. He was on appropriate antibiotics in addition to antifungal and antiviral medications. A total of 35 minutes was spent on discharge plan. Please see a [id number] documentation for the day of discharge on [employer]. He is being discharged to [facility] under hospice care. Job ID: [id number] [facility]
== END 2019-03-01 16:59 | disposition hospice, inpatient (51) | DRG 808 ==
LOC: ERS 11:07 → ONC 14:09 → CCU 02-10 17:13 → IMCU/EMU 02-18 13:58
PROVIDERS: ADMIT Internal Medicine; ATTEND Internal Medicine
PROC: 5A1955Z Respiratory Ventilation, Greater than 96 Consecutive Hours (ICD-10-PCS; 2019-02-10)
PROC: 30233R1 Transfusion of Nonautologous Platelets into Peripheral Vein, Percutaneous Approach (ICD-10-PCS; 2019-02-12)
PROC: 30233N1 Transfusion of Nonautologous Red Blood Cells into Peripheral Vein, Percutaneous Approach (ICD-10-PCS; 2019-02-13)
PROC: 0DB98ZX Excision of Duodenum, Via Natural or Artificial Opening Endoscopic, Diagnostic (ICD-10-PCS; principal; 2019-02-23)
PROC: 0DB78ZX Excision of Stomach, Pylorus, Via Natural or Artificial Opening Endoscopic, Diagnostic (ICD-10-PCS; 2019-02-23)
PROC: 0DB58ZX Excision of Esophagus, Via Natural or Artificial Opening Endoscopic, Diagnostic (ICD-10-PCS; 2019-02-23)
PROC: 02HV33Z Insertion of Infusion Device into Superior Vena Cava, Percutaneous Approach (ICD-10-PCS; 2019-02-23)
PROC: B548ZZA Ultrasonography of Superior Vena Cava, Guidance (ICD-10-PCS; 2019-02-23)
PROC: 3E0336Z Introduction of Nutritional Substance into Peripheral Vein, Percutaneous Approach (ICD-10-PCS; 2019-02-23)
DX: D61.810 Antineoplastic chemotherapy induced pancytopenia (principal); J96.01 Acute respiratory failure with hypoxia; E43 Unspecified severe protein-calorie malnutrition; B20 Human immunodeficiency virus [HIV] disease; K94.23 Gastrostomy malfunction; K31.1 Adult hypertrophic pyloric stenosis; K52.1 Toxic gastroenteritis and colitis; E87.0 Hyperosmolality and hypernatremia; E87.1 Hypo-osmolality and hyponatremia; K22.10 Ulcer of esophagus without bleeding; C77.9 Secondary and unspecified malignant neoplasm of lymph node, unspecified; J90 Pleural effusion, not elsewhere classified; K56.7 Ileus, unspecified; C78.00 Secondary malignant neoplasm of unspecified lung; R78.81 Bacteremia; D70.1 Agranulocytosis secondary to cancer chemotherapy; J20.9 Acute bronchitis, unspecified; Z66 Do not resuscitate; C32.1 Malignant neoplasm of supraglottis; T45.1X5A Adverse effect of antineoplastic and immunosuppressive drugs, initial encounter; Z89.611 Acquired absence of right leg above knee; D38.1 Neoplasm of uncertain behavior of trachea, bronchus and lung; K21.9 Gastro-esophageal reflux disease without esophagitis; K12.31 Oral mucositis (ulcerative) due to antineoplastic therapy; Z89.512 Acquired absence of left leg below knee; K12.1 Other forms of stomatitis; E87.6 Hypokalemia; K59.00 Constipation, unspecified; Z93.0 Tracheostomy status; Z87.891 Personal history of nicotine dependence; R50.81 Fever presenting with conditions classified elsewhere; J39.2 Other diseases of pharynx; K25.9 Gastric ulcer, unspecified as acute or chronic, without hemorrhage or perforation; K29.80 Duodenitis without bleeding; I73.9 Peripheral vascular disease, unspecified; E83.39 Other disorders of phosphorus metabolism; C76.0 Malignant neoplasm of head, face and neck; B96.5 Pseudomonas (aeruginosa) (mallei) (pseudomallei) as the cause of diseases classified elsewhere
CPT/HCPCS: 36415; 36416; 36430; 36569; 71045; 71260; 74018; 74176; 74177; 80048; 80053; 80061; 80202; 81003; 81015; 82805; 83605; 83735; 84100; 84134; 84484; 85007; 85025; 85027; 85610; 85730; 86850; 86900; 86901; 87070; 87077; 87086; 87186; 87205; 87324; 87449; 88305; 88312; 88313; 88341; 88342; 93005; 93010; 93306; 94002; 94003; 94640; 96360; 96361; 96372; A4217; A4218; C1751; C9113; J0133; J0692; J1200; J1447; J1450; J1644; J1885; J1940; J1956; J2060; J2185; J2248; J2270; J2405; J2704; J2765; J3010; J3370; J3475; J3480; J3490; J7050; J7070; J7612; J7620; P9016; P9035; Q0162; Q0163; Q9966

== ENCOUNTER 2019-03-12 14:38 | Inpatient (IN) | payer MEDICARE, MEDICAID ==
[2019-03-12 15:15] LABS: #Eosinphils 0.1 thou/uL (0.0-0.7); #Lymphocytes 1.5 thou/uL (1.20-3.40); #Monocytes 0.6 thou/uL (0.11-0.59); #Neutrophils 4.3 thou/uL (1.40-6.50); %Basophils 0.1 % (0.0-1.0); %Eosinophils 0.9 % (0.0-10.0); %Lymphocytes 23.3 % (21.0-51.0); %Monocytes 8.5 % (0.0-10.0); %Neutrophils 67.2 % (42.0-75.0); Hemoglobin 9.2 g/dL (14.0-18.0); Mean Corpuscular HGB CONC 32.4 g/dL (32.0-36.0); Mean Corpuscular Hemoglobin 28.2 pg (27.0-31.0); Mean Corpuscular Volume 86.9 fL (78.0-98.0); Mean Platelet Volume 5.9 fL (7.4-10.4); Platelet Count 425 thou/uL (130-400); RBC Distribution Width 17.7 % (11.5-14.5); Red Blood Cell (RBC) Count 3.26 mill/uL (4.70-6.10); White Blood Cell (WBC) Count 6.4 thou/uL (4.8-10.8)
[2019-03-12 15:35] LABS: ALT (SGPT) 12 U/L (8-55); AST (SGOT) 17 U/L (5-34); Albumin 2.5 g/dL (3.4-4.8); Alkaline Phosphatase 99 U/L (40-150); Anion Gap 13 mmol/L (10-20); BUN (Urea Nitrogen) 8 mg/dL (8.4-25.7); Bilirubin, Total 0.4 mg/dL (0.2-1.2); Calc. Creatinine Clearance 0 mL/min (70-130); Calcium 8.4 mg/dL (7.8-10.44); Carbon Dioxide 26 mmol/L (23-31); Chloride 101 mmol/L (98-107); Estimated GFR-MDRD Greater than 90; Globulin 4.8 g/dL (2.4-3.5); Glucose 101 mg/dL (80-115); Lipase 114 U/L (8-78); Potassium 3.7 mmol/L (3.5-5.1); Protein, Total 7.3 g/dL (5.8-8.1); Sodium 136 mmol/L (136-145)
--- NOTE | 2019-03-12 15:40 | RAD ---
Chest one view HISTORY: Dyspnea. COMPARISON: 02/21/2019. FINDINGS: Cardiac silhouette is magnified by projection. Shallow inspiration accentuates pulmonary ma rkings. Oblique linear opacity at the left posterior base is now present and may represent atelectasis. Patchy infiltrate at the right upper lobe is improved. Mediastinum is midline with trach eostomy appliance and right subclavian Port-A-Cath. No evidence of pneumothorax. IMPRESSION: Improved aeration right upper lobe. Interval appearance of linear atelectasis at the left base. Tracheostomy appliance is in good radiographic position.
[2019-03-12 16:06] LABS: Bilirubin Negative (Negative); Blood, Urine Moderate (Negative); Clarity TURBID (Clear); Glucose, Urine (Dipstick) Negative (Negative); Leukocyte Large (Negative); Nitrite Positive (Negative); Protein, Urine (Dipstick) 100 mg/dL (Neg-Trace); Specific Gravity, Urine 1.018 (1.002-1.036); Urobilinogen 0.2 mg/dL (0.2-1.0); pH, Urine 8.5 (5.0-9.0)
[2019-03-12 16:07] LABS: Bacteria/HPF 4+ HPF (None Seen); RBC/HPF GREATER THAN 50-TNTC HPF (0-3)
[2019-03-12 16:21] LABS: Yeast-AUWi Flag 49.6 (0-25.0)
[2019-03-12 16:23] LABS: Hyaline Casts/LPF 0-3 HYALINE CAST LPF (0-3 Hyaline); Manual Microscopic Reviewed? No Path Casts Seen; Yeast-All Forms None Seen HPF (None Seen)
[2019-03-12 18:35] LABS: Troponin I Less than 0.010 ng/mL (< 0.028)
[2019-03-12] MEDS ORDERED: Ondansetron PF 4 MG/2 ML Vial IVP PRN (19:00)
[2019-03-12 19:02] LABS: Lactic Acid 2.4 mmol/L (0.5-2.2)
[2019-03-12] MEDS ORDERED: Morphine 2 MG/ML SYRINGE SLOW IVP PRN (19:02)
[2019-03-12] MEDS ORDERED: Lorazepam 2 MG/ML VIAL SLOW IVP PRN (19:02)
[2019-03-12] MEDS ORDERED: Guaifenesin DM 100-10/5 ML UDCUP PO PRN (19:39)
[2019-03-12] MEDS ORDERED: Scopolamine 1.5 mg/72 hour Patch TD SCH (20:00)
--- NOTE | 2019-03-12 20:29 | HP ---
CHIEF COMPLAINT: Cannot breathe. HISTORY OF PRESENT ILLNESS: This is a 64-year-old male, discharged from here on March 01 for acute respiratory failure with hypoxia and tracheobronchitis, HIV, pancytopenia, and supraglottic squamous cell carcinoma, last on chemotherapy in early January, and history of bilateral lower extremity amputations, who presents to the emergency room with difficulty breathing. The patient's family report that they were contacted by the snf with the patient requesting to go to the hospital. From his last discharge, he was discharged to [facility] with hospice care. The patient is able to mouth some words, stating that he wanted to come here because he could not breathe. He states that it started today. He is unable to write out any other details. He does confirm that he would not want intubation or life support, he simply wants to breathe more comfortably. In the emergency room, the patient received; 1. Rocephin 2 g. 2. DuoNeb x2. 3. Vancomycin 1 g. 4. Levaquin 750 mg. 5. 1 L of normal saline, and hospitalist called for admission. REVIEW OF SYSTEMS: Unobtainable. MEDICATIONS: Discharge medications from this facility on the 01 of March; 1. Acyclovir 300 mg t.i.d. for 10 days, which should have been completed. 2. Stribild one daily. 3. Diflucan 100 mg daily for 15 days. 4. Xanax 0.25 mg t.i.d. 5. Xopenex q.6 hours. 6. Lopressor 25 mg b.i.d. 7. Protonix 40 mg b.i.d. 8. Florastor 250 mg daily. 9. Scopolamine patch. ALLERGIES TO MEDICINE: None known by chart review. PAST MEDICAL HISTORY: By chart review significant for; 1. GERD. 2. HIV. 3. Throat cancer. 4. Right AKA. 5. Left BKA. 6. Pancytopenia. 7. Recent admission for acute respiratory failure with hypoxia secondary to tracheobronchitis. PAST SURGICAL HISTORY: By chart review: 1. Tracheostomy. 2. PEG tube. 3. Right AKA. 4. Left BKA. 5. Multiple skin grafts. 6. Right chest port placement. SOCIAL HISTORY: The patient came from [facility], his brother reports he is the medical power of commercial attorney and the patient confirms DNR. FAMILY HISTORY: Significant for heart disease and diabetes. PHYSICAL EXAMINATION: VITAL SIGNS: Blood pressure 106/69, however, in the room, it was in the 90s systolic. Pulse 129, respirations 45, temperature 98.4, saturation was 100% on 6 L by trach collar. GENERAL: The patient is anxious-appearing, tachypneic, not in extremis, occasional times of more relaxed breathing, frequent productive cough of clear to thick fluid. HEENT: His pupils are equal and round. Oral mucosa unable to evaluate. His tongue appears dry. NECK: Supple and nontender. LYMPHATICS: No palpable cervical or supraclavicular lymphadenopathy. LUNGS: Coarse breath sounds throughout, tachypneic. HEART: No significant murmur. Regular rate and rhythm. ABDOMEN: Soft with present bowel sounds. PEG tube in place. EXTREMITIES: Left BKA, no pitting edema. SKIN: Multiple areas of hyperpigmentation and scarring. NEUROLOGIC: No focal deficits. PSYCH: The patient demonstrates understanding of questions, able to mouth some, responsive. IMAGING STUDIES: Chest x-ray, personally reviewed, improved aeration of the right upper lobe, interval appearance of linear atelectasis at the left base, and tracheostomy in good position. LABORATORY DATA: Reviewed today. CBC; 6.4, 9.2, 28.4, 425. Renal panel: 136, 3.7, 101, 26, 8, 0.66, 101. Lactic acid 3.0. LFTs notable for an albumin of 2.5. Urine, present protein, positive nitrite, large leukocyte esterase, greater than 50 red blood cells and white blood cells. EKG, personally reviewed, sinus rhythm, normal axis, tachycardic. No ST changes. IMPRESSION: 1. Sepsis secondary to unknown source in a patient with known risk of aspiration , possibly urinary tract infection. 2. Acute decompensated hypoxic respiratory failure. 3. History of supraglottic squamous cell carcinoma. 4. Chronic anemia. 5. Human immunodeficiency virus. 6. History of lower extremity amputations. 7. Chronic anemia PLAN: 1. Admission to IMCU. 2. Continue antibiotic therapy, IV fluid hydration. 3. DuoNeb, acetylcysteine, cough medications, oxygen supplementation, all in support of the patient's breathing. We will also order very low-dose morphine to help relax breathing as well. 4. Continuing the scopolamine patch. 5. Continuing the home medications of pantoprazole, metoprolol, fluconazole. 6. We will order IV Ativan p.r.n. for anxiety, low dose. 7. Confirmed with the patient that he does not want escalation of care, to include life support or pressor support. The goal of this admission is to address anything reversible and help the patient's breathing to be comfortable. We will continue to reassess the patient's goals of care, ask Palliative Care to assist as well as the patient was on hospice prior to this admission. 8. The patient is near end of life, discussed that with his family, who demonstrated awareness and understanding. 9. The patient is at high risk of decompensation to include in-hospital , given his current presentation. 10. I reviewed the plan of care with the patient. No questions or further needs at the end of evaluation. Job ID: [id number]
[2019-03-12] MEDS: Sodium Chloride 0.9% 1,000 ML IV SCH (21:12)
[2019-03-12] MEDS: Metoprolol Tartrate 25 MG TAB PER TUBE SCH (21:13)
[2019-03-12 22:55] VITALS: BMI 22.6
[2019-03-12] MEDS: Acetylcysteine 20% 200 MG/ML 30 ML VIAL INH SCH ×2 (23:20→23:24)
[2019-03-13] MEDS: Sodium Chloride 0.9% 1,000 ML IV SCH (04:24)
[2019-03-13] MEDS ORDERED: Vancomycin HCl 1 GM in Premix Bag 1 BAG IVPB SCH (05:00)
[2019-03-13] MEDS: Acetylcysteine 20% 200 MG/ML 30 ML VIAL INH SCH ×2 (08:07→14:08)
[2019-03-13] MEDS ORDERED: Hyoscyamine Sulfate SL 0.125 mg Tablet PER TUBE PRN (08:19)
[2019-03-13] MEDS ORDERED: Non-Formulary Item 1 EACH (Elviteg/Cob/Emtri/Tenofo Disop [Stribild] 1 TAB) PER TUBE SCH (08:19)
--- NOTE | 2019-03-13 08:19 | PDOC.PN ---
- Subjective Encounter Start Date: 03/13/19 (f/u acute resp failure) Encounter Start Time: 08:17 Subjective: Pt more comfortable this morning with breathing, without complaints -: denies any pain - Objective Resuscitation Status - Order Detail: 03/12/19 19:00 Resuscitation Status Routine Resuscitation Status: DNAR: NO Resuscitation Discussed with: confirmed with patient and prior hospitalization Vital Signs & Weight: Vital Signs (12 hours) Temp Pulse Resp Pulse Ox 03/13/19 08:09 100 03/13/19 08:06 101 H 20 100 03/13/19 07:25 98.4 F 03/13/19 04:05 98 03/13/19 03:12 98.2 F 03/12/19 23:25 98 03/12/19 23:24 98 03/12/19 23:00 98.7 F Weight Weight 134 lb 5 oz Most Recent Monitor Data Heart Rate from ECG 105 NIBP 95/65 NIBP BP-Mean 75 Respiration from ECG 26 SpO2 100 I&O: 03/12/19 03/13/19 03/14/19 06:59 06:59 06:59 Intake Total 1008 Output Total 850 Balance 158 Result Diagrams: 03/13/19 08:33 03/13/19 08:33 EKG Reviewed by me: Yes (tele - sinus tach 100-120) Phys Exam - Physical Examination Constitutional: NAD coarse breath sounds - improved air movement Cardiovascular: RRR, no significant murmur Gastrointestinal: soft hypoactive bowel sounds Musculoskeletal: no edema Neurological: non-focal Psychiatric: normal affect Dx/Plan (1) Sepsis Code(s): A41.9 - SEPSIS, UNSPECIFIED ORGANISM Status: Acute Qualifiers: Sepsis type: sepsis due to unspecified organism Qualified Code(s): A41.9 - Sepsis, unspecified organism (2) Acute and chronic respiratory failure with hypoxia Code(s): J96.21 - ACUTE AND CHRONIC RESPIRATORY FAILURE WITH HYPOXIA Status: Acute (3) Anemia Code(s): D64.9 - ANEMIA, UNSPECIFIED Status: Chronic Qualifiers: Anemia type: unspecified type Qualified Code(s): D64.9 - Anemia, unspecified (4) GERD (gastroesophageal reflux disease) Code(s): K21.9 - GASTRO-ESOPHAGEAL REFLUX DISEASE WITHOUT ESOPHAGITIS Status: Chronic Qualifiers: Esophagitis presence: esophagitis presence not specified Qualified Code(s) : K21.9 - Gastro-esophageal reflux disease without esophagitis (5) HIV (human immunodeficiency virus infection) Code(s): B20 - HUMAN IMMUNODEFICIENCY VIRUS [HIV] DISEASE Status: Chronic Qualifiers: HIV symptom status: unspecified Qualified Code(s): B20 - Human immunodeficiency virus [HIV] disease (6) h/o supraglottic squamous cell cancer Status: Chronic - Plan * Pt sx improved on current medications. 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 Pall care consult placed for assistance with goals of care and optimizing quality of life.. * * * d/w Pall care and pt had a mucous plug, became anxious and revoked hospice. He desires to return to facility with hospice care. They have recommendations on med changes to improve QOL. Will d/c abx and transfer to [place] c/w patient wishes.
[2019-03-13] MEDS ORDERED: Sodium Chloride 0.9% 1,000 ML IV SCH (08:24)
[2019-03-13] MEDS: Metoprolol Tartrate 25 MG TAB PER TUBE SCH ×2 (08:52→09:04)
[2019-03-13 08:57] LABS: #Eosinphils 0.1 thou/uL (0.0-0.7); #Lymphocytes 1.3 thou/uL (1.20-3.40); #Monocytes 0.5 thou/uL (0.11-0.59); #Neutrophils 3.1 thou/uL (1.40-6.50); %Basophils 0.4 % (0.0-1.0); %Eosinophils 2.3 % (0.0-10.0); %Lymphocytes 26.5 % (21.0-51.0); %Neutrophils 60.9 % (42.0-75.0); Hemoglobin 7.5 g/dL (14.0-18.0); Mean Corpuscular HGB CONC 32.5 g/dL (32.0-36.0); Mean Corpuscular Hemoglobin 28.5 pg (27.0-31.0); Mean Corpuscular Volume 87.7 fL (78.0-98.0); Platelet Count 284 thou/uL (130-400); RBC Distribution Width 17.7 % (11.5-14.5); Red Blood Cell (RBC) Count 2.61 mill/uL (4.70-6.10)
[2019-03-13] MEDS ORDERED: Pantoprazole 40 MG GRANULES PACKET PER TUBE SCH (09:00)
[2019-03-13] MEDS ORDERED: Fluconazole 100 MG TAB PER TUBE SCH (09:00)
[2019-03-13 09:07] LABS: Anion Gap 9 mmol/L (10-20); BUN (Urea Nitrogen) 5 mg/dL (8.4-25.7); Calc. Creatinine Clearance 110 mL/min (70-130); Calcium 7.7 mg/dL (7.8-10.44); Carbon Dioxide 24 mmol/L (23-31); Chloride 107 mmol/L (98-107); Estimated GFR-MDRD Greater than 90; Glucose 88 mg/dL (80-115); Potassium 3.5 mmol/L (3.5-5.1); Sodium 136 mmol/L (136-145)
[2019-03-13 10:19] VITALS: TEMP 98.1
[2019-03-13] MEDS ORDERED: Scopolamine 1.5 mg/72 hour Patch TD SCH (11:00)
--- NOTE | 2019-03-13 19:05 | DIS ---
DATE OF ADMISSION: 03/12/2019 DATE OF DISCHARGE: 03/13/2019 DISCHARGE DISPOSITION: [facility] with hospice. CONSULTANTS: Palliative Care. MEDICATIONS: Medications are reconciled at discharge. New medications are: 1. Guaifenesin DM 10 mL per tube every 6 hours as needed. 2. DuoNeb every 4 hours as needed. 3. Scopolamine patch 2 patches every 3 days. 4. Clonazepam 0.5 mg b.i.d. Medications to resume are: 1. Stribild one tablet per tube daily. 2. Diflucan 100 mg per tube daily as previously directed from his last discharge summary in terms of duration. 3. Levsin 0.125 mg per tube every 4 hours as needed. 4. Lorazepam 0.5 mg per tube every 4 hours as needed. 5. Morphine sulfate 20 mg per 5 mL, 2-3 mg per tube q.1 hour as needed. 6. Compazine 10 mg per tube q.4 hours as needed. All followup is with the hospice company. FINAL DIAGNOSES: 1. Acute hypoxic respiratory failure secondary to mucous plug. 2. Sepsis with known risk of aspiration. 3. History of supraglottic squamous cell carcinoma. SECONDARY DIAGNOSES: 1. Chronic anemia. 2. HIV. 3. History of lower extremity amputations. HISTORY OF PRESENT ILLNESS: Mr. Cobian is a 64-year-old male. He was discharged from here on 03/01, to [facility] with hospice care, who returns to the hospital with difficulty breathing. No further history was obtained other than the patient did request hospitalization. HOSPITAL COURSE: The patient was started on mucolytics, nebulizer therapy through his tracheostomy as well as high-flow oxygen. He has also been suctioned by Respiratory Therapy and has tolerated this well. Today, he is breathing is improved and comfortable. In addition, he was started on broad-spectrum antibiotics in the emergency room due to concern of sepsis. His initial lactic acid was 3, which decreased to 2.4 with IV fluids. The patient was continued on antibiotics here, IV fluid hydration, and has tolerated this well also. Palliative Care was consulted to assist with clarification of goals of care and given that the patient was on hospice. Per discussion with Palliative Care, they report that the patient became anxious and therefore, requested relocation. His medications have been adjusted with the goal of improving his quality of life, by increasing the scopolamine patch and adding low-dose clonazepam. The patient does request return to the nursing facility to continue on hospice care. PHYSICAL EXAMINATION: Please see note on chart. PELAEZ FINDINGS AND TEST RESULTS: CBC on admission; 6.4, 9.2, 28.4, 425, and today; 5, 7.5, 22.9, 284. Renal panel today; 136, 3.5, 107, 25, 5, 0.6, 88. Lactic acid was 3 followed by 2.4. Calcium 7.7. LFTs: T-bilirubin 0.4, AST 17, ALT 12, alkaline phosphatase 99, total protein 7.3, albumin 2.4. Lipase was 114. Chest x-ray on 03/12, showed improved aeration of the right upper lobe, interval appearance of linear atelectasis at the left base and tracheostomy in good position. DIET: PEG tube as the patient is able to tolerate per hospice company. CODE STATUS: Do not attempt resuscitation. TOTAL TIME COORDINATING DISCHARGE: 30 minutes. Job ID: [id number]
[2019-03-13] MEDS ORDERED: cefTRIAXone\\ROCEPHIN 2 GM in Sodium Chloride 0.9% 100 ML IVPB SCH (20:00)
[2019-03-13] MEDS ORDERED: clonazePAM 0.5 MG TAB PO SCH (21:00)
[2019-03-13] MEDS ORDERED: Prevnar 13-Val Conj/PF 0.5 ML SYRINGE IM ONE (21:00)
[2019-03-14] MEDS ORDERED: Elviteg/Cob/Emtri/Tenofo Disop [Stribild] 1 TAB PER TUBE SCH (08:00)
--- NOTE | 2019-03-14 11:58 | PDOC.PALCO ---
Palliative Care Consult - Consult Details Requesting Physician: Dr Win Reason for Consult: goals of care - Pertinent HPI Patient discharged recently to [facility] under care of [facility]. Patient became short of breath, anxious, and refused treatment at facility and requested to be transferred to hospital. Patient admitted, and consult to palliative care to revisit patients wishes and goals of care. Patient awake, alert, and able to answer yes or no questions, as well as use white board for communication secondary to trach and inability to verbally express self. - Pertinent PMH Patient medical history includes Supraglottic squamous cell ca, R aka, l bka, HIV, PEG, Acute/Chronic resp failure, Gerd, trached. - Social History Living Situation: [facility] resident - Medications MAR Reviewed: Yes - Allergies Allergies/Adverse Reactions: Allergies Allergy/AdvReac Type Severity Reaction Status Date / Time No Known Drug Allergies Allergy Verified 12/06/18 16:55 - Objective Vital Signs: Vital Signs - Most Recent Temp Pulse Resp BP Pulse Ox 98.1 F 104 H 23 H 100 03/13/19 10:19 03/13/19 10:37 03/13/19 10:37 03/13/19 10:37 Palliative Performance Scale: 40 - Physical Exam HEENT: EOMI Deviation from normal: white coupious secretions from Trach, patient able to clear. Cardiovascular: RRR Gastrointestinal: soft, non-tender, positive bowel sounds Musculoskeletal: no edema Deviation from normal: Bilateral lower extremity amputations Deviation from normal: lips remain dry, cracked. 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 - NEOPLASM OF UNCERTAIN BEHAVIOR OF TRACHEA, BRONCHUS AND LUNG Status: Acute (3) Anemia Code(s): D64.9 - ANEMIA, UNSPECIFIED Status: Chronic Qualifiers: Anemia type: unspecified type Qualified Code(s): D64.9 - Anemia, unspecified (4) GERD (gastroesophageal reflux disease) Code(s): K21.9 - GASTRO-ESOPHAGEAL REFLUX DISEASE WITHOUT ESOPHAGITIS Status: Chronic Qualifiers: Esophagitis presence: esophagitis presence not specified Qualified Code(s) : K21.9 - Gastro-esophageal reflux disease without esophagitis (5) Tracheostomy care Code(s): Z43.0 - ENCOUNTER FOR ATTENTION TO TRACHEOSTOMY Status: Chronic - Plan/Recommendations Plan:Visited with patient at length. *Increase scopolamine patch to 3mg to decrease secretions *Clonazepam 0.5 mg po BID for anxiety related to disease process/respiratory compromise *Teaching in relation to therapies in place at facility for patient when a respiratory crises occurs, reviewed suctioning, use of lorazepam, morphine, humidified O2. Patient states he wants to return to the facility with hospice care in place to manage symptoms related to terminal condition and promote optimal end of life. Discussed with CM and recommendations to Dr Win. [40] minutes spent on this encounter with >50% of the time in counseling and coordination of care. Thank you for this very appropriate consult.
== END 2019-03-13 14:13 | disposition hospice, inpatient (51) | DRG 974 ==
LOC: ERS 14:38 → IMCU/EMU 18:18
PROVIDERS: ADMIT Family Medicine; ATTEND Family Medicine
DX: A41.9 Sepsis, unspecified organism (principal); J96.01 Acute respiratory failure with hypoxia; B20 Human immunodeficiency virus [HIV] disease; Z51.5 Encounter for palliative care; Z66 Do not resuscitate; D64.9 Anemia, unspecified; K21.9 Gastro-esophageal reflux disease without esophagitis; Z89.611 Acquired absence of right leg above knee; Z89.512 Acquired absence of left leg below knee; Z85.89 Personal history of malignant neoplasm of other organs and systems; Z92.21 Personal history of antineoplastic chemotherapy
CPT/HCPCS: 36415; 71045; 80048; 80053; 81003; 81015; 83605; 83690; 84484; 85025; 87040; 87077; 87086; 93005; 94640; 94760; J1956; J2270; J3370; J7608; J7620

== ENCOUNTER 2019-07-28 12:48 | Inpatient (IN) | payer MEDICARE, MEDICAID ==
[2019-07-28 13:34] LABS: Hemoglobin 11.6 g/dL (14.0-18.0); Mean Corpuscular HGB CONC 32.3 g/dL (32.0-36.0); Mean Corpuscular Volume 95.9 fL (78.0-98.0); RBC Distribution Width 15.5 % (11.5-14.5); Red Blood Cell (RBC) Count 3.75 mill/uL (4.70-6.10); White Blood Cell (WBC) Count 6.6 thou/uL (4.8-10.8)
--- NOTE | 2019-07-28 13:45 | RAD ---
PORTABLE CHEST 1 VIEW: Date: 07/28/19 Time: 1319 hours HISTORY: Dyspnea. FINDINGS/IMPRESSION: Comparison made with exam of 03/12/19. Tracheostomy tube and right-sided Port-A-Cath remain in place. The heart size is normal. There is a l arge opacity in the right lower lobe and smaller opacity in the left upper and lower lungs. The possi bility of metastatic disease should be considered. No pneumothoraces seen. A small right pleural effu mookie is evident. Evidence of old granulomatous disease again noted. POS: [facility]
[2019-07-28 13:53] LABS: ALT (SGPT) 24 U/L (8-55); AST (SGOT) 37 U/L (5-34); Albumin 2.6 g/dL (3.4-4.8); Alkaline Phosphatase 52 U/L (40-110); Anion Gap 13 mmol/L (10-20); BUN (Urea Nitrogen) 14 mg/dL (8.4-25.7); Bilirubin, Total 1.5 mg/dL (0.2-1.2); Calc. Creatinine Clearance 0 mL/min (70-130); Calcium 8.5 mg/dL (7.8-10.44); Carbon Dioxide 26 mmol/L (23-31); Chloride 97 mmol/L (98-107); Estimated GFR-MDRD Greater than 90; Globulin 3.7 g/dL (2.4-3.5); Glucose 114 mg/dL (80-115); Potassium 4.1 mmol/L (3.5-5.1); Protein, Total 6.3 g/dL (5.8-8.1); Sodium 132 mmol/L (136-145)
[2019-07-28 13:54] LABS: Band 29 % (5-11); Lymphocytes 2 % (21-51); MDiff Complete? YES; Mean Platelet Volume 7.9 fL (7.4-10.4); Metamyelocyte 2 % (0-0); Monocytes 1 % (0-10); Neutrophil 66 % (42-75); Platelet Count 92 thou/uL (130-400); Platelet Morphology Comment Appears Decreased
[2019-07-28] MEDS ORDERED: Piperacillin/Tazobactam 3.375 GM VIAL ONE (14:27)
[2019-07-28] MEDS ORDERED: Acetaminophen 500 MG TAB ONE (14:27)
[2019-07-28 15:35] LABS: Bacteria/HPF 4+ HPF (None Seen); Bilirubin Negative (Negative); Blood, Urine 1+ (Negative); Clarity Turbid (Clear); Glucose, Urine (Dipstick) Normal (Negative); Leukocyte Negative Leu/uL (Negative); Nitrite Negative (Negative); Protein, Urine (Dipstick) 200 mg/dL (Neg-Trace); RBC/HPF 0-3 HPF (0-3); Squamous Epithelial 0-3 HPF (0-3)
--- NOTE | 2019-07-28 16:06 | HP ---
PRIMARY CARE PHYSICIAN: Dr. London. REASON FOR ADMISSION: Acute sepsis with pneumonia. HISTORY OF PRESENT ILLNESS: A 64-year-old male, who has a tracheostomy and PEG tube status as well as underlying HIV, who was in hospice care at the half-way. Subsequently, the patient was discharged home with Home [facility]. Currently, the patient lives at home with his grandson. The patient was experiencing increasing shortness of breath and the patient expressed his wish to go to hospital. Currently, the patient is with [facility]. The patient is not able to talk because of tracheostomy status. He is able to nod his head to yes or no to question, but detailed history is not possible from him. The patient's son is present at bedside, who provided some history. REVIEW OF SYSTEMS: CONSTITUTIONAL: Negative for weight loss or gain, ability to conduct usual activities. SKIN: Negative for rash, itching. EYES: Negative for double vision, pain. ENT/MOUTH: Negative for nose bleeding, neck stiffness, pain, tenderness. CARDIOVASCULAR: Negative for palpitations, dyspnea on exertion, orthopnea. RESPIRATORY: Negative for shortness of breath, wheezing, cough, hemoptysis, fever or night sweats. GASTROINTESTINAL: Negative for poor appetite, abdominal pain, heartburn, nausea, vomiting, constipation, or diarrhea. GENITOURINARY: Negative for urgency, frequency, dysuria, nocturia. MUSCULOSKELETAL: Negative for pain, swelling. NEUROLOGIC/PSYCHIATRIC: Negative for anxiety, depression. ALLERGY/IMMUNOLOGIC: Negative for skin rash, bleeding tendency. Please see my HPI for pertinent positives and negatives. All other review of systems reviewed and negative, except as mentioned in HPI. 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 PAST PSYCHIATRIC HISTORY: Anxiety and depression. PAST SURGICAL HISTORY: PEG tube placement, tracheostomy, right above-knee amputation, left foot amputation, multiple skin graftings, port placement in right chest. PAST PSYCHIATRIC HISTORY: Anxiety and depression. SOCIAL HISTORY: The patient was recently living at [facility]. Subsequently, he was discharged home with Home Hospice. He is bed bound. He does not have any alcohol or tobacco abuse at this point. He was ex-smoker. FAMILY HISTORY: Positive for heart disease and diabetes among several family members. EMERGENCY ROOM COURSE: The patient has received vancomycin, Zosyn, IV fluid, and Tylenol. CURRENT HOME MEDICATIONS: 1. Flonase nasal spray daily. 2. Sushila as needed. 3. Prilosec 20 mg daily. 4. HIV medicine, Stribild one tablet daily. ALLERGIES: NO KNOWN DRUG ALLERGY. PHYSICAL EXAMINATION: VITAL SIGNS: On arrival in the emergency room, blood pressure 90/59, pulse 130, respiratory rate 35, temperature 102.3, saturation 98% on 4 L, weight 58.9 kg. GENERAL: The patient is tachycardic, hypotensive, chronically ill. HEENT: Head; normocephalic and atraumatic. Eyes; pupils round and reactive to light. Extraocular muscle intact. ENT; dry mucous membranes. No oral lesion. No pharyngeal erythema. No exudate. NECK: Tracheostomy in place, excreting very thick purulent yellowish secretion. LUNGS: Bilateral coarse breath sounds, especially basal area with rales. No accessory muscles of respiration in use. CARDIAC: S1 and S2 regular. Tachycardia. No murmur. No gallop. No rub. ABDOMEN: Soft. PEG tube in place. No distention. Bowel sounds present. No organomegaly. No peritoneal sign. EXTREMITIES: Right above-knee amputation and left foot amputated. No new finding. PSYCHIATRIC: Flat affect. NEUROLOGIC: Grossly nonfocal examination. IMAGING STUDIES: EKG showing sinus tachycardia, nonspecific ST-T changes. Chest x-ray based on my review, tracheostomy tube in place. Right-sided Port-A-Cath in place. Large opacity in right lower lobe and small opacity in left upper and lower lobes consistent with multifocal pneumonia. SIGNIFICANT LABORATORY DATA: CBC; WBC 6.6, hemoglobin 11.6, platelets 92 with bandemia. BMP; sodium 132, potassium 4.1, chloride 97, carbon dioxide 26, BUN 14, creatinine 0.79, glucose 114, calcium 8.5. Lactic acid 2.8. LFT; AST 37, ALT 24, alkaline phosphatase 52, albumin 2.6. Influenza screen negative. ASSESSMENT AND PLAN: 1. Sepsis with acute organ dysfunction, likely due to underlying pneumonia. Other infection cannot be entirely excluded. 2. Multifocal pneumonia in immunocompromised patient with lactic acidosis. The patient will be given broad-spectrum antibiotic therapy with vancomycin and Zosyn. The patient will be closely monitored in IMCU. Pulmonary and Critical Care will be consulted for routine pneumonia. 3. Tracheostomy status. The patient will be provided tracheostomy care while in hospital. 4. Percutaneous endoscopic gastrostomy tube status. We will continue tube feeding and medication via PEG tube. 5. Lactic acidosis likely due to sepsis, and we will repeat lactic acid level tomorrow. 6. Thrombocytopenia, anemia, likely due to underlying human immunodeficiency virus and sepsis. 7. Bandemia, likely due to underlying infection. We will repeat CBC tomorrow. 8. Bilateral amputee status. The patient will need supportive care. 9. Human immunodeficiency virus. The patient will continue his antiretroviral therapy, Stribild. 10. Deep venous thrombosis prophylaxis. We will hold on Lovenox therapy because of low platelet count. 11. Gastrointestinal prophylaxis. Pepcid 20 mg or IV b.i.d. 12. Code status. Discussed with the patient and patient wants to be a DNR and the patient's son is surrogate decision maker. 13. Disposition plan. Based on clinical course, we are expecting the patient's stay in the hospital more than 2 midnights. Plan of care discussed with the patient and other family member at bedside in the emergency room. Job ID: [id number]
[2019-07-28] MEDS ORDERED: Ondansetron ODT 4 MG TAB SL PRN ×2 (16:51→17:11)
[2019-07-28] MEDS ORDERED: Ondansetron PF 4 MG/2 ML Vial IVP PRN ×2 (16:51→17:11)
[2019-07-28] MEDS ORDERED: Acetaminophen 325 MG TAB PO PRN (16:51)
[2019-07-28] MEDS ORDERED: Senokot S 8.6-50 MG TAB PER TUBE PRN (17:11)
[2019-07-28] MEDS ORDERED: Artificial Tears 18 DROP/0.9 ML EA EYE PRN (17:11)
[2019-07-28] MEDS ORDERED: hydrALAZINE 20 MG/ML VIAL SLOW IVP PRN (17:11)
[2019-07-28] MEDS ORDERED: Bisacodyl 10 MG SUPP PR PRN (17:11)
[2019-07-28] MEDS ORDERED: Calcium Carbonate 500 MG ChewTAB PER TUBE PRN (17:11)
[2019-07-28] MEDS ORDERED: Sodium Chloride 0.65% Nasal 44 ML BOT EA NARE PRN (17:11)
[2019-07-28] MEDS ORDERED: Diabetic Tussin 200 MG/10 ML UDCUP PER TUBE PRN (17:11)
[2019-07-28] MEDS ORDERED: Cepastat Lozenges 1 LOZ PO PRN (17:11)
[2019-07-28] MEDS ORDERED: Metoclopramide HCl 10 MG/2 ML VIAL IVP PRN (17:11)
[2019-07-28 17:51] LABS: Lactic Acid 2.3 mmol/L (0.5-2.2)
[2019-07-28] MEDS: Sodium Chloride 0.9% 1,000 ML IV SCH (17:54)
[2019-07-28] MEDS: Famotidine 20 MG TAB PO SCH (21:28)
[2019-07-28] MEDS: Famotidine/PF 20 mg/2ml Vial SLOW IVP SCH (21:28)
[2019-07-28] MEDS: methylPREDNISolone Sod Succ 40 MG VIAL IVP SCH (21:29)
[2019-07-29] MEDS: Sodium Chloride 0.9% 1,000 ML IV SCH ×3 (01:24→17:57)
[2019-07-29] MEDS: Vancomycin HCl 1 GM in Premix Bag 1 BAG IVPB SCH ×2 (03:26→14:38)
[2019-07-29] MEDS: Acetaminophen 325 MG TAB PER TUBE PRN (04:04)
[2019-07-29 05:07] LABS: Lactic Acid 1.4 mmol/L (0.5-2.2)
[2019-07-29 05:13] LABS: ALT (SGPT) 19 U/L (8-55); AST (SGOT) 26 U/L (5-34); Albumin 2.2 g/dL (3.4-4.8); Alkaline Phosphatase 42 U/L (40-110); Anion Gap 12 mmol/L (10-20); BUN (Urea Nitrogen) 11 mg/dL (8.4-25.7); Bilirubin, Total 1.3 mg/dL (0.2-1.2); Calc. Creatinine Clearance 104 mL/min (70-130); Calcium 8.3 mg/dL (7.8-10.44); Carbon Dioxide 19 mmol/L (23-31); Chloride 108 mmol/L (98-107); Estimated GFR-MDRD Greater than 90; Globulin 2.7 g/dL (2.4-3.5); Glucose 152 mg/dL (80-115); Potassium 3.3 mmol/L (3.5-5.1); Protein, Total 4.9 g/dL (5.8-8.1); Sodium 136 mmol/L (136-145)
[2019-07-29 05:30] LABS: Band 31 % (5-11); Hemoglobin 10.5 g/dL (14.0-18.0); Lymphocytes 4 % (21-51); MDiff Complete? YES; Mean Corpuscular HGB CONC 30.3 g/dL (32.0-36.0); Mean Corpuscular Hemoglobin 29.1 pg (27.0-31.0); Mean Corpuscular Volume 96.1 fL (78.0-98.0); Mean Platelet Volume 7.2 fL (7.4-10.4); Metamyelocyte 2 % (0-0); Monocytes 2 % (0-10); Neutrophil 61 % (42-75); Platelet Count 86 thou/uL (130-400); Platelet Morphology Comment Appears Decreased; RBC Distribution Width 15.6 % (11.5-14.5); Red Blood Cell (RBC) Count 3.61 mill/uL (4.70-6.10); Toxic Granulation SLIGHT; Vacuoles SLIGHT; White Blood Cell (WBC) Count 2.6 thou/uL (4.8-10.8)
[2019-07-29] MEDS: methylPREDNISolone Sod Succ 40 MG VIAL IVP SCH ×3 (06:05→22:51)
[2019-07-29] MEDS: Saccharomyces boulardii 250 MG CAP PER TUBE SCH (08:48)
[2019-07-29] MEDS: Famotidine/PF 20 mg/2ml Vial SLOW IVP SCH ×2 (08:49→22:51)
[2019-07-29] MEDS: Elviteg/Cob/Emtri/Tenofo Disop [Stribild] 1 TAB PER TUBE SCH (08:49)
[2019-07-29] MEDS: Famotidine 20 MG TAB PO SCH ×2 (08:49→22:37)
[2019-07-29] MEDS ORDERED: Hyoscyamine Sulfate SL 0.125 mg Tablet PER TUBE PRN (08:51)
[2019-07-29] MEDS: clonazePAM 0.5 MG TAB PO SCH ×2 (09:25→22:52)
[2019-07-29] MEDS: Scopolamine 1.5 mg/72 hour Patch TD SCH (09:25)
--- NOTE | 2019-07-29 12:47 | PDOC.HOSPP ---
- Subjective Encounter Date: 07/29/19 Encounter Time: 10:15 Subjective: Patient seen and examined. No new complaints. No overnight events - Objective Vital Signs & Weight: Vital Signs (12 hours) Temp Pulse Ox 07/29/19 10:40 99.4 F 07/29/19 07:25 92 L 07/29/19 07:07 99.8 F H 07/29/19 05:48 100.3 F H 07/29/19 04:00 101.9 F H Weight Weight 126 lb 12.8 oz Most Recent Monitor Data Heart Rate from ECG 117 NIBP 107/56 NIBP BP-Mean 73 Respiration from ECG 34 SpO2 90 I&O: 07/28/19 07/29/19 07/30/19 06:59 06:59 06:59 Intake Total 90 2497 Balance 90 2497 Result Diagrams: 07/29/19 04:41 07/29/19 04:41 EKG Reviewed by me: Yes (sinus tachycardia) Hospitalist ROS - Review of Systems Constitutional: reports: weakness Eyes: denies: pain, vision change, conjunctivae inflammation, eyelid inflammation, redness, other ENT: denies: ear pain, ear discharge, nose pain, nose discharge, nose congestion , mouth pain, mouth swelling, throat pain, throat swelling, other Respiratory: reports: shortness of breath. denies: cough, dry, hemoptysis, SOB with excertion, pleuritic pain, sputum, wheezing, other Cardiovascular: denies: chest pain, palpitations, orthopnea, paroxysmal noc. dyspnea, edema, light headedness, other Gastrointestinal: reports: diarrhea. denies: nausea, vomiting, abdominal pain, constipation, melena, hematochezia, other Genitourinary: denies: dysuria, frequency, incontinence, hematuria, retention, other Musculoskeletal: denies: neck pain, shoulder pain, arm pain, back pain, hand pain, leg pain, foot pain, other - Medication Medications: Active Medications Generic Name Dose Route Start Last Admin Trade Name Freq PRN Reason Stop Dose Admin Acetaminophen 650 mg 07/28/19 17:11 07/29/19 04:04 Tylenol PER TUBE 650 mg Q4H PRN Administration Headache/Fever/Mild Pain (1-3) Clonazepam 0.5 mg 07/29/19 09:00 07/29/19 09:25 Klonopin PO 0.5 mg BID ARCHIE Administration Famotidine 20 mg 07/28/19 21:00 07/29/19 08:49 Pepcid SLOW IVP 20 mg Q12HR ARCHIE Administration Famotidine 20 mg 07/28/19 21:00 07/29/19 08:49 Pepcid PO Not Given BID ARCHIE Sodium Chloride 1,000 mls @ 125 mls/hr 07/28/19 17:11 07/29/19 08:49 Normal Saline 0.9% IV 1,000 mls .Q8H ARCHIE Administration Vancomycin HCl 1 gm/ Device 200 mls @ 200 mls/hr 07/29/19 03:00 07/29/19 03: 26 IVPB 200 mls 0300,1500 ARCHIE Administration Methylprednisolone Sodium Succinate 20 mg 07/28/19 22:00 07/29/19 06:05 Solu-Medrol IVP 20 mg Q8HR ARCHIE Administration Elviteg/Cob/Emtri/ 1 each 07/29/19 08:00 07/29/19 08:49 Tenofo Disop [ PER TUBE 1 each Stribild] 1 Tab QAM-WM ARCHIE Administration Saccharomyces Boulardii 250 mg 07/29/19 09:00 07/29/19 08:48 Florastor PER TUBE 250 mg DAILY ARCHIE Administration Scopolamine 3 mg 07/29/19 09:00 07/29/19 09:25 Transderm Scop TD 3 mg Q3D ARCHIE Administration - Exam General Appearance: ill appearing Eye: PERRL, anicteric sclera ENT: normocephalic atraumatic, no oropharyngeal lesions ENT - other findings: trach+ Neck: supple, symmetric, no JVD Heart: RRR, no murmur, no gallops, no rubs Heart - other findings: tachycardia Respiratory: no wheezes, no rales, no ronchi Respiratory - other findings: coarse sound bilateral Gastrointestinal: soft, non-tender, non-distended, normal bowel sounds Gastrointestinal - other findings: peg tube + Extremities - other findings: right aka, left BKA Skin: normal turgor, no lesions Neurological: no focal deficits Musculoskeletal: normal tone, normal strength Psychiatric: normal affect, normal behavior Hosp A/P (1) Pneumonia Code(s): J18.9 - PNEUMONIA, UNSPECIFIED ORGANISM Status: Acute Qualifiers: Pneumonia type: aspiration pneumonia Laterality: bilateral Lung location : unspecified part of lung (2) Acute and chronic respiratory failure with hypoxia Code(s): J96.21 - ACUTE AND CHRONIC RESPIRATORY FAILURE WITH HYPOXIA Status: Acute (3) Sepsis Code(s): A41.9 - SEPSIS, UNSPECIFIED ORGANISM Status: Acute Qualifiers: Sepsis type: sepsis due to unspecified organism Severe sepsis acute organ dysfunction type: acute respiratory failure Acute respiratory failure type: with hypoxia Severe sepsis shock status: without septic shock Qualified Code (s): A41.9 - Sepsis, unspecified organism (4) Sinus tachycardia Code(s): R00.0 - TACHYCARDIA, UNSPECIFIED Status: Acute (5) GERD (gastroesophageal reflux disease) Code(s): K21.9 - GASTRO-ESOPHAGEAL REFLUX DISEASE WITHOUT ESOPHAGITIS Status: Chronic Qualifiers: Esophagitis presence: esophagitis presence not specified Qualified Code(s) : K21.9 - Gastro-esophageal reflux disease without esophagitis (6) HIV (human immunodeficiency virus infection) Code(s): B20 - HUMAN IMMUNODEFICIENCY VIRUS [HIV] DISEASE Status: Chronic Qualifiers: HIV symptom status: unspecified Qualified Code(s): B20 - Human immunodeficiency virus [HIV] disease (7) History of left below knee amputation Code(s): Z89.512 - ACQUIRED ABSENCE OF LEFT LEG BELOW KNEE Status: Chronic (8) History of right above knee amputation Code(s): Z89.611 - ACQUIRED ABSENCE OF RIGHT LEG ABOVE KNEE Status: Chronic (9) h/o supraglottic squamous cell cancer Status: Chronic (10) Pancytopenia Code(s): D61.818 - OTHER PANCYTOPENIA Status: Resolved - Plan old records reviewed/req, continue antibiotics, respiratory therapy Consults: Palliative Care 07/29/19 continue vancomycin and zosyn continue IVF medication reviewed as above symptomatic treatment tracheostomy and PEG tube [facility] meds reconciled follow on culture consult palliative care
--- NOTE | 2019-07-29 21:29 | CON ---
DATE OF CONSULTATION: 07/29/2019 HISTORY OF PRESENT ILLNESS: Yrn Cobian is a pleasant 64-year-old male, who is double amputee. He is HIV positive. He is an extremely resilient individual. He was discharged from the hospital earlier this year with hospice and is somehow lived, continued to survive. He presented with complaints of shortness of breath. He has tracheostomy in place. He was admitted with a diagnosis of pneumonia. He says he feels better today. PAST MEDICAL HISTORY: Remarkable for; 1. History of respiratory failure in the past requiring a trach. 2. Human immunodeficiency virus positive. From my recall, he has always been compliant with his anti-retroviral therapy. 3. History of supraglottic squamous cell carcinoma. 4. History of lower extremity amputation after an electrocution. 5. History of PEG placement. 6. History of multiple skin grafts after his electrocution. SOCIAL HISTORY: He is nonsmoker and nondrinker. FAMILY HISTORY: Positive for diabetes and hypertension and heart disease. REVIEW OF SYSTEMS: 10 point review of systems completed, not accurately obtainable because of his tracheostomy, but if he does mouth words and says he feels better, is much less short of breath. PHYSICAL EXAMINATION: GENERAL: Yrn Cobian is a pleasant 64-year-old male. VITAL SIGNS: Blood pressure 107/61, heart rate is 128, respiratory rates in the high 20s, oximetry is 94 to 95 on trach collar. HEENT: pupils react. HEAD AND NECK: Unremarkable. LUNGS: Remarkable for rhonchi on the right. Left lung is clear. HEART: Regular rhythm. S1 and S2 are normal. ABDOMEN: Soft and nontender. LABORATORY DATA: White count 2.6, hemoglobin 10.5, and platelets 86,000. He has 31% bands on his peripheral smear. Sodium 136, potassium 3.31, chloride 108, bicarb 19, BUN 11, creatinine 0.6, bilirubin is 1.3, and albumin is 2.2. Chest radiograph shows right lower lobe alveolar infiltrate. IMPRESSION AND PLAN: Pneumonia most likely aspiration mediated. Microbiology has been reviewed. His blood cultures are negative so far. I switched his nebulizer treatments from p.r.n. to scheduled from q.6 to q.4 hours. He will continue IV steroids. Reviewing antimicrobial therapy and receive IV vancomycin. He needs aspiration coverage in my opinion. We will follow with the other physicians caring for him. This is a 70 minute consult, with greater than 50% of time spent on unit coordinating care. Job ID: [id number]
--- NOTE | 2019-07-29 21:56 | RAD ---
ONE VIEW ABDOMEN: History: PEG tube. FINDINGS: Contrast opacifies a percutaneous gastric feeding tube. Initially contrast is noted within the stomac h. IMPRESSION: 1. Contrast is noted within the stomach suggesting appropriate positioning of a percutaneous feeding tube Transcribed Date/Time: 07/29/2019 10:32 PM
[2019-07-29] MEDS: Cefepime 2 GM in Sodium Chloride 0.9% 100 ML IVPB SCH (22:51)
[2019-07-30 02:24] LABS: Vancomycin, Trough 12.6 ug/mL
[2019-07-30] MEDS: methylPREDNISolone Sod Succ 40 MG VIAL IVP SCH ×3 (05:34→22:49)
[2019-07-30] MEDS: Vancomycin HCl 1 GM in Premix Bag 1 BAG IVPB SCH ×2 (05:34→13:52)
[2019-07-30] MEDS: clonazePAM 0.5 MG TAB PO SCH ×2 (09:01→20:21)
[2019-07-30] MEDS: Elviteg/Cob/Emtri/Tenofo Disop [Stribild] 1 TAB PER TUBE SCH (09:01)
[2019-07-30] MEDS: Saccharomyces boulardii 250 MG CAP PER TUBE SCH (09:02)
[2019-07-30] MEDS: Famotidine 20 MG TAB PO SCH ×2 (09:02→22:43)
[2019-07-30] MEDS: Famotidine/PF 20 mg/2ml Vial SLOW IVP SCH ×2 (09:03→20:21)
[2019-07-30] MEDS: Cefepime 2 GM in Sodium Chloride 0.9% 100 ML IVPB SCH ×2 (09:06→20:21)
[2019-07-30] MEDS: Morphine 4 MG/ML VIAL SLOW IVP PRN ×3 (10:07→20:21)
[2019-07-30] MEDS: Sodium Chloride 0.9% 1,000 ML IV SCH ×3 (10:28→20:20)
--- NOTE | 2019-07-30 11:23 | PRG ---
DATE OF SERVICE: 07/30/2019 SUBJECTIVE: Yrn Cobian is telling the nurses, he wanted to go home to last night, but this morning, he says he does not feel that way. He is little anxious and is requiring suctioning. OBJECTIVE: VITAL SIGNS: His blood pressure is 118/63 and heart rate is fluctuating between 105 and 112. Respiratory rates in the 30s, and oximetry is 94. LUNGS: Remarkable for rhonchi bilaterally. HEART: Regular rhythm. ABDOMEN: Soft. ASSESSMENT AND PLAN: We will start him on morphine, which will help with his air hunger. We will continue with his nebulizer treatments, steroids, and his antimicrobial therapy. Apparently, he was only on vancomycin until last night. Microbiology shows urine with two organisms. This is an incidental finding and not contributing to his admission. His blood cultures today are negative. I do not feel that this is an HIV related pneumonia. I do believe this is aspiration related. Job ID: [id number]
--- NOTE | 2019-07-30 11:30 | PDOC.HOSPP ---
- Subjective Encounter Date: 07/30/19 Encounter Time: 10:15 Subjective: Patient seen and examined. he has lot of tracheal secretion, No overnight events - Objective Vital Signs & Weight: Vital Signs (12 hours) Temp Pulse Resp Pulse Ox 07/30/19 11:11 98.0 F 07/30/19 10:31 105 H 36 H 94 L 07/30/19 08:01 96 07/30/19 07:57 112 H 52 H 96 07/30/19 07:53 95 07/30/19 07:41 100.4 F H 07/30/19 04:00 100.7 F H 07/30/19 02:22 119 H 22 H 93 L 07/29/19 23:46 100.4 F H Weight Weight 126 lb 12.8 oz Most Recent Monitor Data Heart Rate from ECG 107 NIBP 115/59 NIBP BP-Mean 77 Respiration from ECG 42 SpO2 97 I&O: 07/29/19 07/30/19 07/31/19 06:59 06:59 06:59 Intake Total 90 4797 1560 Balance 90 4797 1560 Result Diagrams: 07/29/19 04:41 07/29/19 04:41 EKG Reviewed by me: Yes (tachycardia) Hospitalist ROS - Review of Systems Constitutional: reports: weakness, malaise. denies: fever, chills, sweats, other Respiratory: reports: shortness of breath. denies: cough, dry, hemoptysis, SOB with excertion, pleuritic pain, sputum, wheezing, other Cardiovascular: denies: chest pain, palpitations, orthopnea, paroxysmal noc. dyspnea, edema, light headedness, other Gastrointestinal: denies: nausea, vomiting, abdominal pain, diarrhea, constipation, melena, hematochezia, other Genitourinary: denies: dysuria, frequency, incontinence, hematuria, retention, other Musculoskeletal: denies: neck pain, shoulder pain, arm pain, back pain, hand pain, leg pain, foot pain, other - Medication Medications: Active Medications Generic Name Dose Route Start Last Admin Trade Name Freq PRN Reason Stop Dose Admin Acetaminophen 650 mg 07/28/19 17:11 07/29/19 04:04 Tylenol PER TUBE 650 mg Q4H PRN Administration Headache/Fever/Mild Pain (1-3) Albuterol/Ipratropium 3 ml 07/29/19 18:30 07/30/19 10:31 Duoneb NEB 3 ml [id number] ARCHIE Administration Clonazepam 0.5 mg 07/29/19 09:00 07/30/19 09:01 Klonopin PO 0.5 mg BID ARCHIE Administration Famotidine 20 mg 07/28/19 21:00 07/30/19 09:03 Pepcid SLOW IVP 20 mg Q12HR ARCHIE Administration Famotidine 20 mg 07/28/19 21:00 07/30/19 09:02 Pepcid PO Not Given BID ARCHIE Sodium Chloride 1,000 mls @ 125 mls/hr 07/28/19 17:11 07/30/19 11:22 Normal Saline 0.9% IV Not Given .Q8H ARCHIE Vancomycin HCl 1 gm/ Device 200 mls @ 200 mls/hr 07/29/19 03:00 07/30/19 05: 34 IVPB 200 mls 0300,1500 ARCHIE Administration Cefepime HCl 2 gm/ Sodium 100 mls @ 200 mls/hr 07/29/19 21:00 07/30/19 09:06 Chloride IVPB 100 mls Q12HR ARCHIE Administration Methylprednisolone Sodium Succinate 20 mg 07/28/19 22:00 07/30/19 05:34 Solu-Medrol IVP 20 mg Q8HR ARCHIE Administration Morphine Sulfate 4 mg 07/30/19 09:43 07/30/19 10:07 Morphine SLOW IVP 4 mg Q1H PRN Administration Moderate Pain (4-6) Elviteg/Cob/Emtri/ 1 each 07/29/19 08:00 07/30/19 09:01 Tenofo Disop [ PER TUBE 1 each Stribild] 1 Tab QAM-WM ARCHIE Administration Saccharomyces Boulardii 250 mg 07/29/19 09:00 07/30/19 09:02 Florastor PER TUBE 250 mg DAILY ARCHIE Administration Scopolamine 3 mg 07/29/19 09:00 07/29/19 09:25 Transderm Scop TD 3 mg Q3D ARCHIE Administration - Exam General Appearance: ill appearing Eye: PERRL, anicteric sclera ENT: normocephalic atraumatic, no oropharyngeal lesions Neck: supple, symmetric, no JVD Neck - other findings: tracheostomy with yellow secretion Heart: RRR, no murmur, no gallops, no rubs Respiratory - other findings: bilateral coarse breath sound Gastrointestinal: soft, non-tender, non-distended Gastrointestinal - other findings: peg tube in place Extremities - other findings: right aka, left bka Skin: normal turgor, no lesions Musculoskeletal: normal tone, normal strength Psychiatric: normal affect, normal behavior Hosp A/P (1) Pneumonia Code(s): J18.9 - PNEUMONIA, UNSPECIFIED ORGANISM Status: Acute Qualifiers: Pneumonia type: aspiration pneumonia Laterality: bilateral Lung location : unspecified part of lung (2) Acute and chronic respiratory failure with hypoxia Code(s): J96.21 - ACUTE AND CHRONIC RESPIRATORY FAILURE WITH HYPOXIA Status: Acute (3) Sepsis Code(s): A41.9 - SEPSIS, UNSPECIFIED ORGANISM Status: Acute Qualifiers: Sepsis type: sepsis due to unspecified organism Severe sepsis acute organ dysfunction type: acute respiratory failure Acute respiratory failure type: with hypoxia Severe sepsis shock status: without septic shock Qualified Code (s): A41.9 - Sepsis, unspecified organism (4) Sinus tachycardia Code(s): R00.0 - TACHYCARDIA, UNSPECIFIED Status: Acute (5) GERD (gastroesophageal reflux disease) Code(s): K21.9 - GASTRO-ESOPHAGEAL REFLUX DISEASE WITHOUT ESOPHAGITIS Status: Chronic Qualifiers: Esophagitis presence: esophagitis presence not specified Qualified Code(s) : K21.9 - Gastro-esophageal reflux disease without esophagitis (6) HIV (human immunodeficiency virus infection) Code(s): B20 - HUMAN IMMUNODEFICIENCY VIRUS [HIV] DISEASE Status: Chronic Qualifiers: HIV symptom status: unspecified Qualified Code(s): B20 - Human immunodeficiency virus [HIV] disease (7) History of left below knee amputation Code(s): Z89.512 - ACQUIRED ABSENCE OF LEFT LEG BELOW KNEE Status: Chronic (8) History of right above knee amputation Code(s): Z89.611 - ACQUIRED ABSENCE OF RIGHT LEG ABOVE KNEE Status: Chronic (9) h/o supraglottic squamous cell cancer Status: Chronic (10) Pancytopenia Code(s): D61.818 - OTHER PANCYTOPENIA Status: Resolved - Plan old records reviewed/req, continue antibiotics 07/29/19 continue vancomycin and zosyn continue IVF medication reviewed as above symptomatic treatment tracheostomy and PEG tube longterm meds reconciled follow on culture consult palliative care 07/30/19 continue vancomycin and cefepime continue solumedrol agree with morphin pulmonary recommendation appreciated Medication reviewed as above, symptomatic treatment so far blood culture is negative and urine culture is likely due to colonization
--- NOTE | 2019-07-30 13:04 | PDOC.PALCO ---
Palliative Care Consult - Consult Details Requesting Physician: Dr Sauceda Reason for Consult: goals of care Family Members Present: none - Pertinent HPI Mr Cobian is a hospice patient who lives in a private home with his grandson as primary caregiver. Wheel chair bound, trach, PEG. 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 At home he experienced increase in shortness of breath over a few hours and his grandson called EMS. Patient revoked hospice and sought treatment for respiratory distress and subsequent evaluation in the emergency room identified sepsis that is assumed to be from pneumonia. Admitted to [facility]. - Pertinent PMH Respiratory failure, HIV, pancytopenia, supraglottic squamous cell carcinoma, bilateral lower extremity amputation, hypertension, anxiety/depression - Social History Smoking Status: Former smoker Smoking: quit greater than 1 year Alcohol Use: none Living Situation: other (recent transition to home setting with grandson as primary child care nurse) - Medications MAR Reviewed: Yes - Allergies Allergies/Adverse Reactions: Allergies Allergy/AdvReac Type Severity Reaction Status Date / Time No Known Drug Allergies Allergy Verified 12/06/18 16:55 - Subjective Resting. Continues with secretions. Able to communicate nodding, intermittently by closing trach giving one-two work answers. Intermittent, phantom pain lower extremities, Improving weakness ROS: 10 point review otherwise negative - Objective Vital Signs: Vital Signs - Most Recent Temp Pulse Resp BP Pulse Ox 98.0 F 105 H 36 H 94 L 07/30/19 11:11 07/30/19 10:31 07/30/19 10:31 07/30/19 10:31 Palliative Performance Scale: 30 (Usually PPS is higher when not hospital bound) - Physical Exam Constitutional: mild distress HEENT: moist MMs, sclera anicteric Respiratory: tachypnea Deviation from normal: with attempts to talk, minimal exertion Cardiovascular: RRR Gastrointestinal: soft, non-tender (PEG), positive bowel sounds Musculoskeletal: pulses present (Upper ext pulses, right aka, left bka) Deviation from normal: Phantom pain intermittanty Deviation from normal: anterior cervical nodes bilaterally enlarged Psychiatric: normal affect, A&O x 3 Skin: normal turgor, cap refill <2 seconds - Problem List (1) Palliative care encounter Code(s): Z51.5 - ENCOUNTER FOR PALLIATIVE CARE Current Visit: Yes Status: Acute (2) Acute and chronic respiratory failure with hypoxia Code(s): J96.21 - ACUTE AND CHRONIC RESPIRATORY FAILURE WITH HYPOXIA Current Visit: No Status: Acute (3) Tracheal tumor Code(s): D38.1 - NEOPLASM OF UNCERTAIN BEHAVIOR OF TRACHEA, BRONCHUS AND LUNG Current Visit: No Status: Acute (4) HIV (human immunodeficiency virus infection) Code(s): B20 - HUMAN IMMUNODEFICIENCY VIRUS [HIV] DISEASE Current Visit: No Status: Chronic Qualifiers: HIV symptom status: unspecified Qualified Code(s): B20 - Human immunodeficiency virus [HIV] disease (5) h/o supraglottic squamous cell cancer Current Visit: No Status: Chronic - Plan/Recommendations Plan: Suggest to continue to utilize scopolamine patches for mitigating secretions Revisit disease trajectory and hospice care, consider new plan "in home" if respiratory distress occurs. May consider support for grandson as well as education on disease trajectory and progression if he is to remain primary caregiver for Mr Williams. Sydnee Suggs RN Palliative Care to also follow patient. [40] minutes spent on this encounter with >50% of the time in counseling and coordination of care. Thank you for this very appropriate consult.
[2019-07-31] MEDS: Morphine 4 MG/ML VIAL SLOW IVP PRN ×6 (01:50→20:04)
[2019-07-31] MEDS: Vancomycin HCl 1 GM in Premix Bag 1 BAG IVPB SCH ×2 (03:11→14:12)
[2019-07-31] MEDS: Acetaminophen 325 MG TAB PER TUBE PRN (03:11)
[2019-07-31 04:01] LABS: Anion Gap 12 mmol/L (10-20); BUN (Urea Nitrogen) 14 mg/dL (8.4-25.7); Calc. Creatinine Clearance 94 mL/min (70-130); Calcium 8.2 mg/dL (7.8-10.44); Carbon Dioxide 20 mmol/L (23-31); Chloride 110 mmol/L (98-107); Estimated GFR-MDRD Greater than 90; Glucose 184 mg/dL (80-115); Potassium 3.1 mmol/L (3.5-5.1); Sodium 139 mmol/L (136-145)
[2019-07-31 04:34] LABS: Anisocytosis SLIGHT = 6-15 cells (100X) (0-5/hpf); Band 25 % (5-11); Hemoglobin 9.8 g/dL (14.0-18.0); Lymphocytes 5 % (21-51); MDiff Complete? YES; Mean Corpuscular HGB CONC 31.9 g/dL (32.0-36.0); Mean Corpuscular Hemoglobin 30.6 pg (27.0-31.0); Mean Platelet Volume 7.9 fL (7.4-10.4); Metamyelocyte 5 % (0-0); Monocytes 3 % (0-10); Myelocyte 2 % (0-0); Neutrophil 60 % (42-75); Nucleated RBC 4 % (0); Platelet Count 70 thou/uL (130-400); Platelet Morphology Comment Appears Decreased; RBC Distribution Width 15.7 % (11.5-14.5); Toxic Granulation MODERATE
[2019-07-31] MEDS: methylPREDNISolone Sod Succ 40 MG VIAL IVP SCH ×3 (05:37→21:08)
[2019-07-31 08:01] LABS: Phosphorus 2.3 mg/dL (2.3-4.7)
[2019-07-31] MEDS: Elviteg/Cob/Emtri/Tenofo Disop [Stribild] 1 TAB PER TUBE SCH (08:49)
[2019-07-31] MEDS: 1/2 NS w/KCL 20 mEq 1,000 ML IV SCH (08:49)
[2019-07-31] MEDS: Cefepime 2 GM in Sodium Chloride 0.9% 100 ML IVPB SCH ×2 (08:50→21:07)
[2019-07-31] MEDS: clonazePAM 0.5 MG TAB PO SCH ×2 (08:51→21:09)
[2019-07-31] MEDS: Saccharomyces boulardii 250 MG CAP PER TUBE SCH (08:51)
[2019-07-31] MEDS: Famotidine 20 MG TAB PO SCH ×2 (08:52→21:08)
[2019-07-31] MEDS: Famotidine/PF 20 mg/2ml Vial SLOW IVP SCH ×2 (08:52→21:08)
[2019-07-31] MEDS: Sodium Chloride 0.9% 1,000 ML IV SCH (08:55)
[2019-07-31] MEDS ORDERED: Potassium Chloride 20 MEQ TAB PER TUBE SCH (09:45)
--- NOTE | 2019-07-31 12:06 | PDOC.HOSPP ---
- Subjective Encounter Date: 07/31/19 Encounter Time: 11:00 Subjective: Patient seen and examined. pt has high residual volume with tube feeding, still has lot of tracheal secretion, very weak. No overnight events - Objective Vital Signs & Weight: Vital Signs (12 hours) Temp Pulse Resp Pulse Ox 07/31/19 11:02 98.8 F 07/31/19 10:51 100 29 H 95 07/31/19 08:06 97 07/31/19 08:04 94 42 H 98 07/31/19 08:00 92 L 07/31/19 07:52 98.0 F 07/31/19 03:42 94 L 07/31/19 03:24 100.7 F H Weight Admit Weight 126 lb 12.8 oz Weight 126 lb 12.8 oz Most Recent Monitor Data Heart Rate from ECG 99 NIBP 119/73 NIBP BP-Mean 88 Respiration from ECG 44 SpO2 100 I&O: 07/30/19 07/31/19 08/01/19 06:59 06:59 06:59 Intake Total 4797 5254 30 Balance 4797 5254 30 Result Diagrams: 07/31/19 03:36 07/31/19 03:36 EKG Reviewed by me: Yes Hospitalist ROS - Review of Systems ROS unobtainable: due to mental status - Medication Medications: Active Medications Generic Name Dose Route Start Last Admin Trade Name Freq PRN Reason Stop Dose Admin Acetaminophen 650 mg 07/28/19 17:11 07/31/19 03:11 Tylenol PER TUBE 650 mg Q4H PRN Administration Headache/Fever/Mild Pain (1-3) Albuterol/Ipratropium 3 ml 07/29/19 18:30 07/31/19 10:51 Duoneb NEB 3 ml [id number] ARCHIE Administration Clonazepam 0.5 mg 07/29/19 09:00 07/31/19 08:51 Klonopin PO 0.5 mg BID ARCHIE Administration Famotidine 20 mg 07/28/19 21:00 07/31/19 08:52 Pepcid SLOW IVP Not Given Q12HR ARCHIE Famotidine 20 mg 07/28/19 21:00 07/31/19 08:52 Pepcid PO Not Given BID ARCHIE Vancomycin HCl 1 gm/ Device 200 mls @ 200 mls/hr 07/29/19 03:00 07/31/19 03: 11 IVPB 200 mls 0300,1500 ARCHIE Administration Cefepime HCl 2 gm/ Sodium 100 mls @ 200 mls/hr 07/29/19 21:00 07/31/19 08:50 Chloride IVPB 100 mls Q12HR ARCHIE Administration Potassium Chloride/Sodium Chloride 1,000 mls @ 75 mls/hr 07/31/19 07:45 07/31 08:49 1/2 Ns W/Kcl 20 Meq IV 1,000 mls .[id number] ARCHIE Administration Methylprednisolone Sodium Succinate 20 mg 07/28/19 22:00 07/31/19 05:37 Solu-Medrol IVP 20 mg Q8HR ARCHIE Administration Morphine Sulfate 4 mg 07/30/19 09:43 07/31/19 11:24 Morphine SLOW IVP 4 mg Q1H PRN Administration Moderate Pain (4-6) Elviteg/Cob/Emtri/ 1 each 07/29/19 08:00 07/31/19 08:49 Tenofo Disop [ PER TUBE 1 each Stribild] 1 Tab QAM-WM ARCHIE Administration Saccharomyces Boulardii 250 mg 07/29/19 09:00 07/31/19 08:51 Florastor PER TUBE 250 mg DAILY ARCHIE Administration Scopolamine 3 mg 07/29/19 09:00 07/29/19 09:25 Transderm Scop TD 3 mg Q3D ARCHIE Administration Sodium Chloride 10 ml 07/30/19 21:00 07/31/19 08:55 Flush - Normal Saline IVF 10 ml Q12HR ARCHIE Administration - Exam General Appearance: NAD, ill appearing Eye: PERRL, anicteric sclera ENT: normocephalic atraumatic, no oropharyngeal lesions Neck: supple, symmetric, no JVD Neck - other findings: tracheostomy+ Heart: RRR, no murmur, no gallops, no rubs Respiratory: CTAB Respiratory - other findings: bilateral coarse sound+ Gastrointestinal: soft, normal bowel sounds Gastrointestinal - other findings: peg + Extremities - other findings: right AKA, left bka Skin: normal turgor Neurological: no focal deficits Musculoskeletal: generalized weakness Psychiatric: normal affect Hosp A/P (1) Pneumonia Code(s): J18.9 - PNEUMONIA, UNSPECIFIED ORGANISM Status: Acute Qualifiers: Pneumonia type: aspiration pneumonia Laterality: bilateral Lung location : unspecified part of lung (2) Acute and chronic respiratory failure with hypoxia Code(s): J96.21 - ACUTE AND CHRONIC RESPIRATORY FAILURE WITH HYPOXIA Status: Acute (3) Sepsis Code(s): A41.9 - SEPSIS, UNSPECIFIED ORGANISM Status: Acute Qualifiers: Sepsis type: sepsis due to unspecified organism Severe sepsis acute organ dysfunction type: acute respiratory failure Acute respiratory failure type: with hypoxia Severe sepsis shock status: without septic shock Qualified Code (s): A41.9 - Sepsis, unspecified organism (4) Sinus tachycardia Code(s): R00.0 - TACHYCARDIA, UNSPECIFIED Status: Acute (5) GERD (gastroesophageal reflux disease) Code(s): K21.9 - GASTRO-ESOPHAGEAL REFLUX DISEASE WITHOUT ESOPHAGITIS Status: Chronic Qualifiers: Esophagitis presence: esophagitis presence not specified Qualified Code(s) : K21.9 - Gastro-esophageal reflux disease without esophagitis (6) HIV (human immunodeficiency virus infection) Code(s): B20 - HUMAN IMMUNODEFICIENCY VIRUS [HIV] DISEASE Status: Chronic Qualifiers: HIV symptom status: unspecified Qualified Code(s): B20 - Human immunodeficiency virus [HIV] disease (7) History of left below knee amputation Code(s): Z89.512 - ACQUIRED ABSENCE OF LEFT LEG BELOW KNEE Status: Chronic (8) History of right above knee amputation Code(s): Z89.611 - ACQUIRED ABSENCE OF RIGHT LEG ABOVE KNEE Status: Chronic (9) h/o supraglottic squamous cell cancer Status: Chronic (10) Pancytopenia Code(s): D61.818 - OTHER PANCYTOPENIA Status: Resolved - Plan old records reviewed/req, continue antibiotics, respiratory therapy 07/29/19 continue vancomycin and zosyn continue IVF medication reviewed as above symptomatic treatment tracheostomy and PEG tube nursing home meds reconciled follow on culture consult palliative care 07/30/19 continue vancomycin and cefepime continue solumedrol agree with morphin pulmonary recommendation appreciated Medication reviewed as above, symptomatic treatment so far blood culture is negative and urine culture is likely due to colonization 07/31/19 hold tube feeding continue vancomycin, cefepime, solumderol medication reviewed as above symptomatic treatment prognosis poor palliative care on case
--- NOTE | 2019-07-31 17:11 | PRG ---
DATE OF SERVICE: 07/31/2019 SUBJECTIVE: The patient says he is feeling a little bit better. He looks more comfortable today. He is actually smiling a little bit. I saw him this morning. OBJECTIVE: VITAL SIGNS: Temperature is 99.8, blood pressure 120/82, respiratory rate is 21. LUNGS: Remarkable for rhonchi bilaterally. HEART: Regular rhythm. ABDOMEN: Soft. LABORATORY DATA: White count 3, hemoglobin 9.8, and platelets 70,000. Sodium 139, potassium 3.1, chloride 110, bicarb 20, BUN 14, and creatinine 0.66. Microbiology still shows no blood culture results. He did not have any tracheal aspirate cultures done when he came in. IMPRESSION: Community-acquired pneumonia that is lobar. Most likely, it is aspiration mediated. We will continue with antimicrobial therapy as he is slowly improving. Other problems include HIV positive, bilateral lower extremity amputee, status post tracheostomy, and extreme deconditioning. Job ID: [id number]
[2019-08-01] MEDS: Morphine 4 MG/ML VIAL SLOW IVP PRN ×5 (01:32→20:52)
[2019-08-01] MEDS: Acetaminophen 325 MG TAB PER TUBE PRN (01:33)
[2019-08-01] MEDS: Vancomycin HCl 1 GM in Premix Bag 1 BAG IVPB SCH ×2 (04:54→14:57)
[2019-08-01] MEDS: methylPREDNISolone Sod Succ 40 MG VIAL IVP SCH ×3 (07:41→21:59)
[2019-08-01] MEDS: Cefepime 2 GM in Sodium Chloride 0.9% 100 ML IVPB SCH ×2 (10:16→21:11)
[2019-08-01] MEDS: 1/2 NS w/KCL 20 mEq 1,000 ML IV SCH ×2 (10:16)
[2019-08-01] MEDS: Elviteg/Cob/Emtri/Tenofo Disop [Stribild] 1 TAB PER TUBE SCH (10:16)
[2019-08-01] MEDS: Scopolamine 1.5 mg/72 hour Patch TD SCH ×2 (10:17→16:46)
[2019-08-01] MEDS: clonazePAM 0.5 MG TAB PO SCH ×2 (10:17→20:50)
[2019-08-01] MEDS: Famotidine/PF 20 mg/2ml Vial SLOW IVP SCH ×2 (10:17→20:52)
[2019-08-01] MEDS: Saccharomyces boulardii 250 MG CAP PER TUBE SCH (10:17)
[2019-08-01] MEDS: Famotidine 20 MG TAB PO SCH ×2 (10:17→20:51)
--- NOTE | 2019-08-01 10:35 | PDOC.HOSPP ---
- Subjective Encounter Date: 08/01/19 Encounter Time: 10:33 Subjective: non verbal, has trach, no distress - Objective Vital Signs & Weight: Vital Signs (12 hours) Temp Pulse Resp Pulse Ox 08/01/19 09:02 93 L 08/01/19 08:30 103 H 08/01/19 08:00 91 L 08/01/19 07:23 97.4 F L 08/01/19 04:00 98.4 F 08/01/19 02:16 108 H 30 H 89 L 07/31/19 23:44 98.1 F Weight Admit Weight 126 lb 12.8 oz Weight 126 lb 12.8 oz Most Recent Monitor Data Heart Rate from ECG 89 NIBP 94/66 NIBP BP-Mean 75 Respiration from ECG 32 SpO2 90 I&O: 07/31/19 08/01/19 08/02/19 06:59 06:59 06:59 Intake Total 5254 30 Balance 5254 30 Result Diagrams: 07/31/19 03:36 07/31/19 03:36 Hospitalist ROS - Medication Medications: Active Medications Generic Name Dose Route Start Last Admin Trade Name Freq PRN Reason Stop Dose Admin Acetaminophen 650 mg 07/28/19 17:11 08/01/19 01:33 Tylenol PER TUBE 650 mg Q4H PRN Administration Headache/Fever/Mild Pain (1-3) Albuterol/Ipratropium 3 ml 07/29/19 18:30 08/01/19 08:30 Duoneb NEB 3 ml [id number] ARCHIE Administration Clonazepam 0.5 mg 07/29/19 09:00 08/01/19 10:17 Klonopin PO 0.5 mg BID ARCHIE Administration Famotidine 20 mg 07/28/19 21:00 08/01/19 10:17 Pepcid SLOW IVP Not Given Q12HR ARCHIE Famotidine 20 mg 07/28/19 21:00 08/01/19 10:17 Pepcid PO 20 mg BID ARCHIE Administration Vancomycin HCl 1 gm/ Device 200 mls @ 200 mls/hr 07/29/19 03:00 08/01/19 04: 54 IVPB 200 mls 0300,1500 ARCHIE Administration Cefepime HCl 2 gm/ Sodium 100 mls @ 200 mls/hr 07/29/19 21:00 08/01/19 10:16 Chloride IVPB 100 mls Q12HR ARCHIE Administration Potassium Chloride/Sodium Chloride 1,000 mls @ 75 mls/hr 07/31/19 07:45 08/01 10:16 1/2 Ns W/Kcl 20 Meq IV 1,000 mls .[id number] ARCHIE Administration Methylprednisolone Sodium Succinate 20 mg 07/28/19 22:00 08/01/19 07:41 Solu-Medrol IVP 20 mg Q8HR ARCHIE Administration Morphine Sulfate 4 mg 07/30/19 09:43 08/01/19 10:18 Morphine SLOW IVP 4 mg Q1H PRN Administration Moderate Pain (4-6) Elviteg/Cob/Emtri/ 1 each 07/29/19 08:00 08/01/19 10:16 Tenofo Disop [ PER TUBE 1 each Stribild] 1 Tab QAM-WM ARCHIE Administration Saccharomyces Boulardii 250 mg 07/29/19 09:00 08/01/19 10:17 Florastor PER TUBE 250 mg DAILY ARCHIE Administration Scopolamine 3 mg 07/29/19 09:00 08/01/19 10:17 Transderm Scop TD 3 mg Q3D ARCHIE Administration Sodium Chloride 10 ml 07/30/19 21:00 08/01/19 10:18 Flush - Normal Saline IVF 10 ml Q12HR ARCHIE Administration - Exam Neck: no JVD Heart: RRR, no murmur Respiratory - other findings: bilat rales R>> L Gastrointestinal: soft, non-tender Extremities - other findings: bilat LE amputee Hosp A/P (1) UTI (urinary tract infection), bacterial Code(s): N39.0 - URINARY TRACT INFECTION, SITE NOT SPECIFIED; A49.9 - BACTERIAL INFECTION, UNSPECIFIED Status: Acute (2) Pneumonia Code(s): J18.9 - PNEUMONIA, UNSPECIFIED ORGANISM Status: Acute Qualifiers: Pneumonia type: aspiration pneumonia Laterality: bilateral Lung location : unspecified part of lung (3) Sepsis Code(s): A41.9 - SEPSIS, UNSPECIFIED ORGANISM Status: Acute Qualifiers: Sepsis type: sepsis due to unspecified organism Severe sepsis acute organ dysfunction type: acute respiratory failure Acute respiratory failure type: with hypoxia Severe sepsis shock status: without septic shock Qualified Code (s): A41.9 - Sepsis, unspecified organism (4) HIV (human immunodeficiency virus infection) Code(s): B20 - HUMAN IMMUNODEFICIENCY VIRUS [HIV] DISEASE Status: Chronic Qualifiers: HIV symptom status: unspecified Qualified Code(s): B20 - Human immunodeficiency virus [HIV] disease (5) Acute respiratory failure with hypoxia Code(s): J96.01 - ACUTE RESPIRATORY FAILURE WITH HYPOXIA Status: Resolved - Plan cont iv antibx cont O2 support, nebs, poor prognosis
[2019-08-01] MEDS ORDERED: Glycopyrrolate 1 MG TAB PO SCH ×2 (16:00→21:00)
--- NOTE | 2019-08-01 16:07 | PRG ---
DATE OF SERVICE: 08/01/2019 SUBJECTIVE: Yrn Maykel Mango' biggest complaint is secretions. I have ordered Robinul and scopolamine patch. Hopefully that will help. Cultures reviewed, it is still negative. He is probably to a point where we could switch him to enteral antibiotics tomorrow. OBJECTIVE: LUNGS: Remarkable for rhonchi bilaterally. HEART: Regular rhythm. ABDOMEN: Soft. LABORATORY DATA: There is no new lab today. IMPRESSION: 1. Community-acquired pneumonia most likely aspiration mediated. 2. Deconditioning. 3. Double amputee. 4. Human immunodeficiency virus positive. 5. Status post tracheostomy. 6. Urinary tract infection versus colonization. I have seen him like this bad in the past and he has rallied and survived. Hopefully, he will continue to improve. He does nod that he feels better, but he is coughing frequently, which is worrying him out. Job ID: [id number]
--- NOTE | 2019-08-01 16:57 | CON ---
DATE OF CONSULTATION: 08/01/2019 REQUESTING PHYSICIAN: Rishabh Sauceda MD REASON FOR CONSULTATION: Leakage around PEG tube and high gastric residuals. HISTORY OF PRESENT ILLNESS: Kendra Cobian is an unfortunate 64-year-old gentleman with history of supraglottic squamous cell carcinoma metastatic to lung. He also evidently has a history of HIV and lymphoma. He has a tracheostomy and a PEG tube in place for quite some time. His last EGD was in January of 2019, at which time, he was found to have severe erosive esophagitis, pre-pyloric ulcerations and duodenitis. At that time, he went home on hospice. He has managed to hold on throughout most of this year, but was readmitted to the hospital four days ago with respiratory distress and found to have pneumonia with sepsis, which is being treated with antibiotics. He revoked his hospice status for this admission. Palliative Care has again been consulted and hospice is being reconsidered. During this time, he has been noted to have some leakage around the PEG tube site as well as some high gastric residuals evidently 300 mL earlier today. The patient has not had vomiting. He is able to nod yes or no and answer to questions. He denies nausea, significant abdominal pain, or pain at the PEG tube site. The external bumper is quite loose all the way out to 4.5 cm, so it is no mystery why he is having leakage around the PEG site. PAST MEDICAL HISTORY: Tracheobronchitis, HIV, pancytopenia, supraglottic squamous cell carcinoma metastatic to lung, bilateral lower extremity amputation, physical deconditioning, PEG placement, tracheostomy placement, depression, and anxiety. SOCIAL HISTORY: The patient was recently on home hospice status. No alcohol or tobacco abuse. He is an ex-smoker. FAMILY HISTORY: Positive for heart disease and diabetes among several family members. ALLERGIES: NO KNOWN DRUG ALLERGIES. MEDICATIONS: 1. Tylenol p.r.n. 2. DuoNebs. 3. Cefepime IV. 4. Clonazepam. 5. Pepcid 20 mg b.i.d. 6. Solu-Medrol 20 mg IV q.8 hours. 7. Morphine p.r.n. 8. Stribild one tablet daily. 9. Potassium chloride. 10. Florastor. 11. Scopolamine patch. 12. Vancomycin IV. PHYSICAL EXAMINATION: VITAL SIGNS: Temperature 97.9, pulse 100, blood pressure 122/70, and 96% oxygen saturation on trach collar. GENERAL: Chronically ill 64-year-old man, tachypneic, in mild respiratory distress. SKIN: No jaundice. No rash. HEENT: Eyes, no scleral icterus. ENT, he has tracheostomy in place. Mucous membranes are moist. HEART: Regular tachycardia. LUNGS: Bibasilar crackles. No wheezing. ABDOMEN: PEG tube was in place in the left upper quadrant. The external bumper is very poorly positioned all the way out of 4.5 cm, so there is a lot of play with the PEG tube. Using gentle traction on the tube, I tightened the external bumper to a distance of 1.5 cm, which is fairly snug. The abdomen is soft and nontender to palpation. EXTREMITIES: No peripheral edema. He is status post bilateral lower extremity amputation. LABORATORY STUDIES: WBC 3.0, hemoglobin 9.8, and platelets 70. Sodium 139, potassium 3.1, BUN 14, and creatinine 0.66. IMAGING STUDIES: On 07/29/2019, abdominal x-ray showed contrast going through PEG tube into the gastric lumen showing appropriate placement. ASSESSMENT AND PLAN: Percutaneous endoscopic gastrostomy tube malfunction, some leakage around the tube. There is leakage around the tube because the external bumper is far too distant from the patient's skin. I tightened the external bumper to a distance of 1.5 cm. This will likely stop the leakage. I would advise resuming tube feeds at the prior rate and seeing how he does going forward. Note, he has a history of significant gastritis and ulcerations, so I would continue him on acid suppression. Job ID: [id number]
[2019-08-01] MEDS: HYDROcodone/Acetaminophen 5/325 mg Tablet PER TUBE PRN (20:50)
[2019-08-01] MEDS: Glycopyrrolate 1 MG TAB PO SCH (21:59)
[2019-08-02] MEDS: 1/2 NS w/KCL 20 mEq 1,000 ML IV SCH ×2 (00:40→17:07)
[2019-08-02] MEDS: Morphine 4 MG/ML VIAL SLOW IVP PRN ×5 (01:03→21:12)
[2019-08-02] MEDS: Vancomycin HCl 1 GM in Premix Bag 1 BAG IVPB SCH ×2 (02:36→15:39)
[2019-08-02] MEDS: methylPREDNISolone Sod Succ 40 MG VIAL IVP SCH ×3 (05:09→21:22)
[2019-08-02] MEDS: Elviteg/Cob/Emtri/Tenofo Disop [Stribild] 1 TAB PER TUBE SCH (08:51)
[2019-08-02] MEDS: Cefepime 2 GM in Sodium Chloride 0.9% 100 ML IVPB SCH ×2 (08:51→21:10)
[2019-08-02] MEDS: Saccharomyces boulardii 250 MG CAP PER TUBE SCH (08:52)
[2019-08-02] MEDS: clonazePAM 0.5 MG TAB PO SCH ×2 (08:52→21:10)
[2019-08-02] MEDS: Famotidine/PF 20 mg/2ml Vial SLOW IVP SCH ×2 (08:52→21:11)
--- NOTE | 2019-08-02 08:52 | PDOC.PALPN ---
Palliative Progress Note - Subjective Sleeping but arousable. Complains of mild headache, cough with white bloody secretions to trach. Denies abdominal discomfort or pain. - Objective Vital Signs: Vital Signs - Most Recent Temp Pulse Resp BP Pulse Ox 98.0 F 99 26 H 86 L 08/02/19 03:07 08/02/19 07:18 08/02/19 07:18 08/02/19 07:26 - Physical Exam Constitutional: mild distress HEENT: moist MMs, sclera anicteric, EOMI Deviation from normal: Adventitious lung sounds bilaterally, bloody secretions via trach,cough Cardiovascular: RRR Gastrointestinal: non-tender, positive bowel sounds Deviation from normal: g-tube Musculoskeletal: no edema Deviation from normal: bilateral lower ext amputee Neurological: moves all 4 limbs Psychiatric: A&O x 3 Skin: cap refill <2 seconds - Assessment (1) Palliative care encounter Code(s): Z51.5 - ENCOUNTER FOR PALLIATIVE CARE Current Visit: Yes Status: Acute (2) Acute and chronic respiratory failure with hypoxia Code(s): J96.21 - ACUTE AND CHRONIC RESPIRATORY FAILURE WITH HYPOXIA Current Visit: No Status: Acute (3) Tracheal tumor Code(s): 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 Initiated conversation of returning to [facility] at discharge. Patient had previously been at [facility] with protocol in place through hospice to mitigate respiratory distress. Patient had done well and had transitioned to a home situation with his grandson as primary caregiver. Discussed that at time of discharge he will require a higher level of care and ability to have medical care and support at longterm. *Discussion of returning to [facility] paired with goal of care of being as independent as possible *Add atropine ggt sublingual prn to attempt to mitigate secretions to prevent further aspiration *Continue discussion of disease progression of complex health conditions [60] minutes spent on this encounter with >50% of the time in counseling and coordination of care.
[2019-08-02] MEDS: Famotidine 20 MG TAB PO SCH ×2 (08:55→21:11)
[2019-08-02] MEDS: Glycopyrrolate 1 MG TAB PO SCH ×2 (09:39→21:10)
--- NOTE | 2019-08-02 15:09 | PDOC.HOSPP ---
- Subjective Encounter Date: 08/02/19 Encounter Time: 09:40 Subjective: Pt seen for followup re: pneumonia. Pt nonverbal, unable to complete ROS. - Objective Vital Signs & Weight: Vital Signs (12 hours) Pulse Resp Pulse Ox 08/02/19 14:20 100 26 H 93 L 08/02/19 10:40 105 H 27 H 97 08/02/19 07:26 86 L 08/02/19 07:18 99 26 H 86 L 08/02/19 07:16 91 L Weight Admit Weight 126 lb 12.8 oz Weight 139 lb 11.2 oz Most Recent Monitor Data Heart Rate from ECG 93 NIBP 121/70 NIBP BP-Mean 87 Respiration from ECG 41 SpO2 91 I&O: 08/01/19 08/02/19 08/03/19 06:59 06:59 06:59 Intake Total 30 3051 60 Output Total 460 Balance 30 2591 60 Result Diagrams: 07/31/19 03:36 07/31/19 03:36 Additional Labs: Labs and MARs reviewed by me EKG Reviewed by me: Yes (Tele: sFlaco freitas) Hospitalist ROS - Review of Systems Other: Could not be completed due to nonverbal status - Medication Medications: Active Medications Generic Name Dose Route Start Last Admin Trade Name Freq PRN Reason Stop Dose Admin Acetaminophen 650 mg 07/28/19 17:11 08/01/19 01:33 Tylenol PER TUBE 650 mg Q4H PRN Administration Headache/Fever/Mild Pain (1-3) Hydrocodone Bitart/Acetaminophen 1 tab 07/28/19 17:11 08/01/19 20:50 [place] 5/325 PER TUBE 1 tab Q4H PRN Administration Moderate Pain (4-6) Albuterol/Ipratropium 3 ml 07/29/19 18:30 08/02/19 14:20 Duoneb NEB 3 ml [id number] ARCHIE Administration Clonazepam 0.5 mg 07/29/19 09:00 08/02/19 08:52 Klonopin PO 0.5 mg BID ARCHIE Administration Famotidine 20 mg 07/28/19 21:00 08/02/19 08:52 Pepcid SLOW IVP 20 mg Q12HR ARCHIE Administration Famotidine 20 mg 07/28/19 21:00 08/02/19 08:55 Pepcid PO 20 mg BID ARCHIE Administration Glycopyrrolate 1 mg 10/30/19 21:00 08/01/19 21:59 Robinul PO 1 mg BID ARCHIE Administration Vancomycin HCl 1 gm/ Device 200 mls @ 200 mls/hr 07/29/19 03:00 08/02/19 02: 36 IVPB 200 mls 0300,1500 ARCHIE Administration Cefepime HCl 2 gm/ Sodium 100 mls @ 200 mls/hr 07/29/19 21:00 08/02/19 08:51 Chloride IVPB 100 mls Q12HR ARCHIE Administration Potassium Chloride/Sodium Chloride 1,000 mls @ 75 mls/hr 07/31/19 07:45 08/02 00:40 1/2 Ns W/Kcl 20 Meq IV 1,000 mls .[id number] ARCHIE Administration Methylprednisolone Sodium Succinate 20 mg 07/28/19 22:00 08/02/19 05:09 Solu-Medrol IVP 20 mg Q8HR ARCHIE Administration Morphine Sulfate 4 mg 07/30/19 09:43 08/02/19 08:52 Morphine SLOW IVP 4 mg Q1H PRN Administration Moderate Pain (4-6) Elviteg/Cob/Emtri/ 1 each 07/29/19 08:00 08/02/19 08:51 Tenofo Disop [ PER TUBE 1 each Stribild] 1 Tab QAM-WM ARCHIE Administration Saccharomyces Boulardii 250 mg 07/29/19 09:00 08/02/19 08:52 Florastor PER TUBE 250 mg DAILY ARCHIE Administration Scopolamine 1.5 mg 08/01/19 16:00 08/01/19 16:46 Transderm Scop TD Not Given Q3D ARCHIE Sodium Chloride 10 ml 07/30/19 21:00 08/02/19 09:03 Flush - Normal Saline IVF 10 ml Q12HR ARCHIE Administration - Exam General Appearance: NAD Eye: anicteric sclera ENT: moist mucosa Neck - other findings: s/p trachesotomy Heart - other findings: S1, S2, reg, tachy Respiratory - other findings: Neal crackles Gastrointestinal: soft, non-tender Gastrointestinal - other findings: PEG tube Skin: no rashes Psychiatric - other findings: appears anxious Hosp A/P (1) Pneumonia Code(s): J18.9 - PNEUMONIA, UNSPECIFIED ORGANISM Status: Acute Qualifiers: Pneumonia type: aspiration pneumonia Laterality: bilateral Lung location : unspecified part of lung (2) UTI (urinary tract infection), bacterial Code(s): N39.0 - URINARY TRACT INFECTION, SITE NOT SPECIFIED; A49.9 - BACTERIAL INFECTION, UNSPECIFIED Status: Acute (3) GERD (gastroesophageal reflux disease) Code(s): K21.9 - GASTRO-ESOPHAGEAL REFLUX DISEASE WITHOUT ESOPHAGITIS Status: Chronic Qualifiers: Esophagitis presence: esophagitis presence not specified Qualified Code(s) : K21.9 - Gastro-esophageal reflux disease without esophagitis (4) HIV (human immunodeficiency virus infection) Code(s): B20 - HUMAN IMMUNODEFICIENCY VIRUS [HIV] DISEASE Status: Chronic Qualifiers: HIV symptom status: unspecified Qualified Code(s): B20 - Human immunodeficiency virus [HIV] disease - Plan continue antibiotics, PT/OT Continue IV cefepime and IV vancomycin pneumonia, UIT with E. coli and P. mirabilis). Continue tube feeds. Check AM labs.
[2019-08-02] MEDS: Atropine Sulfate 1% Ophth Soln 5 ml Bottle PO PRN ×2 (15:36→23:40)
--- NOTE | 2019-08-02 20:18 | PRG ---
DATE OF SERVICE: 08/02/2019 SUBJECTIVE: Yrn Cobian has better control of his airway and secretions today. OBJECTIVE: VITAL SIGNS: He is afebrile. Heart rate is fluctuating between 100 and 120, respiratory rate is 20, oximetry is 96, blood pressure 117/77. LUNGS: Remarkable for rhonchi. HEART: Regular rhythm. ABDOMEN: Soft. LABORATORY DATA: No new lab today. IMPRESSION: Pneumonia, likely aspiration mediated. PLAN: Continue followup. Job ID: [id number]
[2019-08-02] MEDS: Loratadine 10 MG TAB PER TUBE PRN (21:10)
[2019-08-02] MEDS: HYDROcodone/Acetaminophen 5/325 mg Tablet PER TUBE PRN (21:11)
[2019-08-02] MEDS: Zolpidem Tartrate 5 MG TAB PER TUBE PRN (21:12)
[2019-08-02] MEDS ORDERED: Pantoprazole 40 MG VIAL IVP SCH (22:45)
--- NOTE | 2019-08-02 22:52 | PRG ---
DATE OF SERVICE: 08/02/2019 SUBJECTIVE: Mr. Cobian had his PEG tube. The external bumper tightened yesterday by Dr. Tubbs. He has had no further leakage of the feeds from the tube since then. He had been having high residuals as well. His feeds have been started at 30 mL/h, which is below his current goal rate of 60. Most recently, his residual was low on the current rate of feeds. OBJECTIVE: VITAL SIGNS: Temperature 99.5, pulse 123, blood pressure 117/77. GENERAL: He is not verbally interactive. ABDOMEN: He has bloody secretions from his tracheostomy. His abdomen is mildly distended but soft. His bowel sounds are present. The PEG site appears clear. IMPRESSION: 1. Malfunction of percutaneous endoscopic gastrostomy tube. He did have leakage from the tube, which is now resolved by tightening the bumper. 2. Increased gastric residuals, which appear to be improved with a slower rate of feeds. At this point, he can titrate the feeds back up toward his goal rate as he tolerates. He is on metoclopramide as needed. If he starts having significant residuals again, then this can be given on a scheduled higher dose at 10 mg q.6 hours. 3. He had a gastric ulceration as noted by his previous endoscopy. Would be appropriate to change from H2 danny to proton pump inhibitor. Job ID: [id number]
[2019-08-02] MEDS: Acetaminophen 325 MG TAB PER TUBE PRN (23:37)
[2019-08-03] MEDS: Vancomycin HCl 1 GM in Premix Bag 1 BAG IVPB SCH ×2 (01:59→14:43)
[2019-08-03] MEDS: 1/2 NS w/KCL 20 mEq 1,000 ML IV SCH ×2 (02:00→21:49)
[2019-08-03] MEDS: methylPREDNISolone Sod Succ 40 MG VIAL IVP SCH ×3 (05:44→21:46)
[2019-08-03 05:51] LABS: Anion Gap 12 mmol/L (10-20); BUN (Urea Nitrogen) 18 mg/dL (8.4-25.7); Band 13 % (5-11); Calc. Creatinine Clearance 107 mL/min (70-130); Calcium 8.6 mg/dL (7.8-10.44); Carbon Dioxide 22 mmol/L (23-31); Chloride 108 mmol/L (98-107); Estimated GFR-MDRD Greater than 90; Glucose 181 mg/dL (80-115); Hemoglobin 10.6 g/dL (14.0-18.0); Hypochromia SLIGHT = 6-15 cells (100X) (0-5/hpf); Lymphocytes 1 % (21-51); MDiff Complete? YES; Mean Corpuscular HGB CONC 31.5 g/dL (32.0-36.0); Mean Corpuscular Hemoglobin 30.5 pg (27.0-31.0); Mean Corpuscular Volume 96.7 fL (78.0-98.0); Mean Platelet Volume 9.4 fL (7.4-10.4); Monocytes 22 % (0-10); Neutrophil 64 % (42-75); Platelet Count 39 thou/uL (130-400); Platelet Morphology Comment Appears Decreased; Potassium 4.4 mmol/L (3.5-5.1); Red Blood Cell (RBC) Count 3.46 mill/uL (4.70-6.10); Sodium 138 mmol/L (136-145); White Blood Cell (WBC) Count 4.4 thou/uL (4.8-10.8)
[2019-08-03] MEDS: Morphine 4 MG/ML VIAL SLOW IVP PRN ×3 (07:45→14:44)
[2019-08-03] MEDS: Elviteg/Cob/Emtri/Tenofo Disop [Stribild] 1 TAB PER TUBE SCH (08:13)
[2019-08-03] MEDS: HYDROcodone/Acetaminophen 5/325 mg Tablet PER TUBE PRN ×2 (09:14→23:39)
[2019-08-03] MEDS: Atropine Sulfate 1% Ophth Soln 5 ml Bottle PO PRN (09:14)
[2019-08-03] MEDS: clonazePAM 0.5 MG TAB PO SCH ×2 (09:14→21:46)
[2019-08-03] MEDS: Pantoprazole 40 MG VIAL IVP SCH (09:14)
[2019-08-03] MEDS: Saccharomyces boulardii 250 MG CAP PER TUBE SCH (09:14)
[2019-08-03] MEDS: Cefepime 2 GM in Sodium Chloride 0.9% 100 ML IVPB SCH ×2 (09:15→21:46)
[2019-08-03] MEDS: Glycopyrrolate 1 MG TAB PO SCH ×2 (09:15→21:46)
--- NOTE | 2019-08-03 10:24 | PRG ---
DATE OF SERVICE: 08/03/2019 SUBJECTIVE: Federico Cobian is looking more fatigued today. OBJECTIVE: VITAL SIGNS: Heart rate is 120, oximetry is 91% on a trach collar 40%. His trach collar was turned up to 60%. Blood pressure 116/73, respiratory rate shallow, in the high 30s. LUNGS: Remarkable for rhonchi bilaterally. HEART: Regular rhythm. LABORATORY DATA: White count 4.4, hemoglobin 10.6, platelets 39. Sodium 138, potassium 4.4, chloride 108, bicarb 22, BUN 18, and creatinine 0.64. IMPRESSION: 1. Pneumonia, likely aspiration mediated. 2. History of tracheostomy. 3. Retained secretions. 4. Respiratory muscle fatigue. 5. Human immunodeficiency virus positive. I do not expect him to survive. Job ID: [id number]
--- NOTE | 2019-08-03 15:03 | PDOC.HOSPP ---
- Subjective Encounter Date: 08/03/19 Encounter Time: 10:50 Subjective: expresses no complaint.. - Objective Vital Signs & Weight: Vital Signs (12 hours) Temp Pulse Resp Pulse Ox 08/03/19 14:18 84 25 H 89 L 08/03/19 11:16 92 31 H 94 L 08/03/19 11:11 97.2 F L 08/03/19 08:00 91 L 08/03/19 07:39 123 H 08/03/19 07:28 98.4 F 08/03/19 04:00 98.4 F 08/03/19 03:38 103 H 36 H 94 L Weight Admit Weight 126 lb 12.8 oz Weight 140 lb Most Recent Monitor Data Heart Rate from ECG 85 NIBP 116/68 NIBP BP-Mean 84 Respiration from ECG 28 SpO2 92 I&O: 08/02/19 08/03/19 08/04/19 06:59 06:59 06:59 Intake Total 3051 2490 30 Output Total 460 1050 Balance 2591 1440 30 Result Diagrams: 08/03/19 05:18 08/03/19 05:18 Hospitalist ROS - Medication Medications: Active Medications Generic Name Dose Route Start Last Admin Trade Name Freq PRN Reason Stop Dose Admin Acetaminophen 650 mg 07/28/19 17:11 08/02/19 23:37 Tylenol PER TUBE 650 mg Q4H PRN Administration Headache/Fever/Mild Pain (1-3) Hydrocodone Bitart/Acetaminophen 1 tab 07/28/19 17:11 08/03/19 09:14 [place] 5/325 PER TUBE 1 tab Q4H PRN Administration Moderate Pain (4-6) Albuterol/Ipratropium 3 ml 07/29/19 18:30 08/03/19 14:18 Duoneb NEB 3 ml [id number] ARCHIE Administration Atropine Sulfate 4 drop 08/02/19 13:00 08/03/19 09:14 Atropine 1% Ophth Soln PO 4 drop Q6H PRN Administration SECRETION Clonazepam 0.5 mg 07/29/19 09:00 08/03/19 09:14 Klonopin PO 0.5 mg BID ARCHIE Administration Glycopyrrolate 1 mg 08/01/19 21:00 08/03/19 09:15 Robinul PO 1 mg BID ARCHIE Administration Vancomycin HCl 1 gm/ Device 200 mls @ 200 mls/hr 07/29/19 03:00 08/03/19 14: 43 IVPB 200 mls 0300,1500 ARCHIE Administration Cefepime HCl 2 gm/ Sodium 100 mls @ 200 mls/hr 07/29/19 21:00 08/03/19 09:15 Chloride IVPB 100 mls Q12HR ARCHIE Administration Potassium Chloride/Sodium Chloride 1,000 mls @ 75 mls/hr 07/31/19 07:45 08/03 02:00 1/2 Ns W/Kcl 20 Meq IV 1,000 mls .[id number] ARCHIE Administration Loratadine 10 mg 07/28/19 17:11 08/02/19 21:10 Claritin PER TUBE 10 mg DAILYPRN PRN Administration Sinus Symptoms Methylprednisolone Sodium Succinate 20 mg 07/28/19 22:00 08/03/19 14:43 Solu-Medrol IVP 20 mg Q8HR ARCHIE Administration Morphine Sulfate 4 mg 07/30/19 09:43 08/03/19 14:44 Morphine SLOW IVP 4 mg Q1H PRN Administration Moderate Pain (4-6) Pantoprazole Sodium 40 mg 08/03/19 09:00 08/03/19 09:14 Protonix IVP 40 mg DAILY ARCHIE Administration Elviteg/Cob/Emtri/ 1 each 07/29/19 08:00 08/03/19 08:13 Tenofo Disop [ PER TUBE 1 each Stribild] 1 Tab QAM-WM ARCHIE Administration Saccharomyces Boulardii 250 mg 07/29/19 09:00 08/03/19 09:14 Florastor PER TUBE 250 mg DAILY ARCHIE Administration Scopolamine 1.5 mg 08/01/19 16:00 08/01/19 16:46 Transderm Scop TD Not Given Q3D ARCHIE Senna/Docusate Sodium 2 tab 07/28/19 17:11 08/02/19 21:10 Senokot S PER TUBE 2 tab BID PRN Administration Constipation Sodium Chloride 10 ml 07/30/19 21:00 08/03/19 09:21 Flush - Normal Saline IVF 10 ml Q12HR ARCHIE Administration Zolpidem Tartrate 5 mg 07/28/19 17:11 08/02/19 21:12 Ambien PER TUBE 5 mg HSPRN PRN Administration Insomnia - Exam General Appearance: NAD General - other findings: s/p tracheostomy.. Neck: no JVD Heart: RRR Respiratory: no ronchi Gastrointestinal: soft Extremities - other findings: s/p right AKA, s/p left BKA Neurological: no focal deficits Hosp A/P (1) HIV (human immunodeficiency virus infection) Code(s): B20 - HUMAN IMMUNODEFICIENCY VIRUS [HIV] DISEASE Status: Acute (2) Pneumonia Code(s): J18.9 - PNEUMONIA, UNSPECIFIED ORGANISM Status: Acute Qualifiers: Pneumonia type: aspiration pneumonia Laterality: bilateral Lung location : unspecified part of lung (3) UTI (urinary tract infection), bacterial Code(s): N39.0 - URINARY TRACT INFECTION, SITE NOT SPECIFIED; A49.9 - BACTERIAL INFECTION, UNSPECIFIED Status: Acute (4) Acute and chronic respiratory failure with hypoxia Code(s): J96.21 - ACUTE AND CHRONIC RESPIRATORY FAILURE WITH HYPOXIA Status: Acute - Plan Patient was seen by palliative care.. Continue supportive therapy..
[2019-08-04] MEDS: Morphine 4 MG/ML VIAL SLOW IVP PRN ×6 (02:14→20:47)
[2019-08-04] MEDS: Vancomycin HCl 750 MG in Sodium Chloride 0.9% 250 ML 250 ML IVPB SCH ×2 (02:15→15:17)
[2019-08-04] MEDS: HYDROcodone/Acetaminophen 5/325 mg Tablet PER TUBE PRN ×2 (05:27→14:11)
[2019-08-04] MEDS: methylPREDNISolone Sod Succ 40 MG VIAL IVP SCH ×3 (05:29→21:01)
[2019-08-04] MEDS: Pantoprazole 40 MG VIAL IVP SCH (07:46)
[2019-08-04] MEDS: Saccharomyces boulardii 250 MG CAP PER TUBE SCH (07:46)
[2019-08-04] MEDS: Cefepime 2 GM in Sodium Chloride 0.9% 100 ML IVPB SCH ×2 (07:47→20:48)
[2019-08-04] MEDS: clonazePAM 0.5 MG TAB PO SCH ×2 (07:47→20:48)
[2019-08-04] MEDS: Glycopyrrolate 1 MG TAB PO SCH ×2 (07:47→20:49)
[2019-08-04] MEDS: Elviteg/Cob/Emtri/Tenofo Disop [Stribild] 1 TAB PER TUBE SCH (09:42)
--- NOTE | 2019-08-04 11:23 | PRG ---
DATE OF SERVICE: 08/04/2019 SUBJECTIVE: He looks comfortable. He had no acute complaints. He is still coughing blood through his tracheostomy site. OBJECTIVE: VITAL SIGNS: Temperature is 98.8, pulse 87, blood pressure 138/70, O2 saturation 93% on trach collar. HEENT: Unremarkable. NECK: No adenopathy or JVD. Trach is in good position. Bloody secretions present. CARDIAC: S1, S2. Tachycardic. LUNGS: Clear. ABDOMEN: Soft. EXTREMITIES: He has a right above the knee amputation. LABORATORY DATA: No new labs were done today. ASSESSMENT: 1. Pneumonia, likely aspiration mediated. 2. Tracheostomy. 3. Retained secretions. 4. Respiratory muscle fatigue. 5. HIV positive. PLAN: Continue suctioning as needed. He is continuing antibiotics and steroids. Prognosis remains very poor. Job ID: [id number]
--- NOTE | 2019-08-04 12:37 | PDOC.HOSPP ---
- Subjective Encounter Date: 08/04/19 Encounter Time: 11:25 Subjective: On ventimasl via tracheostomy.. - Objective Vital Signs & Weight: Vital Signs (12 hours) Temp Pulse Resp Pulse Ox 08/04/19 10:47 120 H 25 H 95 08/04/19 07:52 91 L 08/04/19 07:25 84 39 H 92 L 08/04/19 07:12 98.8 F 08/04/19 03:17 98.3 F 08/04/19 02:24 98 32 H 97 Weight Admit Weight 126 lb 12.8 oz Weight 140 lb Most Recent Monitor Data Heart Rate from ECG 87 NIBP 138/70 NIBP BP-Mean 92 Respiration from ECG 28 SpO2 93 I&O: 08/03/19 08/04/19 08/05/19 06:59 06:59 05:59 Intake Total 2490 1845 30 Output Total 1050 1000 Balance 1440 845 30 Result Diagrams: 08/03/19 05:18 08/03/19 05:18 Hospitalist ROS - Medication Medications: Active Medications Generic Name Dose Route Start Last Admin Trade Name Freq PRN Reason Stop Dose Admin Acetaminophen 650 mg 07/28/19 17:11 08/02/19 23:37 Tylenol PER TUBE 650 mg Q4H PRN Administration Headache/Fever/Mild Pain (1-3) Hydrocodone Bitart/Acetaminophen 1 tab 07/28/19 17:11 08/04/19 05:27 [place] 5/325 PER TUBE 1 tab Q4H PRN Administration Moderate Pain (4-6) Albuterol/Ipratropium 3 ml 07/29/19 18:30 08/04/19 10:47 Duoneb NEB 3 ml [id number] ARCHIE Administration Atropine Sulfate 4 drop 08/02/19 13:00 08/03/19 09:14 Atropine 1% Ophth Soln PO 4 drop Q6H PRN Administration SECRETION Clonazepam 0.5 mg 07/29/19 09:00 08/04/19 07:47 Klonopin PO 0.5 mg BID ARCHIE Administration Glycopyrrolate 1 mg 08/01/19 21:00 08/04/19 07:47 Robinul PO 1 mg BID ARCHIE Administration Cefepime HCl 2 gm/ Sodium 100 mls @ 200 mls/hr 07/29/19 21:00 08/04/19 07:47 Chloride IVPB 100 mls Q12HR ARCHIE Administration Potassium Chloride/Sodium Chloride 1,000 mls @ 75 mls/hr 07/31/19 07:45 08/03 21:49 1/2 Ns W/Kcl 20 Meq IV 1,000 mls .[id number] ARCHIE Administration Vancomycin HCl 750 mg/ Sodium 250 mls @ 250 mls/hr 08/04/19 03:00 08/04/19 02 :15 Chloride IVPB 250 mls 0300,1500 ARCHIE Administration Loratadine 10 mg 07/28/19 17:11 08/02/19 21:10 Claritin PER TUBE 10 mg DAILYPRN PRN Administration Sinus Symptoms Methylprednisolone Sodium Succinate 20 mg 07/28/19 22:00 08/04/19 05:29 Solu-Medrol IVP 20 mg Q8HR ARCHIE Administration Morphine Sulfate 4 mg 07/30/19 09:43 08/04/19 11:35 Morphine SLOW IVP 4 mg Q1H PRN Administration Moderate Pain (4-6) Pantoprazole Sodium 40 mg 08/03/19 09:00 08/04/19 07:46 Protonix IVP 40 mg DAILY ARCHIE Administration Elviteg/Cob/Emtri/ 1 each 07/29/19 08:00 08/04/19 09:42 Tenofo Disop [ PER TUBE 1 each Stribild] 1 Tab QAM-WM ARCHIE Administration Saccharomyces Boulardii 250 mg 07/29/19 09:00 08/04/19 07:46 Florastor PER TUBE 250 mg DAILY ARCHIE Administration Scopolamine 1.5 mg 08/01/19 16:00 08/01/19 16:46 Transderm Scop TD Not Given Q3D ARCHIE Senna/Docusate Sodium 2 tab 07/28/19 17:11 08/02/19 21:10 Senokot S PER TUBE 2 tab BID PRN Administration Constipation Sodium Chloride 10 ml 07/30/19 21:00 08/04/19 09:42 Flush - Normal Saline IVF 10 ml Q12HR ARCHIE Administration Zolpidem Tartrate 5 mg 07/28/19 17:11 08/02/19 21:12 Ambien PER TUBE 5 mg HSPRN PRN Administration Insomnia - Exam General Appearance: ill appearing Neck: no JVD Heart: RRR Respiratory: rales Gastrointestinal: soft Extremities - other findings: s/p right AKA, left BKA.. Neurological: no focal deficits Hosp A/P (1) HIV (human immunodeficiency virus infection) Code(s): B20 - HUMAN IMMUNODEFICIENCY VIRUS [HIV] DISEASE Status: Acute (2) Pneumonia Code(s): J18.9 - PNEUMONIA, UNSPECIFIED ORGANISM Status: Acute Qualifiers: Pneumonia type: aspiration pneumonia Laterality: bilateral Lung location : unspecified part of lung (3) UTI (urinary tract infection), bacterial Code(s): N39.0 - URINARY TRACT INFECTION, SITE NOT SPECIFIED; A49.9 - BACTERIAL INFECTION, UNSPECIFIED Status: Acute (4) Acute and chronic respiratory failure with hypoxia Code(s): J96.21 - ACUTE AND CHRONIC RESPIRATORY FAILURE WITH HYPOXIA Status: Acute - Plan Patient was seen by palliative care.. Continue supportive therapy.. F/u with pulmonary
[2019-08-04] MEDS: 1/2 NS w/KCL 20 mEq 1,000 ML IV SCH (14:10)
[2019-08-04] MEDS: Scopolamine 1.5 mg/72 hour Patch TD SCH (14:11)
[2019-08-05] MEDS: Morphine 4 MG/ML VIAL SLOW IVP PRN ×7 (00:22→20:19)
[2019-08-05] MEDS: 1/2 NS w/KCL 20 mEq 1,000 ML IV SCH ×2 (02:06→09:23)
[2019-08-05] MEDS: Vancomycin HCl 750 MG in Sodium Chloride 0.9% 250 ML 250 ML IVPB SCH ×2 (02:10→14:27)
[2019-08-05] MEDS: methylPREDNISolone Sod Succ 40 MG VIAL IVP SCH ×3 (05:13→22:35)
[2019-08-05] MEDS: Elviteg/Cob/Emtri/Tenofo Disop [Stribild] 1 TAB PER TUBE SCH (09:23)
[2019-08-05] MEDS: clonazePAM 0.5 MG TAB PO SCH ×2 (09:24→22:34)
[2019-08-05] MEDS: Cefepime 2 GM in Sodium Chloride 0.9% 100 ML IVPB SCH ×2 (09:24→22:34)
[2019-08-05] MEDS: Glycopyrrolate 1 MG TAB PO SCH ×2 (09:25→22:34)
[2019-08-05] MEDS: Saccharomyces boulardii 250 MG CAP PER TUBE SCH (09:26)
[2019-08-05] MEDS: Pantoprazole 40 MG VIAL IVP SCH (09:26)
--- NOTE | 2019-08-05 10:22 | PRG ---
DATE OF SERVICE: 08/05/2019 SUBJECTIVE: The patient continues to have bloody tracheal secretions. He has difficult time communicating secondary to his tracheostomy. OBJECTIVE: VITAL SIGNS: Temperature is 98.4, pulse 95, blood pressure 134/67, O2 saturation 92%. HEENT: Unremarkable. NECK: Trach in good position. Bloody secretions present. LUNGS: Coarse rhonchi. CARDIAC: S1, S2. Regular. ABDOMEN: Soft. EXTREMITIES: No edema. ASSESSMENT: 1. Status post tracheostomy for respiratory failure. 2. Human immunodeficiency virus. 3. Aspiration pneumonia. 4. Respiratory muscle fatigue. PLAN: 1. Continue antibiotics and steroids. 2. Continue tracheal suctioning. 3. At some point, placement will have to be considered, but I think his medical needs continue to necessitate hospitalization. Job ID: [id number]
--- NOTE | 2019-08-05 10:38 | PDOC.HOSPP ---
- Subjective Encounter Date: 08/05/19 Encounter Time: 10:00 Subjective: No acute change.. - Objective Vital Signs & Weight: Vital Signs (12 hours) Temp Pulse Resp Pulse Ox 08/05/19 08:00 91 L 08/05/19 07:22 83 42 H 92 L 08/05/19 07:00 98.4 F 08/05/19 03:00 98.3 F 08/05/19 01:52 MEASUREMENT ADVISOR 115 H 20 08/05/19 00:00 98.0 F Weight Admit Weight 126 lb 12.8 oz Weight 140 lb Most Recent Monitor Data Heart Rate from ECG 95 NIBP 134/67 NIBP BP-Mean 89 Respiration from ECG 43 SpO2 92 I&O: 08/04/19 08/05/19 08/06/19 07:59 06:59 06:59 Intake Total Output Total Balance Result Diagrams: 08/03/19 05:18 08/03/19 05:18 Hospitalist ROS - Medication Medications: Active Medications Generic Name Dose Route Start Last Admin Trade Name Freq PRN Reason Stop Dose Admin Acetaminophen 650 mg 07/28/19 17:11 08/02/19 23:37 Tylenol PER TUBE 650 mg Q4H PRN Administration Headache/Fever/Mild Pain (1-3) Hydrocodone Bitart/Acetaminophen 1 tab 07/28/19 17:11 08/04/19 14:11 [place] 5/325 PER TUBE 1 tab Q4H PRN Administration Moderate Pain (4-6) Albuterol/Ipratropium 3 ml 07/29/19 18:30 08/05/19 07:22 Duoneb NEB 3 ml [id number] ARCHIE Administration Atropine Sulfate 4 drop 08/02/19 13:00 08/03/19 09:14 Atropine 1% Ophth Soln PO 4 drop Q6H PRN Administration SECRETION Clonazepam 0.5 mg 07/29/19 09:00 08/05/19 09:24 Klonopin PO 0.5 mg BID ARCHIE Administration Glycopyrrolate 1 mg 08/01/19 21:00 08/05/19 09:25 Robinul PO 1 mg BID ARCHIE Administration Cefepime HCl 2 gm/ Sodium 100 mls @ 200 mls/hr 07/29/19 21:00 08/05/19 09:24 Chloride IVPB 100 mls Q12HR ARCHIE Administration Potassium Chloride/Sodium Chloride 1,000 mls @ 75 mls/hr 07/31/19 07:45 08/05 09:23 1/2 Ns W/Kcl 20 Meq IV 1,000 mls .[id number] ARCHIE Administration Vancomycin HCl 750 mg/ Sodium 250 mls @ 250 mls/hr 08/04/19 03:00 08/05/19 02 :10 Chloride IVPB 250 mls 0300,1500 ARCHIE Administration Loratadine 10 mg 07/28/19 17:11 08/02/19 21:10 Claritin PER TUBE 10 mg DAILYPRN PRN Administration Sinus Symptoms Methylprednisolone Sodium Succinate 20 mg 07/28/19 22:00 08/05/19 05:13 Solu-Medrol IVP 20 mg Q8HR ARCHIE Administration Morphine Sulfate 4 mg 07/30/19 09:43 08/05/19 09:23 Morphine SLOW IVP 4 mg Q1H PRN Administration Moderate Pain (4-6) Pantoprazole Sodium 40 mg 08/03/19 09:00 08/05/19 09:26 Protonix IVP 40 mg DAILY ARCHIE Administration Elviteg/Cob/Emtri/ 1 each 07/29/19 08:00 08/05/19 09:23 Tenofo Disop [ PER TUBE 1 each Stribild] 1 Tab QAM-WM ARCHIE Administration Saccharomyces Boulardii 250 mg 07/29/19 09:00 08/05/19 09:26 Florastor PER TUBE 250 mg DAILY ARCHIE Administration Scopolamine 1.5 mg 08/01/19 16:00 08/04/19 14:11 Transderm Scop TD 1.5 mg Q3D ARCHIE Administration Senna/Docusate Sodium 2 tab 07/28/19 17:11 08/02/19 21:10 Senokot S PER TUBE 2 tab BID PRN Administration Constipation Sodium Chloride 10 ml 07/30/19 21:00 08/05/19 09:26 Flush - Normal Saline IVF 10 ml Q12HR ARCHIE Administration Zolpidem Tartrate 5 mg 07/28/19 17:11 08/02/19 21:12 Ambien PER TUBE 5 mg HSPRN PRN Administration Insomnia - Exam General - other findings: On tracheostomy mask.. Neck: no JVD Heart: RRR Respiratory: rhonchi Gastrointestinal: soft Extremities - other findings: s/p right AKA 7 left BKA. Neurological: no focal deficits Hosp A/P (1) HIV (human immunodeficiency virus infection) Code(s): B20 - HUMAN IMMUNODEFICIENCY VIRUS [HIV] DISEASE Status: Acute (2) Pneumonia Code(s): J18.9 - PNEUMONIA, UNSPECIFIED ORGANISM Status: Acute Qualifiers: Pneumonia type: aspiration pneumonia Laterality: bilateral Lung location : unspecified part of lung (3) UTI (urinary tract infection), bacterial Code(s): N39.0 - URINARY TRACT INFECTION, SITE NOT SPECIFIED; A49.9 - BACTERIAL INFECTION, UNSPECIFIED Status: Acute (4) Acute and chronic respiratory failure with hypoxia Code(s): J96.21 - ACUTE AND CHRONIC RESPIRATORY FAILURE WITH HYPOXIA Status: Acute - Plan Patient was seen by palliative care.. Continue supportive therapy.. F/u with pulmonary. Continue current management..
[2019-08-05 14:37] LABS: Vancomycin, Trough 15.6 ug/mL
[2019-08-05] MEDS: Lorazepam 2 MG/ML VIAL SLOW IVP PRN ×2 (18:06→23:59)
[2019-08-06] MEDS: Morphine 4 MG/ML VIAL SLOW IVP PRN ×4 (01:40→20:26)
[2019-08-06] MEDS: HYDROcodone/Acetaminophen 5/325 mg Tablet PER TUBE PRN ×2 (03:58→20:24)
[2019-08-06] MEDS: Vancomycin HCl 750 MG in Sodium Chloride 0.9% 250 ML 250 ML IVPB SCH ×2 (03:59→15:44)
[2019-08-06] MEDS: Lorazepam 2 MG/ML VIAL SLOW IVP PRN (05:48)
[2019-08-06] MEDS: methylPREDNISolone Sod Succ 40 MG VIAL IVP SCH ×3 (05:49→22:48)
--- NOTE | 2019-08-06 09:27 | PDOC.HOSPP ---
- Subjective Encounter Date: 08/06/19 Encounter Time: 09:26 Subjective: minimal response to verbal stimuli - Objective Vital Signs & Weight: Vital Signs (12 hours) Temp Pulse Resp Pulse Ox 08/06/19 08:00 98 08/06/19 07:48 87 40 H 08/06/19 07:18 97.9 F 08/06/19 04:00 97.2 F L 08/06/19 02:13 126 H 31 H 96 08/06/19 00:00 98.2 F 08/05/19 22:11 130 H 44 H 95 Weight Admit Weight 126 lb 12.8 oz Weight 147 lb 8 oz Most Recent Monitor Data Heart Rate from ECG 94 NIBP 130/67 NIBP BP-Mean 88 Respiration from ECG 29 SpO2 96 I&O: 08/05/19 08/06/19 08/07/19 06:59 06:59 06:59 Intake Total 2230 30 Output Total 1650 Balance 580 30 Result Diagrams: 08/03/19 05:18 08/03/19 05:18 Hospitalist ROS - Medication Medications: Active Medications Generic Name Dose Route Start Last Admin Trade Name Freq PRN Reason Stop Dose Admin Acetaminophen 650 mg 07/28/19 17:11 08/02/19 23:37 Tylenol PER TUBE 650 mg Q4H PRN Administration Headache/Fever/Mild Pain (1-3) Hydrocodone Bitart/Acetaminophen 1 tab 07/28/19 17:11 08/06/19 03:58 [place] 5/325 PER TUBE 1 tab Q4H PRN Administration Moderate Pain (4-6) Albuterol/Ipratropium 3 ml 07/29/19 18:30 08/06/19 07:48 Duoneb NEB 3 ml [id number] ARCHIE Administration Atropine Sulfate 4 drop 08/02/19 13:00 08/03/19 09:14 Atropine 1% Ophth Soln PO 4 drop Q6H PRN Administration SECRETION Clonazepam 0.5 mg 07/29/19 09:00 08/05/19 22:34 Klonopin PO 0.5 mg BID ARCHIE Administration Glycopyrrolate 1 mg 08/01/19 21:00 08/05/19 22:34 Robinul PO 1 mg BID ARCHIE Administration Cefepime HCl 2 gm/ Sodium 100 mls @ 200 mls/hr 07/29/19 21:00 08/05/19 22:34 Chloride IVPB 100 mls Q12HR ARCHIE Administration Potassium Chloride/Sodium Chloride 1,000 mls @ 75 mls/hr 07/31/19 07:45 08/05 09:23 1/2 Ns W/Kcl 20 Meq IV 1,000 mls .[id number] ARCHIE Administration Vancomycin HCl 750 mg/ Sodium 250 mls @ 250 mls/hr 08/04/19 03:00 08/06/19 03 :59 Chloride IVPB 250 mls 0300,1500 ARCHIE Administration Loratadine 10 mg 07/28/19 17:11 08/02/19 21:10 Claritin PER TUBE 10 mg DAILYPRN PRN Administration Sinus Symptoms Lorazepam 0.5 mg 08/05/19 17:55 08/06/19 05:48 Ativan SLOW IVP 0.5 mg Q6H PRN Administration Agitation Methylprednisolone Sodium Succinate 20 mg 07/28/19 22:00 08/06/19 05:49 Solu-Medrol IVP 20 mg Q8HR ARCHIE Administration Morphine Sulfate 4 mg 07/30/19 09:43 08/06/19 01:40 Morphine SLOW IVP 4 mg Q1H PRN Administration Moderate Pain (4-6) Pantoprazole Sodium 40 mg 08/03/19 09:00 08/05/19 09:26 Protonix IVP 40 mg DAILY ARCHIE Administration Elviteg/Cob/Emtri/ 1 each 07/29/19 08:00 08/05/19 09:23 Tenofo Disop [ PER TUBE 1 each Stribild] 1 Tab QAM-WM ARCHIE Administration Saccharomyces Boulardii 250 mg 07/29/19 09:00 08/05/19 09:26 Florastor PER TUBE 250 mg DAILY ARCHIE Administration Scopolamine 1.5 mg 08/01/19 16:00 08/04/19 14:11 Transderm Scop TD 1.5 mg Q3D ARCHIE Administration Senna/Docusate Sodium 2 tab 07/28/19 17:11 08/02/19 21:10 Senokot S PER TUBE 2 tab BID PRN Administration Constipation Sodium Chloride 10 ml 07/30/19 21:00 08/05/19 22:34 Flush - Normal Saline IVF 10 ml Q12HR ARCHIE Administration Zolpidem Tartrate 5 mg 07/28/19 17:11 08/02/19 21:12 Ambien PER TUBE 5 mg HSPRN PRN Administration Insomnia - Exam ENT - other findings: tracheostomy, bloody secretions Heart: RRR Respiratory - other findings: coarse BS, diffuse rhonchi Gastrointestinal: soft, normal bowel sounds Extremities - other findings: bilat LE amputee Hosp A/P (1) UTI (urinary tract infection), bacterial Code(s): N39.0 - URINARY TRACT INFECTION, SITE NOT SPECIFIED; A49.9 - BACTERIAL INFECTION, UNSPECIFIED Status: Acute (2) Pneumonia Code(s): J18.9 - PNEUMONIA, UNSPECIFIED ORGANISM Status: Acute Qualifiers: Pneumonia type: aspiration pneumonia Laterality: bilateral Lung location : unspecified part of lung (3) Sepsis Code(s): A41.9 - SEPSIS, UNSPECIFIED ORGANISM Status: Acute Qualifiers: Sepsis type: sepsis due to unspecified organism Severe sepsis acute organ dysfunction type: acute respiratory failure Acute respiratory failure type: with hypoxia Severe sepsis shock status: without septic shock Qualified Code (s): A41.9 - Sepsis, unspecified organism (4) HIV (human immunodeficiency virus infection) Code(s): B20 - HUMAN IMMUNODEFICIENCY VIRUS [HIV] DISEASE Status: Chronic Qualifiers: HIV symptom status: unspecified Qualified Code(s): B20 - Human immunodeficiency virus [HIV] disease - Plan cont iv antibx cont O2 support, nebs, poor prognosis rpt cxr discuss with pulmonology
[2019-08-06] MEDS: 1/2 NS w/KCL 20 mEq 1,000 ML IV SCH ×3 (09:41→22:50)
[2019-08-06] MEDS: Pantoprazole 40 MG VIAL IVP SCH (09:41)
[2019-08-06] MEDS: Cefepime 2 GM in Sodium Chloride 0.9% 100 ML IVPB SCH (09:42)
[2019-08-06] MEDS: Elviteg/Cob/Emtri/Tenofo Disop [Stribild] 1 TAB PER TUBE SCH (09:42)
[2019-08-06] MEDS: clonazePAM 0.5 MG TAB PO SCH ×2 (09:43→20:24)
[2019-08-06] MEDS: Saccharomyces boulardii 250 MG CAP PER TUBE SCH (09:43)
[2019-08-06] MEDS: Glycopyrrolate 1 MG TAB PO SCH ×2 (09:43→20:24)
[2019-08-06 12:32] VITALS: BMI 25.3
--- NOTE | 2019-08-06 14:25 | PDOC.PALFU ---
Palliative Care Follow-up Note Spoke with patient. He is able to nod head in response to yes, and shake for no. I presented clinical picture again for patient and revisited his previous care with hospice. He confirmed he knows he is gravely ill. He confirmed no resuscitation measures but does not desire to seek inpatient hospice at this time, and to continue medical measures. Patient aware that placement will need to occur that he will not be able to initially return to his independent living that he had for two weeks prior to his admission. Palliative care will continue to support patient and discuss disease trajectory and outcomes. We will ensure spiritual care is involved. 60 minutes was spend in the discussion and coordination of patient care with greater that 50% of the time with the patient.
--- NOTE | 2019-08-06 16:02 | PRG ---
DATE OF SERVICE: 08/06/2019 SUBJECTIVE: Mr. Cobian pulled his tracheostomy tube out. It was replaced by Respiratory Therapy. He is still having hemoptysis and significant secretions. He is still on cefepime. He is tachypneic. I did not expect him to survive the weekend. OBJECTIVE: CHEST: He has rhonchi. HEART: Regular rhythm. ABDOMEN: Soft. EXTREMITIES: Remarkable for his amputation. Apparently, he was started on vancomycin over the weekend. There are no blood cultures indicative of a Staph aureus infection or an MRSA infection. LABORATORY DATA: He had no lab done since the . IMPRESSION: 1. Pneumonia. 2. Aspiration. 3. Status post tracheostomy. 4. Status post PEG. 5. Human immunodeficiency virus positive, infections not felt to be human immunodeficiency virus related. He is not improving, and I believe that hospice would be again appropriate, but unclear whether or not he will want to go through hospice. We will continue to follow. I believe he has had an adequate course of IV antibiotics, so he will be switched to enteral antibiotics. Job ID: [id number]
[2019-08-06] MEDS: Zolpidem Tartrate 5 MG TAB PER TUBE PRN (20:24)
[2019-08-06] MEDS: Amoxicillin/Potassium Clav 875 MG TAB PO SCH (20:24)
[2019-08-06] MEDS: Loratadine 10 MG TAB PER TUBE PRN (20:24)
[2019-08-06] MEDS: Atropine Sulfate 1% Ophth Soln 5 ml Bottle PO PRN (20:25)
[2019-08-07] MEDS: methylPREDNISolone Sod Succ 40 MG VIAL IVP SCH (06:14)
[2019-08-07] MEDS: Morphine 4 MG/ML VIAL SLOW IVP PRN ×5 (06:15→16:40)
--- NOTE | 2019-08-07 08:29 | PDOC.HOSPP ---
- Subjective Encounter Date: 08/07/19 Encounter Time: 08:28 Subjective: awake, expresses no distress - Objective Vital Signs & Weight: Vital Signs (12 hours) Temp Pulse Resp Pulse Ox 08/07/19 07:46 98.3 F 08/07/19 07:37 98 08/07/19 07:34 98 29 H 98 08/07/19 07:30 100 08/07/19 03:20 98.2 F 08/07/19 02:16 111 H 35 H 96 08/06/19 23:26 97.2 F L 08/06/19 22:17 92 24 H 100 Weight Admit Weight 126 lb 12.8 oz Weight 146 lb 11.2 oz Most Recent Monitor Data Heart Rate from ECG 106 NIBP 144/89 NIBP BP-Mean 107 Respiration from ECG 32 SpO2 97 I&O: 08/06/19 08/07/19 08/08/19 06:59 06:59 06:59 Intake Total 2230 3882 Output Total 1650 2100 Balance 580 1782 Result Diagrams: 08/03/19 05:18 08/03/19 05:18 Hospitalist ROS - Medication Medications: Active Medications Generic Name Dose Route Start Last Admin Trade Name Freq PRN Reason Stop Dose Admin Acetaminophen 650 mg 07/28/19 17:11 08/02/19 23:37 Tylenol PER TUBE 650 mg Q4H PRN Administration Headache/Fever/Mild Pain (1-3) Hydrocodone Bitart/Acetaminophen 1 tab 07/28/19 17:11 08/06/19 20:24 [place] 5/325 PER TUBE 1 tab Q4H PRN Administration Moderate Pain (4-6) Albuterol/Ipratropium 3 ml 07/29/19 18:30 08/07/19 07:34 Duoneb NEB 3 ml [id number] ARCHIE Administration Amoxicillin/Clavulanate Potassium 875 mg 08/06/19 21:00 08/06/19 20:24 Augmentin PO 875 mg Q12HR ARCHIE Administration Atropine Sulfate 4 drop 08/02/19 13:00 08/06/19 20:25 Atropine 1% Ophth Soln PO 4 drop Q6H PRN Administration SECRETION Clonazepam 0.5 mg 07/29/19 09:00 08/06/19 20:24 Klonopin PO 0.5 mg BID ARCHIE Administration Glycopyrrolate 1 mg 08/01/19 21:00 08/06/19 20:24 Robinul PO 1 mg BID ARCHIE Administration Potassium Chloride/Sodium Chloride 1,000 mls @ 75 mls/hr 07/31/19 07:45 08/06 22:50 1/2 Ns W/Kcl 20 Meq IV 1,000 mls .[id number] ARCHIE Administration Loratadine 10 mg 07/28/19 17:11 08/06/19 20:24 Claritin PER TUBE 10 mg DAILYPRN PRN Administration Sinus Symptoms Lorazepam 0.5 mg 08/05/19 17:55 08/06/19 05:48 Ativan SLOW IVP 0.5 mg Q6H PRN Administration Agitation Methylprednisolone Sodium Succinate 20 mg 07/28/19 22:00 08/07/19 06:14 Solu-Medrol IVP 20 mg Q8HR ARCHIE Administration Morphine Sulfate 4 mg 07/30/19 09:43 08/07/19 06:15 Morphine SLOW IVP 4 mg Q1H PRN Administration Moderate Pain (4-6) Pantoprazole Sodium 40 mg 08/03/19 09:00 08/06/19 09:41 Protonix IVP 40 mg DAILY ARCHIE Administration Elviteg/Cob/Emtri/ 1 each 07/29/19 08:00 08/06/19 09:42 Tenofo Disop [ PER TUBE 1 each Stribild] 1 Tab QAM-WM ARCHIE Administration Saccharomyces Boulardii 250 mg 07/29/19 09:00 08/06/19 09:43 Florastor PER TUBE 250 mg DAILY ARCHIE Administration Scopolamine 1.5 mg 08/01/19 16:00 08/04/19 14:11 Transderm Scop TD 1.5 mg Q3D ARCHIE Administration Senna/Docusate Sodium 2 tab 07/28/19 17:11 08/02/19 21:10 Senokot S PER TUBE 2 tab BID PRN Administration Constipation Sodium Chloride 10 ml 07/30/19 21:00 08/06/19 20:26 Flush - Normal Saline IVF 10 ml Q12HR ARCHIE Administration Zolpidem Tartrate 5 mg 07/28/19 17:11 08/06/19 20:24 Ambien PER TUBE 5 mg HSPRN PRN Administration Insomnia - Exam General Appearance: NAD ENT - other findings: trach with bloody drainage Neck: no JVD Heart: RRR, no murmur Respiratory - other findings: coarse BS with rhonchi Gastrointestinal: soft, normal bowel sounds Extremities: no edema Hosp A/P (1) UTI (urinary tract infection), bacterial Code(s): N39.0 - URINARY TRACT INFECTION, SITE NOT SPECIFIED; A49.9 - BACTERIAL INFECTION, UNSPECIFIED Status: Acute (2) Pneumonia Code(s): J18.9 - PNEUMONIA, UNSPECIFIED ORGANISM Status: Acute Qualifiers: Pneumonia type: aspiration pneumonia Laterality: bilateral Lung location : unspecified part of lung (3) Sepsis Code(s): A41.9 - SEPSIS, UNSPECIFIED ORGANISM Status: Acute Qualifiers: Sepsis type: sepsis due to unspecified organism Severe sepsis acute organ dysfunction type: acute respiratory failure Acute respiratory failure type: with hypoxia Severe sepsis shock status: without septic shock Qualified Code (s): A41.9 - Sepsis, unspecified organism (4) HIV (human immunodeficiency virus infection) Code(s): B20 - HUMAN IMMUNODEFICIENCY VIRUS [HIV] DISEASE Status: Chronic Qualifiers: HIV symptom status: unspecified Qualified Code(s): B20 - Human immunodeficiency virus [HIV] disease - Plan CXR,CBC, CMP- reevaluate
--- NOTE | 2019-08-07 09:32 | RAD ---
CHEST ONE VIEW: HISTORY: Pneumonia. COMPARISON: Radiograph from 07/28/2019. FINDINGS: Worsening parenchymal opacities throughout the lungs and enlarging bilateral pleural effusions. Port catheter tip in similar position. Tracheostomy tube is similar. IMPRESSION: Worsening pneumonia and progressive enlargement of the bilateral effusions, large on the right and mo derate on the left. POS: TPC
[2019-08-07] MEDS: Pantoprazole 40 MG VIAL IVP SCH (09:38)
[2019-08-07] MEDS: Glycopyrrolate 1 MG TAB PO SCH (09:38)
[2019-08-07] MEDS: clonazePAM 0.5 MG TAB PO SCH (09:38)
[2019-08-07] MEDS: Elviteg/Cob/Emtri/Tenofo Disop [Stribild] 1 TAB PER TUBE SCH (09:39)
[2019-08-07] MEDS: Amoxicillin/Potassium Clav 875 MG TAB PO SCH (09:39)
[2019-08-07] MEDS: Saccharomyces boulardii 250 MG CAP PER TUBE SCH (09:39)
[2019-08-07] MEDS: Clopidogrel Bisulfate 75 MG TAB ONE ×2 (09:40→09:41)
[2019-08-07 10:30] LABS: Hemoglobin 9.5 g/dL (14.0-18.0); Mean Corpuscular HGB CONC 31.9 g/dL (32.0-36.0); Mean Corpuscular Hemoglobin 31.3 pg (27.0-31.0); RBC Distribution Width 15.6 % (11.5-14.5); Red Blood Cell (RBC) Count 3.05 mill/uL (4.70-6.10); White Blood Cell (WBC) Count 6.8 thou/uL (4.8-10.8)
[2019-08-07 10:40] LABS: Band 10 % (5-11); Lymphocytes 4 % (21-51); MDiff Complete? YES; Neutrophil 86 % (42-75); Platelet Count 39 thou/uL (130-400); Platelet Morphology Comment Appears Decreased; Toxic Granulation SLIGHT
[2019-08-07 10:47] LABS: ALT (SGPT) 39 U/L (8-55); AST (SGOT) 29 U/L (5-34); Albumin 1.8 g/dL (3.4-4.8); Alkaline Phosphatase 91 U/L (40-110); Anion Gap 12 mmol/L (10-20); BUN (Urea Nitrogen) 20 mg/dL (8.4-25.7); Bilirubin, Total 0.6 mg/dL (0.2-1.2); Calc. Creatinine Clearance 122 mL/min (70-130); Calcium 7.9 mg/dL (7.8-10.44); Carbon Dioxide 31 mmol/L (23-31); Chloride 102 mmol/L (98-107); Estimated GFR-MDRD Greater than 90; Glucose 188 mg/dL (80-115); Potassium 3.8 mmol/L (3.5-5.1); Protein, Total 4.8 g/dL (5.8-8.1); Sodium 141 mmol/L (136-145)
[2019-08-07] MEDS: Lorazepam 2 MG/ML VIAL SLOW IVP PRN (12:58)
[2019-08-07] MEDS ORDERED: Lorazepam 2 MG/ML VIAL SLOW IVP PRN (14:41)
[2019-08-07 16:03] VITALS: TEMP 98.1
[2019-08-07] MEDS: 1/2 NS w/KCL 20 mEq 1,000 ML IV SCH (16:39)
[2019-08-07] MEDS: Scopolamine 1.5 mg/72 hour Patch TD SCH (16:40)
--- NOTE | 2019-08-07 19:16 | PRG ---
DATE OF SERVICE: 08/07/2019 Yrn Cobian today was asking the nurse to just do something to get him comfortable. He has been absolutely miserable. I believe he is approaching the end of his life. He is not wanting at the time I saw him today to go home with hospice, but he does want morphine and lorazepam to keep him comfortable, so he can sleep more. When he is awake, he is just miserable with secretions. I have adjusted his morphine and Ativan dosing for comfort. He remains a do not resuscitate patient. Job ID: [id number]
--- NOTE | 2019-08-08 07:17 | DIS ---
DATE OF ADMISSION: 07/28/2019 DATE OF DISCHARGE: 08/07/2019 PRIMARY CARE PROVIDER: Kathia Turk MD. DISCHARGE DISPOSITION: Discharged to inpatient hospice at [facility]. DIAGNOSES: Pneumonia, urinary tract infection, sepsis, human immunodeficiency virus, tracheostomy, chronic anemia, left [id number] amputation, right [id number] amputation, pancytopenia. DISCHARGE MEDICINES: Per Hospitalist Service, which are susceptible to change per Hospice. 1. Stribild one tablet per tube daily. 2. Levsin SL 0.125 mg per tube q.4h p.r.n. 3. Transderm-Scop 3 mg transdermal q.3 days. 4. Klonopin 0.5 mg per tube b.i.d. 5. Prednisone 20 mg per tube daily. 6. Ambien 5 mg per tube daily. 7. Florastor 250 mg per tube daily. 8. DuoNeb 3 mL q.4 hours nebulizer. 9. Hydrocodone 5/325 one per tube q.4 hours p.r.n. 10. Ropinirole 1 mg per tube b.i.d. 11. Augmentin 875 one per tube q.12 hours. ALLERGIES: NO KNOWN DRUG ALLERGIES. CODE STATUS: DNR, on hospice. PENDING AT TIME OF DISCHARGE: Nothing. DIET: Tube feedings. [facility]RSE: [facility] with acute sepsis, pneumonia, history of HIV. The patient's initial blood pressure 90/59, pulse 130, respiratory rate 35, temperature 102.3. Chest x-ray revealed right-sided pneumonia, small opacity on the left. White cell count was 6.6, hemoglobin 11.6, platelets 92. There was a positive bandemia. Lactic acid was 2.8. Admitting diagnosis was sepsis with hypotension, multifocal pneumonia, tracheostomy, PEG tube, lactic acidosis, thrombocytopenia, bilateral lower extremity amputee status, as mentioned before HIV. The patient was started on vancomycin and Zosyn, moved IM, received IV fluids. A consultation was obtained with Dr. Mark Hamilton. The patient was treated with IV antibiotics. He was seen by Palliative Care, Paurl Schuster. The patient has really failed to improve during his hospital stay. He has right-sided pneumonia. It has not receded. His chemistries are still unremarkable. His white count is 6.8, hemoglobin 9.5, platelet count 86,000. Cultures revealed urine culture with E coli and Proteus mirabilis, which were covered by IV antibiotics. He has been watched carefully in the hospital. He has not improved. Decision has been made in consultation with him and family to go to [facility] on inpatient hospice. No procedures were done. At the time of discharge, he is awake and answers questions with nods of the head. Blood pressure 150/79, pulse 90, respiratory rate 20 to 30, O2 saturation 96. Followup will be with Hospice at [facility]. Job ID: [id number]
[2019-08-08] MEDS ORDERED: predniSONE 20 MG TAB PO SCH (08:00)
--- NOTE | 2019-08-08 22:06 | PQF ---
Yrn JACOBSEN COUNCIL C MD [id number] CLINICAL DOCUMENTATION CLARIFICATION FORM: POST DISCHARGE Addendum to original discharge summary date: ____ Late entry note date: __ DATE: 08/08/19 ATTN: Hal Haley Please exercise your independent, professional judgment in responding to the clarification form. Clinical indicators are provided on the bottom of this form for your review Please check appropriate box(s): [ ] Aspiration Pneumonia [ ] Lobar Pneumonia [ ] Pneumonia secondary to (specify organism / underlying disease) [ ] Simple Pneumonia (community acquired - nosocomial) [ ] Pneumonia of unknown etiology [ ] Other diagnosis _aspiration pneumonia in immune compromised patient _ [ ] Unable to determine In addition, please specify: Present on Admission (POA): [ ] Yes [ ] No [ ] Unable to determine For continuity of documentation, please document condition throughout progress notes and discharge summary. Thank You. CLINICAL INDICATORS - SIGNS / SYMPTOMS / LABS Chest X-ray 07/28 Findings: There is large opacity in the Right lower lobe and smaller opacity in left upper and lower lungs H&P p1 07/28 Dr Sauceda the patient was experiencing increasing shortenss of breath and the patient expressed his wish to go to hospital H&P p3 07/28 Dr Sauceda Multifocal Pneumonia in immunocompromised patient with lactic acidosis Consult p2 07/29 Dr Joy Pratt most likely aspiration mediated. RISK FACTORS H&P p1 07/28 64 year-old [place] Male H&P p1 07/28 Underlying HIV H&P p3 07/28 Sepsis with Acute Organ Dysfunction H&P p3 07/28 Tracheostomy Status H&P p3 07/28 PEG TREATMENTS: H&P p2 07/28 On 4L oxygen DEC 10 IV Vancomycin DEC 10 IV Zosyn Supervisor Offset Plate Preparation Consult 07/29 Dr Mark Hamilton Consult p2 07/29 Dr Hamilton He needs aspiration coverage (This form is maintained as a part of the permanent medical record) 2014 [employer]. All Rights Reserved [email or web address] [not provided] MTDD
--- NOTE | 2019-08-08 22:07 | PQF ---
Yrn JACOBSEN COUNCIL C MD [id number] CLINICAL DOCUMENTATION CLARIFICATION FORM: POST DISCHARGE Addendum to original discharge summary date: ____ Late entry note date: __ DATE: 08/08/19 ATTN: Hal Gautam Please exercise your independent, professional judgment in responding to the clarification form. Clinical indicators are provided on the bottom of this form for your review Please check appropriate box(s): [ x ] AIDS /HIV Disease Please specify associated HIV Disease condition(s) if appropriate: [ ] Sepsis [ ] Pneumonia (please specify type) [ ] Asymptomatic HIV infection status [ ] Non-specific serologic evidence of HIV [ ] Other diagnosis [ ] Unable to determine In addition, please specify: Present on Admission (POA): [ x] Yes [ ] No [ ] Unable to determine For continuity of documentation, please document condition throughout progress notes and discharge summary. Thank You. CLINICAL INDICATORS - SIGNS / SYMPTOMS / LABS Chest X-ray 07/28 Findings: There is large opacity in the Right lower lobe and smaller opacity in left upper and lower lungs H&P p3 07/28 Dr Sauceda Multifocal Pneumonia in immunocompromised patient with lactic acidosis H&P p3 07/28 Dr Sauceda Thrombocytopenia anemia likely due to underlying human immunodeficiency Virus and sepsis RISK FACTORS H&P p1 07/28 64 year-old [place] Male H&P p1 07/28 Underlying HIV H&P p3 07/28 Sepsis with Acute Organ Dysfunction H&P p3 07/28 Tracheostomy Status H&P p3 07/28 PEG TREATMENTS: H&P p2 07/28 HIV medicine, Stribild one tablet daily H&P p2 07/28 On 4L oxygen DEC 10 IV Vancomycin DEC 10 IV Zosyn (This form is maintained as a part of the permanent medical record) 2014 [employer]. All Rights Reserved [email or web address] [not provided] MTDD
== END 2019-08-07 17:28 | disposition hospice, inpatient (51) | DRG 974 ==
LOC: ERS 12:48 → IMCU/EMU 14:22
PROVIDERS: ADMIT Family Medicine; ATTEND Family Medicine
DX: A41.9 Sepsis, unspecified organism (principal); J96.21 Acute and chronic respiratory failure with hypoxia; B20 Human immunodeficiency virus [HIV] disease; J69.0 Pneumonitis due to inhalation of food and vomit; D61.818 Other pancytopenia; E87.2 Acidosis; N39.0 Urinary tract infection, site not specified; K94.23 Gastrostomy malfunction; Z66 Do not resuscitate; Z51.5 Encounter for palliative care; D64.9 Anemia, unspecified; R65.20 Severe sepsis without septic shock; F32.9 Major depressive disorder, single episode, unspecified; F41.9 Anxiety disorder, unspecified; K25.9 Gastric ulcer, unspecified as acute or chronic, without hemorrhage or perforation; B96.20 Unspecified Escherichia coli [E. coli] as the cause of diseases classified elsewhere; B96.4 Proteus (mirabilis) (morganii) as the cause of diseases classified elsewhere; Y83.3 Surgical operation with formation of external stoma as the cause of abnormal reaction of the patient, or of later complication, without mention of misadventure at the time of the procedure; Z89.512 Acquired absence of left leg below knee; Z89.611 Acquired absence of right leg above knee; Z78.1 Physical restraint status; Z85.118 Personal history of other malignant neoplasm of bronchus and lung; Z79.899 Other long term (current) drug therapy; Z93.0 Tracheostomy status; Z85.89 Personal history of malignant neoplasm of other organs and systems; Z99.3 Dependence on wheelchair
CPT/HCPCS: 36415; 71045; 74018; 80048; 80053; 80202; 81003; 81015; 83605; 83735; 84100; 85025; 87040; 87077; 87086; 87186; 87804; 93005; 94640; 94760; 96365; C9113; J0692; J2060; J2270; J2543; J2920; J3370; J3480; J3490; J7050; J7620; S0028

== ENCOUNTER 2019-08-07 17:33 | Inpatient (IN) | payer OTHER ==
[2019-08-07] MEDS ORDERED: Scopolamine 1.5 mg/72 hour Patch TOP PRN (17:46)
[2019-08-07] MEDS ORDERED: Atropine Sulfate 1% Ophth Soln 5 ml Bottle FS PRN (17:47)
[2019-08-07] MEDS ORDERED: Ondansetron ODT 4 MG TAB SL PRN (17:48)
[2019-08-07] MEDS ORDERED: Morphine 10 MG/0.5 ML ORAL SYRINGE PER TUBE PRN (17:50)
[2019-08-07] MEDS ORDERED: Docusate 100 MG CAP PER TUBE PRN (17:51)
[2019-08-07] MEDS: Morphine 10 MG/0.5 ML ORAL SYRINGE PER TUBE SCH ×3 (18:25→22:02)
[2019-08-07] MEDS: Amoxicillin/Potassium Clav 875 MG TAB PER TUBE SCH (21:29)
[2019-08-07] MEDS: Lorazepam 1 MG TAB PER TUBE SCH (21:29)
[2019-08-08] MEDS: Morphine 10 MG/0.5 ML ORAL SYRINGE PER TUBE SCH ×12 (00:05→23:49)
[2019-08-08] MEDS: Lorazepam 1 MG TAB PER TUBE SCH ×6 (01:38→20:49)
[2019-08-08] MEDS: Amoxicillin/Potassium Clav 875 MG TAB PER TUBE SCH ×2 (08:35→20:49)
[2019-08-09] MEDS: Lorazepam 1 MG TAB PER TUBE SCH ×5 (00:47→17:46)
[2019-08-09] MEDS: Morphine 10 MG/0.5 ML ORAL SYRINGE PER TUBE SCH ×10 (00:48→17:46)
[2019-08-09 03:35] VITALS: TEMP 98.7
[2019-08-09] MEDS: Amoxicillin/Potassium Clav 875 MG TAB PER TUBE SCH (08:30)
--- NOTE | 2019-08-09 11:17 | PDOC.PALFU ---
Palliative Care Follow-up Note Patient continue with decline. He is able to communicate with head shake yes or nod no. Visited with patient providing support. Discussed Hospice. Patient shook in agreement. Discussed comfort and that he would continue with [facility] and staff he is familiar with. Will suggest GIP secondary to fragile state and not stable today to transition to long-term.
--- NOTE | 2019-08-11 02:23 | PQF ---
Yrn JACOBSEN SALIM NOORJIBHAI MD [id number] CLINICAL DOCUMENTATION CLARIFICATION FORM: POST DISCHARGE Addendum to original discharge summary date: ____ Late entry note date: __ DATE:08/11/19 ATTN: Rishabh Blackman Please exercise your independent, professional judgment in responding to the clarification form. Clinical indicators are provided on the bottom of this form for your review Please check appropriate box(s): [ x] AIDS /HIV Disease Please specify associated HIV Disease condition(s) if appropriate: [ x ] Sepsis [ ] Kaposis sarcoma [ ] TB [ x ] Pneumonia (please specify type) _aspirtion [ ] Herpes [ ] Oral Thrush [ ] Wasting syndrome [ ] CMV [ ] Encephalopathy [ ] Meningitis [ ] Lymphoma [ x ] Malnutrition; severe [ ] Disseminated mycobacterial infection [ ] Asymptomatic HIV infection status [ ] Non-specific serologic evidence of HIV [ ] Other diagnosis [ ] Unable to determine In addition, please specify: Present on Admission (POA): [ x ] Yes [ ] No [ ] Unable to determine For continuity of documentation, please document condition throughout progress notes and discharge summary. Thank You. CLINICAL INDICATORS - SIGNS / SYMPTOMS / LABS H and P pg.1 - reason for admission: acute sepsis with pneumonia H and P pg.1- experiencing increasing shortness of breath H and P pg.2- Vital signs: BP 90/59, pulse 130, RR 35, Temp 102.3 H and P pg.3- sepsis with acute organ dysfunction , likely due to underlying pneumonia H and P pg.4- Human immunodeficiency virus. The patient will continue his antiviral therapy RISK FACTORS 64 years old HIV- H and P pg.1 history of respiratory failure with hypoxia with tracheobronchiolitis Pneumonia- H and P pg.1 Ex smoker- H and P pg2 TREATMENTS: IV Fluids- MAR IV antibiotics- MAR on 4L O2- H and P pg.4 antiviral therapy- H and P pg.2 (This form is maintained as a part of the permanent medical record) 2014 [employer]. All Rights Reserved Pedro [email or web address] [not provided] MTDD
--- NOTE | 2019-08-11 02:26 | PQF ---
[facility] [employer] Yrn Cheng SALIM NOORJIBHAI MD [id number] CLINICAL DOCUMENTATION CLARIFICATION FORM: POST DISCHARGE Addendum to original discharge summary date: ____ Late entry note date: __ DATE: 08/11/19 ATTN: Rishabh Blackman Please exercise your independent, professional judgment in responding to the clarification form. Clinical indicators are provided on the bottom of this form for your review Can you please further specify the specificity of Respiratory failure with hypoxia? Please check appropriate box(s): [ ] Acute Respiratory Failure: [ x ] Acute On Chronic Respiratory Failure [ ] Chronic Respiratory Failure only [ ] Hypoxia [ ] Other diagnosis [ ] Unable to determine In addition, please specify: Present on Admission (POA): [ x ] Yes [ ] No [ ] Unable to determine For continuity of documentation, please document condition throughout progress notes and discharge summary. Thank You. CLINICAL INDICATORS - SIGNS / SYMPTOMS / LABS H and P pg.1 - reason for admission: acute sepsis with pneumonia H ad P pg.1- experiencing increasing shortness of breath H and P pg.2- Vital signs: BP 90/59, pulse 130, RR 35, Temp 102.3 H and P pg.3- sepsis with acute organ dysfunction , likely due to underlying pneumonia H and P pg.4- Human immunodeficiency virus. The patient will continue his antiviral therapy RISK FACTORS 64 years old HIV- H and P pg.1 history of respiratory failure with hypoxia with a tracheobronchiolitis Pneumonia- H and P pg.1 Ex smoker- H and P pg2 TREATMENTS: IV Fluids- MAR IV antibiotics- MAR on 4L O2- H and P pg.4 antiviral therapy- H and P pg.2 (This form is maintained as a part of the permanent medical record) 2014 [employer]. All Rights Reserved [email or web address] [not provided] MTDD
== END 2019-08-09 19:22 | disposition expired | DRG 951 ==
LOC: IMCU/EMU 17:33
PROVIDERS: ADMIT Internal Medicine; ATTEND Internal Medicine
DX: Z51.5 Encounter for palliative care (principal); A41.9 Sepsis, unspecified organism; J96.20 Acute and chronic respiratory failure, unspecified whether with hypoxia or hypercapnia; J18.9 Pneumonia, unspecified organism; E43 Unspecified severe protein-calorie malnutrition; R65.20 Severe sepsis without septic shock; B20 Human immunodeficiency virus [HIV] disease; D61.818 Other pancytopenia; E87.2 Acidosis; F41.9 Anxiety disorder, unspecified; F32.9 Major depressive disorder, single episode, unspecified; Z87.891 Personal history of nicotine dependence; Z93.0 Tracheostomy status; Z89.611 Acquired absence of right leg above knee; Z79.899 Other long term (current) drug therapy; Z93.1 Gastrostomy status; Z74.01 Bed confinement status
CPT/HCPCS: J7620